=== PATIENT | female | born 1960 | race Two or more races ===

== ENCOUNTER 2020-06-17 08:05 | Outpatient (REF) | payer OTHER, SELFPAY ==
[2020-06-17 09:14] LABS: MANUAL DIFF FLAG NO
[2020-06-17 09:35] LABS: Basophils Percent Auto 0.6 % (0-2); Eosinophils Absolute Auto 0.1 X10*3/uL (0.0-0.4); Eosinophils Percent Auto 1.3 % (0-4); Hematocrit 44.7 % (37-47); Hemoglobin 13.9 g/dl (12.0-16.0); Imm Gran Abs Auto 0.02 X10*3/uL (0.00-0.03); Imm Gran Pct Auto 0.3 % (0.0-0.4); Lymphocytes Absolute Auto 2.3 X10*3/uL (1.2-4.9); Lymphocytes Percent Auto 36.4 % (20-40); Mean Corpuscular HGB Conc 31.1 g/dl (31.0-35.0); Mean Corpuscular Volume 90.1 fL (80-98); Mean Platelet Volume 11.3 fL (9.4-12.3); Monocytes Absolute Auto 0.5 X10*3/uL (0.1-1.2); Monocytes Percent Auto 7.3 % (2-11); Neutrophils Absolute Auto 3.4 X10*3/uL (2.0-8.3); Neutrophils Percent Auto 54.1 % (45-73); Platelet Count 204 X10*3/uL (160-400); Red Blood Count 4.96 X10*6/uL (4.20-5.50); White Blood Count 6.3 X10*3/uL (4.8-10.8)
[2020-06-17 10:05] LABS: Glucose Urine UA NEG (NEG); Leukocyte Esterase Urine 1+ (NEG); Nitrite Urine NEG (NEG); PH 5.5 (5.0-8.0); Specific Gravity - Urine >= 1.030 (1.005-1.025); Urine Blood NEG (NEG); Urine Ketones NEG (NEG); Urine Protein NEG (NEG-TRACE)
[2020-06-17 10:09] LABS: Appearance Urine CLEAR; Color Urine YELLOW
[2020-06-17 10:18] LABS: Creatinine Urine 184.61 mg/dL
[2020-06-17 10:29] LABS: Alanine Aminotransferase 46 U/L (0-31); Albumin Level 4.3 g/dL (3.5-5.0); Alkaline Phosphatase 134 U/L (39-117); Anion Gap 11 (12-20); Aspartate Amino Transferase 27 U/L (5-31); Bilirubin Total 0.4 mg/dL (0.0-1.0); Blood Urea Nitrogen 11 mg/dL (9-16); Carbon Dioxide 31 mmol/L (22-29); Chloride 104 mmol/L (96-108); Cholesterol 154 mg/dL; Estimated Glomerular Filt Rate > 60; Glucose Fasting 171 mg/dL (60-99); HDL Cholesterol 30 mg/dL; LDL Cholesterol Calculated 93 mg/dl; Potassium 4.4 mmol/l (3.3-5.1); Sodium 142 mmol/L (135-145); Total Protein 7.3 g/dL (6.5-8.0); Triglycerides 155 mg/dL
[2020-06-17 10:53] LABS: TSH reflex Free T4 4.28 mIU/mL (0.32-4.0); Vitamin D 25-OH Total 18.7 ng/mL (>30)
[2020-06-17 10:56] LABS: Folate 11.3 ng/mL (> or = 4.0); Vitamin B12 521 pg/mL (200-900)
[2020-06-17 10:58] LABS: Bacteria Urine 1+ /LPF; RBC Urine 0-2 /HPF (0); Squamous Epithelial Cell Urine 2+ /LPF
[2020-06-17 11:26] LABS: Free T4 (Free Thyroxine) 0.75 ng/dL (0.71-1.85)
== END 2020-06-17 08:06 | disposition home or self-care (01) ==
LOC: HO.LAB 08:05
PROVIDERS: PCP Internal Medicine; Visit Provider Internal Medicine Nephrology
DX: E11.3413 Type 2 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, bilateral (principal); E11.22 Type 2 diabetes mellitus with diabetic chronic kidney disease; E11.40 Type 2 diabetes mellitus with diabetic neuropathy, unspecified; E11.21 Type 2 diabetes mellitus with diabetic nephropathy; I12.9 Hypertensive chronic kidney disease with stage 1 through stage 4 chronic kidney disease, or unspecified chronic kidney disease; N18.1 Chronic kidney disease, stage 1; E78.00 Pure hypercholesterolemia, unspecified; I10 Essential (primary) hypertension; E55.9 Vitamin D deficiency, unspecified; E66.9 Obesity, unspecified; R80.9 Proteinuria, unspecified
CPT/HCPCS: 36415; 80053; 80061; 81001; 81003; 81015; 82043; 82306; 82607; 82746; 84439; 84443; 85025; 87086

== ENCOUNTER → 2020-07-15 10:16 | Outpatient (BNVA) | payer OTHER, SELFPAY | PROVIDERS: PCP Internal Medicine; Referring Provider Internal Medicine; Visit Provider Internal Medicine Endocrinology, Diabetes & Metabolism | DX: Z76.89 Persons encountering health services in other specified circumstances (principal) ==

== ENCOUNTER → 2020-07-16 10:11 | Outpatient (BNVA) | payer OTHER, SELFPAY | PROVIDERS: PCP Internal Medicine; Visit Provider Nurse Practitioner Gerontology | DX: E11.65 Type 2 diabetes mellitus with hyperglycemia (principal); E11.42 Type 2 diabetes mellitus with diabetic polyneuropathy; E11.3413 Type 2 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, bilateral; E11.21 Type 2 diabetes mellitus with diabetic nephropathy; Z79.4 Long term (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 of insulin; E78.5 Hyperlipidemia, unspecified; I10 Essential (primary) hypertension | CPT/HCPCS: 82947; 99212 ==

== ENCOUNTER → 2020-07-19 09:32 | Outpatient (BNVA) | payer OTHER, SELFPAY | PROVIDERS: PCP Internal Medicine; Referring Provider Internal Medicine; Visit Provider Nurse Practitioner | DX: Z76.89 Persons encountering health services in other specified circumstances (principal) ==

== ENCOUNTER → 2020-10-11 09:54 | Outpatient (BNVA) | payer OTHER, SELFPAY | PROVIDERS: PCP Internal Medicine; Visit Provider Internal Medicine Endocrinology, Diabetes & Metabolism | DX: E11.3413 Type 2 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, bilateral (principal); E11.40 Type 2 diabetes mellitus with diabetic neuropathy, unspecified; E11.43 Type 2 diabetes mellitus with diabetic autonomic (poly)neuropathy; Z79.4 Long term (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 of insulin; E78.00 Pure hypercholesterolemia, unspecified; I10 Essential (primary) hypertension; E55.9 Vitamin D deficiency, unspecified; E66.9 Obesity, unspecified; K31.84 Gastroparesis | CPT/HCPCS: 82947; 99212 ==

== ENCOUNTER 2020-10-11 11:26 | Outpatient (REF) | payer OTHER, SELFPAY ==
[2020-10-11 13:36] LABS: MANUAL DIFF FLAG NO
[2020-10-11 13:52] LABS: Basophils Percent Auto 0.6 % (0-2); Eosinophils Absolute Auto 0.1 X10*3/uL (0.0-0.4); Hemoglobin 13.7 g/dl (12.0-16.0); Imm Gran Abs Auto 0.03 X10*3/uL (0.00-0.03); Imm Gran Pct Auto 0.4 % (0.0-0.4); Lymphocytes Absolute Auto 2.1 X10*3/uL (1.2-4.9); Lymphocytes Percent Auto 29.7 % (20-40); Mean Corpuscular HGB Conc 31.1 g/dl (31.0-35.0); Mean Corpuscular Hemoglobin 27.9 pg (27.0-33.0); Mean Corpuscular Volume 89.6 fL (80-98); Monocytes Absolute Auto 0.4 X10*3/uL (0.1-1.2); Monocytes Percent Auto 6.1 % (2-11); Neutrophils Absolute Auto 4.4 X10*3/uL (2.0-8.3); Neutrophils Percent Auto 62.2 % (45-73); Platelet Count 214 X10*3/uL (160-400); Red Blood Count 4.91 X10*6/uL (4.20-5.50); Red Cell Distribution Width 12.7 % (11.0-16.0)
[2020-10-11 14:05] LABS: Glucose Urine UA NEG (NEG); Leukocyte Esterase Urine NEG (NEG); Nitrite Urine NEG (NEG); Specific Gravity - Urine 1.025 (1.005-1.025); Urine Blood NEG (NEG); Urine Ketones NEG (NEG); Urine Protein NEG (NEG-TRACE)
[2020-10-11 14:24] LABS: Appearance Urine CLEAR; Color Urine YELLOW
[2020-10-11 14:31] LABS: Alanine Aminotransferase 51 U/L (0-31); Albumin Level 4.6 g/dL (3.5-5.0); Alkaline Phosphatase 126 U/L (39-117); Anion Gap 16 (12-20); Aspartate Amino Transferase 30 U/L (5-31); Bilirubin Total 0.7 mg/dL (0.0-1.0); Blood Urea Nitrogen 15 mg/dL (9-16); Calcium 9.7 mg/dL (8.4-10.2); Carbon Dioxide 28 mmol/L (22-29); Chloride 104 mmol/L (96-108); Cholesterol 188 mg/dL; Estimated Glomerular Filt Rate > 60; Glucose Fasting 146 mg/dL (60-99); HDL Cholesterol 37 mg/dL; LDL Cholesterol Calculated 113 mg/dl; Potassium 4.2 mmol/L (3.3-5.1); Sodium 144 mmol/L (135-145); Total Protein 7.9 g/dL (6.5-8.0); Triglycerides 190 mg/dL
[2020-10-11 14:35] LABS: TSH reflex Free T4 2.79 uIU/mL (0.32-4.0); Vitamin D 25-OH Total 32.2 ng/mL (>30)
[2020-10-11 14:36] LABS: Free T4 (Free Thyroxine) 0.79 ng/dL (0.71-1.85); Thyroid Stimulating Hormone 2.72 uIU/mL (0.32-4.0)
[2020-10-11 14:39] LABS: Creatinine Urine 56.35 mg/dL; Microalbum/Creatinine Ratio Ur 70.9 ug/mg cr
[2020-10-11 15:22] LABS: Folate 10.6 ng/mL (> or = 4.0); Vitamin B12 477 pg/mL (200-900)
[2020-10-12 02:28] LABS: LDL Cholesterol Direct 131 mg/dL (<100)
[2020-10-14 12:26] LABS: Alpha Fetoprotein 2.5 ng/mL
== END 2020-10-11 11:27 | disposition home or self-care (01) ==
LOC: HO.10HDL 11:26
PROVIDERS: Absent Provider Internal Medicine; Referring Provider Nurse Practitioner; Visit Provider Internal Medicine Endocrinology, Diabetes & Metabolism
DX: K75.81 Nonalcoholic steatohepatitis (NASH) (principal); I10 Essential (primary) hypertension; E11.40 Type 2 diabetes mellitus with diabetic neuropathy, unspecified; E78.00 Pure hypercholesterolemia, unspecified; E11.3413 Type 2 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, bilateral; Z79.4 Long term (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 of insulin; E66.9 Obesity, unspecified; E55.9 Vitamin D deficiency, unspecified
CPT/HCPCS: 36415; 80053; 80061; 81003; 82043; 82105; 82306; 82607; 82746; 83721; 84439; 84443; 85025

== ENCOUNTER → 2020-12-05 10:35 | Outpatient (BNVA) | payer OTHER, SELFPAY | PROVIDERS: PCP Internal Medicine; Visit Provider Dietitian, Registered | DX: E11.21 Type 2 diabetes mellitus with diabetic nephropathy (principal) | CPT/HCPCS: 97802 ==

== ENCOUNTER → 2021-01-06 13:02 | Outpatient (BNVA) | payer OTHER, SELFPAY | PROVIDERS: PCP Internal Medicine; Visit Provider Dietitian, Registered | DX: E11.21 Type 2 diabetes mellitus with diabetic nephropathy (principal) | CPT/HCPCS: 97803 ==

== ENCOUNTER → 2021-01-16 09:04 | Outpatient (BNVA) | payer OTHER, SELFPAY | PROVIDERS: PCP Internal Medicine; Visit Provider Nurse Practitioner ==

== ENCOUNTER 2021-01-20 08:16 | Outpatient (REF) | payer OTHER, SELFPAY ==
[2021-01-20 09:19] LABS: Anion Gap 13 (12-20); Blood Urea Nitrogen 18 mg/dL (9-16); Calcium 9.7 mg/dL (8.4-10.2); Carbon Dioxide 29 mmol/L (22-29); Chloride 105 mmol/L (96-108); Estimated Glomerular Filt Rate > 60; Phosphorus 3.7 mg/dL (2.7-4.5); Potassium 4.7 mmol/L (3.3-5.1); Sodium 142 mmol/L (135-145)
[2021-01-20 09:30] LABS: Creatinine Urine 128.67 mg/dL; Microalbum/Creatinine Ratio Ur 27.2 ug/mg cr
[2021-01-20 11:22] LABS: Renal w Reflex Lab Use Only Order verified
== END 2021-01-20 08:17 | disposition home or self-care (01) ==
LOC: HO.LAB 08:16
PROVIDERS: PCP Internal Medicine; Visit Provider Internal Medicine Nephrology
DX: I12.9 Hypertensive chronic kidney disease with stage 1 through stage 4 chronic kidney disease, or unspecified chronic kidney disease (principal); R80.9 Proteinuria, unspecified; N18.1 Chronic kidney disease, stage 1; E11.21 Type 2 diabetes mellitus with diabetic nephropathy
CPT/HCPCS: 36415; 80051; 82043; 82310; 82565; 84100; 84520

== ENCOUNTER 2021-01-30 | Outpatient (REF) | payer OTHER, SELFPAY | END 2021-01-30 00:01 | LOC: CF | PROVIDERS: PCP Internal Medicine; Visit Provider Dietitian, Registered | DX: K75.81 Nonalcoholic steatohepatitis (NASH) (principal); E11.43 Type 2 diabetes mellitus with diabetic autonomic (poly)neuropathy; K31.84 Gastroparesis; E11.21 Type 2 diabetes mellitus with diabetic nephropathy; E11.3413 Type 2 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, bilateral; E66.9 Obesity, unspecified; E78.5 Hyperlipidemia, unspecified; E55.9 Vitamin D deficiency, unspecified; K21.9 Gastro-esophageal reflux disease without esophagitis; Z79.4 Long term (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 of insulin | CPT/HCPCS: 97803 ==

== ENCOUNTER → 2021-02-12 09:12 | Outpatient (BNVA) | payer OTHER, SELFPAY | PROVIDERS: PCP Internal Medicine; Visit Provider Internal Medicine Endocrinology, Diabetes & Metabolism | DX: E11.3413 Type 2 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, bilateral (principal); E11.42 Type 2 diabetes mellitus with diabetic polyneuropathy; E11.43 Type 2 diabetes mellitus with diabetic autonomic (poly)neuropathy; E78.00 Pure hypercholesterolemia, unspecified; E55.9 Vitamin D deficiency, unspecified; E66.9 Obesity, unspecified; I10 Essential (primary) hypertension; K31.84 Gastroparesis; Z79.4 Long term (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 of insulin | CPT/HCPCS: 82947; 99212 ==

== ENCOUNTER 2021-04-11 07:17 | Outpatient (REF) | payer OTHER, SELFPAY ==
[2021-04-11 08:35] LABS: MANUAL DIFF FLAG NO
[2021-04-11 08:42] LABS: Basophils Percent Auto 0.3 % (0-2); Eosinophils Absolute Auto 0.1 X10*3/uL (0.0-0.4); Eosinophils Percent Auto 1.1 % (0-4); Hematocrit 38.6 % (37-47); Hemoglobin 12.4 g/dl (12.0-16.0); Imm Gran Abs Auto 0.01 X10*3/uL (0.00-0.03); Imm Gran Pct Auto 0.2 % (0.0-0.4); Lymphocytes Absolute Auto 2.6 X10*3/uL (1.2-4.9); Lymphocytes Percent Auto 38.9 % (20-40); Mean Corpuscular HGB Conc 32.1 g/dl (31.0-35.0); Mean Corpuscular Hemoglobin 28.7 pg (27.0-33.0); Mean Corpuscular Volume 89.4 fL (80-98); Mean Platelet Volume 11.8 fL (9.4-12.3); Monocytes Absolute Auto 0.5 X10*3/uL (0.1-1.2); Monocytes Percent Auto 7.9 % (2-11); Neutrophils Absolute Auto 3.4 X10*3/uL (2.0-8.3); Neutrophils Percent Auto 51.6 % (45-73); Platelet Count 207 X10*3/uL (160-400); Red Blood Count 4.32 X10*6/uL (4.20-5.50); Red Cell Distribution Width 12.8 % (11.0-16.0); White Blood Count 6.6 X10*3/uL (4.8-10.8)
[2021-04-11 08:49] LABS: Estimated Average Glucose 186 mg/dL; Hemoglobin A1c % 8.1 %
[2021-04-11 09:19] LABS: Alanine Aminotransferase 28 U/L (0-31); Albumin Level 4.2 g/dL (3.5-5.0); Alkaline Phosphatase 123 U/L (39-117); Anion Gap 13 (12-20); Aspartate Amino Transferase 15 U/L (5-31); Bilirubin Total 0.6 mg/dL (0.0-1.0); Blood Urea Nitrogen 13 mg/dL (9-16); Calcium 9.1 mg/dL (8.4-10.2); Carbon Dioxide 26 mmol/L (22-29); Chloride 109 mmol/L (96-108); Cholesterol 136 mg/dL; Estimated Glomerular Filt Rate > 60; Glucose Fasting 214 mg/dL (60-99); HDL Cholesterol 28 mg/dL; LDL Cholesterol Calculated 75 mg/dl; Potassium 4.1 mmol/L (3.3-5.1); Sodium 144 mmol/L (135-145); Triglycerides 167 mg/dL
[2021-04-11 09:22] LABS: Vitamin D 25-OH Total 28.2 ng/mL (>30)
[2021-04-11 09:37] LABS: Creatinine Urine 203.12 mg/dL; Microalbum/Creatinine Ratio Ur 27.5 ug/mg cr
== END 2021-04-11 07:18 | disposition home or self-care (01) ==
LOC: HO.LAB 07:17
PROVIDERS: PCP Internal Medicine; Visit Provider Internal Medicine
DX: I10 Essential (primary) hypertension (principal); E78.00 Pure hypercholesterolemia, unspecified; E11.3413 Type 2 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, bilateral; E55.9 Vitamin D deficiency, unspecified; Z79.4 Long term (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 of insulin
CPT/HCPCS: 36415; 80053; 80061; 82043; 82306; 83036; 85025

== ENCOUNTER → 2021-05-06 11:44 | Outpatient (BNVA) | payer OTHER, SELFPAY | PROVIDERS: PCP Internal Medicine; Visit Provider Dietitian, Registered | DX: E11.21 Type 2 diabetes mellitus with diabetic nephropathy (principal) | CPT/HCPCS: 97803 ==

== ENCOUNTER → 2021-06-18 09:47 | Outpatient (BNVA) | payer OTHER, SELFPAY | PROVIDERS: PCP Internal Medicine; Visit Provider Nurse Practitioner Gerontology | DX: E11.3413 Type 2 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, bilateral (principal); E11.42 Type 2 diabetes mellitus with diabetic polyneuropathy; E11.43 Type 2 diabetes mellitus with diabetic autonomic (poly)neuropathy; E11.65 Type 2 diabetes mellitus with hyperglycemia; E78.00 Pure hypercholesterolemia, unspecified; E55.9 Vitamin D deficiency, unspecified; E66.9 Obesity, unspecified; K31.84 Gastroparesis; Z79.4 Long term (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 of insulin; I10 Essential (primary) hypertension | CPT/HCPCS: 82947; 99212 ==

== ENCOUNTER 2021-07-07 07:53 | Outpatient (REF) | payer OTHER, SELFPAY ==
[2021-07-07 08:20] LABS: MANUAL DIFF FLAG NO
[2021-07-07 08:34] LABS: Basophils Percent Auto 0.2 % (0-2); Eosinophils Percent Auto 0.5 % (0-4); Hematocrit 40.4 % (37.0-47.0); Imm Gran Abs Auto 0.01 X10*3/uL (0.00-0.03); Imm Gran Pct Auto 0.2 % (0.0-0.4); Lymphocytes Percent Auto 35.2 % (20-40); Mean Corpuscular HGB Conc 32.2 g/dl (31.0-35.0); Mean Corpuscular Hemoglobin 28.5 pg (27.0-33.0); Mean Corpuscular Volume 88.6 fL (80.0-98.0); Mean Platelet Volume 11.2 fL (9.4-12.3); Monocytes Absolute Auto 0.4 X10*3/uL (0.1-1.2); Monocytes Percent Auto 6.4 % (2-11); Neutrophils Absolute Auto 3.3 x10*3/uL (2.0-8.3); Neutrophils Percent Auto 57.5 % (45-73); Platelet Count 174 X10*3/uL (160-400); Red Blood Count 4.56 X10*6/uL (4.20-5.50); Red Cell Distribution Width 12.5 % (11.0-16.0); White Blood Count 5.8 X10*3/uL (4.8-10.8)
[2021-07-07 08:52] LABS: Estimated Average Glucose 197 mg/dL; Hemoglobin A1c % 8.5 %
[2021-07-07 09:04] LABS: Alanine Aminotransferase 36 U/L (0-31); Albumin Level 4.2 g/dL (3.5-5.0); Alkaline Phosphatase 131 U/L (39-117); Anion Gap 12 (12-20); Aspartate Amino Transferase 19 U/L (5-31); Bilirubin Total 0.6 mg/dL (0.0-1.0); Blood Urea Nitrogen 12 mg/dL (9-16); Calcium 9.3 mg/dL (8.4-10.2); Carbon Dioxide 28 mmol/L (22-29); Chloride 105 mmol/L (96-108); Cholesterol 121 mg/dL; Estimated Glomerular Filt Rate > 60; Glucose Fasting 267 mg/dL (60-99); HDL Cholesterol 28 mg/dL; LDL Cholesterol Calculated 66 mg/dl; Potassium 4.3 mmol/L (3.3-5.1); Sodium 141 mmol/L (135-145); Triglycerides 136 mg/dL
[2021-07-07 09:25] LABS: TSH reflex Free T4 3.39 uIU/mL (0.32-4.0); Vitamin D 25-OH Total 32.3 ng/mL (>30)
[2021-07-07 10:25] LABS: Vitamin B12 470 pg/mL (200-900)
[2021-07-07 10:42] LABS: Appearance Urine CLEAR; Color Urine YELLOW; Glucose Urine UA 500 MG/DL (NEG); Leukocyte Esterase Urine NEG (NEG); Nitrite Urine NEG (NEG); PH 5.5 (5.0-8.0); Specific Gravity - Urine >= 1.030 (1.005-1.025); UACC Culture Trigger NO; Urine Blood TRACE (NEG); Urine Ketones NEG (NEG); Urine Protein NEG (NEG-TRACE)
[2021-07-07 11:23] LABS: RBC Urine 0 /HPF (0); Squamous Epithelial Cell Urine 1+ /LPF
[2021-07-07 11:24] LABS: Bacteria Urine TRACE /LPF
[2021-07-07 14:32] LABS: Creatinine Urine 135.49 mg/dL
== END 2021-07-07 07:54 | disposition home or self-care (01) ==
LOC: HO.LAB 07:53
PROVIDERS: PCP Internal Medicine; Visit Provider Internal Medicine
DX: I10 Essential (primary) hypertension (principal); E78.00 Pure hypercholesterolemia, unspecified; E53.8 Deficiency of other specified B group vitamins; E11.42 Type 2 diabetes mellitus with diabetic polyneuropathy; E55.9 Vitamin D deficiency, unspecified
CPT/HCPCS: 36415; 80053; 80061; 81001; 82043; 82306; 82607; 82746; 83036; 84443; 85025

== ENCOUNTER → 2021-08-05 13:34 | Outpatient (BNVA) | payer OTHER, SELFPAY | PROVIDERS: PCP Internal Medicine; Visit Provider Dietitian, Registered | DX: E11.21 Type 2 diabetes mellitus with diabetic nephropathy (principal) | CPT/HCPCS: 97803 ==

== ENCOUNTER 2021-08-21 10:10 | Outpatient (REF) | payer OTHER, SELFPAY ==
--- NOTE | ~2021-08-21 | US_ITS ---
EXAMINATION: US ABDOMEN LIMITED CLINICAL INFORMATION: Nonalcoholic steatohepatitis. COMPARISON: Ultrasound abdomen 01/25/2020 and 07/03/2019. CT abdomen and pelvis 11/07/2016. TECHNIQUE: Real-time imaging of the right upper quadrant abdominal viscera. FINDINGS: PANCREAS: Normal head. The body and tail are obscured by bowel gas. LIVER: The liver is normal in size. The liver contour is normal. There is diffuse increased liver parenchymal echogenicity, consistent with hepatic steatosis. No focal hepatic lesion. There is no intrahepatic biliary duct dilatation seen. GALLBLADDER: Surgically absent. COMMON BILE DUCT: Normal in caliber measuring 0.6 cm in diameter. RIGHT KIDNEY: Normal. No hydronephrosis. No renal calculi or focal parenchymal lesions. The kidney measures 12.7 cm in maximum dimension. FREE FLUID: None. US/US abdomen limited IMPRESSION: Redemonstration of hepatic steatosis. No focal lesion. Otherwise normal right upper quadrant abdominal ultrasound.
== END 2021-08-21 10:11 | disposition home or self-care (01) ==
LOC: HO.US 10:10
PROVIDERS: PCP Internal Medicine; Visit Provider Nurse Practitioner
DX: K75.81 Nonalcoholic steatohepatitis (NASH) (principal)
CPT/HCPCS: 76705

== ENCOUNTER → 2021-09-02 09:10 | Outpatient (BNVA) | payer OTHER, SELFPAY | PROVIDERS: PCP Internal Medicine; Referring Provider Internal Medicine; Visit Provider Nurse Practitioner | DX: K75.81 Nonalcoholic steatohepatitis (NASH) (principal); K31.84 Gastroparesis; K21.9 Gastro-esophageal reflux disease without esophagitis; K59.00 Constipation, unspecified; E11.43 Type 2 diabetes mellitus with diabetic autonomic (poly)neuropathy | CPT/HCPCS: 99212 ==

== ENCOUNTER 2021-09-26 11:31 | Emergency (ER) | payer OTHER, SELFPAY ==
--- NOTE | ~2021-09-26 | CT_ITS ---
EXAMINATION: CT HEAD WITHOUT CONTRAST CLINICAL INFORMATION: Vertigo. COMPARISON: None TECHNIQUE: Contiguous axial imaging was performed from the skull base to vertex without intravenous administration of contrast. This CT examination was performed using dose optimization techniques as appropriate, variously including the following: *Automated exposure control *Adjustment of mA and/or kV according to patient size (this includes techniques or standardized protocols for targeted exams where dose is matched to indication/reason for exam; i.e. extremities or head) *Use of iterative reconstruction technique DLP: 690 mGy-cm FINDINGS: There is no evidence of acute intracranial hemorrhage or territorial infarction. No abnormal mass effect or midline shift is seen. Bourne to white matter differentiation is well preserved. No extra-axial fluid collections are identified. The ventricles are normal in size. There is no abnormal attenuation within the brain parenchyma. The osseous structures and soft tissues are normal. The mastoid air cells and visualized portions of the paranasal sinuses are well aerated. CT/CT head/brain wo con IMPRESSION: No acute intracranial process seen
[2021-09-26 11:42] VITALS: BP 132/80; PULSE 73; RESP 18; TEMP 36.8; O2SAT 97; BMI 37.9
--- NOTE | 2021-09-26 11:56 | ECG_ITS ---
Test Reason : DIZZINESS Blood Pressure : / mmHG Vent. Rate : 078 BPM Atrial Rate : 078 BPM P-R Int : 164 ms QRS Dur : 150 ms QT Int : 424 ms P-R-T Axes : 055 -08 015 degrees QTc Int : 483 ms Normal sinus rhythm Right bundle branch block Abnormal ECG When compared to the previous EKG of Right bundle branch block is now Present Referred By: Generic ED Physician Electronically Signed By:CARL NELSON MD
--- NOTE | 2021-09-26 11:58 | ED_ITS ---
HPI - Dizziness General Chief Complaint: Dizziness Stated Complaint: Dizzy/nausea Time Seen by Provider: 09/26/21 11:58 Source: patient Mode of arrival: ambulatory Limitations: no limitations History of Present Illness HPI Narrative: dizziness and nausea, and off balance, patient denies movement to the room. Patient has a history of vertigo, today she feels wobbly and dizzy MD elicited complaint: dizziness Onset (ago): hour(s) Timing: gradual onset Severity: moderate Exacerbating factors: change in body position Related Data Home Medications Medication Instructions Recorded Confirmed losartan 100 mg tablet 100 mg PO DAILY 06/18/21 07/08/21 Previous Rx's Medication Instructions Recorded FreeStyle Lite Strips (blood sugar 1 strip MISCELLANEOUS .5-6 TIMES 10/11/20 diagnostic) DAILY 30 Days #150 ea NS bisacodyl 5 mg tablet,delayed 5 - 10 mg PO DAILY PRN 30 Days 01/16/21 #60 release tab metoclopramide HCl 10 mg tablet 10 mg PO .tid ac 30 Days #90 tab 01/16/21 (Reglan) BD Ultra-Fine Micro Pen Needle 32 #100 ea NS 02/12/21 gauge x 1/4 (pen needle, diabetic) Humulin R U-500 (Conc) Kwikpen 500 See Rx Instructions SUBCUT .3 02/12/21 unit/mL (3 mL) subcutaneous times a day 30 Days #12 ml NS (insulin regular hum U-500 conc) cholecalciferol (vitamin D3) 50 50 mcg PO DAILY #30 cap 04/01/21 mcg (2,000 unit) capsule atorvastatin 80 mg tablet 80 mg PO BEDTIME #90 tab 05/02/21 gabapentin 300 mg capsule 300 mg PO TID #90 cap 05/02/21 lorazepam 1 mg tablet 1 mg PO BID PRN 30 Days #60 tab 08/19/21 omeprazole 40 mg capsule,delayed 40 mg PO DAILY #30 cap 09/04/21 release meclizine 25 mg tablet 25 mg PO TID PRN #20 tab 09/26/21 ondansetron 4 mg disintegrating 4 mg PO Q8H 4 Days #12 tab 09/26/21 tablet Allergies Allergy/AdvReac Type Severity Reaction Status Date / Time No Known Allergies Allergy Verified 09/26/21 11:41 Review of Systems Verdana 4l Constitutional: Verdana 4d Constitutional: Verdana 4d Verdana 4d Reports no additional constitutional complaints Verdana 4l Eyes: Verdana 4d Verdana 4d Eyes: Verdana 4d Reports no additional eye complaints Verdana 4l ENT: Verdana 4d Denies dizziness Verdana 4l Cardiovascular: Verdana 4d Cardiovascular: Verdana 4d Verdana 4d Reports no additional cardiovascular complaints Verdana 4l Respiratory: Verdana 4d Verdana 4d Respiratory: Verdana 4d Reports as per HPI Verdana 4l Gastrointestinal: Verdana 4d Gastrointestinal: Verdana 4d Verdana 4d Reports no additional gastrointestinal complaints Verdana 4l Genitourinary: Verdana 4d Verdana 4d Genitourinary: Verdana 4d Reports no additional female genitourinary complaints Verdana 4l Musculoskeletal: Verdana 4d Musculoskeletal: Verdana 4d Verdana 4d Reports no additional musculoskeletal complaints Verdana 4l Integumentary/Breasts: Verdana 4d Skin/Breast: Verdana 4d Verdana 4d Denies rash Verdana 4l Neurologic: Verdana 4d Reports system reviewed and no additional complaints, except as documented, Denies dizziness and Denies Sensory deficit (Neuro) Verdana 4l Psychiatric: Verdana 4d Verdana 4d Psychiatric: Verdana 4d Denies anxiety PMFSH Past Medical History Medical History Anxiety Benign essential hypertension Depression Diabetic nephropathy associated with type 2 diabetes mellitus Diabetic neuropathy Dyslipidemia Gastroparesis due to DM GERD (gastroesophageal reflux disease) 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 Lumbar degenerative disc disease Obesity (BMI 30-39.9) Pure hypercholesterolemia Rheumatic fever Type 2 diabetes mellitus with diabetic polyneuropathy 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, bilateral Vitamin D deficiency Surgical History History of carpal tunnel release History of cholecystectomy History of esophagogastroduodenoscopy (EGD) History of partial hysterectomy History of repair of rotator cuff History of surgery Hx of colonoscopy Family History Family History Father Diabetes Mother Diabetes CVD (cardiovascular disease) Social History Social History Housing: Apartment Alcohol intake: never Patient Tobacco Use Status: Former Tobacco user Second Hand Smoke Exposure: Yes Use of substances other than those prescribed or required for medical reasons: No Substance Use Type: Crack/Cocaine, Former Substance User and Marijuana Advance Directives: Yes Advance Directives Information Provided: Yes Advance Directives on File: No service: No Current occupational status: disabled Physical Exam Verdana 4l Vital Signs: Verdana 4d Verdana 4d Vital Signs: Verdana 4d Verdana 4Bd Last Vital Signs Verdana 4d Solid Propellant Processor New 4d Solid Propellant Processor New 4d Temp 98.6 F 09/26/21 14:19 Solid Propellant Processor New 4d Pulse 82 09/26/21 14:19 Solid Propellant Processor New 4d Resp 17 09/26/21 14:19 BP 135/62 09/26/21 14:19 Pulse Ox 98 09/26/21 14:19 BMI result Body Mass Index 37.9 Const: Other: Anxious obese female Nutritional Appearance: average body habitus Orien tation/consciousness: oriented to person and patient oriented x3 Limitations: no limitations HENMT: Head: Yes normal to inspection Ears: external ears normal General nose exam: Normal external nose present Mouth: Normal oral and palatal mucosa present and oropharynx normal Throat: Yes posterior oropharynx normal Eyes: Other: on left gaze rotatory nystagmus with symptoms General: appearance normal, both eyes and all related structures Neck: Other: supple Neck: Yes normal visual inspection Chest: Chest palpation & inspection: normal inspection of the chest Resp: Auscultation: clear to auscultation bilaterally Cardio: Jugular venous distension: no JVD Rate: regular rate Rhythm: regular rhythm Heart sounds: S1 normal heart sound present and S2 normal heart sound present GI: Inspection: Yes normal to inspection Palpation (GI): Soft to palpation, nontender and No hepatosplenomegaly present Auscultation: normal bowel sounds : General: Yes no CVA tenderness Back/Spine/Pelvis: Back: no CVA tenderness Skin: General skin exam: no rashes or lesions noted Neuro: Other: no past pointing, symmetric General: oriented to person and patient oriented x3 Cranial nerves: Yes CN's II-XII intact bilaterally Motor exam (neuro): 5/5 motor strength present throughout Sensory Exam: No Sensory deficit (Neuro) Extrem: General: Yes normal to inspection Psych: Appearance: grossly normal Course Reevaluation(s) Reevaluation #1: Patient feeling better, not nauseated. will dc home on meclizine and zofran for vertigo Time: 15:12 [facility] - Dizziness Lab Data Result diagrams: 09/26/21 12:20 09/26/21 12:20 Labs: Lab Results 09/26/21 09/26/21 09/26/21 Range/Units 11:57 12:20 12:20 WBC 6.5 (4.8-10.8) X10*3/uL RBC 4.55 (4.20-5.50) X10*6/uL Hgb 12.9 (12.0-16.0) g/dl Hct 41.0 (37.0-47.0) % MCV 90.1 (80.0-98.0) fL MCH 28.4 (27.0-33.0) pg MCHC 31.5 (31.0-35.0) g/dl RDW 12.5 (11.0-16.0) % Plt Count 197 (160-400) X10*3/uL MPV 10.8 (9.4-12.3) fL Immature Gran % (Auto) 0.3 (0.0-0.4) % Neut % (Auto) 63.6 (45-73) % Lymph % (Auto) 26.7 (20-40) % [place] % (Auto) 8.5 (2-11) % Eos % (Auto) 0.6 (0-4) % Baso % (Auto) 0.3 (0-2) % Lymph # (Auto) 1.7 (1.2-4.9) X10*3/uL [place] # (Auto) 0.6 (0.1-1.2) X10*3/uL Eos # (Auto) 0.0 (0.0-0.4) X10*3/uL Baso # (Auto) 0.0 (0.0-0.2) X10*3/uL Abs Immat Gran (auto) 0.02 (0.00-0.03) X10*3/uL Absolute Neuts (auto) 4.1 (2.0-8.3) x10*3/uL Absolute Nucleated RBC 0.000 (0.0-0.012) X10*3/uL Nucleated RBC % (auto) 0.0 (0.0-0.2) /100WBC Sodium 143 (135-145) mmol/L Potassium 5.0 (3.3-5.1) mmol/L Chloride 105 (96-108) mmol/L Carbon Dioxide 31 H (22-29) mmol/L Anion Gap 12 (12-20) BUN 11 (9-16) mg/dL Creatinine 0.78 (0.5-1.4) mg/dL Estim Creat Clear Calc 91.1 Estimated GFR > 60 POC Glucose 173 H (60-115) mg/dL Random Glucose 164 H (60-115) mg/dL Calcium 9.5 (8.4-10.2) mg/dL Urine Color Urine Appearance Urine pH (5.0-8.0) Ur Specific [place] (1.005-1.025) Urine Protein (NEG-TRACE) MG/DL Urine Glucose (UA) (NEG) MG/DL Urine Ketones (NEG) MG/DL Urine Blood (NEG) Urine Nitrite (NEG) Ur Leukocyte Esterase (NEG) Urine RBC (0) /HPF Urine WBC (0-4) /HPF Ur Squamous Epith Cells /LPF Urine Bacteria /LPF 09/26/21 Range/Units 14:25 WBC (4.8-10.8) X10*3/uL RBC (4.20-5.50) X10*6/uL Hgb (12.0-16.0) g/dl Hct (37.0-47.0) % MCV (80.0-98.0) fL MCH (27.0-33.0) pg MCHC (31.0-35.0) g/dl RDW (11.0-16.0) % Plt Count (160-400) X10*3/uL MPV (9.4-12.3) fL Immature Gran % (Auto) (0.0-0.4) % Neut % (Auto) (45-73) % Lymph % (Auto) (20-40) % [place] % (Auto) (2-11) % Eos % (Auto) (0-4) % Baso % (Auto) (0-2) % Lymph # (Auto) (1.2-4.9) X10*3/uL [place] # (Auto) (0.1-1.2) X10*3/uL Eos # (Auto) (0.0-0.4) X10*3/uL Baso # (Auto) (0.0-0.2) X10*3/uL Abs Immat Gran (auto) (0.00-0.03) X10*3/uL Absolute Neuts (auto) (2.0-8.3) x10*3/uL Absolute Nucleated RBC (0.0-0.012) X10*3/uL Nucleated RBC % (auto) (0.0-0.2) /100WBC Sodium (135-145) mmol/L Potassium (3.3-5.1) mmol/L Chloride (96-108) mmol/L Carbon Dioxide (22-29) mmol/L Anion Gap (12-20) BUN (9-16) mg/dL Creatinine (0.5-1.4) mg/dL Estim Creat Clear Calc Estimated GFR POC Glucose (60-115) mg/dL Random Glucose (60-115) mg/dL Calcium (8.4-10.2) mg/dL Urine Color YELLOW Urine Appearance HAZY Urine pH 6.0 (5.0-8.0) Ur Specific [place] 1.025 (1.005-1.025) Urine Protein 1+ H (NEG-TRACE) MG/DL Urine Glucose (UA) 100 H (NEG) MG/DL Urine Ketones NEG (NEG) MG/DL Urine Blood NEG (NEG) Urine Nitrite NEG (NEG) Ur Leukocyte Esterase 1+ H (NEG) Urine RBC 1-4 (0) /HPF Urine WBC 5-9 H (0-4) /HPF Ur Squamous Epith Cells 2+ /LPF Urine Bacteria 1+ /LPF Imaging Data CT scan - head: Radiologist's impression: FINDINGS: There is no evidence of acute intracranial hemorrhage or territorial infarction. No abnormal mass effect or midline shift is seen. [place]ne to white matter differentiation is well preserved. No extra-axial fluid collections are identified. The ventricles are normal in size. There is no abnormal attenuation within the brain parenchyma. The osseous structures and soft tissues are normal. The mastoid air cells and visualized portions of the paranasal sinuses are well aerated. ? CT/CT head/brain wo con IMPRESSION: No acute intracranial process seen Discharge Plan Discharge Clinical Impression: Acute vestibular neuronitis, Vertigo Patient Disposition: Home, Self-Care Instructions: Vertigo (ED) Prescriptions: New meclizine 25 mg tablet 25 mg PO TID PRN (Reason: dizziness) Qty: 20 0RF ondansetron 4 mg tablet,disintegrating 4 mg PO Q8H 4 Days Qty: 12 0RF No Action cholecalciferol (vitamin D3) 50 mcg (2,000 unit) capsule 50 mcg PO DAILY Qty: 30 6RF gabapentin 300 mg capsule 300 mg PO TID Qty: 90 5RF atorvastatin 80 mg tablet 80 mg PO BEDTIME Qty: 90 1RF lorazepam 1 mg tablet 1 mg PO BID PRN (Reason: anxiety) 30 Days Qty: 60 0RF omeprazole 40 mg capsule,delayed release(DR/EC) 40 mg PO DAILY Qty: 30 0RF FreeStyle Lite Strips Strip 1 strip miscellaneous .5-6 TIMES DAILY 30 Days Qty: 150 6RF Humulin R U-500 (Conc) Kwikpen 500 unit/mL (3 mL) insulin pen See Rx Instructions subcut .3 times a day 30 Days Qty: 12 6RF Rx Instructions: 50 units in the morning, 70 units before lunch and 60 units before dinner subcut .3 times a day; (DME) pen needle, diabetic [BD Ultra-Fine Micro Pen Needle] 32 gauge x 1/4 needle See Rx Instructions .ROUTE .MEDSUPPLY Qty: 100 6RF Rx Instructions: As directed 3 times a day losartan 100 mg tablet 100 mg PO DAILY 0RF metoclopramide HCl [Reglan] 10 mg tablet 10 mg PO .tid ac 30 Days Qty: 90 6RF bisacodyl 5 mg tablet,delayed release (DR/EC) 5 - 10 mg PO DAILY PRN (Reason: constipation) 30 Days Qty: 60 6RF Rx Instructions: Take 1-2 tablets by mouth once a day as needed for constipation Referrals: Fish Lomeli MD [Primary Care Provider] - 1 week
[2021-09-26 12:07] LABS: Glucose, Whole Blood 173 mg/dL (60-115)
[2021-09-26 12:23] VITALS: BP 139/59; PULSE 79; RESP 17; TEMP 37; O2SAT 97
[2021-09-26 12:25] LABS: MANUAL DIFF FLAG NO
[2021-09-26 12:28] LABS: Basophils Percent Auto 0.3 % (0-2); Eosinophils Percent Auto 0.6 % (0-4); Hemoglobin 12.9 g/dl (12.0-16.0); Imm Gran Abs Auto 0.02 X10*3/uL (0.00-0.03); Imm Gran Pct Auto 0.3 % (0.0-0.4); Lymphocytes Absolute Auto 1.7 X10*3/uL (1.2-4.9); Lymphocytes Percent Auto 26.7 % (20-40); Mean Corpuscular HGB Conc 31.5 g/dl (31.0-35.0); Mean Corpuscular Hemoglobin 28.4 pg (27.0-33.0); Mean Corpuscular Volume 90.1 fL (80.0-98.0); Mean Platelet Volume 10.8 fL (9.4-12.3); Monocytes Absolute Auto 0.6 X10*3/uL (0.1-1.2); Monocytes Percent Auto 8.5 % (2-11); Neutrophils Absolute Auto 4.1 x10*3/uL (2.0-8.3); Neutrophils Percent Auto 63.6 % (45-73); Platelet Count 197 X10*3/uL (160-400); Red Blood Count 4.55 X10*6/uL (4.20-5.50); Red Cell Distribution Width 12.5 % (11.0-16.0); White Blood Count 6.5 X10*3/uL (4.8-10.8)
[2021-09-26] MEDS: Meclizine HCl 25 MG TABLET 50 MG PO (12:38)
[2021-09-26 12:42] LABS: Anion Gap 12 (12-20); Blood Urea Nitrogen 11 mg/dL (9-16); Calcium 9.5 mg/dL (8.4-10.2); Carbon Dioxide 31 mmol/L (22-29); Chloride 105 mmol/L (96-108); Creatinine Clr Calc Pharmacy 91.1; Estimated Glomerular Filt Rate > 60; Glucose Random 164 mg/dL (60-115); Sodium 143 mmol/L (135-145)
[2021-09-26] MEDS: ondansetron HCL 4 MG/2 ML VIAL IVPUSH (13:29)
[2021-09-26 14:19] VITALS: BP 135/62; PULSE 82; RESP 17; TEMP 37; O2SAT 98
[2021-09-26 14:38] LABS: Appearance Urine HAZY; Color Urine YELLOW; Glucose Urine UA 100 MG/DL (NEG); Leukocyte Esterase Urine 1+ (NEG); Nitrite Urine NEG (NEG); Specific Gravity - Urine 1.025 (1.005-1.025); UACC Culture Trigger YES; Urine Blood NEG (NEG); Urine Ketones NEG (NEG); Urine Protein 1+ MG/DL (NEG-TRACE)
[2021-09-26 14:49] LABS: Squamous Epithelial Cell Urine 2+ /LPF
[2021-09-26 14:50] LABS: Bacteria Urine 1+ /LPF
== END 2021-09-26 15:34 | disposition home or self-care (01) ==
PROVIDERS: Emergency Provider Emergency Medicine; PCP Internal Medicine
DX: R42 Dizziness and giddiness (principal); F14.10 Cocaine abuse, uncomplicated; Z79.899 Other long term (current) drug therapy; Z87.891 Personal history of nicotine dependence
CPT/HCPCS: 36415; 70450; 80048; 81001; 82947; 85025; 87086; 93005; 96374; 99284; 99285; J2405

== ENCOUNTER 2021-10-13 07:36 | Outpatient (REF) | payer OTHER, SELFPAY ==
[2021-10-13 07:59] LABS: MANUAL DIFF FLAG NO
[2021-10-13 08:35] LABS: Basophils Percent Auto 0.3 % (0-2); Eosinophils Absolute Auto 0.1 X10*3/uL (0.0-0.4); Hematocrit 39.9 % (37.0-47.0); Hemoglobin 12.8 g/dl (12.0-16.0); Imm Gran Abs Auto 0.02 X10*3/uL (0.00-0.03); Imm Gran Pct Auto 0.3 % (0.0-0.4); Lymphocytes Absolute Auto 2.2 X10*3/uL (1.2-4.9); Lymphocytes Percent Auto 36.5 % (20-40); Mean Corpuscular HGB Conc 32.1 g/dl (31.0-35.0); Mean Corpuscular Hemoglobin 28.9 pg (27.0-33.0); Mean Corpuscular Volume 90.1 fL (80.0-98.0); Mean Platelet Volume 11.5 fL (9.4-12.3); Monocytes Absolute Auto 0.4 X10*3/uL (0.1-1.2); Neutrophils Absolute Auto 3.3 x10*3/uL (2.0-8.3); Neutrophils Percent Auto 54.9 % (45-73); Platelet Count 213 X10*3/uL (160-400); Red Blood Count 4.43 X10*6/uL (4.20-5.50); Red Cell Distribution Width 12.3 % (11.0-16.0)
[2021-10-13 08:44] LABS: Estimated Average Glucose 223 mg/dL; Hemoglobin A1c % 9.4 %
[2021-10-13 08:56] LABS: Alanine Aminotransferase 33 U/L (0-31); Albumin Level 4.4 g/dL (3.5-5.0); Alkaline Phosphatase 137 U/L (39-117); Anion Gap 13 (12-20); Aspartate Amino Transferase 17 U/L (5-31); Bilirubin Total 0.6 mg/dL (0.0-1.0); Blood Urea Nitrogen 11 mg/dL (9-16); Calcium 9.8 mg/dL (8.4-10.2); Carbon Dioxide 29 mmol/L (22-29); Chloride 105 mmol/L (96-108); Cholesterol 142 mg/dL; Estimated Glomerular Filt Rate > 60; Glucose Fasting 319 mg/dL (60-99); HDL Cholesterol 31 mg/dL; LDL Cholesterol Calculated 74 mg/dl; Potassium 4.6 mmol/L (3.3-5.1); Sodium 142 mmol/L (135-145); Total Protein 7.4 g/dL (6.5-8.0); Triglycerides 186 mg/dL
[2021-10-13 09:23] LABS: TSH reflex Free T4 4.19 uIU/mL (0.32-4.0); Vitamin D 25-OH Total 30.6 ng/mL (>30)
[2021-10-13 09:36] LABS: Folate 9.2 ng/mL (> or = 4.0); Vitamin B12 530 pg/mL (200-900)
[2021-10-13 10:21] LABS: Free T4 (Free Thyroxine) 0.71 ng/dL (0.71-1.85)
[2021-10-13 10:35] LABS: Creatinine Urine 97.86 mg/dL; Microalbum/Creatinine Ratio Ur 27.5 ug/mg cr
[2021-10-13 10:58] LABS: Appearance Urine CLEAR; Color Urine YELLOW; Glucose Urine UA >=1000 MG/DL (NEG); Leukocyte Esterase Urine NEG (NEG); Nitrite Urine NEG (NEG); Specific Gravity - Urine 1.025 (1.005-1.025); Urine Blood NEG (NEG); Urine Ketones NEG (NEG); Urine Protein NEG (NEG-TRACE)
[2021-10-13 11:12] LABS: Squamous Epithelial Cell Urine 1+ /LPF
== END 2021-10-13 07:37 | disposition home or self-care (01) ==
LOC: HO.LAB 07:36
PROVIDERS: PCP Internal Medicine; Visit Provider Internal Medicine
DX: E78.00 Pure hypercholesterolemia, unspecified (principal); E53.8 Deficiency of other specified B group vitamins; E55.9 Vitamin D deficiency, unspecified; I10 Essential (primary) hypertension; E11.9 Type 2 diabetes mellitus without complications
CPT/HCPCS: 36415; 80053; 80061; 81001; 81003; 82043; 82306; 82607; 82746; 83036; 84439; 84443; 85025

== ENCOUNTER → 2021-10-15 09:30 | Outpatient (BNVA) | payer OTHER, SELFPAY | PROVIDERS: PCP Internal Medicine; Visit Provider Nurse Practitioner Gerontology ==

== ENCOUNTER → 2021-11-04 10:52 | Outpatient (BNVA) | payer OTHER, SELFPAY | PROVIDERS: PCP Internal Medicine; Visit Provider Dietitian, Registered | DX: E11.21 Type 2 diabetes mellitus with diabetic nephropathy (principal); Z79.4 Long term (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 of insulin; Z71.3 Dietary counseling and surveillance | CPT/HCPCS: 97803 ==

== ENCOUNTER 2022-01-09 07:51 | Outpatient (REF) | payer OTHER, SELFPAY ==
[2022-01-09 08:14] LABS: MANUAL DIFF FLAG NO
[2022-01-09 08:39] LABS: Basophils Percent Auto 0.5 % (0-2); Eosinophils Absolute Auto 0.1 X10*3/uL (0.0-0.4); Eosinophils Percent Auto 0.8 % (0-4); Hematocrit 39.7 % (37.0-47.0); Hemoglobin 12.6 g/dl (12.0-16.0); Imm Gran Abs Auto 0.02 X10*3/uL (0.00-0.03); Imm Gran Pct Auto 0.3 % (0.0-0.4); Lymphocytes Absolute Auto 2.3 X10*3/uL (1.2-4.9); Lymphocytes Percent Auto 36.5 % (20-40); Mean Corpuscular HGB Conc 31.7 g/dl (31.0-35.0); Mean Corpuscular Hemoglobin 28.6 pg (27.0-33.0); Mean Platelet Volume 11.3 fL (9.4-12.3); Monocytes Absolute Auto 0.5 X10*3/uL (0.1-1.2); Monocytes Percent Auto 7.4 % (2-11); Neutrophils Absolute Auto 3.5 x10*3/uL (2.0-8.3); Neutrophils Percent Auto 54.5 % (45-73); Platelet Count 203 X10*3/uL (160-400); Red Blood Count 4.41 X10*6/uL (4.20-5.50); Red Cell Distribution Width 12.6 % (11.0-16.0); White Blood Count 6.4 X10*3/uL (4.8-10.8)
[2022-01-09 08:40] LABS: Appearance Urine CLEAR; Color Urine YELLOW; Glucose Urine UA 500 MG/DL (NEG); Leukocyte Esterase Urine NEG (NEG); Nitrite Urine NEG (NEG); PH 5.5 (5.0-8.0); Specific Gravity - Urine >= 1.030 (1.005-1.025); UACC Culture Trigger NO; Urine Blood TRACE (NEG); Urine Ketones NEG (NEG); Urine Protein TRACE MG/DL (NEG-TRACE)
[2022-01-09 08:47] LABS: Renal Epithelial Cells Urine TRACE /LPF; Squamous Epithelial Cell Urine 2+ /LPF
[2022-01-09 08:48] LABS: Bacteria Urine TRACE /LPF
[2022-01-09 08:49] LABS: Estimated Average Glucose 200 mg/dL; Hemoglobin A1c % 8.6 %
[2022-01-09 08:49] LABS: UACC CULT YES
[2022-01-09 08:50] LABS: RBC Urine 0-2 /HPF (0)
[2022-01-09 09:01] LABS: Creatinine Urine 193.24 mg/dL; Protein/Creatinine Ratio, Ur 0.12 (<0.2); Total Protein Urine Random 24 mg/dL (<12)
[2022-01-09 09:02] LABS: Creatinine Urine 194.26 mg/dL; Microalbum/Creatinine Ratio Ur 35.5 ug/mg cr
[2022-01-09 09:04] LABS: Alanine Aminotransferase 34 U/L (0-31); Albumin Level 4.2 g/dL (3.5-5.0); Alkaline Phosphatase 133 U/L (39-117); Anion Gap 12 (12-20); Aspartate Amino Transferase 17 U/L (5-31); Bilirubin Total 0.4 mg/dL (0.0-1.0); Blood Urea Nitrogen 13 mg/dL (9-16); Calcium 9.5 mg/dL (8.4-10.2); Carbon Dioxide 28 mmol/L (22-29); Chloride 105 mmol/L (96-108); Cholesterol 136 mg/dL; Estimated Glomerular Filt Rate > 60; Glucose Fasting 261 mg/dL (60-99); HDL Cholesterol 30 mg/dL; LDL Cholesterol Calculated 84 mg/dl; Potassium 4.4 mmol/L (3.3-5.1); Sodium 141 mmol/L (135-145); Triglycerides 113 mg/dL
[2022-01-09 09:26] LABS: Free T4 (Free Thyroxine) 0.69 ng/dL (0.71-1.85); Thyroid Stimulating Hormone 4.17 uIU/mL (0.32-4.0); Vitamin D 25-OH Total 29.1 ng/mL (>30)
== END 2022-01-09 07:52 | disposition home or self-care (01) ==
LOC: HO.LAB 07:51
PROVIDERS: Absent Provider Internal Medicine; PCP Internal Medicine; Visit Provider Internal Medicine Nephrology
DX: E11.21 Type 2 diabetes mellitus with diabetic nephropathy (principal); I10 Essential (primary) hypertension; E55.9 Vitamin D deficiency, unspecified; E78.00 Pure hypercholesterolemia, unspecified; E03.9 Hypothyroidism, unspecified
CPT/HCPCS: 36415; 80053; 80061; 81001; 82043; 82306; 83036; 84156; 84439; 84443; 85025; 87086

== ENCOUNTER → 2022-01-13 10:19 | Outpatient (BNVA) | payer OTHER, SELFPAY | PROVIDERS: PCP Internal Medicine; Visit Provider Nurse Practitioner Gerontology | DX: E11.65 Type 2 diabetes mellitus with hyperglycemia (principal); E11.3413 Type 2 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, bilateral; E11.42 Type 2 diabetes mellitus with diabetic polyneuropathy; E11.43 Type 2 diabetes mellitus with diabetic autonomic (poly)neuropathy; E78.00 Pure hypercholesterolemia, unspecified; E55.9 Vitamin D deficiency, unspecified; E66.9 Obesity, unspecified; E03.8 Other specified hypothyroidism; I10 Essential (primary) hypertension; K31.84 Gastroparesis; Z79.4 Long term (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 of insulin; Z68.35 Body mass index [BMI] 35.0-35.9, adult | CPT/HCPCS: 82947; 99212 ==

== ENCOUNTER → 2022-01-28 11:07 | Outpatient (BNVA) | payer OTHER, SELFPAY | PROVIDERS: PCP Internal Medicine; Visit Provider Dietitian, Registered | DX: E11.21 Type 2 diabetes mellitus with diabetic nephropathy (principal) | CPT/HCPCS: 97803 ==

== ENCOUNTER → 2022-02-03 09:01 | Outpatient (BNVA) | payer OTHER, SELFPAY | PROVIDERS: PCP Internal Medicine; Referring Provider Internal Medicine; Visit Provider Nurse Practitioner | DX: K75.81 Nonalcoholic steatohepatitis (NASH) (principal); K59.00 Constipation, unspecified; E11.43 Type 2 diabetes mellitus with diabetic autonomic (poly)neuropathy; K31.84 Gastroparesis; K21.9 Gastro-esophageal reflux disease without esophagitis | CPT/HCPCS: 99212 ==

== ENCOUNTER 2022-04-01 09:18 | Outpatient (REF) | payer OTHER, SELFPAY ==
--- NOTE | ~2022-04-01 | US_ITS ---
EXAMINATION: US ABDOMEN LIMITED CLINICAL INFORMATION: Nonalcoholic steatohepatitis. COMPARISON: Limited abdominal ultrasound 08/21/2021. TECHNIQUE: Real-time imaging of the right upper quadrant abdominal viscera. Technically difficult study secondary to body habitus. FINDINGS: PANCREAS: Visualized portions of the pancreas are unremarkable. The pancreatic tail is obscured by bowel gas. LIVER: The liver is normal in size. The liver contour is normal. There is diffuse increased liver parenchymal echogenicity, consistent with infiltrative hepatocellular disease similar to prior. No definite focal lesion is seen, but evaluation is limited due to poor sound beam penetration through the coarse echogenic liver parenchyma. There is no intrahepatic biliary duct dilatation seen. GALLBLADDER: Surgically absent. COMMON BILE DUCT: Normal in caliber measuring 0.5 cm in diameter. RIGHT KIDNEY: Normal. No hydronephrosis. No renal calculi or focal parenchymal lesions. The kidney measures 11.5 cm in maximum dimension. FREE FLUID: None. US/US abdomen limited IMPRESSION: Increased hepatic echogenicity which can be seen in the setting of hepatic steatosis or underlying liver disease similar to prior.
== END 2022-04-01 09:19 | disposition home or self-care (01) ==
LOC: HO.US 09:18
PROVIDERS: Visit Provider Nurse Practitioner
DX: K75.81 Nonalcoholic steatohepatitis (NASH) (principal)
CPT/HCPCS: 76705

== ENCOUNTER 2022-06-12 07:55 | Outpatient (REF) | payer OTHER, SELFPAY ==
[2022-06-12 08:16] LABS: MANUAL DIFF FLAG NO
[2022-06-12 08:52] LABS: Basophils Percent Auto 0.4 % (0-2); Eosinophils Absolute Auto 0.1 X10*3/uL (0.0-0.4); Hematocrit 39.1 % (37.0-47.0); Hemoglobin 12.6 g/dl (12.0-16.0); Imm Gran Abs Auto 0.03 X10*3/uL (0.00-0.03); Imm Gran Pct Auto 0.4 % (0.0-0.4); Lymphocytes Absolute Auto 2.5 X10*3/uL (1.2-4.9); Lymphocytes Percent Auto 34.9 % (20-40); Mean Corpuscular HGB Conc 32.2 g/dl (31.0-35.0); Mean Corpuscular Hemoglobin 28.4 pg (27.0-33.0); Mean Corpuscular Volume 88.1 fL (80.0-98.0); Mean Platelet Volume 11.1 fL (9.4-12.3); Monocytes Absolute Auto 0.5 X10*3/uL (0.1-1.2); Monocytes Percent Auto 7.4 % (2-11); Neutrophils Absolute Auto 3.9 x10*3/uL (2.0-8.3); Neutrophils Percent Auto 55.9 % (45-73); Platelet Count 204 X10*3/uL (160-400); Red Blood Count 4.44 X10*6/uL (4.20-5.50); Red Cell Distribution Width 12.9 % (11.0-16.0); White Blood Count 7.1 X10*3/uL (4.8-10.8)
[2022-06-12 09:22] LABS: Alanine Aminotransferase 38 U/L (0-31); Albumin Level 4.2 g/dL (3.5-5.0); Alkaline Phosphatase 123 U/L (39-117); Anion Gap 16 (12-20); Aspartate Amino Transferase 25 U/L (5-31); Bilirubin Total 0.6 mg/dL (0.0-1.0); Blood Urea Nitrogen 15 mg/dL (9-16); Carbon Dioxide 24 mmol/L (22-29); Chloride 106 mmol/L (96-108); Cholesterol 150 mg/dL; Estimated Glomerular Filt Rate > 60; Glucose Fasting 110 mg/dL (60-99); HDL Cholesterol 29 mg/dL; LDL Cholesterol Calculated 84 mg/dl; Potassium 4.2 mmol/L (3.3-5.1); Sodium 142 mmol/L (135-145); Triglycerides 187 mg/dL
[2022-06-12 09:26] LABS: Estimated Average Glucose 169 mg/dL; Hemoglobin A1c % 7.5 %
[2022-06-12 09:44] LABS: Free T4 (Free Thyroxine) 0.69 ng/dL (0.71-1.85); Thyroid Stimulating Hormone 4.02 uIU/mL (0.32-4.0); Vitamin D 25-OH Total 29.9 ng/mL (>30)
[2022-06-12 09:52] LABS: Appearance Urine Clear; Color Urine Yellow; Glucose Urine UA Negative (Negative); Leukocyte Esterase Urine Moderate (2+) (Negative); Nitrite Urine Negative (Negative); PH 5.5 (5.0-9.0); Specific Gravity - Urine 1.015 (1.005-1.025); UMIC TRIGGER UACC YES; Urine Blood Negative (Negative); Urine Ketones Negative (Negative); Urine Protein Negative (Neg-Trace)
[2022-06-12 09:59] LABS: Bacteria Urine None Seen (None Seen); Hyaline Casts Urine 0-2 /LPF (0-2); RBC Urine 0-2 /HPF (0-2); UACC Culture Trigger YES
[2022-06-12 10:15] LABS: Creatinine Urine 103.23 mg/dL; Microalbum/Creatinine Ratio Ur 17.4 ug/mg cr
== END 2022-06-12 07:56 | disposition home or self-care (01) ==
LOC: HO.LAB 07:55
PROVIDERS: PCP Internal Medicine; Visit Provider Internal Medicine
DX: E78.00 Pure hypercholesterolemia, unspecified (principal); E11.9 Type 2 diabetes mellitus without complications; E03.9 Hypothyroidism, unspecified; E55.9 Vitamin D deficiency, unspecified; I10 Essential (primary) hypertension
CPT/HCPCS: 36415; 80053; 80061; 81001; 82043; 82306; 83036; 84439; 84443; 85025; 87086

== ENCOUNTER → 2022-06-30 09:43 | Outpatient (BNVA) | payer OTHER, SELFPAY | PROVIDERS: PCP Internal Medicine; Visit Provider Internal Medicine Endocrinology, Diabetes & Metabolism | DX: E11.3413 Type 2 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, bilateral (principal); E03.8 Other specified hypothyroidism; Z79.4 Long term (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 of insulin | CPT/HCPCS: 82947; 99212 ==

== ENCOUNTER 2022-07-02 08:51 | Outpatient (REF) | payer OTHER, SELFPAY ==
--- NOTE | ~2022-07-02 | MM_ITS ---
EXAMINATION: MM SCREENING DIGITAL BREAST TOMOSYNTHESIS, BILATERAL CLINICAL INFORMATION: Screening. Asymptomatic. COMPARISON: Mammography: 06/23/2018, 05/26/2017, 04/26/2015 TECHNIQUE: Digital breast tomosynthesis is performed in both the craniocaudal and mediolateral oblique views along with computer-aided detection (CAD). Synthesized 2D images are generated from the tomosynthesis. FINDINGS: There are scattered areas of fibroglandular density (ACR BI-RADS breast composition Category b). There are no significant masses, abnormal calcifications, or other abnormalities. Parenchymal pattern is similar to prior studies. The axilla and skin contours are unremarkable. MM/MM tomosynthesis screening BI IMPRESSION: No mammographic evidence of malignancy. ASSESSMENT: BI-RADS 1: Negative RECOMMENDATION: Routine annual mammography screening. This patient's information was entered into a reminder system with a target due date for their next mammogram.
== END 2022-07-02 08:52 | disposition home or self-care (01) ==
LOC: HO.MAMMO 08:51
PROVIDERS: PCP Internal Medicine; Visit Provider Internal Medicine
DX: Z12.31 Encounter for screening mammogram for malignant neoplasm of breast (principal)
CPT/HCPCS: 77063; 77067

== ENCOUNTER 2022-07-09 07:15 | Outpatient (REF) | payer OTHER, SELFPAY ==
[2022-07-09 08:39] LABS: Anion Gap 14 (12-20); Blood Urea Nitrogen 14 mg/dL (9-16); Calcium 9.6 mg/dL (8.4-10.2); Carbon Dioxide 29 mmol/L (22-29); Chloride 105 mmol/L (96-108); Estimated Glomerular Filt Rate > 60; Potassium 4.3 mmol/L (3.3-5.1); Sodium 144 mmol/L (135-145)
[2022-07-09 08:47] LABS: Creatinine Urine 167.03 mg/dL; Microalbum/Creatinine Ratio Ur 15.5 ug/mg cr
== END 2022-07-09 07:16 | disposition home or self-care (01) ==
LOC: HO.LAB 07:15
PROVIDERS: PCP Internal Medicine; Visit Provider Internal Medicine Nephrology
DX: I10 Essential (primary) hypertension (principal); E11.21 Type 2 diabetes mellitus with diabetic nephropathy
CPT/HCPCS: 36415; 80051; 82043; 82310; 82565; 84520

== ENCOUNTER → 2022-08-04 09:17 | Outpatient (BNVA) | payer OTHER, SELFPAY | PROVIDERS: PCP Internal Medicine; Referring Provider Internal Medicine; Visit Provider Nurse Practitioner | DX: K21.9 Gastro-esophageal reflux disease without esophagitis (principal); K31.84 Gastroparesis; K75.81 Nonalcoholic steatohepatitis (NASH); E11.43 Type 2 diabetes mellitus with diabetic autonomic (poly)neuropathy | CPT/HCPCS: 99212 ==

== ENCOUNTER → 2022-08-25 08:48 | Outpatient (BNVA) | payer OTHER, SELFPAY | PROVIDERS: PCP Internal Medicine; Visit Provider Internal Medicine | DX: R07.9 Chest pain, unspecified (principal); R06.02 Shortness of breath; I45.10 Unspecified right bundle-branch block; E11.65 Type 2 diabetes mellitus with hyperglycemia; I10 Essential (primary) hypertension; E78.5 Hyperlipidemia, unspecified; Z79.4 Long term (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 of insulin | CPT/HCPCS: 93005; 99202 ==

== ENCOUNTER 2022-08-27 21:42 | Emergency (ER) | payer OTHER, SELFPAY ==
[2022-08-27 21:46] VITALS: BP 186/58; PULSE 90; RESP 20; TEMP 36.8; O2SAT 97; BMI 38.7
--- NOTE | 2022-08-27 21:48 | PC.NURSE ---
Addendum entered by Zoë Ocampo RN 08/28/22 00:50: pt called to triage, LWBS, no answer at 1250am Original Note: poc done at triage, BS 66, orange juice given
[2022-08-27 21:50] LABS: Glucose, Whole Blood 66 mg/dL (60-115)
[2022-08-27 22:00] LABS: MANUAL DIFF FLAG NO
[2022-08-27 22:01] LABS: Basophils Percent Auto 0.4 % (0-2); Eosinophils Absolute Auto 0.1 X10*3/uL (0.0-0.4); Eosinophils Percent Auto 0.8 % (0-4); Imm Gran Abs Auto 0.02 X10*3/uL (0.00-0.03); Imm Gran Pct Auto 0.3 % (0.0-0.4); Lymphocytes Absolute Auto 2.7 X10*3/uL (1.2-4.9); Lymphocytes Percent Auto 34.5 % (20-40); Mean Corpuscular HGB Conc 31.7 g/dl (31.0-35.0); Mean Corpuscular Hemoglobin 28.3 pg (27.0-33.0); Mean Corpuscular Volume 89.1 fL (80.0-98.0); Mean Platelet Volume 10.6 fL (9.4-12.3); Monocytes Absolute Auto 0.7 X10*3/uL (0.1-1.2); Monocytes Percent Auto 8.4 % (2-11); Neutrophils Absolute Auto 4.4 x10*3/uL (2.0-8.3); Neutrophils Percent Auto 55.6 % (45-73); Platelet Count 204 X10*3/uL (160-400); Red Cell Distribution Width 12.9 % (11.0-16.0)
[2022-08-27 22:36] LABS: Anion Gap 13 (12-20); Blood Urea Nitrogen 11 mg/dL (9-16); Calcium 10.1 mg/dL (8.4-10.2); Carbon Dioxide 28 mmol/L (22-29); Chloride 106 mmol/L (96-108); Creatinine Clr Calc Pharmacy 94.6; Estimated Glomerular Filt Rate > 60; Glucose Random 67 mg/dL (60-115); Potassium 4.6 mmol/L (3.3-5.1); Sodium 142 mmol/L (135-145)
== END 2022-08-28 00:51 | disposition left against medical advice (07) ==
PROVIDERS: Emergency Provider Emergency Medicine; PCP Internal Medicine
DX: E11.649 Type 2 diabetes mellitus with hypoglycemia without coma (principal); I10 Essential (primary) hypertension; E78.5 Hyperlipidemia, unspecified; Z79.4 Long term (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 of insulin
CPT/HCPCS: 36415; 80048; 82947; 85025; 99281; 99283

== ENCOUNTER → 2022-08-28 13:53 | Outpatient (REF) | payer OTHER, SELFPAY ==
--- NOTE | 2022-08-28 13:56 | CA_ITS ---
Transthoracic Echocardiogram Patient (Last, First, Middle): Patricia Camara Oca, Gender: Female Date of : 1960 Age: 62 Procedure Date: 08/28/2022 Procedure Type: Transthoracic Echocardiogram Location: OP Height: 167.64 cm Weight: 108.86 kg BSA: 2.16 m2 Heart Rate: bpm BP: 118 / 50 mmHg Tabulating Supervisor: TO Referring MD: Cachorro Ramon MD Rotary Drier Operator: Lester Cordero MD Symptoms: R07.9 - Chest pain, unspecified Study Quality: Technically Difficult apical views ECG Rhythm: Sinus Conclusions: - 1. Normal LV systolic function with impaired relaxation filling pattern 2. Limited visualization of cardiac valve with normal cardiac valvular Dopplers 3. Normal calculated RV systolic pressure Findings Procedure Information The quality of the study was technically difficult. Left Ventricle Normal left ventricular size, thickness, and systolic function. The visually estimated ejection fraction is between 65-70%. Regional wall motion abnormalities can not be excluded due to suboptimal endocardial definition. Spectral Doppler is indicative of an impaired relaxation filling pattern. E/E prime ratio is between 8 and 15 consistent with indeterminate filling pressures. Right Ventricle The right ventricle was not well visualized. Atria The left atrium is normal in size. Interatrial shunt cannot be excluded. The right atrium was not well visualized. Aortic Valve There is mild calcification of the aortic valve. There is mild thickening of the aortic valve. There is no aortic valve stenosis. There is no aortic valve regurgitation. Mitral Valve Likely normal mitral valve structure and function. There is trace mitral valve regurgitation. There is no mitral valve stenosis. Pulmonic Valve The pulmonic valve was not well visualized. Tricuspid Valve The tricuspid valve was not well visualized. There is trace tricuspid valve regurgitation. The right ventricular systolic pressure is normal. Great Vessels All visible segments of the aorta are normal in size. The pulmonary artery was not well visualized. Venous The inferior vena cava is normal in size. Pericardium/Pleural The pericardium was not well visualized. Prior Study Comparison No prior study available for comparison. Measurements 2D Linear Measurements IVSd: 1.21 0.6-0.9/0.6-1.0 cm LVIDd: 3.79 3.9-5.3/4.2-5.9 cm LVIDd Index: 1.75 2.4-3.2/2.2-3.1 cm/m2 LVIDs: 2.17 2.0-3.6 cm LVPWd: 1.12 0.7-1.1 cm LA Diam: 3.50 2.7-3.8/3.0-4.0 cm LAIDs Index: 1.62 1.5-2.3 cm/m2 LV Mass: 181.77 67-162/88-224 g LV Mass Index: 84.15 43-95/49-115 g/m2 LVOT Diam: 2.00 3.0+(-)1.3 cm Mitral Valve MV VTI: 0.27 MV Pk Markus: 0.99 MV Mn Markus: 0.66 MV Pk Grad: 4.00 MV Mn Grad: 2.00 MV Pk E: 0.75 MV PK A: 0.85 MV Decel Time: 247.00 E/A: 0.90 E'Lateral: 6.09 E'Medial: 5.22 E/E' Med: 14.30 E/E' Lat: 12.20 PHT: 72.00 MVA PHT: 3.06 MVA Continuity: 2.34 Decel [place]: 3.02 Aortic Valve AoV Pk Markus: 1.42 AoV Mn Markus: 1.09 AoV VTI: 0.28 AoV Pk Grad: 8.00 Aov Mn Grad: 5.00 FREDO Cont.VTI: 2.23 LVOT LVOT Pk Markus: 1.01 LVOT Mn Markus: 0.71 LVOT VTI: 0.20 LVOT Pk Grad: 4.00 LVOT Mn Grad: 2.00 LVOT Diam: 2.00 LVOT Area: 3.14 Diastolic Function MV Pk E: 0.75 MV Pk A: 0.85 E/A: 0.90 E'Medial: 5.22 E/E' Med: 14.30 E' Laterial: 6.09 E/E' Lat: 12.20 Right Ventricle TVS' Markus: 10.30 Tricuspid Valve TR Pk Markus: 1.59 TR Pk Grad: 10.00 RA Press: 3.00 RVSP: 13.00 Great Vessels Aorta Sinus of Valsalva: 3.33 2.0-3.[address] [place]: 2.99 1.7-3.4 cm Ao Asc: 3.50 2.1-3.4 cm Ao Arch: 3.10 Updated in Other Vendor System with Status of Final Lester Cordero MD electronically signed on 08/29/2022 1:16:25 PM with status of Final
== END ==
LOC: HO.CARD 13:53
PROVIDERS: Visit Provider Internal Medicine
DX: R07.9 Chest pain, unspecified (principal)
CPT/HCPCS: 93306

== ENCOUNTER → 2022-09-02 10:54 | Outpatient (BNVA) | payer OTHER, SELFPAY | PROVIDERS: PCP Internal Medicine; Visit Provider Registered Nurse Diabetes Educator | DX: E11.65 Type 2 diabetes mellitus with hyperglycemia (principal) | CPT/HCPCS: 99211 ==

== ENCOUNTER 2022-09-07 07:36 | Outpatient (REF) | payer OTHER, SELFPAY ==
[2022-09-07 07:59] LABS: MANUAL DIFF FLAG NO
[2022-09-07 08:19] LABS: Basophils Percent Auto 0.5 % (0-2); Eosinophils Absolute Auto 0.1 X10*3/uL (0.0-0.4); Eosinophils Percent Auto 0.7 % (0-4); Hematocrit 41.8 % (37.0-47.0); Hemoglobin 13.2 g/dl (12.0-16.0); Imm Gran Abs Auto 0.02 X10*3/uL (0.00-0.03); Imm Gran Pct Auto 0.3 % (0.0-0.4); Lymphocytes Absolute Auto 2.6 X10*3/uL (1.2-4.9); Lymphocytes Percent Auto 34.7 % (20-40); Mean Corpuscular HGB Conc 31.6 g/dl (31.0-35.0); Mean Corpuscular Hemoglobin 28.7 pg (27.0-33.0); Mean Corpuscular Volume 90.9 fL (80.0-98.0); Mean Platelet Volume 11.3 fL (9.4-12.3); Monocytes Absolute Auto 0.7 X10*3/uL (0.1-1.2); Neutrophils Percent Auto 53.8 % (45-73); Platelet Count 203 X10*3/uL (160-400); Red Cell Distribution Width 12.9 % (11.0-16.0); White Blood Count 7.4 X10*3/uL (4.8-10.8)
[2022-09-07 08:30] LABS: Estimated Average Glucose 183 mg/dL
[2022-09-07 08:33] LABS: Creatinine Urine 168.75 mg/dL; Microalbum/Creatinine Ratio Ur 22.5 ug/mg cr
[2022-09-07 08:41] LABS: Appearance Urine Hazy; Color Urine Yellow; Glucose Urine UA Negative (Negative); Leukocyte Esterase Urine Negative (Negative); Nitrite Urine Negative (Negative); Specific Gravity - Urine >= 1.030 (1.005-1.025); UMIC TRIGGER UACC YES; Urine Blood Trace (Negative); Urine Ketones Negative (Negative); Urine Protein Negative (Neg-Trace)
[2022-09-07 08:43] LABS: Alanine Aminotransferase 48 U/L (0-31); Albumin Level 4.3 g/dL (3.5-5.0); Alkaline Phosphatase 133 U/L (39-117); Anion Gap 12 (12-20); Aspartate Amino Transferase 30 U/L (5-31); Bilirubin Total 0.5 mg/dL (0.0-1.0); Blood Urea Nitrogen 17 mg/dL (9-16); Calcium 9.8 mg/dL (8.4-10.2); Carbon Dioxide 27 mmol/L (22-29); Chloride 109 mmol/L (96-108); Cholesterol 126 mg/dL; Estimated Glomerular Filt Rate > 60; Glucose Fasting 90 mg/dL (60-99); HDL Cholesterol 28 mg/dL; LDL Cholesterol Calculated 54 mg/dl; Potassium 4.4 mmol/L (3.3-5.1); Sodium 144 mmol/L (135-145); Total Protein 7.2 g/dL (6.5-8.0); Triglycerides 224 mg/dL
[2022-09-07 08:53] LABS: Bacteria Urine None Seen (None Seen); Hyaline Casts Urine 0-2 /LPF (0-2); WBC Urine 0-5 /HPF (0-5)
[2022-09-07 09:02] LABS: Free T4 (Free Thyroxine) 0.82 ng/dL (0.71-1.85); Thyroid Stimulating Hormone 3.16 uIU/mL (0.32-4.0); Vitamin D 25-OH Total 30.1 ng/mL (>30)
[2022-09-07 09:10] LABS: Folate 6.2 ng/mL (> or = 4.0); Vitamin B12 323 pg/mL (200-900)
== END 2022-09-07 07:37 | disposition home or self-care (01) ==
LOC: HO.LAB 07:36
PROVIDERS: PCP Internal Medicine; Visit Provider Internal Medicine
DX: E11.9 Type 2 diabetes mellitus without complications (principal); E55.9 Vitamin D deficiency, unspecified; E53.8 Deficiency of other specified B group vitamins; E78.00 Pure hypercholesterolemia, unspecified; E03.9 Hypothyroidism, unspecified; I10 Essential (primary) hypertension
CPT/HCPCS: 36415; 80053; 80061; 81001; 82043; 82306; 82607; 82746; 83036; 84439; 84443; 85025

== ENCOUNTER 2023-01-01 07:12 | Outpatient (REF) | payer OTHER, SELFPAY ==
[2023-01-01 07:27] LABS: MANUAL DIFF FLAG NO
[2023-01-01 07:56] LABS: Basophils Percent Auto 0.4 % (0-2); Eosinophils Absolute Auto 0.1 X10*3/uL (0.0-0.4); Eosinophils Percent Auto 0.8 % (0-4); Hematocrit 40.7 % (37.0-47.0); Hemoglobin 12.9 g/dl (12.0-16.0); Imm Gran Abs Auto 0.03 X10*3/uL (0.00-0.03); Imm Gran Pct Auto 0.4 % (0.0-0.4); Lymphocytes Absolute Auto 2.8 X10*3/uL (1.2-4.9); Lymphocytes Percent Auto 37.7 % (20-40); Mean Corpuscular HGB Conc 31.7 g/dl (31.0-35.0); Mean Corpuscular Hemoglobin 29.1 pg (27.0-33.0); Mean Corpuscular Volume 91.7 fL (80.0-98.0); Monocytes Absolute Auto 0.6 X10*3/uL (0.1-1.2); Monocytes Percent Auto 8.6 % (2-11); Neutrophils Absolute Auto 3.8 x10*3/uL (2.0-8.3); Neutrophils Percent Auto 52.1 % (45-73); Platelet Count 206 X10*3/uL (160-400); Red Blood Count 4.44 X10*6/uL (4.20-5.50); Red Cell Distribution Width 12.8 % (11.0-16.0); White Blood Count 7.4 X10*3/uL (4.8-10.8)
[2023-01-01 08:02] LABS: Estimated Average Glucose 163 mg/dL; Hemoglobin A1c % 7.3 %
[2023-01-01 08:48] LABS: Free T4 (Free Thyroxine) 0.79 ng/dL (0.71-1.85); Thyroid Stimulating Hormone 3.33 uIU/mL (0.32-4.0); Vitamin D 25-OH Total 36.8 ng/mL (>30)
[2023-01-01 09:04] LABS: Alanine Aminotransferase 70 U/L (0-31); Albumin Level 4.1 g/dL (3.5-5.0); Alkaline Phosphatase 138 U/L (39-117); Anion Gap 14 (12-20); Aspartate Amino Transferase 34 U/L (5-31); Bilirubin Total 0.4 mg/dL (0.0-1.0); Blood Urea Nitrogen 13 mg/dL (9-16); Calcium 9.4 mg/dL (8.4-10.2); Carbon Dioxide 26 mmol/L (22-29); Chloride 110 mmol/L (96-108); Cholesterol 120 mg/dL; Estimated Glomerular Filt Rate > 60; Glucose Fasting 59 mg/dL (60-99); HDL Cholesterol 27 mg/dL; LDL Cholesterol Calculated 52 mg/dl; Potassium 4.1 mmol/L (3.3-5.1); Sodium 146 mmol/L (135-145); Total Protein 6.8 g/dL (6.5-8.0); Triglycerides 207 mg/dL
[2023-01-01 09:25] LABS: Appearance Urine Clear; Color Urine Yellow; Glucose Urine UA Negative (Negative); Leukocyte Esterase Urine Small (1+) (Negative); Nitrite Urine Negative (Negative); PH 5.5 (5.0-9.0); Specific Gravity - Urine >= 1.030 (1.005-1.025); UMIC TRIGGER UACC YES; Urine Blood Trace (Negative); Urine Ketones Trace mg/dL (Negative); Urine Protein Trace mg/dL (Neg-Trace)
[2023-01-01 09:28] LABS: Bacteria Urine None Seen (None Seen); Hyaline Casts Urine 0-2 /LPF (0-2); RBC Urine 0-2 /HPF (0-2); UACC Culture Trigger YES
[2023-01-01 09:47] LABS: Creatinine Urine 229.48 mg/dL; Microalbum/Creatinine Ratio Ur 15.6 ug/mg cr
== END 2023-01-01 07:13 | disposition home or self-care (01) ==
LOC: HO.LAB 07:12
PROVIDERS: PCP Internal Medicine; Visit Provider Internal Medicine
DX: E78.00 Pure hypercholesterolemia, unspecified (principal); R30.0 Dysuria; E55.9 Vitamin D deficiency, unspecified; E03.9 Hypothyroidism, unspecified; E11.9 Type 2 diabetes mellitus without complications; I10 Essential (primary) hypertension
CPT/HCPCS: 36415; 80053; 80061; 81001; 82043; 82306; 83036; 84439; 84443; 85025; 87086

== ENCOUNTER → 2023-01-05 09:13 | Outpatient (REF) | payer OTHER, SELFPAY ==
--- NOTE | ~2023-01-05 | NM_ITS ---
Exercise Myocardial perfusion study Indication: Chest pain to evaluate for myocardial ischemia Technique: The patient was brought in for an exercise perfusion study on 01/05/2023. Patient performed exercise as per Isidro protocol and was injected 40 mCi of sestamibi was given intravenously one target HR was achieved. Images were obtained using the SPECT gamma camera interlaced with the gating device. Images were obtained in supine position. Resting perfusion study was performed on 01/06/2023. Patient was administered 40 mCi of sestamibi intravenously at rest. Images were then obtained in supine position. Images obtained with and without CT attenuation. Total DLP 119 mGy-cm. Images were processed with the software and compared side to side in short axis, horizontal long axis and vertical long axis views. Findings: The stress perfusion study showed non attenuated images show mildly reduced uptake in the basal septum of the LV myocardium. Remainder of the LV myocardium is normally perfused. Attenuation corrected images show normal uptake of radiotracer in all segments of LV myocardium. The gated study shows normal LV systolic function with calculated LVEF of 73%. LV cavity is normal in size. The gated study shows normal systolic wall thickening and contraction of all segments. There is no transient ischemic dilation. Resting study shows no change in perfusion pattern compared to stress perfusion study. Gating at rest reveals normal systolic wall motion with ejection fraction at 71%. The findings are consistent with normal myocardial perfusion. NM/NM cardiolite stress test Impression: 1. Normal myocardial perfusion 2. Gated LVEF is 73% 3. Transient ischemic dilatation not present Stress EKG is suggestive of ischemia
--- NOTE | 2023-01-05 09:15 | CA_ITS ---
Acquisition Time: 2023-01-05 09:37:18 Total Exercise Time: 00:03:41 Test Indications: CP, SOB, RBBB Medications: SEE H Protocol: VIVIEN Max HR: 144 BPM 92% of Pred: 156 BPM Max BP: 138/070 mmHG Max Work Load: 4.6 METS Exercise stress test exercise 3 min 41 sec of Vivien procotol stage 1 with request to stop due to SOB and marched in place for additional 1 min (total exercise time 4 min 41 sec), once in recovery reported 10/10 chest pressure and heaviness, with moderate to severe SOB, without arrhythmia, with normotensive response to exericse, without EKG changes during exercise, then borderline ST changes in recovery: ischemia not ruled out. In recovery she was monitored for 20 min. Chest pressure resolved and EKGs returned to baseline. Nuclear images pending. Test reviewed with Dr. Ramon. Referred By: Cachorro Ramon Overread By: PAUL BOYLE
== END ==
LOC: HO.CARD 09:13
PROVIDERS: Visit Provider Internal Medicine
DX: R07.9 Chest pain, unspecified (principal)
CPT/HCPCS: 78452; 93017; A9500; J0280; J2785

== ENCOUNTER → 2023-01-20 10:52 | Outpatient (BNVA) | payer OTHER, SELFPAY | PROVIDERS: PCP Internal Medicine; Visit Provider Internal Medicine Endocrinology, Diabetes & Metabolism | DX: E11.43 Type 2 diabetes mellitus with diabetic autonomic (poly)neuropathy (principal); E11.3413 Type 2 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, bilateral; E11.40 Type 2 diabetes mellitus with diabetic neuropathy, unspecified; E11.21 Type 2 diabetes mellitus with diabetic nephropathy; K31.84 Gastroparesis; Z79.4 Long term (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 of insulin | CPT/HCPCS: 82947; 99212 ==

== ENCOUNTER 2023-02-01 07:33 | Outpatient (REF) | payer OTHER, SELFPAY ==
[2023-02-01 09:09] LABS: Anion Gap 12 (12-20); Blood Urea Nitrogen 13 mg/dL (9-16); Calcium 9.4 mg/dL (8.4-10.2); Carbon Dioxide 27 mmol/L (22-29); Chloride 109 mmol/L (96-108); Estimated Glomerular Filt Rate > 60; Glucose Random 75 mg/dL (60-115); Potassium 4.3 mmol/L (3.3-5.1); Sodium 144 mmol/L (135-145)
== END 2023-02-01 07:34 | disposition home or self-care (01) ==
LOC: HO.LAB 07:33
PROVIDERS: PCP Internal Medicine; Visit Provider Internal Medicine
DX: Z01.812 Encounter for preprocedural laboratory examination (principal)
CPT/HCPCS: 36415; 80048

== ENCOUNTER → 2023-02-09 09:49 | Outpatient (BNVA) | payer OTHER, SELFPAY | PROVIDERS: PCP Internal Medicine; Visit Provider Nurse Practitioner | DX: K59.00 Constipation, unspecified (principal); K21.9 Gastro-esophageal reflux disease without esophagitis; K75.81 Nonalcoholic steatohepatitis (NASH) | CPT/HCPCS: 99212 ==

== ENCOUNTER 2023-03-08 10:29 | Outpatient (AMB) | payer OTHER, SELFPAY ==
--- NOTE | 2023-03-08 10:53 | MHC.OFFVIS ---
Intake Vital Signs 03/08/23 10:54 Height 5 ft 6 in Weight 237 lb 10.533 oz BMI 38.4 BP 102/56 L Blood Pressure Location Lt brachial Position Sitting Pulse 86 Intake Visit Reasons: Follow up after coronary CTA Intake Note: follow up Circular Distributor Required: No Accompanied by: Self / Same As Patient Allergies No Known Allergies Allergy (Verified 03/08/23 10:57) Medication List - Last Reconciled 03/08/23 by Cachorro Ramon MD atorvastatin 80 mg PO BEDTIME BD Ultra-Fine Micro Pen Needle (pen needle, diabetic) USE DIRECTED 3 TIMES A DAY NS bisacodyl 5 - 10 mg (1 - 2 x 5 mg) PO DAILY PRN 30 days cholecalciferol (vitamin D3) 50 mcg PO DAILY dulaglutide (Trulicity) 3 mg (0.5 mL) subcut QWEEK FreeStyle Lite Strips (blood sugar diagnostic) 1 strip miscellaneous .5-6 TIMES DAILY 30 days NS gabapentin 300 mg PO TID Humulin R U-500 (Conc) Kwikpen (insulin regular hum U-500 conc) 95 units in the morning, 90 units before lunch and 70 units before dinner subcut .3 times a day; 30 days NS levothyroxine 50 mcg PO DAILY loperamide (Imodium A-D) 2 mg PO Q6H PRN lorazepam 1 mg PO BID PRN 30 days losartan 100 mg PO DAILY metoclopramide HCl 10 mg PO TID omeprazole 40 mg PO DAILY HPI HPI Comments History of Present Illness Details Patricia returns for follow-up. Recently seen in consultation regarding chest pain and shortness of breath. Multiple cardiovascular risk factors including type 2 diabetes, hypertension, dyslipidemia. She states that for the last few months, she has been having episodes of chest pain. Feels like a sharp pain in substernal area. Can happen even at rest. Last for few seconds to few minutes. Somewhat atypical for angina. Nothing clearly exertional. However, with activity, she can feel short of breath. She states she does not do too much because of diabetic neuropathy. No known coronary artery disease or myocardial infarction or cardiomyopathy She has completed noninvasive workup and returns for follow-up. 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, bilateral Vitamin D deficiency Surgical History History of carpal tunnel release History of cholecystectomy History of esophagogastroduodenoscopy (EGD) History of partial hysterectomy History of repair of rotator cuff History of surgery Hx of colonoscopy Family History Father Diabetes Mother Diabetes CVD (cardiovascular disease) Social History Housing: Apartment Alcohol intake: never Patient Tobacco Use Status: Former Tobacco user Quit Date: 1989 Second Hand Smoke Exposure: Yes service: No Current occupational status: disabled Cognitive needs: No Hearing needs: No Vision needs: Yes Review of Systems Const Denies weakness ENT Denies dizziness Card Denies chest pain, Denies chest pain with activity, Denies syncope, Denies rapid heart rate, Denies pedal edema, Denies edema, Denies leg edema, Denies lightheadedness, Denies palpitations, Denies dyspnea, Denies dyspnea on exertion and Denies orthopnea Resp Denies cough, Denies dyspnea and Denies dyspnea on exertion GI Denies hematochezia and Denies change in stool character Musc Denies abnormal gait, Denies muscle cramps, Denies muscle weakness, Denies numbness, Denies radiating pain into limb and Denies tingling Neuro Denies abnormal gait, Denies dizziness, Denies syncope, Denies numbness, Denies tingling and Denies weakness Endo Denies palpitations Physical Exam Vital Signs: Last Vital Signs Pulse 86 03/08/23 10:54 BP 102/56 L 03/08/23 10:54 BMI result Body Mass Index 38.4 Const General: comfortable and no acute distress Orientation/consciousness: patient oriented x3 HEENT Other: Unremarkable Head: Yes normal to inspection Neck Neck: Yes normal visual inspection Chest Chest palpation & inspection: normal inspection of the chest Resp Auscultation: clear to auscultation bilaterally Cardio Palpation: normal PMI Heart sounds: S1 normal heart sound present, S2 normal heart sound present, no gallops, no murmurs and no rubs GI Palpation (GI): Soft to palpation Back/Spine/Pelvis Other: unremarkable Skin General skin exam: no rashes or lesions noted Neuro General: patient oriented x3 Extrem General: Yes normal to inspection Psych Mental Status: mental status grossly normal Assessment & Plan Assessment & Plan (1) Atherosclerotic cardiovascular disease: Code(s): I25.10 - Atherosclerotic heart disease of [place] coronary artery without angina pectoris (2) RBBB: Code(s): I45.10 - Unspecified right bundle-branch block (3) DM2 (diabetes mellitus, type 2): Code(s): E11.9 - Type 2 diabetes mellitus without complications Qualifiers: Diabetes mellitus complication status: with hyperglycemia Diabetes mellitus exterminator termite insulin use: with intermediate use Qualified Code(s): E11.65 - Type 2 diabetes mellitus with hyperglycemia; Z79.4 - keno terminal operator (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 of insulin (4) Benign essential hypertension: Code(s): I10 - Essential (primary) hypertension (5) Dyslipidemia: Code(s): E78.5 - Hyperlipidemia, unspecified Plan Cardiac studies reviewed. Echocardiogram with LVEF of 65-70%. No significant valvular issues based on limited visualization. In the stress test, she was able to exercise for 3 minutes and 41 seconds and had chest pressure/heaviness as well as shortness of breath. But no overt EKG changes. Perfusion imaging was unremarkable. In the coronary CTA, no obstructive CAD. Overall, [id number] CAD but nothing obstructive. Discussed findings with patient. Recommend medical management only. Optimal management of risk factors including diabetes, hypertension dyslipidemia. Weight loss. Last hemoglobin A1c is 7.3%. LDL 52 mg/dL. Follow-up in 1 year. Total time spent including review of data, counseling, documentation, coordination of care-31 minutes. Coding Level of Care Code Est Pt Level 4 (66290) Diagnoses Atherosclerotic cardiovascular disease I25.10 RBBB I45.10 DM2 (diabetes mellitus, type 2) E11.65; Z79.4 Diabetes mellitus complication status: with hyperglycemia Diabetes mellitus exterminator termite insulin use: with intermediate use Benign essential hypertension I10 Dyslipidemia E78.5
[2023-03-08 10:54] VITALS: BP 102/56; PULSE 86; BMI 38.4
== END 2023-03-08 11:14 | disposition home or self-care (01) ==
PROVIDERS: Visit Provider Internal Medicine
DX: I25.10 Atherosclerotic heart disease of native coronary artery without angina pectoris (principal); I45.10 Unspecified right bundle-branch block; E11.65 Type 2 diabetes mellitus with hyperglycemia; Z79.4 Long term (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 of insulin; I10 Essential (primary) hypertension; E78.5 Hyperlipidemia, unspecified
CPT/HCPCS: 99214

== ENCOUNTER → 2023-03-08 10:29 | Outpatient (BNVA) | payer OTHER, SELFPAY | PROVIDERS: Visit Provider Internal Medicine | DX: I25.10 Atherosclerotic heart disease of native coronary artery without angina pectoris (principal); I10 Essential (primary) hypertension; I45.10 Unspecified right bundle-branch block; E11.65 Type 2 diabetes mellitus with hyperglycemia; E11.42 Type 2 diabetes mellitus with diabetic polyneuropathy; E11.21 Type 2 diabetes mellitus with diabetic nephropathy; E11.3413 Type 2 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, bilateral; Z79.4 Long term (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 of insulin; E78.5 Hyperlipidemia, unspecified | CPT/HCPCS: 99212 ==

== ENCOUNTER 2023-04-15 11:06 | Outpatient (AMB) | payer OTHER, SELFPAY ==
--- NOTE | 2023-04-15 11:08 | A.OFFVIS_ITS ---
Intake Vital Signs 04/15/23 11:09 Height 5 ft 6 in Weight 235 lb 0.204 oz BMI 37.9 BP 149/67 H Blood Pressure Location Rt brachial Position Sitting Intake Visit Reasons: 6 week follow up Intake Note: Patient presents to in office visit today in 6 weeks follow up of CIC, and GERD. PT: Patient reports having a cough for 20 days now and chest pain. Patient reports constipation constantly but takes medication and this helps. Denies other GI symptoms today. Quality Rep Required: No Accompanied by: Self / Same As Patient Allergies No Known Allergies Allergy (Verified 03/08/23 10:57) HPI 6 week follow up HPI Details Assessment & Plan (1) Constipation: ?Code(s): K59.00 - Constipation, unspecified ?Plan: She speaks [place] She is still struggling with CIC, if she takes 1 bisacodyl it only sometimes works, but if she takes 2 it is too much. She is NOT taking it every day. I suggest she take 1 every day and if this does not work we will further refine the regimen. She continues on the reglan and omeprazole with good results. ROV 6 weeks.? Patient overdue for ultrasound for MARTINEZ monitoring will order next visit. (2) GERD (gastroesophageal reflux disease): ?Code(s): K21.9 - Gastro-esophageal reflux disease without esophagitis ?Qualifiers: ?Esophagitis presence:?without esophagitis? Qualified Code(s):?K21.9 - Gastro-esophageal reflux disease without esophagitis (3) MARTINEZ (nonalcoholic steatohepatitis): ?Comment: 06/2019 autoimmune workup is negative, hepatitis a B and C are negative, ferritin is normal, initial AST/ALT 27/51 with alk-phos of 121 normal bilirubin 07/07/2111/03/2111 ?08:[id number]:[id number] Plt Count 174 Estimated GFR > 60 Hemoglobin A1c % 8.5 Total Bilirubin 0.6 AST 19 ALT 36 H Alkaline Phosphatase 131 H TSH 3.39 CURRENT LABS Laboratory Tests ?01/01/2305/12/2304 ?07:2607:[id number]:26 Plt Count 206 Estimated GFR Hemoglobin A1c % 7.3 Total Bilirubin 0.4 AST 34 H ALT 70 H Alkaline Phosphatase 138 H ?02/01/23 ?07:44 Plt Count Estimated GFR > 60 ULTRASOUND OF THE ABDOMEN? 04/02/22 IMPRESSION: ? Increased hepatic echogenicity which can be seen in the setting of hepatic steatosis or underlying liver disease similar to prior. ?Code(s): K75.81 - Nonalcoholic steatohepatitis (MARTINEZ) TODAY'S VISIT She speaks [place] She continues to do well on her GI regimen. She continues on her Reglan, omeprazole, and p.r.n. bisacodyl. She is struggling with a cough which has persisted for over 10 days. She had fevers/chills and cough that is non productive w/o any significant nasal congestion or sore throat. She has self treated with tussin cold medicine w/o any good effect. She has SOB and chest tightness with exertion. She does not have asthma. I will send her for a COVID test as EG-5 variant is on the rise and a CXR as a courtesy. ROV 6 mos for GI follo wup. 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, bilateral Vitamin D deficiency Surgical History History of carpal tunnel release History of cholecystectomy History of esophagogastroduodenoscopy (EGD) History of partial hysterectomy History of repair of rotator cuff History of surgery Hx of colonoscopy Family History Father Diabetes Mother Diabetes CVD (cardiovascular disease) Social History Housing: Apartment Alcohol intake: never Patient Tobacco Use Status: Former Tobacco user Quit Date: 1989 Second Hand Smoke Exposure: Yes service: No Current occupational status: disabled Cognitive needs: No Hearing needs: No Vision needs: Yes Review of Systems Const Reports chills, Denies fatigue, Reports fever(s), Reports malaise, Reports night sweats, Denies poor appetite and Denies weight loss Eyes Details: glasses Reports requires corrective lenses ENT Reports Normal hearing present, Denies dental pain, Denies dysphagia, Denies hearing loss, Denies mouth pain, Denies odynophagia, Denies throat swelling, Denies tongue swelling and Reports other (Dentition adequate) Card Reports no additional complaints and Reports dyspnea on exertion Resp Reports cough, Denies excessive phlegm production, Reports pain on inspiration, Reports dyspnea on exertion and Reports wheezing GI Denies abdominal pain, Denies melena, Denies bloating, Denies hematochezia, Reports constipation, Denies GI cramping, Denies dysphagia, Denies excessive flatus, Denies early satiety, Reports heartburn, Denies diarrhea, Denies nausea, Denies odynophagia, Denies vomiting and Denies hematemesis Skin/Breast Denies pruritus, Denies lesions, Denies rash and Denies jaundice Neuro Reports Normal hearing present and Denies Abnormal speech present Endo Denies fatigue Aller/Immun Denies throat swelling, Denies tongue swelling and Reports wheezing Physical Exam Vital Signs: Last Vital Signs BP 149/67 H 04/15/23 11:09 BMI result Body Mass Index 37.9 Const General: cooperative, no acute distress, well developed, in distress mild and well groomed Nutritional Appearance: well nourished and obese Orientation/consciousness: oriented to person, oriented to place and oriented to time Limitations: No language barrier HEENT Other: hooarse voice Head: Yes normocephalic and Yes atraumatic Eyes General: appearance normal, both eyes and all related structures Pupils: Equal, round and reactive pupils present Neck Neck: Yes normal visual inspection and Yes no lymphadenopathy Thyroid: Thyroid normal Resp Effort & Inspection: normal respiratory effort and Actively coughing Quality: actively coughing Auscultation: wheezes inspiratory wheezes and throughout Cardio Rate: regular rate Rhythm: regular rhythm Heart sounds: Normal, physiologic split S2 sound present Peripheral pulses: radial pulses present and posterior tibial pulses present GI Inspection: No distended and No Abdominal panniculus present Palpation (GI): Soft to palpation, nontender, no guarding, not rigid, No hepatosplenomegaly present and Hepatosplenomegaly present Percussion: Yes normal to percussion Auscultation: normal bowel sounds Rectal Exam - Female: deferred Skin General skin exam: no rashes or lesions noted, turgor normal, skin not dry, no jaundice, No spider nevi and no striae Rashes: no rashes Nails: normal Neuro General: oriented to person, oriented to place and oriented to time Cranial nerves: Yes Equal, round and reactive pupils present and Yes Normal hearing present Speech: No Abnormal speech present Extrem General: Yes normal to inspection, No clubbing, No cyanosis and No edema Psych Appearance: grossly normal and well kempt Mental Status: mental status grossly normal Speech and movement: Normal speech and movement present Affect: normal affect Attitude: cooperative Thought process: Normal thought process present and not confabulating Thought content: Normal thought content present Insight: Fair insight present (Psych) Judgement: Fair judgement present (Psych) Assessment & Plan Assessment & Plan (1) GERD (gastroesophageal reflux disease): Code(s): K21.9 - Gastro-esophageal reflux disease without esophagitis Qualifiers: Esophagitis presence: without esophagitis Qualified Code(s): K21.9 - Gastro-esophageal reflux disease without esophagitis Plan: he speaks [place] She continues to do well on her GI regimen. She continues on her Reglan, omeprazole, and p.r.n. bisacodyl. She is struggling with a cough which has persisted for over 10 days. She had fevers/chills and cough that is non productive w/o any significant nasal congestion or sore throat. She has self treated with tussin cold medicine w/o any good effect. She has SOB and chest tightness with exertion. She does not have asthma. I will send her for a COVID test as EG-5 variant is on the rise and a CXR as a courtesy. ROV 6 mos for GI follo wup. We will send her for additional MARTINEZ monitoring at her next visit. (2) Gastroparesis due to DM: Code(s): E11.43 - Type 2 diabetes mellitus with diabetic autonomic (poly)neuropathy; K31.84 - Gastroparesis (3) Constipation: Code(s): K59.00 - Constipation, unspecified (4) MARTINEZ (nonalcoholic steatohepatitis): Comment: 06/2019 autoimmune workup is negative, hepatitis a B and C are negative, ferritin is normal, initial AST/ALT 27/51 with alk-phos of 121 normal bilirubin 07/07/2111/03/2111 08:1608:[id number]:16 Plt Count 174 Estimated GFR > 60 Hemoglobin A1c % 8.5 Total Bilirubin 0.6 AST 19 ALT 36 H Alkaline Phosphatase 131 H TSH 3.39 CURRENT LABS Laboratory Tests 01/01/230512/2304 07:2607:2607:26 Plt Count 206 Estimated GFR Hemoglobin A1c % 7.3 Total Bilirubin 0.4 AST 34 H ALT 70 H Alkaline Phosphatase 138 H 02/01/23 07:44 Plt Count Estimated GFR > 60 ULTRASOUND OF THE ABDOMEN 04/02/22 IMPRESSION: ? Increased hepatic echogenicity which can be seen in the setting of hepatic steatosis or underlying liver disease similar to prior. Code(s): K75.81 - Nonalcoholic steatohepatitis (MARTINEZ) (5) Cough: Code(s): R05.9 - Cough, unspecified Orders: Orders COVID-19 ID NOW (Rodriguez) Today R05.9 - Cough, unspecified XR chest 2V Today R05.9 - Cough, unspecified Medications: Refilled omeprazole 40 mg PO DAILY 30 caps 6RF metoclopramide HCl 10 mg PO TID 90 tabs 6RF for nausea/vomiting E11.43 - Type 2 diabetes mellitus with diabetic autonomic (poly)neuropathy, K31.84 - Gastroparesis Coding Level of Care Code Est Pt Level 3 (96727) Diagnoses GERD (gastroesophageal reflux disease) K21.9 Esophagitis presence: without esophagitis Gastroparesis due to DM E11.43; K31.84 Constipation K59.00 MARTINEZ (nonalcoholic steatohepatitis) K75.81 Cough R05.9
[2023-04-15 11:09] VITALS: BP 149/67; BMI 37.9
== END 2023-04-15 11:33 | disposition home or self-care (01) ==
PROVIDERS: PCP Internal Medicine; Visit Provider Nurse Practitioner
DX: K21.9 Gastro-esophageal reflux disease without esophagitis (principal); E11.43 Type 2 diabetes mellitus with diabetic autonomic (poly)neuropathy; K31.84 Gastroparesis; K59.00 Constipation, unspecified; K75.81 Nonalcoholic steatohepatitis (NASH); R05.9 Cough, unspecified
CPT/HCPCS: 99213

== ENCOUNTER 2023-04-15 11:06 | Outpatient (REF) | payer OTHER, SELFPAY ==
--- NOTE | ~2023-04-15 | XR_ITS ---
EXAMINATION: XR CHEST 2 VIEWS CLINICAL INFORMATION: Cough of 3 weeks' duration. COMPARISON: Chest radiographs dated 10/24/2019. TECHNIQUE: Frontal and lateral views of the chest were obtained. FINDINGS: The heart, great vessels, pulmonary vasculature and mediastinum are normal. The lungs show no focal infiltrate, effusion or pneumothorax. There is no acute osseous abnormality. XR/XR chest 2V IMPRESSION: No active cardiopulmonary disease.
[2023-04-15 12:03] LABS: MANUAL DIFF FLAG NO
[2023-04-15 12:23] LABS: Basophils Percent Auto 0.3 % (0-2); Eosinophils Percent Auto 0.5 % (0-4); Hematocrit 41.3 % (37.0-47.0); Hemoglobin 12.9 g/dl (12.0-16.0); Imm Gran Abs Auto 0.02 X10*3/uL (0.00-0.03); Imm Gran Pct Auto 0.3 % (0.0-0.4); Lymphocytes Absolute Auto 1.7 X10*3/uL (1.2-4.9); Lymphocytes Percent Auto 28.1 % (20-40); Mean Corpuscular HGB Conc 31.2 g/dl (31.0-35.0); Mean Corpuscular Hemoglobin 28.1 pg (27.0-33.0); Mean Platelet Volume 11.3 fL (9.4-12.3); Monocytes Absolute Auto 0.4 X10*3/uL (0.1-1.2); Monocytes Percent Auto 7.4 % (2-11); Neutrophils Absolute Auto 3.8 x10*3/uL (2.0-8.3); Neutrophils Percent Auto 63.4 % (45-73); Platelet Count 208 X10*3/uL (160-400); Red Blood Count 4.59 X10*6/uL (4.20-5.50); Red Cell Distribution Width 12.6 % (11.0-16.0); White Blood Count 5.9 X10*3/uL (4.8-10.8)
[2023-04-15 12:26] LABS: COVID-19 Test Negative (Negative); IDNOW Serial# BCCEAD1C
[2023-04-15 12:31] LABS: Estimated Average Glucose 163 mg/dL; Hemoglobin A1c % 7.3 %
[2023-04-15 13:25] LABS: Alanine Aminotransferase 50 U/L (0-31); Albumin Level 4.2 g/dL (3.5-5.0); Alkaline Phosphatase 131 U/L (39-117); Anion Gap 10 (12-20); Aspartate Amino Transferase 25 U/L (5-31); Bilirubin Total 0.6 mg/dL (0.0-1.0); Blood Urea Nitrogen 14 mg/dL (9-16); Calcium 9.6 mg/dL (8.4-10.2); Carbon Dioxide 27 mmol/L (22-29); Chloride 109 mmol/L (96-108); Cholesterol 112 mg/dL; Estimated Glomerular Filt Rate > 60; Glucose Fasting 191 mg/dL (60-99); HDL Cholesterol 29 mg/dL; LDL Cholesterol Calculated 44 mg/dl; Sodium 142 mmol/L (135-145); Total Protein 7.4 g/dL (6.5-8.0); Triglycerides 197 mg/dL
[2023-04-15 13:39] LABS: Free T4 (Free Thyroxine) 0.73 ng/dL (0.71-1.85); Thyroid Stimulating Hormone 1.81 uIU/mL (0.32-4.0); Vitamin D 25-OH Total 44.2 ng/mL (>30)
[2023-04-15 14:16] LABS: Appearance Urine Clear; Color Urine Yellow; Glucose Urine UA Negative (Negative); Leukocyte Esterase Urine Moderate (2+) (Negative); Nitrite Urine Negative (Negative); PH 5.5 (5.0-9.0); Specific Gravity - Urine >= 1.030 (1.005-1.025); UMIC TRIGGER UACC YES; Urine Blood Negative (Negative); Urine Ketones Trace mg/dL (Negative); Urine Protein Trace mg/dL (Neg-Trace)
[2023-04-15 14:22] LABS: Bacteria Urine None Seen (None Seen); Hyaline Casts Urine 0-2 /LPF (0-2); RBC Urine 0-2 /HPF (0-2); UACC Culture Trigger YES; WBC Urine 21-50 /HPF (0-5)
[2023-04-15 14:58] LABS: Creatinine Urine 166.81 mg/dL; Microalbum/Creatinine Ratio Ur 11.9 ug/mg cr
== END 2023-04-15 11:07 | disposition home or self-care (01) ==
LOC: HO.LAB 11:06
PROVIDERS: PCP Internal Medicine; Visit Provider Nurse Practitioner
DX: R05.9 Cough, unspecified (principal); E11.9 Type 2 diabetes mellitus without complications; E55.9 Vitamin D deficiency, unspecified; I10 Essential (primary) hypertension; E03.9 Hypothyroidism, unspecified; E78.00 Pure hypercholesterolemia, unspecified; K21.9 Gastro-esophageal reflux disease without esophagitis; K31.84 Gastroparesis; K59.00 Constipation, unspecified; K75.81 Nonalcoholic steatohepatitis (NASH); Z20.822 Contact with and (suspected) exposure to COVID-19
CPT/HCPCS: 36415; 71046; 80053; 80061; 81001; 82043; 82306; 83036; 84439; 84443; 85025; 87086; 87635; 99212

== ENCOUNTER 2023-04-21 10:44 | Outpatient (AMB) | payer OTHER, SELFPAY ==
[2023-04-21 10:51] VITALS: BP 132/80; PULSE 91; O2SAT 97; BMI 37.8
--- NOTE | 2023-04-21 10:51 | A.OFFPC_ITS ---
Vital Signs 04/21/23 10:51 Height 5 ft 6 in Weight 234 lb 2 oz BMI 37.8 BP 132/80 Blood Pressure Location Lt brachial Position Sitting Pulse 91 Pulse Source Pulse Oximeter Pulse Oximetry (%) 97 Oxygen Delivery Method Room Air Intake Visit Reasons: DM, hyperlipidemia, HTN City Clerk Required: No Accompanied by: Self / Same As Patient Allergies No Known Allergies Allergy (Verified 04/21/23 11:10) Medication List - Last Reconciled 04/21/23 by Fish Lomeli MD albuterol sulfate 90 mcg/actuation 1 inh inhalation QID atorvastatin 80 mg PO BEDTIME BD Ultra-Fine Micro Pen Needle (pen needle, diabetic) USE DIRECTED 3 TIMES A DAY NS bisacodyl 5 - 10 mg (1 - 2 x 5 mg) PO DAILY PRN 30 days cholecalciferol (vitamin D3) 50 mcg PO DAILY doxycycline hyclate 100 mg PO BID 10 days dulaglutide (Trulicity) 3 mg (0.5 mL) subcut QWEEK FreeStyle Lite Strips (blood sugar diagnostic) 1 strip miscellaneous .5-6 TIMES DAILY 30 days NS gabapentin 300 mg PO TID Humulin R U-500 (Conc) Kwikpen (insulin regular hum U-500 conc) 95 units in the morning, 90 units before lunch and 70 units before dinner subcut .3 times a day; 30 days NS levothyroxine 50 mcg PO DAILY loperamide (Imodium A-D) 2 mg PO Q6H PRN lorazepam 1 mg PO BID PRN 30 days losartan 100 mg PO DAILY metoclopramide HCl 10 mg PO TID omeprazole 40 mg PO DAILY Tobacco use date assessed: 04/21/23 Fall risk assessment: No Falls in past year Last assessed Fall Risk: 04/21/23 Dental Screening Dental Screen Date: 04/21/23 Did you have a dental visit in the last 12 months?: No Did you have a dental problem in the last 6 months where you did not have access to dental care?: No Was dental information given to patient?: No HPI DM, hyperlipidemia, HTN HPI Details Patient comes in today for her follow up visit States that she has been experiencing increased cough/congestion, fever and on and off chills for the past 10 days Relates (+) recurrent non-productive cough and on and off mild SOB Was recently tested for COVID and also had chest x-rays done - both came out negative/normal Was started on oral Doxycycline 100 mg BID x 10 days and Albuterol inhaler PRN by GI - patient states that she just picked up and started on her Rx yesterday Still has on and off headaches and dizziness Denies any exertional chest pains (+) recurrent nausea that is most unchanged from before; denies any vomiting Still has on and off abdominal pain but no change in bowel habits noted recently Had her follow up labs done last week - to discuss her results [facility] Medical History (Updated 04/21/23 @ 11:57 by Fish Lomeli MD) Acquired hypothyroidism Anxiety Atherosclerotic cardiovascular disease Benign essential hypertension Depression Diabetic nephropathy associated with type 2 diabetes mellitus Diabetic neuropathy Dyslipidemia Gastroparesis due to DM GERD (gastroesophageal reflux disease) 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 Lumbar degenerative disc disease Obesity (BMI 30-39.9) Pure hypercholesterolemia Rheumatic fever Subclinical hypothyroidism Type 2 diabetes mellitus with diabetic polyneuropathy 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, bilateral Vitamin D deficiency Surgical History History of carpal tunnel release History of cholecystectomy History of esophagogastroduodenoscopy (EGD) History of partial hysterectomy History of repair of rotator cuff History of surgery Hx of colonoscopy Family History Father Diabetes Mother Diabetes CVD (cardiovascular disease) Social History Housing: Apartment Alcohol intake: never Patient Tobacco Use Status: Former Tobacco user Quit Date: 1989 e-Cigarette/Vaping Use: Never Used Second Hand Smoke Exposure: Yes service: No Current occupational status: disabled Cognitive needs: No Hearing needs: No Vision needs: Yes Questionnaire PHQ-9 Over the last 2 weeks, how often have you been bothered by any of the following problems? 1. Little interest or pleasure in doing things: not at all 2. Feeling down, depressed, or hopeless: nearly every day 3. Trouble falling or staying asleep, or sleeping too much: nearly every day 4. Feeling tired or having little energy: nearly every day 5. Poor appetite or overeating: not at all 6. Feeling bad about yourself - or that you are a failure or have let yourself or your family down: not at all 7. Trouble concentrating on things, such as reading the newspaper or watching television: not at all 8. Moving or speaking so slowly that other people could have noticed. Or the opposite - being so fidgety or restless that you have been moving around a lot more than usual: not at all 9. Thoughts that you would be better off or of hurting yourself in some way: not at all Total score: 9 Depression Screening Interpretation: Positive Depression Screening Follow-up: Existing condition and In treatment 06592 - PHQ-9 Billing: Yes Source: Developed by Drs. Chin Mccollum, Liberty Coleman, Alverto Monge and colleagues, with an educational judy from [employer]. Thrive Questionnaire Date Thrive assessed: 04/21/23 I am a: Patient What is your living situation today?: I have a steady place to live Within the past 12 months, did the food you bought not last and you didn't have the money to get more?: Never true Within the past 12 months, did you worry whether your food would run out before you got money to buy more?: Never true Do you have trouble paying for medicines?: No Do you have trouble getting transportation to medical appointments?: No Do you have trouble paying your heating and electricity bill?: No Do you have trouble taking care of your child, family member or friend?: No Do you have trouble with day-to-day activities such as bathing, preparing meals, shopping, managing finances, etc.?: No Are you currently unemployed and looking for a job?: No Are you interested in more education?: No Please select the resources that you would like help with: None Currently or been in a relationship where the following occur: no concerns reported AUDIT C Alcohol Use Questionnaire (AUDIT-C) 1. How often do you have a drink containing alcohol?: Never 3. How often do you have six or more drinks on one occasion?: Never Total Score: 0 Score Reviewed/Action Taken: Yes LAURENT-7 AMB Questionnaire LAURENT-7 Date LAURENT - 7 assessed: 04/21/23 Feeling nervous, anxious, or on edge: 3 = Nearly every day Not being able to stop or control worryin = Nearly every day Worrying too much about different things: 3 = Nearly every day Trouble relaxin = Nearly every day Being so restless that it is hard to sit still: 0 = Not at all Becoming easily annoyed or irritable: 0 = Not at all Feeling afraid as if something awful might happen: 0 = Not at all Total LAURENT-7 score (0-4 normal; 5-9 mild; 10-14 moderate; 15-21 severe): 12 Source: Developed by Drs. Chin Mccollum, Liberty Coleman, Alverto Monge and colleagues, with an educational judy from [employer]. Review of Systems Const Reports chills (on and off), Reports fatigue, Reports fever(s) (low-grade), Denies headache(s) and Reports malaise ENT Denies dysphagia, Reports vertigo (occasionally), Reports dizziness (on and off), Denies otalgia, Denies headache(s), Denies odynophagia, Reports sinus pressure and Reports sore throat Card Denies chest pain, Denies chest pain with activity, Denies palpitations and R eports dyspnea on exertion Resp Reports chest congestion, Reports cough (non-productive), Reports dyspnea on exertion and Denies wheezing GI Denies abdominal pain, Reports bloating (on and off), Reports constipation (occasional), Denies dysphagia, Reports heartburn (on and off but meds help), Denies diarrhea, Reports nausea (on and off), Denies odynophagia and Denies vomiting Denies difficulty voiding, Denies nocturia and Denies dysuria Neuro Reports vertigo (occasionally), Reports dizziness (on and off) and Denies headache(s) Psych Reports anxiety Endo Reports fatigue and Denies palpitations Davion/Lymph Denies easy bruising Aller/Immun Denies wheezing Physical exam (Primary Care) Vital Signs: Last Vital Signs Pulse 91 04/21/23 10:51 BP 132/80 04/21/23 10:51 Pulse Ox 97 04/21/23 10:51 Oxygen Delivery Method Room Air 04/21/23 10:51 BMI result Body Mass Index 37.8 Tobacco/Smoking Status: Tobacco use Status Tobacco use date assessed 04/21/23 04/21/23 10:58 Patient Tobacco Use Status Former Tobacco user 04/21/23 10:58 e-Cigarette/Vaping Use Never Used 04/21/23 10:58 PHQ-9: PHQ-9 Score PHQ-9: Total score 9 04/21/23 11:14 Depression Screening Interpretation: Positive Depression Screening Follow-up: Existing condition and In treatment Thrive Assessment: Date of Thrive Assessment Date Thrive assessed 04/21/23 04/21/23 10:58 Currently or been in a relationship where the following occur: no concerns reported Const General: no acute distress and alert HENMT Ears: TM's normal bilaterally and EAC's normal Throat: Yes tonsils normal (no TP congestion noted) and Yes posterior oropharynx abnormal ((+) erythema of the posterior pharynx) Neck Neck: Yes no lymphadenopathy, Yes supple and Yes tender (over the left paraspinal muscles) Resp Auscultation: no rales, rhonchi (scattered) throughout and no wheezes Cardio Rate: regular rate Rhythm: regular rhythm Heart sounds: no murmurs GI Palpation (GI): Soft to palpation, Tenderness to palpation present (GI) (mild) in the epigastrum, no guarding and No Rebound tenderness present Back/Spine/Pelvis Cervical Spine: cervical muscular tenderness (over the left side) Thoracic/Lumbar Spine: lumbar spinal tenderness Extrem General: Yes no clubbing, cyanosis or edema Results Reviewed Results Reviewed: Laboratory Tests 01/01/23 04/15/23 04/15/23 07:26 12:00 12:00 WBC Hgb Hct Plt Count Sodium Potassium Creatinine Estimated GFR Fasting Glucose Hemoglobin A1c % Calcium AST ALT Alkaline Phosphatase Triglycerides 207 Cholesterol 120 LDL Cholesterol, Calc 52 HDL Cholesterol 27 25-OH Vitamin D Total TSH Free T4 Ur Specific [place] >= 1.030 H Urine Protein Trace Urine Glucose (UA) Negative Urine Blood Negative Microalb/Creat Ratio 11.9 04/15/23 04/15/23 04/15/23 12:02 12:02 12:02 WBC 5.9 Hgb 12.9 Hct 41.3 Plt Count 208 Sodium 142 Potassium 4.0 Creatinine 0.77 Estimated GFR > 60 Fasting Glucose 191 H Hemoglobin A1c % 7.3 Calcium 9.6 AST 25 ALT 50 H Alkaline Phosphatase 131 H Triglycerides 197 Cholesterol 112 LDL Cholesterol, Calc 44 HDL Cholesterol 29 25-OH Vitamin D Total 44.2 TSH 1.81 Free T4 0.73 Ur Specific [place] Urine Protein Urine Glucose (UA) Urine Blood Microalb/Creat Ratio Assessment and Plan Assessment & Plan (1) Pure hypercholesterolemia: Code(s): E78.00 - Pure hypercholesterolemia, unspecified Plan: Results of her labs done last week reviewed and discussed with patient Reinforced low cholesterol diet Continue Atorvastatin 40 mg QD Will recheck her labs in 3 months for follow-up (2) Chest pain: Code(s): R07.9 - Chest pain, unspecified Qualifiers: Chest pain type: unspecified Qualified Code(s): R07.9 - Chest pain, unspecified Plan: Resolved Exercise stress testing in December 2022 was inconclusive but nuclear stress testing came out normal/negative (3) Acute bronchitis: Code(s): J20.9 - Acute bronchitis, unspecified Qualifiers: Bronchitis organism: unspecified organism Qualified Code(s): J20.9 - Acute bronchitis, unspecified Plan: Patient recently tested negative for COVID and had a normal chest x-ray done a few days ago Was started on empiric Abx Tx with Doxycycline 100 mg BID x 10 days by GI - patient just picked up and started on her Rx yesterday Continue Albuterol inhaler 4 to 6 times a day PRN as well (4) Type 2 diabetes mellitus with diabetic polyneuropathy: Code(s): E11.42 - Type 2 diabetes mellitus with diabetic polyneuropathy Qualifiers: Diabetes mellitus residential insulin use: with residential use Qualified Code(s): E11.42 - Type 2 diabetes mellitus with diabetic polyneuropathy; Z79.4 - nursing home (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 of insulin Plan: HgbA1c remains unchanged at 7.3% on her labs done last week - goal is <7.0% Reinforced diabetic diet Continue Humulin U-500 95 units when the patient wakes up in the morning (before breakfast), 90 units 30 minutes before lunch and 70 units 30 minutes before dinner and Trulicity 1.5 mg SQ once a week Follow up with endocrinology as scheduled - sees Dr. Vazquez Patient follows up with Dr. Cameron Perez for her retinopathy (has severe nonprol iferative diabetic retinopathy with macular edema) - reinforced again that she needs to get her diabetes under control to slow down the progression of her retinopathy - was last seen in March 2022 (5) Diabetic nephropathy associated with type 2 diabetes mellitus: Code(s): E11.21 - Type 2 diabetes mellitus with diabetic nephropathy Plan: Her renal function appears stable currently Follow up with nephrology as scheduled (6) Diabetic neuropathy: Code(s): E11.40 - Type 2 diabetes mellitus with diabetic neuropathy, unspecified Qualifiers: Diabetes mellitus complication detail: diabetic polyneuropathy Diabetes mellitus type: type 2 Qualified Code(s): E11.42 - Type 2 diabetes mellitus with diabetic polyneuropathy Plan: Reinforced importance of strict glycemic control to slow done progression of her neuropathy (7) Benign essential hypertension: Code(s): I10 - Essential (primary) hypertension Plan: Reinforced low sodium diet - goal is systolic BP of at least 130 mm or less Continue? Losartan 100 mg QD (8) Gastroparesis due to DM: Code(s): E11.43 - Type 2 diabetes mellitus with diabetic autonomic (poly)neuropathy; K31.84 - Gastroparesis Plan: Advised that her recurrent GI symptoms are mostly due to gastroparesis and unfortunately, there are no available medications that help effectively with this Continue Metoclopramide 10 mg TID before meals Follow up with GI as scheduled (9) GERD (gastroesophageal reflux disease): Code(s): K21.9 - Gastro-esophageal reflux disease without esophagitis Qualifiers: Esophagitis presence: without esophagitis Qualified Code(s): K21.9 - Gastro-esophageal reflux disease without esophagitis Plan: Dietary restrictions reinforced Continue Omeprazole 40 mg QD (10) Lumbar degenerative disc disease: Code(s): M51.36 - Other intervertebral disc degeneration, lumbar region Plan: Reinforced activity and weight lifting restrictions Continue Gabapentin 300 mg TID; patient used to also take Duloxetine 30 mg QD and Tizanidine 4 mg TID PRN in the past but she stopped taking these at some point as she felt that she did not need these at the time (11) Acquired hypothyroidism: Code(s): E03.9 - Hypothyroidism, unspecified Plan: Continue Levothyroxine 50 mcg QD Will check her TFTs in 3 months for follow up (12) Vitamin D deficiency: Code(s): E55.9 - Vitamin D deficiency, unspecified Plan: Continue Vitamin D3 2000 units QD (13) Anxiety: Code(s): F41.9 - Anxiety disorder, unspecified Plan: Continue Lorazepam 1 mg twice a day as needed (14) Depression: Code(s): F32.9 - Major depressive disorder, single episode, unspecified Qualifiers: Active/Remission status: currently active Depression Type: major depressive disorder Major depression episode severity: moderate Major depression recurrence: recurrent Qualified Code(s): F33.1 - Major depressive disorder, recurrent, moderate Plan: Follow up with Psychiatry as scheduled (15) Obesity (BMI 30-39.9): Code(s): E66.9 - Obesity, unspecified Plan: Reinforced diet/exercise as tolerated/lose weight Plan Follow up in 3 months Orders: Orders Comprehensive [place]. Panel Fast 3 Months E78.00 - Pure hypercholesterolemia, unspecified Lipid Panel 3 Months E78.00 - Pure hypercholesterolemia, unspecified Complete Blood Count Auto Diff 3 Months I10 - Essential (primary) hypertension Hemoglobin A1c 3 Months E11.9 - Type 2 diabetes mellitus without complications Free T4 (Free Thyroxine) 3 Months E03.9 - Hypothyroidism, unspecified Thyroid Stimulating Hormone 3 Months E03.9 - Hypothyroidism, unspecified Vitamin D 25-OH Total 3 Months E55.9 - Vitamin D deficiency, unspecified Microalbumin, Random (w Creat) 3 Months E11.9 - Type 2 diabetes mellitus without complications UA CC w/rflx Micro + Cult 3 Months R30.0 - Dysuria Coding Level of Care Code Est Pt Level 4 (82237) Diagnoses Pure hypercholesterolemia E78.00 Chest pain R07.9 Chest pain type: unspecified Acute bronchitis J20.9 Bronchitis organism: unspecified organism Type 2 diabetes mellitus with diabetic polyneuropathy E11.42; Z79.4 Diabetes mellitus residential insulin use: with residential use Diabetic nephropathy associated with type 2 diabetes mellitus E11.21 Diabetic neuropathy E11.42 Diabetes mellitus complication detail: diabetic polyneuropathy Diabetes mellitus type: type 2 Benign essential hypertension I10 Gastroparesis due to DM E11.43; K31.84 GERD (gastroesophageal reflux disease) K21.9 Esophagitis presence: without esophagitis Lumbar degenerative disc disease M51.36 Acquired hypothyroidism E03.9 Vitamin D deficiency E55.9 Anxiety F41.9 Depression F33.1 Active/Remission status: currently active Depression Type: major depressive disorder Major depression episode severity: moderate Major depression recurrence: recurrent Obesity (BMI 30-39.9) E66.9
== END 2023-04-21 11:20 | disposition home or self-care (01) ==
PROVIDERS: PCP Internal Medicine; Visit Provider Internal Medicine
DX: E11.42 Type 2 diabetes mellitus with diabetic polyneuropathy (principal); Z79.4 Long term (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 of insulin; I10 Essential (primary) hypertension; E03.9 Hypothyroidism, unspecified; E11.21 Type 2 diabetes mellitus with diabetic nephropathy; E78.00 Pure hypercholesterolemia, unspecified; R07.9 Chest pain, unspecified; J20.9 Acute bronchitis, unspecified; E11.43 Type 2 diabetes mellitus with diabetic autonomic (poly)neuropathy; K31.84 Gastroparesis; K21.9 Gastro-esophageal reflux disease without esophagitis; M51.36 Other intervertebral disc degeneration, lumbar region
CPT/HCPCS: 99214

== ENCOUNTER 2023-05-18 02:51 | Emergency (ER) | payer MEDICARE, MEDICAID, SELFPAY ==
--- NOTE | ~2023-05-18 | XR_ITS ---
EXAMINATION: XR CHEST CLINICAL INFORMATION: Shortness of breath, chest pain COMPARISON: 04/15/2023 TECHNIQUE: 2 views of the chest were obtained. FINDINGS: The lungs are clear with no focal consolidation. No evidence of pneumothorax, pulmonary edema, or pleural effusions. Cardiac size is within normal limits. Calcification is present at the aortic arch. No acute osseous findings are seen. XR/XR chest 2V IMPRESSION: No acute cardiopulmonary findings.
[2023-05-18 02:58] VITALS: BMI 37.8
--- NOTE | 2023-05-18 02:58 | ECG_ITS ---
Test Reason : CHEST PAIN Blood Pressure : / mmHG Vent. Rate : 110 BPM Atrial Rate : 110 BPM P-R Int : 146 ms QRS Dur : 128 ms QT Int : 374 ms P-R-T Axes : 048 -12 002 degrees QTc Int : 506 ms Sinus tachycardia Right bundle branch block Abnormal ECG When compared with ECG of 26-SEP-2021 11:59, T wave inversion now evident in Anterior leads Heart rate has increased Referred By: Generic ED Physician Electronically Signed By:JETHRO NAIDU
[2023-05-18 03:09] VITALS: BP 142/60; PULSE 111; RESP 25; TEMP 37.8; O2SAT 96
--- NOTE | 2023-05-18 03:36 | ED.CHESTPAIN ---
HPI - Chest Pain General Chief Complaint: Chest Pain Stated Complaint: Groin pain/Fever Time Seen by Provider: 05/18/23 03:27 Source: patient Mode of arrival: ambulatory History of Present Illness HPI narrative: 63-year-old female with history of diabetes presents with pain at her left axilla since Wednesday and denies any traumatic injury or change in exercise prior to this and then states that she has been having chest discomfort since 1930 with associated shortness of breath and although reports that the chest pain subsided approximately 2029 she still feels pressure. She denies any recent travel denies any recent illnesses and then states she has also started having right groin pain. She also reports chills. Related Data Home Medications Medication Instructions Recorded Confirmed losartan 100 mg tablet 100 mg PO DAILY 06/18/21 04/21/23 loperamide 2 mg capsule (Imodium 2 mg PO Q6H PRN 02/03/22 04/21/23 A-D) Previous Rx's Medication Instructions Recorded FreeStyle Lite Strips (blood sugar 1 strip miscellaneous .5-6 TIMES 05/14/22 diagnostic) DAILY for diabetes mellitus 30 days #100 ea gabapentin 300 mg capsule 300 mg PO TID #90 caps 07/08/22 bisacodyl 5 mg tablet,delayed 5 - 10 mg (1 - 2 x 5 mg) PO DAILY 08/04/22 release PRN constipation 30 days #60 tabs atorvastatin 80 mg tablet 80 mg PO BEDTIME #90 tabs 09/24/22 levothyroxine 50 mcg tablet 50 mcg PO DAILY #30 tabs 01/11/23 BD Ultra-Fine Micro Pen Needle 32 #100 ea 01/20/23 gauge x 1/4 (pen needle, diabetic) dulaglutide 3 mg/0.5 mL 3 mg (0.5 mL) subcut QWEEK #2 mL 01/20/23 subcutaneous pen injector (Trulicity) Humulin R U-500 (Conc) Kwikpen 500 See Rx Instructions subcut .3 03/08/23 unit/mL (3 mL) subcutaneous times a day 30 days #30 mL (insulin regular hum U-500 conc) metoclopramide HCl 10 mg tablet 10 mg PO TID for nausea/vomiting 04/15/23 #90 tabs omeprazole 40 mg capsule,delayed 40 mg PO DAILY #30 caps 08/17/23 release cholecalciferol (vitamin D3) 50 50 mcg PO DAILY #30 caps 04/16/23 mcg (2,000 unit) capsule lorazepam 1 mg tablet 1 mg PO BID PRN anxiety 30 days 04/19/23 #60 tabs albuterol sulfate 90 mcg/actuation 1 inh inhalation QID shortness of 04/20/23 aerosol inhaler breath or wheezing #8.5 grams doxycycline hyclate 100 mg capsule 100 mg PO BID 10 days #20 caps 04/20/23 Allergies Allergy/AdvReac Type Severity Reaction Status Date / Time No Known Allergies Allergy Verified 05/18/23 02:58 Review of Systems Review of Systems: Pertinent positives and negatives as stated in HPI [facility] Past Medical History Source: nursing notes reviewed Medical History Acquired hypothyroidism Atherosclerotic cardiovascular disease Subclinical hypothyroidism Rheumatic fever GERD (gastroesophageal reflux disease) Diabetic nephropathy associated with type 2 diabetes mellitus Hirsutism Dyslipidemia Type 2 diabetes mellitus with diabetic polyneuropathy Gastroparesis due to DM Obesity (BMI 30-39.9) Depression Anxiety Vitamin D deficiency Lumbar degenerative disc disease Benign essential hypertension Pure hypercholesterolemia Diabetic neuropathy 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, bilateral Surgical History Hx of colonoscopy History of esophagogastroduodenoscopy (EGD) History of carpal tunnel release History of surgery History of cholecystectomy History of partial hysterectomy History of repair of rotator cuff Family History Family History Father Diabetes Mother Diabetes CVD (cardiovascular disease) Social History Social History Housing: Apartment Alcohol intake: never Patient Tobacco Use Status: Former Tobacco user Quit Date: 1989 e-Cigarette/Vaping Use: Never Used Second Hand Smoke Exposure: Yes Advance Directives: No Advance Directives Information Provided: Yes service: No Current occupational status: disabled Cognitive needs: No Hearing needs: No Vision needs: Yes Physical Exam Vital Signs: Vital Signs: Last Vital Signs Temp 100.0 F 05/18/23 03:09 Pulse 105 H 05/18/23 04:57 Resp 23 H 05/18/23 04:57 BP 142/60 H 05/18/23 04:57 Pulse Ox 96 05/18/23 04:57 O2 Del Method Room Air 05/18/23 04:57 BMI result Body Mass Index 37.8 VITAL SIGNS: Reviewed. GENERAL: Well developed, well nourished, in no acute distress. HEAD: Normocephalic/atraumatic EYES: PERRLA, EOMI EARS: Ext canals without abnormality NOSE: Nares patent bilateral OROPHARYNX: no oral lesions noted, posterior pharynx clear NECK: Supple, no adenopathy LUNGS: Normal breath sounds. No adventitious sounds or accessory muscle use. SpO2<96> LEFT AXILLA: Attempts to palpate the area results and reproducible discomfort without erythema or induration noted even with palpation over the left pectoral CARDIOVASCULAR: Regular rate and rhythm without noted murmurs, no JVD or lower extremity edema. ABDOMEN: Soft, non-tender, non-distended with bowel sounds. MUSCULOSKELETAL: No tenderness, deformities, or effusions noted on gross inspection. EXTREMITIES: No cyanosis, clubbing or edema. SKIN: Inspection of the skin reveals no rashes NEUROLOGIC: Alert and oriented x 4. Strength and sensation to light touch were grossly intact x 4. Medical Decision Making Medical Decision Making [facility] Narrative: 63-year-old female with history and clinical presentation, DDX: Pneumonia, viral illness, musculoskeletal pain, lower clinical suspicion for primary ACS. I reviewed all investigations and hematologic indices are negative for acute findings, there is no leukocytosis, anemia, or thrombocytopenia. Chemistry indices are also grossly within normal limits, there is no SANGEETHA, potassium is within normal limits and serial troponins are undetectable and there are no acute changes noted on patient's EKG. Urinalysis negative for evidence to suggest UTI, appears to be contaminated. Viral testing negative for influenza or COVID-19. Chest x-ray does not demonstrate infiltrate and otherwise my interpretation is in agreement with radiology's impression. Patient's heart rate has progressively improved and my interpretation is that this may have been a component of anxiety and I still suspect that patient may have a viral infection. She has otherwise remained hemodynamically stable and is discharged. Differential Diagnosis Differential Diagnoses: The differential diagnosis associated with the presentation includes See the discussion above Admission/Observation Consideration of admission/observation: Escalation of care including admission/observation considered See the discussion above Lab Data [facility] Lab Attestation statement: I reviewed the patient's lab results. Please see the discussion above 05/18/23 03:32 05/18/23 03:32 Labs: Lab Results 05/18/23 05/18/23 05/18/23 Range/Units 03:32 04:46 06:13 WBC 8.6 (4.8-10.8) X10*3/uL RBC 4.31 (4.20-5.50) X10*6/uL Hgb 12.4 (12.0-16.0) g/dl Hct 38.2 (37.0-47.0) % MCV 88.6 (80.0-98.0) fL MCH 28.8 (27.0-33.0) pg MCHC 32.5 (31.0-35.0) g/dl RDW 13.1 (11.0-16.0) % Plt Count 185 (160-400) X10*3/uL MPV 10.7 (9.4-12.3) fL Immature Gran % (Auto) 0.2 (0.0-0.4) % Neut % (Auto) 84.0 H (45-73) % Lymph % (Auto) 10.6 L (20-40) % Bradley % (Auto) 4.4 (2-11) % Eos % (Auto) 0.7 (0-4) % Baso % (Auto) 0.1 (0-2) % Lymph # (Auto) 0.9 L (1.2-4.9) X10*3/uL Bradley # (Auto) 0.4 (0.1-1.2) X10*3/uL Eos # (Auto) 0.1 (0.0-0.4) X10*3/uL Baso # (Auto) 0.0 (0.0-0.2) X10*3/uL Abs Immat Gran (auto) 0.02 (0.00-0.03) X10*3/uL Absolute Neuts (auto) 7.2 (2.0-8.3) x10*3/uL Absolute Nucleated RBC 0.000 (0.0-0.012) X10*3/uL Nucleated RBC % (auto) 0.0 (0.0-0.2) /100WBC Sodium 140 (135-145) mmol/L Potassium 4.0 (3.3-5.1) mmol/L Chloride 108 (96-108) mmol/L Carbon Dioxide 23 (22-29) mmol/L Anion Gap 13 (12-20) BUN 12 (9-16) mg/dL Creatinine 0.74 (0.5-1.4) mg/dL Estim Creat Clear Calc 93.3 Estimated GFR > 60 Random Glucose 117 H (60-115) mg/dL Calcium 9.3 (8.4-10.2) mg/dL Troponin I High Sens < 2.7 < 2.7 (<3.5-17.0) ng/L Urine Color Yellow Urine Appearance Clear Urine pH 5.5 (5.0-9.0) Ur Specific [place] >= 1.030 H (1.005-1.025) Urine Protein Trace (Neg-Trace) mg/dL Urine Glucose (UA) Negative (Negative) mg/dL Urine Ketones Negative (Negative) mg/dL Urine Blood Negative (Negative) Urine Nitrite Negative (Negative) Ur Leukocyte Esterase Small (1+) H (Negative) Urine RBC 0-2 (0-2) /HPF Urine WBC 6-10 H (0-5) /HPF Ur Squamous Epith Cells 6-10 (0-2) /HPF Urine Bacteria Trace (None Seen) Hyaline Casts 0-2 (0-2) /LPF COVID-19 (MELODY) Negative (Negative) COVID-19 Clin Com See Note Influenza Type A (EVE) Negative (Negative) Influenza Type B (EVE) Negative (Negative) Influenza A & B Note See Note Independent Interpretation I performed an independent interpretation of an: EKG Interpretation: A sinus tachycardia, HR-110, RBBB at baseline, HI is within normal limits, QRS-128, QTC-506, QT within normal limits. Radiology Impression Discussion of test interpretation with radiology: I have reviewed the radiologist's reading. Radiologist Impression: Please see the discussion above External Record Review External record reviewed: Outpatient record, Prior outpatient labs and Prior outpatient radiology Chronic Conditions Patient?s care impacted by: Diabetes and Hypertension Discharge Plan Discharge Clinical Impression: Atypical chest pain, Anxiety Patient Disposition: Home, Self-Care Instructions: Chest Pain (ED) Additional Instructions: 1. Resume all home medications as prescribed. 2. Follow-up with your primary care doctor in the next 1-2 days. Return to the ER for any worsening symptoms. Prescriptions: No Action FreeStyle Lite Strips Strip 1 strip miscellaneous .5-6 TIMES DAILY 30 Days Qty: 100 6RF gabapentin 300 mg capsule 300 mg PO TID Qty: 90 5RF atorvastatin 80 mg tablet 80 mg PO BEDTIME Qty: 90 2RF levothyroxine 50 mcg tablet 50 mcg PO DAILY Qty: 30 5RF Humulin R U-500 (Conc) Kwikpen 500 unit/mL (3 mL) insulin pen See Rx Instructions subcut .3 times a day 30 Days Qty: 30 6RF Rx Instructions: 95 units in the morning, 90 units before lunch and 70 units before dinner subcut .3 times a day; cholecalciferol (vitamin D3) 50 mcg (2,000 unit) capsule 50 mcg PO DAILY Qty: 30 11RF lorazepam 1 mg tablet 1 mg PO BID PRN (Reason: anxiety) 30 Days Qty: 60 0RF doxycycline hyclate 100 mg capsule 100 mg PO BID 10 Days Qty: 20 0RF albuterol sulfate 90 mcg/actuation HFA aerosol inhaler 1 inh inhalation QID Qty: 8.5 3RF losartan 100 mg tablet 100 mg PO DAILY loperamide [Imodium A-D] 2 mg capsule 2 mg PO Q6H PRN Trulicity 3 mg/0.5 mL pen injector 3 mg subcut QWEEK Qty: 2 5RF (DME) pen needle, diabetic [BD Ultra-Fine Micro Pen Needle] 32 gauge x 1/4 needle See Rx Instructions .ROUTE .COMPLEX Qty: 100 11RF Dose Instruction: USE DIRECTED 3 TIMES A DAY Rx Instructions: USE DIRECTED 3 TIMES A DAY bisacodyl 5 mg tablet,delayed release (DR/EC) 5 - 10 mg PO DAILY PRN (Reason: constipation) 30 Days Qty: 60 6RF Rx Instructions: Take 1-2 tablets by mouth once a day as needed for constipation omeprazole 40 mg capsule,delayed release(DR/EC) 40 mg PO DAILY Qty: 30 6RF metoclopramide HCl 10 mg tablet 10 mg PO TID Qty: 90 6RF Referrals: Fish Lomeli MD [Primary Care Provider] -
[2023-05-18 03:43] LABS: MANUAL DIFF FLAG NO
[2023-05-18 03:44] LABS: Basophils Percent Auto 0.1 % (0-2); Eosinophils Absolute Auto 0.1 X10*3/uL (0.0-0.4); Eosinophils Percent Auto 0.7 % (0-4); Hematocrit 38.2 % (37.0-47.0); Hemoglobin 12.4 g/dl (12.0-16.0); Imm Gran Abs Auto 0.02 X10*3/uL (0.00-0.03); Imm Gran Pct Auto 0.2 % (0.0-0.4); Lymphocytes Absolute Auto 0.9 X10*3/uL (1.2-4.9); Lymphocytes Percent Auto 10.6 % (20-40); Mean Corpuscular HGB Conc 32.5 g/dl (31.0-35.0); Mean Corpuscular Hemoglobin 28.8 pg (27.0-33.0); Mean Corpuscular Volume 88.6 fL (80.0-98.0); Mean Platelet Volume 10.7 fL (9.4-12.3); Monocytes Absolute Auto 0.4 X10*3/uL (0.1-1.2); Monocytes Percent Auto 4.4 % (2-11); Neutrophils Absolute Auto 7.2 x10*3/uL (2.0-8.3); Platelet Count 185 X10*3/uL (160-400); Red Blood Count 4.31 X10*6/uL (4.20-5.50); Red Cell Distribution Width 13.1 % (11.0-16.0); White Blood Count 8.6 X10*3/uL (4.8-10.8)
[2023-05-18 03:57] LABS: Anion Gap 13 (12-20); Blood Urea Nitrogen 12 mg/dL (9-16); Calcium 9.3 mg/dL (8.4-10.2); Carbon Dioxide 23 mmol/L (22-29); Chloride 108 mmol/L (96-108); Creatinine Clr Calc Pharmacy 93.3; Estimated Glomerular Filt Rate > 60; Glucose Random 117 mg/dL (60-115); Sodium 140 mmol/L (135-145)
[2023-05-18 03:58] LABS: IDNOW Serial# BCCEAD1C
[2023-05-18 03:59] LABS: COVID-19 Test Negative (Negative); IDNOW Serial# 08D9AD1C; Influenza A Negative (Negative); Influenza B2 Negative (Negative)
[2023-05-18 04:06] LABS: Troponin-I High Sensitivity < 2.7 ng/L (<3.5-17.0)
[2023-05-18 04:54] LABS: Appearance Urine Clear; Color Urine Yellow; Glucose Urine UA Negative (Negative); Leukocyte Esterase Urine Small (1+) (Negative); Nitrite Urine Negative (Negative); PH 5.5 (5.0-9.0); Specific Gravity - Urine >= 1.030 (1.005-1.025); UMIC TRIGGER UACC YES; Urine Blood Negative (Negative); Urine Ketones Negative (Negative); Urine Protein Trace mg/dL (Neg-Trace)
[2023-05-18 04:56] LABS: Bacteria Urine Trace (None Seen); Hyaline Casts Urine 0-2 /LPF (0-2); RBC Urine 0-2 /HPF (0-2); UACC Culture Trigger YES
[2023-05-18 04:57] VITALS: BP 142/60; PULSE 105; RESP 23; O2SAT 96
[2023-05-18 06:40] LABS: Troponin-I High Sensitivity < 2.7 ng/L (<3.5-17.0)
[2023-05-18 06:47] VITALS: BP 115/51; PULSE 90; RESP 19; O2SAT 99
== END 2023-05-18 07:06 | disposition home or self-care (01) ==
PROVIDERS: Emergency Provider Student in an Organized Health Care Education/Training Program; PCP Internal Medicine
DX: R07.89 Other chest pain (principal); F41.9 Anxiety disorder, unspecified; R50.9 Fever, unspecified; Z20.822 Contact with and (suspected) exposure to COVID-19; E11.9 Type 2 diabetes mellitus without complications; I10 Essential (primary) hypertension; E78.5 Hyperlipidemia, unspecified; Z87.891 Personal history of nicotine dependence; Z79.4 Long term (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 of insulin; Z79.899 Other long term (current) drug therapy
CPT/HCPCS: 36415; 71046; 80048; 81001; 84484; 85025; 87086; 87147; 87502; 87635; 93005; 99283; 99284

== ENCOUNTER 2023-06-02 07:58 | Outpatient (REF) | payer MEDICARE, MEDICAID, SELFPAY ==
[2023-06-02 08:17] LABS: MANUAL DIFF FLAG NO
[2023-06-02 08:59] LABS: Basophils Percent Auto 0.6 % (0-2); Eosinophils Absolute Auto 0.1 X10*3/uL (0.0-0.4); Eosinophils Percent Auto 1.1 % (0-4); Hematocrit 39.7 % (37.0-47.0); Hemoglobin 12.7 g/dl (12.0-16.0); Imm Gran Abs Auto 0.02 X10*3/uL (0.00-0.03); Imm Gran Pct Auto 0.3 % (0.0-0.4); Lymphocytes Absolute Auto 2.5 X10*3/uL (1.2-4.9); Lymphocytes Percent Auto 35.8 % (20-40); Mean Corpuscular Hemoglobin 28.7 pg (27.0-33.0); Mean Corpuscular Volume 89.6 fL (80.0-98.0); Mean Platelet Volume 11.1 fL (9.4-12.3); Monocytes Absolute Auto 0.6 X10*3/uL (0.1-1.2); Neutrophils Absolute Auto 3.9 x10*3/uL (2.0-8.3); Neutrophils Percent Auto 54.2 % (45-73); Platelet Count 231 X10*3/uL (160-400); Red Blood Count 4.43 X10*6/uL (4.20-5.50); White Blood Count 7.1 X10*3/uL (4.8-10.8)
[2023-06-02 09:09] LABS: Estimated Average Glucose 160 mg/dL; Hemoglobin A1c % 7.2 % (<6.0)
[2023-06-02 09:32] LABS: Alanine Aminotransferase 49 U/L (0-31); Albumin Level 4.1 g/dL (3.5-5.0); Alkaline Phosphatase 121 U/L (39-117); Anion Gap 12 (12-20); Aspartate Amino Transferase 25 U/L (5-31); Bilirubin Total 0.7 mg/dL (0.0-1.0); Blood Urea Nitrogen 13 mg/dL (9-16); Calcium 9.9 mg/dL (8.4-10.2); Carbon Dioxide 28 mmol/L (22-29); Chloride 105 mmol/L (96-108); Cholesterol 127 mg/dL (<200); Estimated Glomerular Filt Rate > 60; Glucose Fasting 125 mg/dL (60-99); HDL Cholesterol 28 mg/dL (>40); LDL Cholesterol Calculated 53 mg/dL (<100); Potassium 4.1 mmol/L (3.3-5.1); Sodium 141 mmol/L (135-145); Total Protein 7.4 g/dL (6.5-8.0); Triglycerides 232 mg/dL (<150)
[2023-06-02 09:39] LABS: Appearance Urine Clear; Color Urine Yellow; Glucose Urine UA Negative (Negative); Leukocyte Esterase Urine Trace (Negative); Nitrite Urine Negative (Negative); Specific Gravity - Urine >= 1.030 (1.005-1.025); UMIC TRIGGER UACC YES; Urine Blood Negative (Negative); Urine Ketones Negative (Negative); Urine Protein Negative (Neg-Trace)
[2023-06-02 09:43] LABS: Bacteria Urine None Seen (None Seen); Hyaline Casts Urine 0-2 /LPF (0-2); WBC Urine 0-5 /HPF (0-5)
[2023-06-02 09:52] LABS: Creatinine Urine 259.09 mg/dL; Microalbum/Creatinine Ratio Ur 8.8 ug/mg cr (<30)
[2023-06-02 09:58] LABS: Free T4 (Free Thyroxine) 0.82 ng/dL (0.71-1.85); Thyroid Stimulating Hormone 3.02 uIU/mL (0.32-4.0); Vitamin D 25-OH Total 42.1 ng/mL (>30)
== END 2023-06-02 07:59 | disposition home or self-care (01) ==
LOC: HO.LAB 07:58
PROVIDERS: PCP Internal Medicine; Visit Provider Internal Medicine
DX: I10 Essential (primary) hypertension (principal); E78.00 Pure hypercholesterolemia, unspecified; E03.9 Hypothyroidism, unspecified; E11.9 Type 2 diabetes mellitus without complications; E55.9 Vitamin D deficiency, unspecified
CPT/HCPCS: 36415; 80053; 80061; 81001; 82043; 82306; 82570; 83036; 84439; 84443; 85025

== ENCOUNTER 2023-06-02 14:13 | Outpatient (AMB) | payer MEDICARE, MEDICAID, SELFPAY ==
[2023-06-02 14:16] VITALS: BP 110/60; PULSE 92; O2SAT 97; BMI 37.3
--- NOTE | 2023-06-02 14:16 | A.OFFPC_ITS ---
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 Accompanied by: Self / Same As Patient Allergies No Known Allergies Allergy (Verified 06/02/23 15:07) Medication List - Last Reconciled 06/02/23 by Fish Lomeli MD albuterol sulfate 90 mcg/actuation 1 inh inhalation QID atorvastatin 80 mg PO BEDTIME BD Ultra-Fine Micro Pen Needle (pen needle, diabetic) USE DIRECTED 3 TIMES A DAY NS bisacodyl 5 - 10 mg (1 - 2 x 5 mg) PO DAILY PRN 30 days cholecalciferol (vitamin D3) 50 mcg PO DAILY doxycycline hyclate 100 mg PO BID 10 days dulaglutide (Trulicity) 3 mg (0.5 mL) subcut QWEEK FreeStyle Lite Strips (blood sugar diagnostic) 1 strip miscellaneous .5-6 TIMES DAILY 30 days NS gabapentin 300 mg PO TID Humulin R U-500 (Conc) Kwikpen (insulin regular hum U-500 conc) 95 units in the morning, 90 units before lunch and 70 units before dinner subcut .3 times a day; 30 days NS levothyroxine 50 mcg PO DAILY loperamide (Imodium A-D) 2 mg PO Q6H PRN lorazepam 1 mg PO BID PRN 30 days losartan 100 mg PO DAILY metoclopramide HCl 10 mg PO TID omeprazole 40 mg PO DAILY Tobacco use date assessed: 06/02/23 Fall risk assessment: No Falls in past year Last assessed Fall Risk: 06/02/23 Dental Screening Dental Screen Date: 06/02/23 Did you have a dental visit in the last 12 months?: No Did you have a dental problem in the last 6 months where you did not have access to dental care?: No Was dental information given to patient?: No HPI ed follow up for groin pain HPI Details Patient comes in today for her HDF follow up visit States that she went to the ER a couple of weeks ago complaining of fever, chest pain, left axillary pain as well as right groin pain Work ups done in the ER, including labs, cardiac enzymes and EKG, were all normal Patient was also tested for COVID and flu - tests came back negative She was reassured of her normal findings and instructed to take some OTC meds PRN for symptomatic relief and to follow up with her PCP States that her previous symptoms have all gradually subsided since and she currently no longer has any of the above-mentioned symptoms but still feels fatigued somewhat She denies any fever or sore throat Denies any headaches or dizziness Denies any chest pains, no SOB No nausea/vomiting, no abdominal pain No change in bowel habits noted [facility] Medical History Acquired hypothyroidism Atherosclerotic cardiovascular disease Subclinical hypothyroidism Rheumatic fever GERD (gastroesophageal reflux disease) Diabetic nephropathy associated with type 2 diabetes mellitus Hirsutism Dyslipidemia Type 2 diabetes mellitus with diabetic polyneuropathy Gastroparesis due to DM Obesity (BMI 30-39.9) Depression Anxiety Vitamin D deficiency Lumbar degenerative disc disease Benign essential hypertension Pure hypercholesterolemia 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, bilateral Surgical History Hx of colonoscopy History of esophagogastroduodenoscopy (EGD) History of carpal tunnel release History of surgery History of cholecystectomy History of partial hysterectomy History of repair of rotator cuff Family History Father Diabetes Mother Diabetes CVD (cardiovascular disease) Social History Housing: Apartment Alcohol intake: never Patient Tobacco Use Status: Former Tobacco user Quit Date: 1989 e-Cigarette/Vaping Use: Never Used Second Hand Smoke Exposure: Yes service: No Current occupational status: disabled Cognitive needs: No Hearing needs: No Vision needs: Yes Questionnaire PHQ-9 Over the last 2 weeks, how often have you been bothered by any of the following problems? 1. Little interest or pleasure in doing things: not at all 2. Feeling down, depressed, or hopeless: nearly every day 3. Trouble falling or staying asleep, or sleeping too much: nearly every day 4. Feeling tired or having little energy: nearly every day 5. Poor appetite or overeating: not at all 6. Feeling bad about yourself - or that you are a failure or have let yourself or your family down: not at all 7. Trouble concentrating on things, such as reading the newspaper or watching television: not at all 8. Moving or speaking so slowly that other people could have noticed. Or the o pposite - being so fidgety or restless that you have been moving around a lot more than usual: not at all 9. Thoughts that you would be better off or of hurting yourself in some way: not at all Total score: 9 Depression Screening Interpretation: Positive Depression Screening Follow-up: Existing condition and In treatment Depression Screening Done: Yes 70152 - PHQ-9 Billing: Yes Source: Developed by Drs. Chin Mccollum, Liberty Coleman, Alverto Monge and colleagues, with an educational judy from [employer]. Thrive Questionnaire Date Thrive assessed: 06/02/23 I am a: Patient What is your living situation today?: I have a steady place to live Within the past 12 months, did the food you bought not last and you didn't have the money to get more?: Never true Within the past 12 months, did you worry whether your food would run out before you got money to buy more?: Never true Do you have trouble paying for medicines?: No Do you have trouble getting transportation to medical appointments?: No Do you have trouble paying your heating and electricity bill?: No Do you have trouble taking care of your child, family member or friend?: No Do you have trouble with day-to-day activities such as bathing, preparing meals, shopping, managing finances, etc.?: No Are you currently unemployed and looking for a job?: No Are you interested in more education?: No Please select the resources that you would like help with: None Currently or been in a relationship where the following occur: no concerns reported AUDIT C Alcohol Use Questionnaire (AUDIT-C) 1. How often do you have a drink containing alcohol?: Never 3. How often do you have six or more drinks on one occasion?: Never Total Score: 0 Score Reviewed/Action Taken: Yes LAURENT-7 AMB Questionnaire LAURENT-7 Date LAURENT - 7 assessed: 06/02/23 Feeling nervous, anxious, or on edge: 3 = Nearly every day Not being able to stop or control worryin = Nearly every day Worrying too much about different things: 3 = Nearly every day Trouble relaxin = Nearly every day Being so restless that it is hard to sit still: 0 = Not at all Becoming easily annoyed or irritable: 0 = Not at all Feeling afraid as if something awful might happen: 0 = Not at all Total LAURENT-7 score (0-4 normal; 5-9 mild; 10-14 moderate; 15-21 severe): 12 Source: Developed by Drs. Chin Mccollum, Liberty Coleman, Alverto Monge and colleagues, with an educational judy from [employer]. Review of Systems Const Denies chills, Reports fatigue, Denies fever(s) and Denies headache(s) ENT Denies dysphagia, Reports vertigo (occasionally), Denies dizziness, Denies otalgia, Denies headache(s), Denies odynophagia and Reports sore throat Card Denies chest pain, Denies palpitations and Reports dyspnea on exertion (mild) Resp Denies chest congestion, Denies cough, Reports dyspnea on exertion (mild) and Denies wheezing GI Denies abdominal pain, Reports bloating (on and off), Reports constipation (chronic), Denies dysphagia, Reports heartburn (on and off but meds help), Denies diarrhea, Denies odynophagia and Denies vomiting Denies difficulty voiding, Denies nocturia and Denies dysuria Musc Reports back pain (over the lower back - chronic) Neuro Reports vertigo (occasionally), Denies dizziness and Denies headache(s) Psych Reports anxiety Endo Reports fatigue and Denies palpitations Davion/Lymph Denies easy bruising Aller/Immun Denies wheezing Physical exam (Primary Care) Vital Signs: Last Vital Signs Pulse 92 06/02/23 14:16 BP 110/60 06/02/23 14:16 Pulse Ox 97 06/02/23 14:16 Oxygen Delivery Method Room Air 06/02/23 14:16 BMI result Body Mass Index 37.3 Tobacco/Smoking Status: Tobacco use Status Tobacco use date assessed 06/02/23 06/02/23 14:19 Patient Tobacco Use Status Former Tobacco user 06/02/23 14:19 e-Cigarette/Vaping Use Never Used 06/02/23 14:19 PHQ-9: PHQ-9 Score PHQ-9: Total score 9 06/02/23 15:12 Depression Screening Interpretation: Positive Depression Screening Follow-up: Existing condition and In treatment Thrive Assessment: Date of Thrive Assessment Date Thrive assessed 06/02/23 06/02/23 14:19 Currently or been in a relationship where the following occur: no concerns reported Const General: no acute distress and alert HENMT Ears: TM's normal bilaterally and EAC's normal Throat: Yes tonsils normal (no TP congestion noted) and Yes posterior oropharynx abnormal ((+) erythema of the posterior pharynx) Neck Neck: Yes no lymphadenopathy, Yes supple and Yes tender (over the left cervical paraspinal muscles) Resp Auscultation: clear to auscultation bilaterally, no rales and no wheezes Cardio Rate: regular rate Rhythm: regular rhythm Heart sounds: no murmurs GI Palpation (GI): Soft to palpation, Tenderness to palpation present (GI) (mild) in the epigastrum, no guarding and No Rebound tenderness present Auscultation: normal bowel sounds General: Yes no CVA tenderness Back/Spine/Pelvis Back: no CVA tenderness Cervical Spine: cervical muscular tenderness (over the left side) Thoracic/Lumbar Spine: lumbar spinal tenderness Skin Rashes: no rashes Extrem General: Yes no clubbing, cyanosis or edema Assessment and Plan Assessment & Plan (1) Viral illness: Code(s): B34.9 - Viral infection, unspecified (2) Chest pain: Comment: Exercise stress testing in December 2022 was inconclusive but nuclear stress testing came out normal/negative Code(s): R07.9 - Chest pain, unspecified Qualifiers: Chest pain type: unspecified Qualified Code(s): R07.9 - Chest pain, unspecified (3) Anxiety: Code(s): F41.9 - Anxiety disorder, unspecified Plan Patient is reassured that her recent symptoms from a couple of weeks ago appear to be mostly due to some non-specific viral infection She did test negative for COVID and flu; the rest of her labs were all unremarkable Advised that her chest pains were likely triggered by anxiety as her cardiac enzymes and EKG at the time were all normal She also had nuclear stress testing done a few months ago this year that came out normal Advised that her axillary and groin pain were also likely non-specific pain (possible lympathic pain) but as they have since resolved, should not be of concern at this time Continue Lorazepam 1 mg twice a day as needed To return as scheduled in 2 weeks for her annual physical examination Coding Level of Care Code Est Pt Level 3 (70248) Diagnoses Viral illness B34.9 Chest pain, unspecified type R07.9 Chest pain type: unspecified Anxiety F41.9
== END 2023-06-02 15:13 | disposition home or self-care (01) ==
PROVIDERS: PCP Internal Medicine; Visit Provider Internal Medicine
DX: B34.9 Viral infection, unspecified (principal); R07.9 Chest pain, unspecified; F41.9 Anxiety disorder, unspecified
CPT/HCPCS: 99213

== ENCOUNTER 2023-06-14 10:51 | Outpatient (AMB) | payer MEDICARE, MEDICAID, SELFPAY ==
[2023-06-14 10:58] VITALS: BP 122/68; PULSE 79; O2SAT 97; BMI 37.8
--- NOTE | 2023-06-14 10:58 | MHC.PC.OV ---
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 Operator Required: No Accompanied by: Self / Same As Patient Allergies No Known Allergies Allergy (Verified 06/14/23 11:37) Medication List - Last Reconciled 06/14/23 by Fish Lomeli MD albuterol sulfate 90 mcg/actuation 1 inh inhalation QID atorvastatin 80 mg PO BEDTIME BD Ultra-Fine Micro Pen Needle (pen needle, diabetic) USE DIRECTED 3 TIMES A DAY NS bisacodyl 5 - 10 mg (1 - 2 x 5 mg) PO DAILY PRN 30 days cholecalciferol (vitamin D3) 50 mcg PO DAILY doxycycline hyclate 100 mg PO BID 10 days dulaglutide (Trulicity) 3 mg (0.5 mL) subcut QWEEK FreeStyle Lite Strips (blood sugar diagnostic) 1 strip miscellaneous .5-6 TIMES DAILY 30 days NS gabapentin 300 mg PO TID Humulin R U-500 (Conc) Kwikpen (insulin regular hum U-500 conc) 95 units in the morning, 90 units before lunch and 70 units before dinner subcut .3 times a day; 30 days NS levothyroxine 50 mcg PO DAILY loperamide (Imodium A-D) 2 mg PO Q6H PRN lorazepam 1 mg PO BID PRN 30 days losartan 100 mg PO DAILY metoclopramide HCl 10 mg PO TID omeprazole 40 mg PO DAILY Tobacco use date assessed: 06/14/23 Fall risk assessment: No Falls in past year Last assessed Fall Risk: 06/14/23 Dental Screening Dental Screen Date: 06/14/23 Did you have a dental visit in the last 12 months?: No Did you have a dental problem in the last 6 months where you did not have access to dental care?: No Was dental information given to patient?: No HPI Annual Exam HPI Details Patient comes in today for her annual physical examination States that she feels okay She denies any headaches or dizziness Denies any chest pains lately; no increased SOB Still has on and off nausea (chronic) but no vomiting and no abdominal pain noted lately No change in bowel habits noted Denies any acute urinary symptoms Still has chronic low back pain and joint pains but states that these have been manageable lately Had her follow up labs done a couple of weeks ago - to discuss her results Patient seems to be under the impression that she had a colonoscopy done back in [address] Chapman did her EGD States that she was awake then so she knows that she had it done but Dr. Chapman' report only indicated an EGD being done at the time There was also a notation in her chart back in 2017 that she declined offer to refer her for a colonoscopy She had her mammogram last done in June 2022 so she will be due for repeat mammogram in less than a month She also states that she had a bone density done upstairs here at [facility] years ago but am unable to locate any past BMD report on her in her file Also needs her Trulicity Rx refilled today [facility] Medical History Acquired hypothyroidism Atherosclerotic cardiovascular disease Subclinical hypothyroidism Rheumatic fever GERD (gastroesophageal reflux disease) Diabetic nephropathy associated with type 2 diabetes mellitus Hirsutism Dyslipidemia Type 2 diabetes mellitus with diabetic polyneuropathy Gastroparesis due to DM Obesity (BMI 30-39.9) Depression Anxiety Vitamin D deficiency Lumbar degenerative disc disease Benign essential hypertension Pure hypercholesterolemia Diabetic neuropathy alf (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 of insulin 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, bilateral Surgical History Hx of colonoscopy History of esophagogastroduodenoscopy (EGD) History of carpal tunnel release History of surgery History of cholecystectomy History of partial hysterectomy History of repair of rotator cuff Family History Father Diabetes Mother Diabetes CVD (cardiovascular disease) Social History Housing: Apartment Alcohol intake: never Patient Tobacco Use Status: Former Tobacco user Quit Date: 1989 e-Cigarette/Vaping Use: Never Used Second Hand Smoke Exposure: Yes service: No Current occupational status: disabled Cognitive needs: No Hearing needs: No Vision needs: Yes Questionnaire PHQ-9 Over the last 2 weeks, how often have you been bothered by any of the following problems? 1. Little interest or pleasure in doing things: not at all 2. Feeling down, depressed, or hopeless: nearly every day 3. Trouble falling or staying asleep, or sleeping too much: nearly every day 4. Feeling tired or having little energy: nearly every day 5. Poor appetite or overeating: not at all 6. Feeling bad about yourself - or that you are a failure or have let yourself or your family down: not at all 7. Trouble concentrating on things, such as reading the newspaper or watching television: not at all 8. Moving or speaking so slowly that other people could have noticed. Or the opposite - being so fidgety or restless that you have been moving around a lot more than usual: not at all 9. Thoughts that you would be better off or of hurting yourself in some way: not at all Total score: 9 Depression Screening Interpretation: Positive Depression Screening Follow-up: Existing condition and In treatment Depression Screening Done: Yes 77504 - PHQ-9 Billing: Yes Source: Developed by Drs. Chin Mccollum, Liberty Coleman, Alverto Monge and colleagues, with an educational judy from [employer]. Thrive Questionnaire Date Thrive assessed: 06/14/23 I am a: Patient What is your living situation today?: I have a steady place to live Within the past 12 months, did the food you bought not last and you didn't have the money to get more?: Never true Within the past 12 months, did you worry whether your food would run out before you got money to buy more?: Never true Do you have trouble paying for medicines?: No Do you have trouble getting transportation to medical appointments?: No Do you have trouble paying your heating and electricity bill?: No Do you have trouble taking care of your child, family member or friend?: No Do you have trouble with day-to-day activities such as bathing, preparing meals, shopping, managing finances, etc.?: No Are you currently unemployed and looking for a job?: No Are you interested in more education?: No Please select the resources that you would like help with: None Currently or been in a relationship where the following occur: no concerns reported AUDIT C Alcohol Use Questionnaire (AUDIT-C) 1. How often do you have a drink containing alcohol?: Never 3. How often do you have six or more drinks on one occasion?: Never Total Score: 0 Score Reviewed/Action Taken: Yes LAURENT-7 AMB Questionnaire LAURENT-7 Date LAURENT - 7 assessed: 06/02/23 Feeling nervous, anxious, or on edge: 3 = Nearly every day Not being able to stop or control worryin = Nearly every day Worrying too much about different things: 3 = Nearly every day Trouble relaxin = Nearly every day Being so restless that it is hard to sit still: 0 = Not at all Becoming easily annoyed or irritable: 0 = Not at all Feeling afraid as if something awful might happen: 0 = Not at all Total LAURENT-7 score (0-4 normal; 5-9 mild; 10-14 moderate; 15-21 severe): 12 Source: Developed by Drs. Chin Mccollum, Liberty Coleman, Alverto Monge and colleagues, with an educational judy from [employer]. Review of Systems Const Denies chills, Reports fatigue, Denies fever(s) and Denies headache(s) Eyes Denies blurry vision, Denies change in vision, Denies irritation and Denies itchy eyes ENT Denies dysphagia, Reports vertigo (occasionally), Denies dizziness, Denies otalgia, Denies headache(s), Denies odynophagia and Denies sore throat Card Denies chest pain, Denies palpitations and Reports dyspnea on exertion (mild) Resp Denies chest congestion, Denies cough, Reports dyspnea on exertion (mild) and Denies wheezing GI Denies abdominal pain, Reports bloating (on and off), Reports constipation (chronic), Denies dysphagia, Reports heartburn (on and off but meds help), Denies diarrhea, Denies odynophagia and Denies vomiting Denies difficulty voiding, Denies nocturia, Denies dysuria and Denies urinary urgency Musc Reports back pain (over the lower back - chronic) Skin/Breast Denies breast pain, Denies breast mass, Denies change in pigmentation, Denies lesions, Denies rash and Denies unusual bruising Neuro Reports vertigo (occasionally), Denies dizziness and Denies headache(s) Psych Reports anxiety Endo Reports fatigue and Denies palpitations Davion/Lymph Denies easy bruising Aller/Immun Denies itchy eyes and Denies wheezing Physical exam (Primary Care) Vital Signs: Last Vital Signs Pulse 79 06/14/23 10:58 BP 122/68 06/14/23 10:58 Pulse Ox 97 06/14/23 10:58 Oxygen Delivery Method Room Air 06/14/23 10:58 BMI result Body Mass Index 37.8 Tobacco/Smoking Status: Tobacco use Status Tobacco use date assessed 06/14/23 06/14/23 11:05 Patient Tobacco Use Status Former Tobacco user 06/14/23 11:05 e-Cigarette/Vaping Use Never Used 06/14/23 11:05 PHQ-9: PHQ-9 Score PHQ-9: Total score 9 06/14/23 11:05 Depression Screening Interpretation: Positive Depression Screening Follow-up: Existing condition and In treatment Thrive Assessment: Date of Thrive Assessment Date Thrive assessed 06/14/23 06/14/23 11:05 Currently or been in a relationship where the following occur: no concerns reported Const General: no acute distress and alert Orientation/consciousness: patient oriented x3 HENMT Head: Yes normocephalic and Yes atraumatic Ears: TM's normal bilaterally and EAC's normal General nose exam: No nasal discharge present Face and sinus: Yes normal facial exam and Yes sinuses nontender Teeth and gingiva: dentition normal Throat: Yes posterior oropharynx normal and Yes tonsils normal (no TP congestion noted) Eyes Eyelids: Yes eyelids normal Conjunctivae: conjunctivae normal Pupils: Equal, round and reactive pupils present EOM: EOMs intact bilaterally Neck Neck: Yes no lymphadenopathy, Yes supple and Yes tender (over the left cervical paraspinal muscles) Thyroid: Thyroid normal Resp Auscultation: clear to auscultation bilaterally, no rales and no wheezes Cardio Rate: regular rate Rhythm: regular rhythm Heart sounds: no murmurs GI Palpation (GI): Soft to palpation, Tenderness to palpation present (GI) (mild) in the epigastrum, no guarding and No Rebound tenderness present Auscultation: normal bowel sounds General: Yes no CVA tenderness Back/Spine/Pelvis Back: no CVA tenderness Cervical Spine: cervical muscular tenderness (over the left side) Thoracic/Lumbar Spine: lumbar spinal tenderness Skin Lesions: no lesions Rashes: no rashes Neuro General: patient oriented x3, moves all extremities, no focal motor deficits and CN's II-XI intact bilaterally Cranial nerves: Yes Equal, round and reactive pupils present Cognition (Neuro): normal cognition Gait exam (Neuro): Normal gait present Extrem General: Yes no clubbing, cyanosis or edema Results Reviewed Results Reviewed: Laboratory Tests 06/02/23 06/02/23 06/02/23 08:16 08:16 08:16 WBC 7.1 Hgb 12.7 Hct 39.7 Plt Count 231 Sodium 141 Potassium 4.1 Creatinine 0.76 Estimated GFR > 60 Fasting Glucose 125 H Hemoglobin A1c % 7.2 H Calcium 9.9 D AST 25 ALT 49 H Triglycerides 232 H Cholesterol 127 LDL Cholesterol, Calc 53 HDL Cholesterol 28 L 25-OH Vitamin D Total 42.1 TSH 3.02 Free T4 0.82 Ur Specific [place] Urine Protein Urine Glucose (UA) Urine Blood Microalb/Creat Ratio 06/02/23 06/02/23 08:35 08:35 WBC Hgb Hct Plt Count Sodium Potassium Creatinine Estimated GFR Fasting Glucose Hemoglobin A1c % Calcium AST ALT Triglycerides Cholesterol LDL Cholesterol, Calc HDL Cholesterol 25-OH Vitamin D Total TSH Free T4 Ur Specific [place] >= 1.030 H Urine Protein Negative Urine Glucose (UA) Negative Urine Blood Negative Microalb/Creat Ratio 8.8 Assessment and Plan Assessment & Plan (1) Annual physical exam: Code(s): Z00.00 - Encounter for general adult medical examination without abnormal findings Plan: Results of her labs done a couple of weeks ago reviewed and discussed with patient Patient seems to be under the impression that she had a colonoscopy done back in [address] Chapman did her EGD States that she was awake then so she knows that she had it done but Dr. Chapman' report only indicated an EGD being done at the time There was also a notation in her chart back in 2017 that she declined offer to refer her for a colonoscopy She had her mammogram last done in June 2022 so she will be due for repeat mammogram in less than a month She also states that she had a bone density done upstairs here at [facility] years ago but am unable to locate any past BMD report on her in her file States that she had a partial hysterectomy a few years ago and she no longer keeps up with her annual pap smear and porter luggage exam (2) Pure hypercholesterolemia: Code(s): E78.00 - Pure hypercholesterolemia, unspecified Plan: Reinforced low cholesterol diet Continue Atorvastatin 40 mg QD Will recheck her labs and fasting lipids in 3 months for follow-up (3) Chest pain: Comment: Exercise stress testing in December 2022 was inconclusive but nuclear stress testing came out normal/negative Code(s): R07.9 - Chest pain, unspecified Qualifiers: Chest pain type: unspecified Qualified Code(s): R07.9 - Chest pain, unspecified Plan: Resolved Exercise stress testing in December 2022 was inconclusive but nuclear stress testing came out normal/negative (4) Type 2 diabetes mellitus with diabetic polyneuropathy: Code(s): E11.42 - Type 2 diabetes mellitus with diabetic polyneuropathy Qualifiers: Diabetes mellitus terminal operator insulin use: with terminal operator use Qualified Code(s): E11.42 - Type 2 diabetes mellitus with diabetic polyneuropathy; Z79.4 - alf (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 of insulin Plan: HgbA1c was at 7.2% on her labs done a couple of weeks ago (was previously at 7.3%) - goal is <7.0% Reinforced diabetic diet Continue Humulin U-500 95 units when the patient wakes up in the morning (before breakfast), 90 units 30 minutes before lunch and 70 units 30 minutes before dinner and Trulicity 1.5 mg SQ once a week Follow up with endocrinology as scheduled - sees Dr. Vazquez Patient follows up with Dr. Cameron Perez for her retinopathy (has severe nonproliferative diabetic retinopathy with macular edema) - reinforced again that she needs to get her diabetes under control to slow down the progression of her retinopathy (5) Diabetic nephropathy associated with type 2 diabetes mellitus: Code(s): E11.21 - Type 2 diabetes mellitus with diabetic nephropathy Plan: Her renal function appears stable currently Follow up with nephrology as scheduled - was seeing Dr. Sim but states that he left and she would have to see another doctor again Have advised patient that Dr. Sim joined [facility] recently and we can refer her to him so she can just continue to see him for follow up - patient would like to continue following up with Dr. Sim (referral done) (6) Diabetic neuropathy: Code(s): E11.40 - Type 2 diabetes mellitus with diabetic neuropathy, unspecified Qualifiers: Diabetes mellitus type: type 2 Diabetes mellitus complication detail: diabetic polyneuropathy Qualified Code(s): E11.42 - Type 2 diabetes mellitus with diabetic polyneuropathy Plan: Reinforced importance of strict glycemic control to slow done progression of her neuropathy (7) Benign essential hypertension: Code(s): I10 - Essential (primary) hypertension Plan: Reinforced low sodium diet - goal is systolic BP of at least 130 mm or less Continue? Losartan 100 mg QD (8) Gastroparesis due to DM: Code(s): E11.43 - Type 2 diabetes mellitus with diabetic autonomic (poly)neuropathy; K31.84 - Gastroparesis Plan: Advised again that her recurrent GI symptoms are mostly due to gastroparesis and unfortunately, there are no available medications that help effectively with this Continue Metoclopramide 10 mg TID before meals Follow up with GI as scheduled (9) GERD (gastroesophageal reflux disease): Code(s): K21.9 - Gastro-esophageal reflux disease without esophagitis Qualifiers: Esophagitis presence: without esophagitis Qualified Code(s): K21.9 - Gastro-esophageal reflux disease without esophagitis Plan: Dietary restrictions reinforced Continue Omeprazole 40 mg QD (10) Lumbar degenerative disc disease: Code(s): M51.36 - Other intervertebral disc degeneration, lumbar region Plan: Reinforced activity and weight lifting restrictions Continue Gabapentin 300 mg TID; patient used to also take Duloxetine 30 mg QD and Tizanidine 4 mg TID PRN in the past but she stopped taking these at some point as she felt that she did not need these at the time (11) Acquired hypothyroidism: Code(s): E03.9 - Hypothyroidism, unspecified Plan: Continue Levothyroxine 50 mcg QD Will check her TFTs in 3 months for follow up (12) Vitamin D deficiency: Code(s): E55.9 - Vitamin D deficiency, unspecified Plan: Continue Vitamin D3 2000 units QD (13) Anxiety: Code(s): F41.9 - Anxiety disorder, unspecified Plan: Continue Lorazepam 1 mg twice a day as needed (14) Depression: Code(s): F32.9 - Major depressive disorder, single episode, unspecified Qualifiers: Depression Type: major depressive disorder Major depression recurrence: recurrent Active/Remission status: currently active Major depression episode severity: moderate Qualified Code(s): F33.1 - Major depressive disorder, recurrent, moderate Plan: Follow up with Psychiatry as scheduled (15) Obesity (BMI 30-39.9): Code(s): E66.9 - Obesity, unspecified Plan: Reinforced diet/exercise as tolerated/lose weight (16) Colon cancer screening: Code(s): Z12.11 - Encounter for screening for malignant neoplasm of colon Plan: As it is currently unclear whether patient actually had a colonoscopy done at all in the past (although patient insists that she had), will refer her to GI for consideration for screening colonoscopy (17) Breast cancer screening by mammogram: Code(s): Z12.31 - Encounter for screening mammogram for malignant neoplasm of breast Plan: She will be due for repeat annual mammography next month - repeat mammogram ordered (18) Osteoporosis screening: Code(s): Z13.820 - Encounter for screening for osteoporosis Plan: Patient states that she had a BMD done a few years ago but there is no record of this in her file here at [facility] Will send her for BMD for osteoporosis screening Plan Follow up in 3 months Orders: Orders MM tomosynthesis screening BI Today Z12.31 - Encounter for screening mammogram for malignant neoplasm of breast Complete Blood Count Auto Diff 3 Months I10 - Essential (primary) hypertension Comprehensive [place]. Panel Fast 3 Months E78.00 - Pure hypercholesterolemia, unspecified Thyroid Stimulating Hormone 3 Months E03.9 - Hypothyroidism, unspecified Microalbumin, Random (w Creat) 3 Months E11.9 - Type 2 diabetes mellitus without complications Hemoglobin A1c 3 Months E11.9 - Type 2 diabetes mellitus without complications UA CC w/rflx Micro + Cult 3 Months R30.0 - Dysuria Vitamin D 25-OH Total 3 Months E55.9 - Vitamin D deficiency, unspecified XR DEXA axial skeleton Today Z78.0 - Asymptomatic menopausal state Lipid Panel 3 Months E78.00 - Pure hypercholesterolemia, unspecified Free T4 (Free Thyroxine) 3 Months E03.9 - Hypothyroidism, unspecified Referrals Gastroenterology Referral Z12.11 - Encounter for screening for malignant neoplasm of colon Nephrology Referral E11.21 - Type 2 diabetes mellitus with diabetic nephropathy Medications: Refilled dulaglutide (Trulicity) 3 mg (0.5 mL) subcut QWEEK 2 mL 5RF Coding Level of Care Code Est Pt Prev Care >65y(82159) Diagnoses Annual physical exam Z00.00 Pure hypercholesterolemia E78.00 Chest pain, unspecified type R07.9 Chest pain type: unspecified Type 2 diabetes mellitus with diabetic polyneuropathy, with long-term current use of insulin E11.42; Z79.4 Diabetes mellitus terminal operator insulin use: with terminal operator use Diabetic nephropathy associated with type 2 diabetes mellitus E11.21 Diabetic polyneuropathy associated with type 2 diabetes mellitus E11.42 Diabetes mellitus type: type 2 Diabetes mellitus complication detail: diabetic polyneuropathy Benign essential hypertension I10 Gastroparesis due to DM E11.43; K31.84 Gastroesophageal reflux disease without esophagitis K21.9 Esophagitis presence: without esophagitis Lumbar degenerative disc disease M51.36 Acquired hypothyroidism E03.9 Vitamin D deficiency E55.9 Anxiety F41.9 Moderate episode of recurrent major depressive disorder F33.1 Depression Type: major depressive disorder Major depression recurrence: recurrent Active/Remission status: currently active Major depression episode severity: moderate Obesity (BMI 30-39.9) E66.9 Colon cancer screening Z12.11 Breast cancer screening by mammogram Z12.31 Osteoporosis screening Z13.820
== END 2023-06-14 11:55 | disposition home or self-care (01) ==
PROVIDERS: PCP Internal Medicine; Visit Provider Internal Medicine
DX: Z00.00 Encounter for general adult medical examination without abnormal findings (principal); E11.42 Type 2 diabetes mellitus with diabetic polyneuropathy; Z79.4 Long term (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 of insulin; E11.21 Type 2 diabetes mellitus with diabetic nephropathy; E11.43 Type 2 diabetes mellitus with diabetic autonomic (poly)neuropathy; F33.1 Major depressive disorder, recurrent, moderate; E78.00 Pure hypercholesterolemia, unspecified; I10 Essential (primary) hypertension; K31.84 Gastroparesis; K21.9 Gastro-esophageal reflux disease without esophagitis; M51.36 Other intervertebral disc degeneration, lumbar region
CPT/HCPCS: 99397

== ENCOUNTER 2023-06-22 10:55 | Outpatient (AMB) | payer MEDICARE, MEDICAID, SELFPAY ==
--- NOTE | 2023-06-22 10:58 | A.OFFVIS_ITS ---
Intake Vital Signs 06/22/23 11:01 Height 5 ft 6 in Weight 236 lb 1.841 oz BMI 38.1 BP 132/72 Blood Pressure Location Lt brachial Position Sitting Pulse 90 Pulse Source Pulse Oximeter Intake Visit Reasons: f/u Type 2 DM Intake Note: Patient present today to follow up on Type 2 Diabetes Mellitus. Patient receives DME supplies through: [email or web address] Last Diabetic Eye exam: 2022 Last Podiatry Visit: None Random Glucose: 164 mg/dl HgA1C: 7.2% 06/02/23 Battery Checker Required: No Accompanied by: Self / Same As Patient Allergies No Known Allergies Allergy (Verified 06/22/23 11:12) Medication List - Last Reconciled 06/22/23 by Chin Vazquez MD albuterol sulfate 90 mcg/actuation 1 inh inhalation QID atorvastatin 80 mg PO BEDTIME BD Ultra-Fine Micro Pen Needle (pen needle, diabetic) USE DIRECTED 3 TIMES A DAY NS bisacodyl 5 - 10 mg (1 - 2 x 5 mg) PO DAILY PRN 30 days cholecalciferol (vitamin D3) 50 mcg PO DAILY doxycycline hyclate 100 mg PO BID 10 days dulaglutide (Trulicity) 3 mg (0.5 mL) subcut QWEEK FreeStyle Lite Strips (blood sugar diagnostic) 1 strip miscellaneous .5-6 TIMES DAILY 30 days NS gabapentin 300 mg PO TID Humulin R U-500 (Conc) Kwikpen (insulin regular hum U-500 conc) 95 units in the morning, 90 units before lunch and 70 units before dinner subcut .3 times a day; 30 days NS levothyroxine 50 mcg PO DAILY loperamide (Imodium A-D) 2 mg PO Q6H PRN lorazepam 1 mg PO BID PRN 30 days losartan 100 mg PO DAILY metoclopramide HCl 10 mg PO TID omeprazole 40 mg PO DAILY HPI HPI Comments History of Present Illness Details Patient is a 63-year-old female with DM type 2 diagnosed around 2004 who presents for management of diabetes. Past medical history: DM2, HTN, HLD, insomnia, depression, gastroparesis (dx 20 18) Micro and macrovascular complications: retinopathy, nephropathy, neuropathy, Diabetes medications: Humulin U 500 95 units prior to breakfast, 80 units prior to lunch and 70 units prior to dinner. (sometimes uses additional 50u at bedtime once or twice a week) Uses 30 minutes prior to meals. Trulicity 3 mg Qwkly Uses Reglan 5 mg TID for gastroparesis. She tells me when she took Trulicity in the past she did not have any gastrointestinal upset. The Trulicity was stop because of the gastroparesis Continuous glucose monitoring: UsingThe the sensor 64% of time . past 2 weeks average blood glucose 188. 0% less than 70. 42% within target range of 70- 180,42% over 180. 15% over 250. Coefficient variation 60. C GM is active 64 % of the time. Pattern shows increases after breakfast Symptoms reported: + numbness, tingling, cramping in lower extremities Hypoglycemia: infrequently overnight but not recently Hyperglycemia: +urinary frequency, +nocturia, denies polydypsia Exercise: Walks on Saturdays for 2 hours. 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: yes in past saw CDE, currently seeing structural engineer Controls Designer: denies Ophthalmology evaluation this yr stable ou - severe non-proliferative retinopathy, reports will start VEGF therapy shortly Other specialists: Laboratory Tests 10/01/21 10/13/21 10/13/21 14:36 07:40 07:40 Creatinine 0.85 Estimated GFR > 60 Hgb A1c (Clinic) 9.0 H Triglycerides 186 Cholesterol 142 LDL Cholesterol, C alc 74 HDL Cholesterol 31 Vitamin B12 530 25-OH Vitamin D To jesusita 30.6 TSH 4.19 H Free T4 0.71 Microalb/Creat Rat io 10/13/21 09:26 Creatinine Estimated GFR Hgb A1c (Clinic) Triglycerides Cholesterol LDL Cholesterol, C alc HDL Cholesterol Vitamin B12 25-OH Vitamin D To jesusita TSH Free T4 Microalb/Creat Rat io 27.5 PFSH Medical History Acquired hypothyroidism Atherosclerotic cardiovascular disease Subclinical hypothyroidism Rheumatic fever GERD (gastroesophageal reflux disease) Diabetic nephropathy associated with type 2 diabetes mellitus Hirsutism Dyslipidemia Type 2 diabetes mellitus with diabetic polyneuropathy Gastroparesis due to DM Obesity (BMI 30-39.9) Depression Anxiety Vitamin D deficiency Lumbar degenerative disc disease Benign essential hypertension Pure hypercholesterolemia Diabetic neuropathy halfway (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 of insulin 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, bilateral Surgical History Hx of colonoscopy History of esophagogastroduodenoscopy (EGD) History of carpal tunnel release History of surgery History of cholecystectomy History of partial hysterectomy History of repair of rotator cuff Family History Father Diabetes Mother Diabetes CVD (cardiovascular disease) Social History Housing: Apartment Alcohol intake: never Patient Tobacco Use Status: Former Tobacco user Quit Date: 1989 e-Cigarette/Vaping Use: Never Used Second Hand Smoke Exposure: Yes service: No Current occupational status: disabled Cognitive needs: No Hearing needs: No Vision needs: Yes Physical Exam Vital Signs: Last Vital Signs Pulse 90 06/22/23 11:01 BP 132/72 06/22/23 11:01 BMI result Body Mass Index 38.1 Absence of Cushingoid features. Absence of acromegalic features. Neck exam reveals nl size thyroid about 15 gms. No thyroid nodules palpable. No carotid bruits present. Lungs CTA. Heart S1 S2, Reg R/R. No M/R/ G. Skin exam reveals absence of vitiligo or acanthosis nigricans. Abdominal exam reveals Soft NT/ND with NA BS. No organomegaly present. Neck Other: . Extrem Other: Visual exam of foot performed. No ulcerations or open lesions. No onchomycosis, no callouses.Pulses 2 + distally Sensation decreased to monofilament exam. 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, bilateral: Code(s): E11.3413 - 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, bilateral Qualifiers: Diabetes mellitus technician terminal and repeater insulin use: with senior living use Qualified Code(s): E11.3413 - 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, bilateral; Z79.4 - halfway (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 of insulin Plan: This 62-year-old female with a history of type 2 diabetes being treated with U-500 insulin with good but not optimal glycemic control and known microvascular complications namely neuropathy and retinopathy. Plan is to switch the Trulicity to Ozempic and subsequently to Victoza and Mounjaro if others not tolerated. If patient ends up on Mounjaro would have her decrease U-500 insulin to 70 units in the morning, 60 units before lunch and 50 units before dinner. Went over side effects of G LP 1 including but not limited to nausea, vomiting rare risk of pancreatitis. Patient was told call us if she experiences hypoglycemia. Mounjaro 2.5 mg samples given to patient lot number [id number] C expiration 09/03/2024 Medications: New semaglutide (Ozempic) for 4 weeks 0.25 mg (0.368 mL) subcut QWEEK 3 mL 4RF Discontinued dulaglutide (Trulicity) Discontinued Reason: Doctor's Order 3 mg (0.5 mL) subcut QWEEK 2 mL 5RF Coding Level of Care Code Est Pt Level 4 (30810) Diagnoses Type 2 diabetes mellitus with both eyes affected by severe nonproliferative retinopathy and macular edema, with long-term current use of insulin E11.3413; Z79.4 Diabetes mellitus senior living insulin use: with technician terminal and repeater use
[2023-06-22 11:01] VITALS: BP 132/72; PULSE 90; BMI 38.1
[2023-06-22 11:12] LABS: Glucose, Whole Blood 164 mg/dL (60-115)
== END 2023-06-22 11:39 | disposition home or self-care (01) ==
PROVIDERS: PCP Internal Medicine; Visit Provider Internal Medicine Endocrinology, Diabetes & Metabolism
DX: E11.3413 Type 2 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, bilateral (principal); Z79.4 Long term (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 of insulin
CPT/HCPCS: 99214

== ENCOUNTER → 2023-06-22 10:55 | Outpatient (BNVA) | payer MEDICARE, MEDICAID, SELFPAY | PROVIDERS: Visit Provider Internal Medicine Endocrinology, Diabetes & Metabolism | DX: E11.3413 Type 2 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, bilateral (principal); Z79.4 Long term (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 of insulin | CPT/HCPCS: 82947; 99212 ==

== ENCOUNTER 2023-06-30 10:35 | Outpatient (AMB) | payer MEDICARE, MEDICAID, SELFPAY ==
--- NOTE | 2023-06-30 11:08 | HO.NEPHOV ---
Intake Vital Signs 06/30/23 11:09 Height 5 ft 6 in Weight 237 lb BMI 38.2 Blood Pressure Location Rt brachial Position Sitting Pulse 84 Pulse Source Pulse Oximeter Intake Visit Reasons: Diabetic nephropathy Doughnut Fryer Required: No Allergies No Known Allergies Allergy (Verified 06/30/23 11:11) HPI HPI Comments History of Present Illness Details Patricia was seen in follow up of her Diabetic Nephropathy. Her blood sugars are better but not ideal. Her A1c is better. She has neuropathy but no retinopathy. Her proteinuria is undetectable. She has no edema, PND, chest pain, orthopnea. She gets vertigo intermittently. She is on Ozempic now. She is struggling with weight loss. Her BP has been at goal. She does not take any NSAID's. Assessment & Plan Assessment & Plan (1) Diabetic nephropathy associated with type 2 diabetes mellitus: Code(s): E11.21 - Type 2 diabetes mellitus with diabetic nephropathy Plan: Proteinuria well controlled on current dose of ARB Blood pressure is at goal. BS better; Needs better A1c Needs to loose weight. On Ozempic now No NSAID's. Good hydration. No medication changes made today More than 50 % time spent discussing all these Answered all questions. F/U given 6 M Orders: Orders Calcium Today E11.21 - Type 2 diabetes mellitus with diabetic nephropathy Total Protein Urine Random Today E11.21 - Type 2 diabetes mellitus with diabetic nephropathy Electrolytes Today E11.21 - Type 2 diabetes mellitus with diabetic nephropathy Blood Urea Nitrogen Today E11.21 - Type 2 diabetes mellitus with diabetic nephropathy Creatinine Today E11.21 - Type 2 diabetes mellitus with diabetic nephropathy Coding Level of Care Code Est Pt Level 4 (16783) Diagnoses Diabetic nephropathy associated with type 2 diabetes mellitus E11.21 [facility] Medical History Acquired hypothyroidism Atherosclerotic cardiovascular disease Subclinical hypothyroidism Rheumatic fever GERD (gastroesophageal reflux disease) Diabetic nephropathy associated with type 2 diabetes mellitus Hirsutism Dyslipidemia Type 2 diabetes mellitus with diabetic polyneuropathy Gastroparesis due to DM Obesity (BMI 30-39.9) Depression Anxiety Vitamin D deficiency Lumbar degenerative disc disease Benign essential hypertension Pure hypercholesterolemia Diabetic neuropathy longterm (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 of insulin 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, bilateral Surgical History Hx of colonoscopy History of esophagogastroduodenoscopy (EGD) History of carpal tunnel release History of surgery History of cholecystectomy History of partial hysterectomy History of repair of rotator cuff Family History Father Diabetes Mother Diabetes CVD (cardiovascular disease) Social History Housing: Apartment Alcohol intake: never Patient Tobacco Use Status: Former Tobacco user Quit Date: 1989 e-Cigarette/Vaping Use: Never Used Second Hand Smoke Exposure: Yes service: No Current occupational status: disabled Cognitive needs: No Hearing needs: No Vision needs: Yes
[2023-06-30 11:09] VITALS: PULSE 84; BMI 38.2
== END 2023-06-30 11:51 | disposition home or self-care (01) ==
PROVIDERS: PCP Internal Medicine; Visit Provider Internal Medicine Nephrology
DX: E11.21 Type 2 diabetes mellitus with diabetic nephropathy (principal)
CPT/HCPCS: 99213

== ENCOUNTER → 2023-06-30 10:35 | Outpatient (BNVA) | payer MEDICARE, MEDICAID, SELFPAY | PROVIDERS: PCP Internal Medicine; Visit Provider Internal Medicine Nephrology | DX: E11.21 Type 2 diabetes mellitus with diabetic nephropathy (principal) | CPT/HCPCS: 99212 ==

== ENCOUNTER 2023-07-21 08:19 | Outpatient (REF) | payer MEDICARE, MEDICAID, SELFPAY ==
--- NOTE | ~2023-07-21 | MM_ITS ---
EXAMINATION: BONE DENSITOMETRY CLINICAL INDICATION: Asymptomatic menopausal state. COMPARISON: Baseline BD dated 11/22/2008. TECHNIQUE: Using a [employer] DXA System (software version: 13.1) manufactured by [employer], dual-energy x-ray absorptiometry was performed of the lumbar spine and left hip. The images are of good technical quality. Summary results are attached. FINDINGS: LEFT FEMUR, NECK: Current: BMD 0.782 g/cm2, Z-score -1.1, T-score -1.8, osteopenia. Baseline: BMD 0.950 g/cm2. LEFT FEMUR, TOTAL: Current: BMD 1.022 g/cm2, Z-score 0.5, T-score 0.1, normal, 0.5% increase from baseline (<5% change is not significant). Baseline: BMD 1.017 g/cm2. AP SPINE L1-L4: Current: BMD 1.382 g/cm2, Z-score 2.1, T-score 1.7, normal, 5.3% increase from baseline (<5% change is not significant). Baseline: BMD 1.312 g/cm2. IDENTIFIED RISK FACTORS: Early menopause, secondary osteoporosis, hysterectomy. HISTORY OF FRACTURE: None listed. MEDICATIONS: Calcium supplements or multivitamin, vitamin D. MM/XR DEXA axial skeleton IMPRESSION: 1. DIAGNOSIS: Osteopenia based on the lowest T-score value of -1.8 in the femoral neck applying World Health Organization criteria. 2. 10-YEAR FRACTURE RISK PREDICTION, FRAX: Major osteoporotic fracture (clinical spine, forearm, hip or shoulder) 5.1%. Hip fracture 0.7%. 3. Treatment Recommendations: NOF guidelines recommend consideration for treatment in postmenopausal women and men age 50 and older presenting with the following: -A hip or vertebral (clinical or morphometric) fracture. -T-score less than or equal to -2.5 at the femoral neck or spine after appropriate evaluation to exclude secondary causes. -Low bone mass at the hip or spine and a 10-year fracture probability by FRAX of greater than or equal to 3% for hip fracture or greater than or equal to 20% for major osteoporotic fracture based on the [place] adapted WHO algorithm. 4. Other Recommendations: All treatment decisions require clinical judgment and consideration of individual patient factors, including patient preferences, comorbidities, previous drug use, risk factors not captured in the FRAX model (e.g. frailty, falls, vitamin D deficiency, increased bone turnover, interval significant decline in bone density) and possible under or overestimation of fracture risk by FRAX. Additional medical evaluation for secondary cause of low bone mineral density may be appropriate. FUTURE SCAN RECOMMENDATION: People with diagnosed cases of osteoporosis or at high risk for fracture should have regular bone mineral density tests. For patients eligible for Medicare, routine testing is allowed once every 2 years. The testing frequency can be increased to one year for patients who have rapidly progressing disease, those who are receiving or discontinuing medical therapy to restore bone mass, or have additional risk factors.
--- NOTE | ~2023-07-21 | MM_ITS ---
EXAMINATION: MM DIAGNOSTIC DIGITAL BREAST TOMOSYNTHESIS, BILATERAL US BREAST LIMITED, LEFT MAMMOGRAPHY: CLINICAL INFORMATION: Patient complains of focal left breast pain in the 11-1 o'clock regions. COMPARISON: Mammography: This study is compared with prior imaging dating back to 2018. TECHNIQUE: Digital breast tomosynthesis is performed in both the craniocaudal and mediolateral oblique views along with computer-aided detection (CAD). Synthesized 2D images are generated from the tomosynthesis. FINDINGS: There are scattered areas of fibroglandular density (ACR BI-RADS breast composition Category b). There are no significant masses, abnormal calcifications, or other abnormalities. ULTRASOUND: CLINICAL INFORMATION: The left breast pain the 11-1 o'clock regions. COMPARISON: None TECHNIQUE: Targeted sonographic evaluation was performed using a high frequency linear transducer. FINDINGS: LEFT BREAST: Sonography of the area of patient's pain, 1120 1:00 regions of the left breast, reveals no discrete abnormalities. MM/MM tomosynthesis diagnostic BI IMPRESSION: No mammographic evidence of malignancy. No mammographic or sonographic abnormalities associated with the patient's focal left breast pain. Clinical follow-up for the patient's left breast pain is advised. OVERALL ASSESSMENT: Mammography: BI-RADS 1 - Negative Ultrasound: BI-RADS 1 - Negative RECOMMENDATION: 1 year F/U Clinical follow-up for the patient's breast pain is also advised. Results were provided to the patient at time of visit by the technologist. This patient's information was entered into a reminder system with a target due date for their next mammogram.
== END 2023-07-21 08:20 | disposition home or self-care (01) ==
LOC: HO.MAMMO 08:19
PROVIDERS: PCP Internal Medicine; Visit Provider Internal Medicine
DX: Z13.820 Encounter for screening for osteoporosis (principal); Z78.0 Asymptomatic menopausal state; N64.4 Mastodynia
CPT/HCPCS: 76642; 77062; 77063; 77066; 77067; 77080

== ENCOUNTER → 2023-07-21 09:15 | Outpatient (BNV) | payer MEDICARE, MEDICAID, SELFPAY | PROVIDERS: PCP Internal Medicine; Visit Provider Radiology Diagnostic Radiology | DX: N64.4 Mastodynia (principal) | CPT/HCPCS: 76642; 77062; 77066; G0279 ==

== ENCOUNTER 2023-10-13 09:17 | Outpatient (AMB) | payer MEDICARE, MEDICAID, SELFPAY ==
[2023-10-13 09:20] VITALS: BP 114/68; PULSE 81; BMI 39.5
--- NOTE | 2023-10-13 09:20 | A.OFFVIS_ITS ---
Intake Vital Signs 10/13/23 09:20 Height 5 ft 6 in Weight 244 lb 11.41 oz BMI 39.5 BP 114/68 Blood Pressure Location Lt brachial Position Sitting Pulse 81 Pulse Source Pulse Oximeter Intake Visit Reasons: [id number] Intake Note: Patient presents today to follow up on D2MT. Last Diabetic Eye exam:2022 Last Podiatry Visit:None Random Glucose: 158 mg/dl HgA1c: 7.2% Central Supply Manager Required: No Accompanied by: Self / Same As Patient Allergies No Known Allergies Allergy (Verified 10/13/23 09:25) Medication List - Last Reconciled 10/13/23 by Chin Vazquez MD albuterol sulfate 90 mcg/actuation 1 inh inhalation QID atorvastatin 80 mg PO BEDTIME BD Ultra-Fine Micro Pen Needle (pen needle, diabetic) USE DIRECTED 3 TIMES A DAY NS bisacodyl 5 - 10 mg (1 - 2 x 5 mg) PO DAILY PRN 30 days cholecalciferol (vitamin D3) 50 mcg PO DAILY FreeStyle Lite Strips (blood sugar diagnostic) USE 1 STRIP 5 TO 6 TIMES A DAY TO TEST BLOOD SUGAR NS gabapentin 300 mg PO TID Humulin R U-500 (Conc) Kwikpen (insulin regular hum U-500 conc) 95 units in the morning, 90 units before lunch and 60 units before dinner subcut .3 times a day; 30 days NS levothyroxine 50 mcg PO DAILY loperamide (Imodium A-D) 2 mg PO Q6H PRN lorazepam 1 mg PO BID PRN 30 days losartan 100 mg PO DAILY metoclopramide HCl 10 mg PO TID PRN omeprazole 40 mg PO DAILY semaglutide (Ozempic) 0.5 mg (0.736 mL) subcut QWEEK HPI HPI Comments History of Present Illness Details Patient is a 63-year-old female with DM type 2 diagnosed around 2004 who presents for management of diabetes. Past medical history: DM2, HTN, HLD, insomnia, depression, gastroparesis (dx 2018) Micro and macrovascular complications: retinopathy, nephropathy, neuropathy, Diabetes medications: Humulin U 500 95 units prior to breakfast, 90 units prior to lunch and 70 units prior to dinner. (sometimes uses additional 50u at bedtime once or twice a week) Uses 30 minutes prior to meals. Ozempic 0.25 mg Qwkly Uses Reglan 5 mg TID for gastroparesis. She tells me when she took Trulicity in the past she did not have any gastrointestinal upset. The Trulicity was stop because of the gastroparesis Continuous glucose monitoring: Using The the sensor 93% of time . past 2 weeks average blood glucose 183. 2% less than 70. 48% within target range of 70-180,30% over 180. 19% over 250. Coefficient variation 60. C . Pattern shows increases after breakfast Symptoms reported: + numbness, tingling, cramping in lower extremities Hypoglycemia: infrequently overnight but not recently Hyperglycemia: +urinary frequency, +nocturia, denies polydypsia Exercise: Walks on Saturdays for 2 hours. 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 Needs to make appt Other specialists: Laboratory Tests 10/01/21 10/13/21 10/13/21 14:36 07:40 07:40 Creatinine 0.85 Estimated GFR > 60 Hgb A1c (Clinic) 9.0 H Triglycerides 186 Cholesterol 142 LDL Cholesterol, C alc 74 HDL Cholesterol 31 Vitamin B12 530 25-OH Vitamin D To jesusita 30.6 TSH 4.19 H Free T4 0.71 Microalb/Creat Rat io 10/13/21 09:26 Creatinine Estimated GFR Hgb A1c (Clinic) Triglycerides Cholesterol LDL Cholesterol, C alc HDL Cholesterol Vitamin B12 25-OH Vitamin D To jesusita TSH Free T4 Microalb/Creat Rat io 27.5 PFSH Medical History Acquired hypothyroidism Atherosclerotic cardiovascular disease Subclinical hypothyroidism Rheumatic fever GERD (gastroesophageal reflux disease) Diabetic nephropathy associated with type 2 diabetes mellitus Hirsutism Dyslipidemia Type 2 diabetes mellitus with diabetic polyneuropathy Gastroparesis due to DM Obesity (BMI 30-39.9) Depression Anxiety Vitamin D deficiency Lumbar degenerative disc disease Benign essential hypertension Pure hypercholesterolemia Diabetic neuropathy 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, bilateral Surgical History Hx of colonoscopy History of esophagogastroduodenoscopy (EGD) History of carpal tunnel release History of surgery History of cholecystectomy History of partial hysterectomy History of repair of rotator cuff Family History Father Diabetes Mother Diabetes CVD (cardiovascular disease) Social History Housing: Apartment Alcohol intake: never Patient Tobacco Use Status: Former Tobacco user Quit Date: 1989 e-Cigarette/Vaping Use: Never Used Second Hand Smoke Exposure: Yes service: No Current occupational status: disabled Cognitive needs: No Hearing needs: No Vision needs: Yes Physical Exam Vital Signs: Last Vital Signs Pulse 81 10/13/23 09:20 BP 114/68 10/13/23 09:20 BMI result Body Mass Index 39.5 Absence of Cushingoid features. Absence of acromegalic features. Neck exam reveals nl size thyroid about 15 gms. No thyroid nodules palpable. No carotid bruits present. Lungs CTA. Heart S1 S2, Reg R/R. No M/R/ G. Skin exam reveals absence of vitiligo or acanthosis nigricans. Abdominal exam reveals Soft NT/ND with NA BS. No organomegaly present. Neck Other: . Extrem Other: Visual exam of foot performed. No ulcerations or open lesions. No onchomycosis, no callouses.Pulses 2 + distally Sensation decreased to monofilament exam. Vi bratory sensation sensed is decreased with 128 Hz tuning fork Results AMB Hemoglobin A1c AMB Hemoglobin A1c 7.2 % Last Edit by ALE Munguia on 10/13/23 09:53 Results Reviewed Results Reviewed: Laboratory Last Values Glucose (Clinic) 158 mg/dL (60-115) H 10/13/23 09:29 Hgb A1c (Clinic) 7.2 % (4.0-6.0) H 10/13/23 09:31 Assessment & Plan Assessment & Plan (1) 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, bilateral: Code(s): E11.3413 - 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, bilateral Qualifiers: Diabetes mellitus 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 Plan is to increase the Ozempic to 0.5 mg Q weekly and decrease the pre dinner U-500 to 60 units to avoid late evening and whittling room operator hypoglycemia. Patient was also referred to bariatric surgery. She will also follow up with diabetes education Orders: Orders AMB Hemoglobin A1c Today E11.9 - Type 2 diabetes mellitus without complications Referrals Bariatric Surgery Referral E11.3413 - 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, bilateral Medications: New semaglutide (Ozempic) 0.5 mg (0.736 mL) subcut QWEEK 3 mL 4RF Changed From Humulin R U-500 (Conc) Kwikpen (insulin regular hum U-500 conc) 95 units in the morning, 90 units before lunch and 70 units before dinner subcut .3 times a day; 30 days 30 mL 6RF NS E11.42 - Type 2 diabetes mellitus with diabetic polyneuropathy To Humulin R U-500 (Conc) Kwikpen (insulin regular hum U-500 conc) 95 units in the morning, 90 units before lunch and 60 units before dinner subcut .3 times a day; 30 mL 6RF 30 days NS E11.42 - Type 2 diabetes mellitus with diabetic polyneuropathy Discontinued semaglutide (Ozempic) for 4 weeks Discontinued Reason: Doctor's Order 0.25 mg (0.368 mL) subcut QWEEK 3 mL 4RF Coding Level of Care Code Est Pt Level 4 (77712) Diagnoses Type 2 diabetes mellitus with both eyes affected by severe nonproliferative retinopathy and macular edema, with long-term current use of insulin E11.3413; Z79.4 Diabetes mellitus long-term insulin use: with long-term use
[2023-10-13 09:33] LABS: Glucose, Whole Blood 158 mg/dL (60-115)
== END 2023-10-13 09:52 | disposition home or self-care (01) ==
PROVIDERS: PCP Internal Medicine; Visit Provider Internal Medicine Endocrinology, Diabetes & Metabolism
DX: E11.3413 Type 2 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, bilateral (principal); Z79.4 Long term (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 of insulin
CPT/HCPCS: 99214

== ENCOUNTER → 2023-10-13 09:17 | Outpatient (BNVA) | payer MEDICARE, MEDICAID, SELFPAY | PROVIDERS: PCP Internal Medicine; Visit Provider Internal Medicine Endocrinology, Diabetes & Metabolism | DX: E11.3413 Type 2 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, bilateral (principal); Z79.4 Long term (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 of insulin | CPT/HCPCS: 82947; 83036; 99212 ==

== ENCOUNTER → 2023-11-04 09:41 | Outpatient (BNVA) | payer MEDICARE, MEDICAID, SELFPAY | PROVIDERS: PCP Internal Medicine; Visit Provider Physician Assistant Surgical ==

== ENCOUNTER 2023-11-10 08:50 | Outpatient (AMB) | payer OTHER, MEDICAID, SELFPAY ==
[2023-11-10 08:55] VITALS: BP 138/63; PULSE 82; BMI 39.0
--- NOTE | 2023-11-10 08:55 | MHC.OFFVIS ---
Intake Vital Signs 11/10/23 08:55 Height 5 ft 6 in Weight 241 lb 10.026 oz BMI 39.0 BP 138/63 Blood Pressure Location Rt brachial Position Sitting Pulse 82 Pulse Source Pulse Oximeter Intake Visit Reasons: 6 month follow up Intake Note: Pt presents to the office today for a 6 month follow up. Pt states she is still having issues with constipation. Pt states when she takes the medication it does help with the constipation but she states it is still hard to move her bowels. She denies any N/V/D. Allergies No Known Allergies Allergy (Verified 11/10/23 08:57) HPI 6 month follow up HPI Details Assessment & Plan (1) GERD (gastroesophageal reflux disease): Code(s): K21.9 - Gastro-esophageal reflux disease without esophagitis Qualifiers: Esophagitis presence: without esophagitis Qualified Code(s): K21.9 - Gastro-esophageal reflux disease without esophagitis Plan: he speaks [place] She continues to do well on her GI regimen. She continues on her Reglan, omeprazole, and p.r.n. bisacodyl. She is struggling with a cough which has persisted for over 10 days. She had fevers/chills and cough that is non productive w/o any significant nasal congestion or sore throat. She has self treated with tussin cold medicine w/o any good effect. She has SOB and chest tightness with exertion. She does not have asthma. I will send her for a COVID test as EG-5 variant is on the rise and a CXR as a courtesy. ROV 6 mos for GI pamela last. We will send her for additional MARTINEZ monitoring at her next visit. (2) Gastroparesis due to DM: Code(s): E11.43 - Type 2 diabetes mellitus with diabetic autonomic (poly)neuropathy; K31.84 - Gastroparesis (3) Constipation: Code(s): K59.00 - Constipation, unspecified (4) MARTINEZ (nonalcoholic steatohepatitis): Comment: 06/2019 autoimmune workup is negative, hepatitis a B and C are negative, ferritin is normal, initial AST/ALT 27/51 with alk-phos of 121 normal bilirubin 07/07/2111 08:1608:[id number] Plt Count 174 Estimated GFR > 60 Hemoglobin A1c % 8.5 Total Bilirubin 0.6 AST 19 ALT 36 H Alkaline Phosphatase 131 H TSH 3.39 CURRENT LABS Laboratory Tests 01/01/2305/12/2304 07:2607:2607:26 Plt Count 206 Estimated GFR Hemoglobin A1c % 7.3 Total Bilirubin 0.4 AST 34 H ALT 70 H Alkaline Phosphatase 138 H 02/01/23 07:44 Plt Count Estimated GFR > 60 ULTRASOUND OF THE ABDOMEN 04/02/22 IMPRESSION: ? Increased hepatic echogenicity which can be seen in the setting of hepatic steatosis or underlying liver disease similar to prior. Code(s): K75.81 - Nonalcoholic steatohepatitis (MARTINEZ) (5) Cough: Code(s): R05.9 - Cough, unspecified Orders: Orders COVID-19 ID NOW ([facility]) Today R05.9 - Cough, uns pecified XR chest 2V Today R05.9 - Cough, uns pecified Medications: Refilled omeprazole 40 mg PO DAILY 30 caps 6RF metoclopramide HCl 10 mg PO TID 90 t abs 6RF for nausea /vomiting E11.43 - Type 2 di abetes mellitus wi th diabetic autono ani (poly)neuropat hy, K31.84 - Gastr oparesis LABS: Laboratory Tests 05/18/23 03:32 COVID-19 ([facility]ODY) Negative CHEST X-RAY 05/18/23 FINDINGS: The lungs are clear with no focal consolidation. No evidence of pneumothorax, pulmonary edema, or pleural effusions. Cardiac size is within normal limits. Calcification is present at the aortic arch. No acute osseous findings are seen. XR/XR chest 2V IMPRESSION: No acute cardiopulmonary findings. CORRESPONDENCE On 04/20/23 @ 09:34 [address]is Wrote To Court Mathis (2) Please call the patient and tell her I will treat her for acute bronchitis I am sending an antibiotic but also an albuterol inhaler. Medication Orders doxycycline hyclat e 100 mg PO BID 20 c aps 0RF 10 days New albuterol sulfateF 1 inh inhalation Q ID 8.5 grams 3RF New TODAY'S VISIT She speaks [place] She is due for MARTINEZ monitoring and is agreeable to going for lab work and having a repeat ultrasound. Her cough has resolved. She continues to be well controlled on her omeprazole and reglan and bisacodyl. She remains satisfied with her GI regimen. However, she was only taking the reglan prn, and especially with the Ozempic, she really needs to take it scheduled with meals as she is complaining of the food just sitting there. She will be seeing wt mgmt soon as she was told by her lab courier that just a 10% wt loss would greatly benefit all her of her health problems. She has not yet had her first appt. ROV 6 mos. [facility] Medical History (Updated 11/10/23 @ 09:04 by RAJINDER Martel) Osteoporosis screening Breast cancer screening by mammogram Viral illness Acute bronchitis Acute bacterial bronchitis Cough Colon cancer screening Annual physical exam Subclinical hypothyroidism Acute cervical myofascial strain DM2 (diabetes mellitus, type 2) Dyslipidemia Acquired hypothyroidism Atherosclerotic cardiovascular disease Rheumatic fever GERD (gastroesophageal reflux disease) Diabetic nephropathy associated with type 2 diabetes mellitus Hirsutism Type 2 diabetes mellitus with diabetic polyneuropathy Gastroparesis due to DM Obesity (BMI 30-39.9) Depression Anxiety Vitamin D deficiency Lumbar degenerative disc disease Benign essential hypertension Pure hypercholesterolemia 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, bilateral Surgical History Hx of colonoscopy History of esophagogastroduodenoscopy (EGD) History of carpal tunnel release History of surgery History of cholecystectomy History of partial hysterectomy History of repair of rotator cuff Family History Father Diabetes Mother Diabetes CVD (cardiovascular disease) Social History Housing: Apartment Alcohol intake: never Patient Tobacco Use Status: Former Tobacco user Quit Date: 1989 e-Cigarette/Vaping Use: Never Used Second Hand Smoke Exposure: Yes service: No Current occupational status: disabled Cognitive needs: No Hearing needs: No Vision needs: Yes Review of Systems Const Denies fatigue, Denies fever(s), Denies night sweats, Denies poor appetite and Denies weight loss Eyes Details: glasses Reports requires corrective lenses ENT Reports Normal hearing present, Denies dental pain, Denies dysphagia, Denies hearing loss, Denies mouth pain, Denies odynophagia, Denies throat swelling, Denies tongue swelling and Reports other (Dentition adequate) Card Reports no additional complaints Resp Reports no additional complaints GI Details: Denies abdominal pain, Denies melena, Denies bloating, Denies hematochezia, Reports constipation, Denies GI cramping, Denies dysphagia, Denies excessive flatus, Reports early satiety, Reports heartburn, Denies diarrhea, Denies nausea, Denies odynophagia, Denies vomiting and Denies hematemesis Skin/Breast Denies pruritus, Denies lesions, Denies rash and Denies jaundice Neuro Reports Normal hearing present and Denies Abnormal speech present Endo Denies fatigue Aller/Immun Denies throat swelling and Denies tongue swelling Physical Exam Vital Signs: Last Vital Signs Pulse 82 11/10/23 08:55 BP 138/63 11/10/23 08:55 BMI result Body Mass Index 39.0 Const General: cooperative, no acute distress, well developed and well groomed Nutritional Appearance: well nourished and obese Orientation/consciousness: oriented to person, oriented to place and oriented to time Limitations: No language barrier HEENT Head: Yes normocephalic and Yes atraumatic Eyes General: appearance normal, both eyes and all related structures Pupils: Equal, round and reactive pupils present Neck Neck: Yes normal visual inspection and Yes no lymphadenopathy Thyroid: Thyroid normal Resp Effort & Inspection: normal respiratory effort and able to speak in complete sentences Auscultation: clear to auscultation bilaterally Cardio Rate: regular rate Rhythm: regular rhythm Heart sounds: Normal, physiologic split S2 sound present Peripheral pulses: radial pulses present and posterior tibial pulses present GI Inspection: No distended, Yes Abdominal panniculus present and Yes obesity Palpation (GI): Soft to palpation, nontender, no guarding, not rigid and No hepatosplenomegaly present Percussion: Yes normal to percussion Auscultation: normal bowel sounds Rectal Exam - Female: deferred Skin General skin exam: no rashes or lesions noted, turgor normal, skin not dry, no jaundice, No spider nevi and no striae Rashes: no rashes Nails: normal Neuro General: oriented to person, oriented to place and oriented to time Cranial nerves: Yes Equal, round and reactive pupils present and Yes Normal hearing present Speech: No Abnormal speech present Extrem General: Yes normal to inspection, No clubbing, No cyanosis and No edema Psych Appearance: grossly normal and well kempt Mental Status: mental status grossly normal Speech and movement: Normal speech and movement present Affect: normal affect Attitude: cooperative Thought process: Normal thought process present and not confabulating Thought content: Normal thought content present Insight: Fair insight present (Psych) Results Reviewed Results Reviewed: Laboratory Tests 05/18/23 03:32 COVID-19 ([facility]) Negative CHEST X-RAY 05/18/23 FINDINGS: The lungs are clear with no focal consolidation. No evidence of pneumothorax, pulmonary edema, or pleural effusions. Cardiac size is within normal limits. Calcification is present at the aortic arch. No acute osseous findings are seen. XR/XR chest 2V IMPRESSION: No acute cardiopulmonary findings. Assessment & Plan Assessment & Plan (1) GERD (gastroesophageal reflux disease): Code(s): K21.9 - Gastro-esophageal reflux disease without esophagitis Qualifiers: Esophagitis presence: without esophagitis Qualified Code(s): K21.9 - Gastro-esophageal reflux disease without esophagitis (2) Constipation: Code(s): K59.00 - Constipation, unspecified (3) Gastroparesis due to DM: Code(s): E11.43 - Type 2 diabetes mellitus with diabetic autonomic (poly)neuropathy; K31.84 - Gastroparesis (4) MARTINEZ (nonalcoholic steatohepatitis): Comment: 06/2019 autoimmune workup is negative, hepatitis a B and C are negative, ferritin is normal, initial AST/ALT 27/51 with alk-phos of 121 normal bilirubin 07/07/2111/03/2111 08:1608:1608:16 Plt Count 174 Estimated GFR > 60 Hemoglobin A1c % 8.5 Total Bilirubin 0.6 AST 19 ALT 36 H Alkaline Phosphatase 131 H TSH 3.39 CURRENT LABS Laboratory Tests 01/01/2305/12/2304 07:2607:2607:26 Plt Count 206 Estimated GFR Hemoglobin A1c % 7.3 Total Bilirubin 0.4 AST 34 H ALT 70 H Alkaline Phosphatase 138 H 02/01/23 07:44 Plt Count Estimated GFR > 60 ULTRASOUND OF THE ABDOMEN 04/02/22 IMPRESSION: ? Increased hepatic echogenicity which can be seen in the setting of hepatic steatosis or underlying liver disease similar to prior. Code(s): K75.81 - Nonalcoholic steatohepatitis (MARTINEZ) Plan She speaks [place] She is due for MARTINEZ monitoring and is agreeable to going for lab work and having a repeat ultrasound. Her cough has resolved. She continues to be well controlled on her omeprazole and reglan and bisacodyl. She remains satisfied with her GI regimen. However, she was only taking the reglan prn, and especially with the Ozempic, she really needs to take it scheduled with meals as she is complaining of the food just sitting there. She will be seeing wt mgmt soon as she was told by her lab courier that just a 10% wt loss would greatly benefit all her of her health problems. She has not yet had her first appt. ROV 6 mos. Orders: Orders Liver Panel Today K75.81 - Nonalcoholic steatohepatitis (AMRTINEZ) Complete Blood Count Auto Diff Today K75.81 - Nonalcoholic steatohepatitis (MARTINEZ) US abdomen complete Today K75.81 - Nonalcoholic steatohepatitis (MARTINEZ) Alpha Fetoprotein Today K75.81 - Nonalcoholic steatohepatitis (MARTINEZ) Medications: Changed From metoclopramide HCl 10 mg PO TID PRN 90 tabs 6RF for nausea/vomiting E11.43 - Type 2 diabetes mellitus with diabetic autonomic (poly)neuropathy, K31.84 - Gastroparesis To metoclopramide HCl 10 mg PO TID 90 tabs 6RF E11.43 - Type 2 diabetes mellitus with diabetic autonomic (poly)neuropathy, K31.84 - Gastroparesis Refilled bisacodyl Take 1-2 tablets by mouth once a day as needed for constipation 5 - 10 mg (1 - 2 x 5 mg) PO DAILY 30 days PRN 60 tabs 6RF constipation K59.00 - Constipation, unspecified metoclopramide HCl 10 mg PO TID PRN 90 tabs 6RF for nausea/vomiting E11.43 - Type 2 diabetes mellitus with diabetic autonomic (poly)neuropathy, K31.84 - Gastroparesis omeprazole 40 mg PO DAILY 30 caps 6RF Coding Level of Care Code Est Pt Level 3 (94175) Diagnoses Gastroesophageal reflux disease without esophagitis K21.9 Esophagitis presence: without esophagitis Constipation K59.00 Gastroparesis due to DM E11.43; K31.84 MARTINEZ (nonalcoholic steatohepatitis) K75.81
== END 2023-11-10 09:22 | disposition home or self-care (01) ==
PROVIDERS: PCP Internal Medicine; Visit Provider Nurse Practitioner
DX: K21.9 Gastro-esophageal reflux disease without esophagitis (principal); K59.00 Constipation, unspecified; E11.43 Type 2 diabetes mellitus with diabetic autonomic (poly)neuropathy; K31.84 Gastroparesis; K75.81 Nonalcoholic steatohepatitis (NASH)
CPT/HCPCS: 99213

== ENCOUNTER → 2023-11-10 08:50 | Outpatient (BNVA) | payer OTHER, MEDICAID, SELFPAY | PROVIDERS: PCP Internal Medicine; Visit Provider Nurse Practitioner | DX: K21.9 Gastro-esophageal reflux disease without esophagitis (principal); K59.00 Constipation, unspecified; E11.43 Type 2 diabetes mellitus with diabetic autonomic (poly)neuropathy; K31.84 Gastroparesis; K75.81 Nonalcoholic steatohepatitis (NASH) | CPT/HCPCS: 99212 ==

== ENCOUNTER 2023-11-16 09:45 | Outpatient (AMB) | payer MEDICARE, MEDICAID, SELFPAY ==
--- NOTE | 2023-11-16 10:20 | A.OFFVIS_ITS ---
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 Accompanied by: Self / Same As Patient Allergies No Known Allergies Allergy (Verified 11/10/23 08:57) HPI Comprehensive Diabetes Asmnt Most Recent Diabetes Results: No Data to Display [facility] Medical History (Updated 11/10/23 @ 09:04 by RAJINDER Martel) Osteoporosis screening Breast cancer screening by mammogram Viral illness Acute bronchitis Acute bacterial bronchitis Cough Colon cancer screening Annual physical exam Subclinical hypothyroidism Acute cervical myofascial strain DM2 (diabetes mellitus, type 2) Dyslipidemia Acquired hypothyroidism Atherosclerotic cardiovascular disease Rheumatic fever GERD (gastroesophageal reflux disease) Diabetic nephropathy associated with type 2 diabetes mellitus Hirsutism Type 2 diabetes mellitus with diabetic polyneuropathy Gastroparesis due to DM Obesity (BMI 30-39.9) Depression Anxiety Vitamin D deficiency Lumbar degenerative disc disease Benign essential hypertension Pure hypercholesterolemia Diabetic neuropathy 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, bilateral Surgical History Hx of colonoscopy History of esophagogastroduodenoscopy (EGD) History of carpal tunnel release History of surgery History of cholecystectomy History of partial hysterectomy History of repair of rotator cuff Family History Father Diabetes Mother Diabetes CVD (cardiovascular disease) Social History Housing: Apartment Alcohol intake: never Patient Tobacco Use Status: Former Tobacco user Quit Date: 1989 e-Cigarette/Vaping Use: Never Used Second Hand Smoke Exposure: Yes service: No Current occupational status: disabled Cognitive needs: No Hearing needs: No Vision needs: Yes Assessment & Plan Assessment & Plan (1) Diabetic nephropathy associated with type 2 diabetes mellitus: Code(s): E11.21 - Type 2 diabetes mellitus with diabetic nephropathy Plan: Personal Continuous Glucose Monitor: Patients CGM information reviewed Reviewed patient's sensor data: Hypoglycemia: ? 1% Hyperglycemia:? 37% Time in Range:? 62% Average glucose for the last 2 weeks? 159 mg/dL Since increasing dose of Ozempic from 0.25 mg to 0.5 mg weekly patient is having hypoglycemic events in the evening and overnight. Patient reports she is taking U 500 95 units before breakfast, 90 units before lunch, has been omitting dose of 60 units before supper due to hypoglycemia. Patient does have consistent rise overnight which may be related to omission of suppertime dose of insulin Recommended to patient to reduce lunchtime dose from 90 units to 75 units, at suppertime take 50 units. Also sent message to Dr. Vazquez to increase Ozempic from 0.5 mg to 1 mg weekly Instructed patient when she increase his Ozempic dose if hypoglycemic events continue or increase to contact personal development educator Patient has appointment with bariatric program in 1 month, she has reduce the amount of carbohydrate intake in an effort to reduce weight Reviewed how to interpret trend arrows Reminded patient that to check finger sticks if symptoms do not match sensor reading. Discussed lag time between finger stick and sensor data.? Patient able to insert sensor independently at home without issue.? Patient Instructions: Keep breakfast dose the same Reduce lunchtime dose of U500 to 75 units, and supper dose to 50 units Follow-up with personal development educator in 6 weeks Coding Level of Care Code Est Pt Level 1 (49091) Diagnoses Diabetic nephropathy associated with type 2 diabetes mellitus E11.21
== END 2023-11-16 10:27 | disposition home or self-care (01) ==
PROVIDERS: PCP Internal Medicine; Visit Provider Registered Nurse Diabetes Educator
DX: E11.21 Type 2 diabetes mellitus with diabetic nephropathy (principal)

== ENCOUNTER → 2023-11-16 09:45 | Outpatient (BNVA) | payer OTHER, MEDICAID, SELFPAY | PROVIDERS: PCP Internal Medicine; Visit Provider Registered Nurse Diabetes Educator | DX: E11.21 Type 2 diabetes mellitus with diabetic nephropathy (principal) | CPT/HCPCS: 99211 ==

== ENCOUNTER 2023-11-29 08:30 | Outpatient (REF) | payer OTHER, MEDICAID, SELFPAY ==
--- NOTE | ~2023-11-29 | US_ITS ---
EXAMINATION: US ABDOMEN COMPLETE CLINICAL INFORMATION: Nonalcoholic steatohepatitis (MARTINEZ). COMPARISON: Ultrasound abdomen limited 04/01/2022 and 08/21/2021. CT abdomen and pelvis 11/07/2016. TECHNIQUE: Real-time imaging of the abdominal viscera. Severely limited visualization due to bowel gas and body habitus. FINDINGS: PANCREAS: Limited visualization of pancreatic tail and head. Imaged portion of pancreatic body is unremarkable. ABDOMINAL AORTA: Limited visualization. INFERIOR VENA CAVA: Visualized portions are normal. LIVER: Increased hepatic parenchymal heterogeneity and echogenicity could be associated with hepatocellular disease/hepatic steatosis and severely limits visualization. Correlation with liver function tests and clinical exam recommended to determine further management. GALLBLADDER: Surgically absent. COMMON BILE DUCT: Normal in caliber measuring 0.5 cm in diameter. RIGHT KIDNEY: No hydronephrosis. No renal calculi. Limited visualization. The kidney measures 13.5 cm in maximum dimension. LEFT KIDNEY: No hydronephrosis. No renal calculi. Limited visualization. The kidney measures 12.5 cm in maximum dimension. SPLEEN: Normal. The spleen measures 9.2 cm in maximum dimension. FREE FLUID: None. US/US abdomen complete IMPRESSION: Increased hepatic parenchymal heterogeneity and echogenicity could be associated with hepatocellular disease/hepatic steatosis and severely limits visualization. Correlation with liver function tests and clinical exam recommended to determine further management. Gallbladder is surgically absent. Severely limited visualization due to bowel gas and body habitus.
== END 2023-11-29 08:31 | disposition home or self-care (01) ==
LOC: HO.US 08:30
PROVIDERS: PCP Internal Medicine; Visit Provider Nurse Practitioner
DX: K75.81 Nonalcoholic steatohepatitis (NASH) (principal)
CPT/HCPCS: 76700

== ENCOUNTER 2023-12-01 07:46 | Outpatient (REF) | payer OTHER, SELFPAY ==
[2023-12-01 08:13] LABS: MANUAL DIFF FLAG NO
[2023-12-01 08:23] LABS: Basophils Percent Auto 0.4 % (0-2); Eosinophils Absolute Auto 0.1 X10*3/uL (0.0-0.4); Hematocrit 41.3 % (37.0-47.0); Hemoglobin 13.3 g/dl (12.0-16.0); Imm Gran Abs Auto 0.03 X10*3/uL (0.00-0.03); Imm Gran Pct Auto 0.4 % (0.0-0.4); Lymphocytes Absolute Auto 2.4 X10*3/uL (1.2-4.9); Lymphocytes Percent Auto 33.9 % (20-40); Mean Corpuscular HGB Conc 32.2 g/dl (31.0-35.0); Mean Corpuscular Hemoglobin 28.8 pg (27.0-33.0); Mean Corpuscular Volume 89.4 fL (80.0-98.0); Mean Platelet Volume 11.4 fL (9.4-12.3); Monocytes Absolute Auto 0.6 X10*3/uL (0.1-1.2); Monocytes Percent Auto 8.7 % (2-11); Neutrophils Absolute Auto 3.9 x10*3/uL (2.0-8.3); Neutrophils Percent Auto 55.6 % (45-73); Platelet Count 193 X10*3/uL (160-400); Red Blood Count 4.62 X10*6/uL (4.20-5.50); Red Cell Distribution Width 12.6 % (11.0-16.0); White Blood Count 7.1 X10*3/uL (4.8-10.8)
[2023-12-01 09:19] LABS: Alanine Aminotransferase 37 U/L (0-31); Albumin Level 4.4 g/dL (3.5-5.0); Alkaline Phosphatase 131 U/L (39-117); Aspartate Amino Transferase 22 U/L (5-31); Bilirubin Direct 0.1 mg/dL (0.0-0.5); Bilirubin Total 0.4 mg/dL (0.0-1.0); Total Protein 7.5 g/dL (6.5-8.0)
[2023-12-01 09:32] LABS: Estimated Average Glucose 154 mg/dL
[2023-12-01 09:42] LABS: Alanine Aminotransferase 40 U/L (0-31); Albumin Level 4.4 g/dL (3.5-5.0); Alkaline Phosphatase 131 U/L (39-117); Anion Gap 13 (12-20); Aspartate Amino Transferase 23 U/L (5-31); Bilirubin Total 0.4 mg/dL (0.0-1.0); Blood Urea Nitrogen 16 mg/dL (9-16); Calcium 9.7 mg/dL (8.4-10.2); Carbon Dioxide 27 mmol/L (22-29); Chloride 107 mmol/L (96-108); Cholesterol 116 mg/dL (<200); Estimated Glomerular Filt Rate > 60; Glucose Fasting 79 mg/dL (60-99); HDL Cholesterol 31 mg/dL (>40); LDL Cholesterol Calculated 45 mg/dL (<100); Potassium 3.9 mmol/L (3.3-5.1); Sodium 143 mmol/L (135-145); Total Protein 7.7 g/dL (6.5-8.0); Triglycerides 200 mg/dL (<150)
[2023-12-01 10:00] LABS: Thyroid Stimulating Hormone 3.95 uIU/mL (0.32-4.0)
[2023-12-01 10:01] LABS: Free T4 (Free Thyroxine) 0.75 ng/dL (0.71-1.85); Vitamin D 25-OH Total 39.6 ng/mL (>30)
[2023-12-01 11:18] LABS: Appearance Urine Clear; Color Urine Yellow; Glucose Urine UA Negative (Negative); Leukocyte Esterase Urine Moderate (2+) (Negative); Nitrite Urine Negative (Negative); PH 5.5 (5.0-9.0); Specific Gravity - Urine >= 1.030 (1.005-1.025); UMIC TRIGGER UACC YES; Urine Blood Negative (Negative); Urine Ketones Trace mg/dL (Negative); Urine Protein Negative (Neg-Trace)
[2023-12-01 11:28] LABS: Total Protein Urine Random 13 mg/dL (<12)
[2023-12-01 11:31] LABS: Creatinine Urine 189.78 mg/dL; Microalbum/Creatinine Ratio Ur 12.1 ug/mg cr (<30)
[2023-12-01 11:41] LABS: Bacteria Urine 4+ (None Seen); Hyaline Casts Urine 0-2 /LPF (0-2); RBC Urine 0-2 /HPF (0-2); UACC Culture Trigger YES; WBC Urine 21-50 /HPF (0-5)
[2023-12-03 13:03] LABS: Alpha Fetoprotein 2.2 ng/mL
== END 2023-12-01 07:47 | disposition home or self-care (01) ==
LOC: HO.LAB 07:46
PROVIDERS: Absent Provider Internal Medicine Nephrology; PCP Internal Medicine; Referring Provider Internal Medicine; Visit Provider Nurse Practitioner
DX: K75.81 Nonalcoholic steatohepatitis (NASH) (principal); E11.21 Type 2 diabetes mellitus with diabetic nephropathy; E78.00 Pure hypercholesterolemia, unspecified; E55.9 Vitamin D deficiency, unspecified; E11.9 Type 2 diabetes mellitus without complications; E03.9 Hypothyroidism, unspecified; R82.90 Unspecified abnormal findings in urine
CPT/HCPCS: 36415; 80053; 80061; 80076; 81001; 81003; 82043; 82105; 82248; 82306; 82570; 83036; 84156; 84439; 84443; 85025; 87086

== ENCOUNTER 2023-12-10 08:27 | Outpatient (AMB) | payer OTHER, SELFPAY ==
--- NOTE | 2023-12-10 12:25 | A.OFFVIS_ITS ---
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 BMI 39.3 Allergies No Known Allergies Allergy (Verified 12/10/23 12:25) Medication List - Last Reconciled 12/10/23 by Karl Coello MD atorvastatin 80 mg PO BEDTIME BD Ultra-Fine Micro Pen Needle (pen needle, diabetic) USE DIRECTED 3 TIMES A DAY NS bisacodyl 5 - 10 mg (1 - 2 x 5 mg) PO DAILY PRN 30 days cholecalciferol (vitamin D3) 50 mcg PO DAILY FreeStyle Lite Strips (blood sugar diagnostic) USE 1 STRIP 5 TO 6 TIMES A DAY TO TEST BLOOD SUGAR NS gabapentin 300 mg PO TID Humulin R U-500 (Conc) Kwikpen (insulin regular hum U-500 conc) 95 units in the morning, 90 units before lunch and 60 units before dinner subcut .3 times a day; 30 days NS levothyroxine 50 mcg PO DAILY loperamide (Imodium A-D) 2 mg PO Q6H PRN lorazepam 1 mg PO BID PRN 30 days losartan 100 mg PO DAILY metoclopramide HCl 10 mg PO TID omeprazole 40 mg PO DAILY semaglutide (Ozempic) 1 mg (0.75 mL) subcut QWEEK 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 39.3 HPI Details Start time: 12.15pm, End time: 1.10pm ?I spent 50 minutes speaking with the patient on the phone plus an additional 5 minutes reviewing and updating records for a total of 55 minutes HPI Comments History of Present Illness Details Previous weight loss diets: Keto diet, [place] Wakes up: 8am, Sleeps: 11.30pm Breakfast: 8.30am (eggs with toast) Lunch: 1pm (cottage cheese with grapes, or Premier premade protein shake) Dinner: 4pm (rice, beans, steak) Snacks: 3pm (crackers), 8pm (yogurt) Exercise: none Fluids: Coffee (2 cups per day with milk and sugar), tea: hot (1/day with sugar), soda: none, juice: as needed for low sugar, ETOH: none PFSH Medical History (Updated 12/10/23 @ 12:51 by Karl Coello MD) Obesity Gastroparesis Hypertension Osteoporosis screening Breast cancer screening by mammogram Viral illness Acute bronchitis Acute bacterial bronchitis Cough Colon cancer screening Annual physical exam Subclinical hypothyroidism Acute cervical myofascial strain DM2 (diabetes mellitus, type 2) Dyslipidemia Acquired hypothyroidism Atherosclerotic cardiovascular disease Rheumatic fever GERD (gastroesophageal reflux disease) Diabetic nephropathy associated with type 2 diabetes mellitus Hirsutism Type 2 diabetes mellitus with diabetic polyneuropathy Gastroparesis due to DM Obesity (BMI 30-39.9) Depression Anxiety Vitamin D deficiency Lumbar degenerative disc disease Benign essential hypertension Pure hypercholesterolemia Diabetic neuropathy 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, bilateral Surgical History Hx of colonoscopy History of esophagogastroduodenoscopy (EGD) History of carpal tunnel release History of surgery History of cholecystectomy History of partial hysterectomy History of repair of rotator cuff Family History Father Diabetes Mother Diabetes CVD (cardiovascular disease) Social History Housing: Apartment Alcohol intake: never Patient Tobacco Use Status: Former Tobacco user Quit Date: 1989 e-Cigarette/Vaping Use: Never Used Second Hand Smoke Exposure: Yes service: No Current occupational status: disabled Cognitive needs: No Hearing needs: No Vision needs: Yes Physical Exam Vital Signs: BMI result Body Mass Index 38.7 Assessment & Plan Assessment & Plan (1) Obesity: Code(s): E66.9 - Obesity, unspecified Qualifiers: Body mass index: BMI 39.0-39.9 Obesity classification: adult class 2 (BMI 35 - 39.9) Obesity type: due to excess calories Serious obesity comorbidity presence: with serious comorbidity Qualified Code(s): E66.01 - Morbid (severe) obesity due to excess calories; Z68.39 - Body mass index [BMI] 39.0-39.9, adult Plan: 1.? Plan for lap sleeve gastrectomy. If diaphragmatic or ventral hernias are present at time of surgery, these will be repaired laparoscopically as well. 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 I emphasized the importance of close follow-up, adherence to instructions and good communication. 2. Nutritional counseling. Start with 2 CELEBRATE REBUILD protein (buy at [facility] [employer]) shakes (ONE scoop EACH in 8oz low fat unsweetened almond milk each) at 9am-11am and 12pm-2pm, 1 protein bar (CELEBRATE protein bars, buy at [facility] [employer]) at 3pm-5pm, dinner at 6pm (8 forks of protein and 8 forks of salad/vegetables) AND one more protein bar after dinner at 8pm-10pm. So you do 2 protein shakes, 2 protein bars and one meal per day. Meal to include lean meat (beef, fish, pork, turkey, chicken), or french yogurt, or egg whites, or beans with a salad with olive oil and fruits (berries, pears, apples, kiwi). Avoid salt, breads, potatoes, rice, pasta, desserts. 3. Each shake would be drunk slowly, like coffee in a period of 2 hours. 4. Cut each bar in 4 pieces and eat each piece in 30min ?to make each bar last 2 hours. 5. I emphasized the importance of measuring accurately the food portion and measure it when serving the food in plate 6. The meal portions include 8 full-size forks of meat and 8 full-size forks of salad. You always eat the meat portion but you can replace up to 4 forks for salad/vegetables with rice, potatoes or pasta, or a fruit ?if you like. The less you do it the better weight loss will be. 7. One full-size fork is what it can be scooped on the fork without falling aside and not what can be bit with the fork. Use regular forks like those you find in a typical restaurant. 8.? Please send me weight measurements as soon as possible and then once a week. Always include your diet and exercise plan. 9. Start walking outside daily. 10. The best choice would be to purchase a stationary bike at home that can track calories. Let me know if you do so I can give you an exercise plan. 11.?Goal is to lose at least 1.5-2lbs per week 12. Goal to lose 10% of your weight before surgery, which is about 24lbs. Ultimate weight goal: 216lbs before surgery 13. Please follow the diet plan exactly without any change. If you don't like something about the plan or you feel hungry you need to communicate with me so I can help you revise the plan. You should not change the plan yourself. 14. Check your blood sugar daily and let me know immediately if your blood sugar is below 100 or above 150. When you begin the diet plan please stop the morning and lunch Humulin and do only 70U in the evening before your dinner. 15. Check your blood pressure daily in the morning. Please let me know if your blood pressure is below 110/70 Orders: Orders Hemoglobin A1c Today E03.9 - Hypothyroidism, unspecified, E11.21 - Type 2 diabetes mellitus with diabetic nephropathy, E11.42 - Type 2 diabetes mellitus with diabetic polyneuropathy, E11.43 - Type 2 diabetes mellitus with diabetic autonomic (poly)neuropathy, E11.65 - Type 2 diabetes mellitus with hyperglycemia, E66.9 - Obesity, unspecified, I10 - Essential (primary) hypertension, K21.9 - Gastro-esophageal reflux disease without esophagitis, K31.84 - Gastroparesis, K75.81 - Nonalcoholic steatohepatitis (MARTINEZ), Z68.39 - Body mass index [BMI] 39.0-39.9, adult, Z79.4 - 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 Complete Blood Count Auto Diff Today E03.9 - Hypothyroidism, unspecified, E11.21 - Type 2 diabetes mellitus with diabetic nephropathy, E11.42 - Type 2 diabetes mellitus with diabetic polyneuropathy, E11.43 - Type 2 diabetes mellitus with diabetic autonomic (poly)neuropathy, E11.65 - Type 2 diabetes mellitus with hyperglycemia, E66.9 - Obesity, unspecified, I10 - Essential (primary) hypertension, K21.9 - Gastro-esophageal reflux disease without esophagitis, K31.84 - Gastroparesis, K75.81 - Nonalcoholic steatohepatitis (MARTINEZ), Z68.39 - Body mass index [BMI] 39.0-39.9, adult, Z79.4 - half-way (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 of insulin Lipid Panel Today E03.9 - Hypothyroidism, unspecified, E11.21 - Type 2 diabetes mellitus with diabetic nephropathy, E11.42 - Type 2 diabetes mellitus with diabetic polyneuropathy, E11.43 - Type 2 diabetes mellitus with diabetic autonomic (poly)neuropathy, E11.65 - Type 2 diabetes mellitus with hyperglycemia, E66.9 - Obesity, unspecified, I10 - Essential (primary) hypertension, K21.9 - Gastro-esophageal reflux disease without esophagitis, K31.84 - Gastroparesis, K75.81 - Nonalcoholic steatohepatitis (MARTINEZ), Z68.39 - Body mass index [BMI] 39.0-39.9, adult, Z79.4 - half-way (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 of insulin Vitamin B12 and Folate Today E03.9 - Hypothyroidism, unspecified, E11.21 - Type 2 diabetes mellitus with diabetic nephropathy, E11.42 - Type 2 diabetes mellitus with diabetic polyneuropathy, E11.43 - Type 2 diabetes mellitus with diabetic autonomic (poly)neuropathy, E11.65 - Type 2 diabetes mellitus with hyperglycemia, E66.9 - Obesity, unspecified, I10 - Essential (primary) hypertension, K21.9 - Gastro-esophageal reflux disease without esophagitis, K31.84 - Gastroparesis, K75.81 - Nonalcoholic steatohepatitis (MARTINEZ), Z68.39 - Body mass index [BMI] 39.0-39.9, adult, Z79.4 - 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 Zinc Today E03.9 - Hypothyroidism, unspecified, E11.21 - Type 2 diabetes mellitus with diabetic nephropathy, E11.42 - Type 2 diabetes mellitus with diabetic polyneuropathy, E11.43 - Type 2 diabetes mellitus with diabetic autonomic (poly)neuropathy, E11.65 - Type 2 diabetes mellitus with hyperglycemia, E66.9 - Obesity, unspecified, I10 - Essential (primary) hypertension, K21.9 - Gastro-esophageal reflux disease without esophagitis, K31.84 - Gastroparesis, K75.81 - Nonalcoholic steatohepatitis (MARTINEZ), Z68.39 - Body mass index [BMI] 39.0-39.9, adult, Z79.4 - 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 C Reactive Protein Today E03.9 - Hypothyroidism, unspecified, E11.21 - Type 2 diabetes mellitus with diabetic nephropathy, E11.42 - Type 2 diabetes mellitus with diabetic polyneuropathy, E11.43 - Type 2 diabetes mellitus with diabetic autonomic (poly)neuropathy, E11.65 - Type 2 diabetes mellitus with hyperglycemia, E66.9 - Obesity, unspecified, I10 - Essential (primary) hypertension, K21.9 - Gastro-esophageal reflux disease without esophagitis, K31.84 - Gastroparesis, K75.81 - Nonalcoholic steatohepatitis (MARTINEZ), Z68.39 - Body mass index [BMI] 39.0-39.9, adult, Z79.4 - 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 Vitamin A Today E03.9 - Hypothyroidism, unspecified, E11.21 - Type 2 diabetes mellitus with diabetic nephropathy, E11.42 - Type 2 diabetes mellitus with diabetic polyneuropathy, E11.43 - Type 2 diabetes mellitus with diabetic autonomic (poly)neuropathy, E11.65 - Type 2 diabetes mellitus with hyperglycemia, E66.9 - Obesity, unspecified, I10 - Essential (primary) hypertension, K21.9 - Gastro-esophageal reflux disease without esophagitis, K31.84 - Gastroparesis, K75.81 - Nonalcoholic steatohepatitis (MARTINEZ), Z68.39 - Body mass index [BMI] 39.0-39.9, adult, Z79.4 - half-way (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 of insulin Vitamin D 25-OH Total Today E03.9 - Hypothyroidism, unspecified, E11.21 - Type 2 diabetes mellitus with diabetic nephropathy, E11.42 - Type 2 diabetes mellitus with diabetic polyneuropathy, E11.43 - Type 2 diabetes mellitus with diabetic autonomic (poly)neuropathy, E11.65 - Type 2 diabetes mellitus with hyperglycemia, E66.9 - Obesity, unspecified, I10 - Essential (primary) hypertension, K21.9 - Gastro-esophageal reflux disease without esophagitis, K31.84 - Gastroparesis, K75.81 - Nonalcoholic steatohepatitis (MARTINEZ), Z68.39 - Body mass index [BMI] 39.0-39.9, adult, Z79.4 - half-way (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 of insulin XR chest 2V Today E03.9 - Hypothyroidism, unspecified, E11.21 - Type 2 diabetes mellitus with diabetic nephropathy, E11.42 - Type 2 diabetes mellitus with diabetic polyneuropathy, E11.43 - Type 2 diabetes mellitus with diabetic autonomic (poly)neuropathy, E11.65 - Type 2 diabetes mellitus with hyperglycemia, E66.9 - Obesity, unspecified, I10 - Essential (primary) hypertension, K21.9 - Gastro-esophageal reflux disease without esophagitis, K31.84 - Gastroparesis, K75.81 - Nonalcoholic steatohepatitis (MARTINEZ), Z68.39 - Body mass index [BMI] 39.0-39.9, adult, Z79.4 - half-way (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 of insulin FL upper GI w air Today E03.9 - Hypothyroidism, unspecified, E11.21 - Type 2 diabetes mellitus with diabetic nephropathy, E11.42 - Type 2 diabetes mellitus with diabetic polyneuropathy, E11.43 - Type 2 diabetes mellitus with diabetic autonomic (poly)neuropathy, E11.65 - Type 2 diabetes mellitus with hyperglycemia, E66.9 - Obesity, unspecified, I10 - Essential (primary) hypertension, K21.9 - Gastro-esophageal reflux disease without esophagitis, K31.84 - Gastroparesis, K75.81 - Nonalcoholic steatohepatitis (MARTINEZ), Z68.39 - Body mass index [BMI] 39.0-39.9, adult, Z79.4 - half-way (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 of insulin Insulin Today E03.9 - Hypothyroidism, unspecified, E11.21 - Type 2 diabetes mellitus with diabetic nephropathy, E11.42 - Type 2 diabetes mellitus with diabetic polyneuropathy, E11.43 - Type 2 diabetes mellitus with diabetic autonomic (poly)neuropathy, E11.65 - Type 2 diabetes mellitus with hyperglycemia, E66.9 - Obesity, unspecified, I10 - Essential (primary) hypertension, K21.9 - Gastro-esophageal reflux disease without esophagitis, K31.84 - Gastroparesis, K75.81 - Nonalcoholic steatohepatitis (MARTINEZ), Z68.39 - Body mass index [BMI] 39.0-39.9, adult, Z79.4 - 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 H Pylori Breath Test Today E03.9 - Hypothyroidism, unspecified, E11.21 - Type 2 diabetes mellitus with diabetic nephropathy, E11.42 - Type 2 diabetes mellitus with diabetic polyneuropathy, E11.43 - Type 2 diabetes mellitus with diabetic autonomic (poly)neuropathy, E11.65 - Type 2 diabetes mellitus with hyperglycemia, E66.9 - Obesity, unspecified, I10 - Essential (primary) hypertension, K21.9 - Gastro-esophageal reflux disease without esophagitis, K31 .84 - Gastroparesis, K75.81 - Nonalcoholic steatohepatitis (MARTINEZ), Z68.39 - Body mass index [BMI] 39.0-39.9, adult, Z79.4 - 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 IRON PROFILE Today E03.9 - Hypothyroidism, unspecified, E11.21 - Type 2 diabetes mellitus with diabetic nephropathy, E11.42 - Type 2 diabetes mellitus with diabetic polyneuropathy, E11.43 - Type 2 diabetes mellitus with diabetic autonomic (poly)neuropathy, E11.65 - Type 2 diabetes mellitus with hyperglycemia, E66.9 - Obesity, unspecified, I10 - Essential (primary) hypertension, K21.9 - Gastro-esophageal reflux disease without esophagitis, K31.84 - Gastroparesis, K75.81 - Nonalcoholic steatohepatitis (MARTINEZ), Z68.39 - Body mass index [BMI] 39.0-39.9, adult, Z79.4 - 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 Comprehensive Met. Panel Today E03.9 - Hypothyroidism, unspecified, E11.21 - Type 2 diabetes mellitus with diabetic nephropathy, E11.42 - Type 2 diabetes mellitus with diabetic polyneuropathy, E11.43 - Type 2 diabetes mellitus with diabetic autonomic (poly)neuropathy, E11.65 - Type 2 diabetes mellitus with hyperglycemia, E66.9 - Obesity, unspecified, I10 - Essential (primary) hyp ertension, K21.9 - Gastro-esophageal reflux disease without esophagitis, K31.84 - Gastroparesis, K75.81 - Nonalcoholic steatohepatitis (MARTINEZ), Z68.39 - Body mass index [BMI] 39.0-39.9, adult, Z79.4 - half-way (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 of insulin Vitamin B1 Today E03.9 - Hypothyroidism, unspecified, E11.21 - Type 2 diabetes mellitus with diabetic nephropathy, E11.42 - Type 2 diabetes mellitus with diabetic polyneuropathy, E11.43 - Type 2 diabetes mellitus with diabetic autonomic (poly)neuropathy, E11.65 - Type 2 diabetes mellitus with hyperglycemia, E66.9 - Obesity, unspecified, I10 - Essential (primary) hypertension, K21.9 - Gastro-esophageal reflux disease without esophagitis, K31.84 - Gastroparesis, K75.81 - Nonalcoholic steatohepatitis (MARTINEZ), Z68.39 - Body mass index [BMI] 39.0-39.9, adult, Z79.4 - 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 TSH reflex Free T4 Today E03.9 - Hypothyroidism, unspecified, E11.21 - Type 2 diabetes mellitus with diabetic nephropathy, E11.42 - Type 2 diabetes mellitus with diabetic polyneuropathy, E11.43 - Type 2 diabetes mellitus with diabetic autonomic (poly)neuropathy, E11.65 - Type 2 diabetes mellitus with hyperg lycemia, E66.9 - Obesity, unspecified, I10 - Essential (primary) hypertension, K21.9 - Gastro-esophageal reflux disease without esophagitis, K31.84 - Gastroparesis, K75.81 - Nonalcoholic steatohepatitis (MARTINEZ), Z68.39 - Body mass index [BMI] 39.0-39.9, adult, Z79.4 - 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 Ferritin Today E03.9 - Hypothyroidism, unspecified, E11.21 - Type 2 diabetes mellitus with diabetic nephropathy, E11.42 - Type 2 diabetes mellitus with diabetic polyneuropathy, E11.43 - Type 2 diabetes mellitus with diabetic autonomic (poly)neuropathy, E11.65 - Type 2 diabetes mellitus with hyperglycemia, E66.9 - Obesity, unspecified, I10 - Essential (primary) hypertension, K21.9 - Gastro-esophageal reflux disease without esophagitis, K31.84 - Gastroparesis, K75.81 - Nonalcoholic steatohepatitis (MARTINEZ), Z68.39 - Body mass index [BMI] 39.0-39.9, adult, Z79.4 - 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 US abdomen comp w elastography Today E03.9 - Hypothyroidism, unspecified, E11.21 - Type 2 diabetes mellitus with diabetic nephropathy, E11.42 - Type 2 diabetes mellitus with diabetic polyneuropathy, E11.43 - Type 2 diabetes mellitus with diabetic autonomic (poly)neuropathy, E11.65 - Type 2 diabetes mellitus with hyperglycemia, E66.9 - Obesity, unspecified, I10 - Essential (primary) hypertension, K21.9 - Gastro-esophageal reflux disease without esophagitis, K31.84 - Gastroparesis, K75.81 - Nonalcoholic steatohepatitis (MARTINEZ), Z68.39 - Body mass index [BMI] 39.0-39.9, adult, Z79.4 - 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 ECG 12 lead EKG Today E03.9 - Hypothyroidism, unspecified, E11.21 - Type 2 diabetes mellitus with diabetic nephropathy, E11.42 - Type 2 diabetes mellitus with diabetic polyneuropathy, E11.43 - Type 2 diabetes mellitus with diabetic autonomic (poly)neuropathy, E11.65 - Type 2 diabetes mellitus with hyperglycemia, E66.9 - Obesity, unspecified, I10 - Essential (primary) hypertension, K21.9 - Gastro-esophageal reflux disease without esophagitis, K31.84 - Gastroparesis, K75.81 - Nonalcoholic steatohepatitis (MARTINEZ), Z68.39 - Body mass index [BMI] 39.0-39.9, adult, Z79.4 - half-way (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 of insulin RT home sleep study Today E03.9 - Hypothyroidism, unspecified, E11.21 - Type 2 diabetes mellitus with diabetic nephropathy, E11.42 - Type 2 diabetes mellitus with diabetic polyneuropathy, E11.43 - Type 2 diabetes mellitus with diabetic autonomic (poly)neuropathy, E11.65 - Type 2 diabetes mellitus with hyperglycemia, E66.9 - Obesity, unspecified, I10 - Essential (primary) hypertension, K21.9 - Gastro-esophageal reflux disease without esophagitis, K31.84 - Gastroparesis, K75.81 - Nonalcoholic steatohepatitis (MARTINEZ), Z68.39 - Body mass index [BMI] 39.0-39.9, adult, Z79.4 - 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 Referrals Behavioral Health Referral E03.9 - Hypothyroidism, unspecified, E11.21 - Type 2 diabetes mellitus with diabetic nephropathy, E11.42 - Type 2 diabetes mellitus with diabetic polyneuropathy, E11.43 - Type 2 diabetes mellitus with diabetic autonomic (poly)neuropathy, E11.65 - Type 2 diabetes mellitus with hyperglycemia, E66.9 - Obesity, unspecified, I10 - Essential (primary) hypertension, K21.9 - Gastro-esophageal reflux disease without esophagitis, K31.84 - Gastroparesis, K75.81 - Nonalcoholic steatohepatitis (MARTINEZ), Z68.39 - Body mass index [BMI] 39.0-39.9, adult, Z79.4 - 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 Nutrition/Dietitian Referral E03.9 - Hypothyroidism, unspecified, E11.21 - Type 2 diabetes mellitus with diabetic nephropathy, E11.42 - Type 2 diabetes mellitus with diabetic polyneuropathy, E11.43 - Type 2 diabetes mellitus with diabetic autonomic (poly)neuropathy, E11.65 - Type 2 diabetes mellitus with hyperglycemia, E66.9 - Obesity, unspecified, I10 - Essential (primary) hypertension, K21.9 - Gastro-esophageal reflux disease without esophagitis, K31.84 - Gastroparesis, K75.81 - Nonalcoholic steatohepatitis (MARTINEZ), Z68.39 - Body mass index [BMI] 39.0-39.9, adult, Z79.4 - 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 Telehealth Telehealth Location of provider rendering services: practice address Location of patient: address on file Patient Identification confirmed using: Name, : Yes Telehealth method: voice only Patient verbally consented to treatment: Yes Patient verbally consented to billing insurance company: Yes Patient informed of any privacy concerns related to visit: Yes Minutes spent on Phone/Video with Pt.: 55 Coding Level of Care Code Tele New Pt Level 4 (50022) Diagnoses Class 2 severe obesity due to excess calories with serious comorbidity and body mass index (BMI) of 39.0 to 39.9 in adult E66.01; Z68.39 Body mass index: BMI 39.0-39.9 Obesity classification: adult class 2 (BMI 35 - 39.9) Obesity type: due to excess calories Serious obesity comorbidity presence: with serious comorbidity Time Spent (min) 55
[2023-12-10 12:43] VITALS: BMI 38.7
== END 2023-12-10 13:11 | disposition home or self-care (01) ==
LOC: HO.HBS 08:28
PROVIDERS: PCP Internal Medicine; Visit Provider Surgery
DX: E66.01 Morbid (severe) obesity due to excess calories (principal); Z68.39 Body mass index [BMI] 39.0-39.9, adult
CPT/HCPCS: 99204; 99443

== ENCOUNTER → 2023-12-10 08:27 | Outpatient (BNVA) | payer OTHER, SELFPAY | PROVIDERS: PCP Internal Medicine; Visit Provider Surgery ==

== ENCOUNTER 2023-12-16 07:24 | Outpatient (REF) | payer OTHER, SELFPAY ==
--- NOTE | ~2023-12-16 | XR_ITS ---
EXAMINATION: XR CHEST 2 VIEWS CLINICAL INFORMATION: Obesity. COMPARISON: Radiographs dated 05/18/2023. TECHNIQUE: Frontal and lateral views of the chest were obtained. FINDINGS: The heart, great vessels, pulmonary vasculature and mediastinum are normal. The lungs show no focal infiltrate, effusion or pneumothorax. There is no acute osseous abnormality. XR/XR chest 2V IMPRESSION: No active cardiopulmonary disease.
--- NOTE | 2023-12-16 07:41 | ECG_ITS ---
Test Reason : e66.9 Blood Pressure : / mmHG Vent. Rate : 084 BPM Atrial Rate : 084 BPM P-R Int : 170 ms QRS Dur : 136 ms QT Int : 414 ms P-R-T Axes : 067 -04 016 degrees QTc Int : 489 ms Normal sinus rhythm Right bundle branch block Abnormal ECG When compared with ECG of 18-MAY-2023 03:00, T wave inversion improved in anterior leads Referred By: Karl Coello Electronically Signed By:SHARON JONES
[2023-12-16 07:59] LABS: MANUAL DIFF FLAG NO
[2023-12-16 08:29] LABS: Basophils Percent Auto 0.4 % (0-2); Eosinophils Absolute Auto 0.1 X10*3/uL (0.0-0.4); Eosinophils Percent Auto 0.7 % (0-4); Hematocrit 43.5 % (37.0-47.0); Hemoglobin 13.7 g/dl (12.0-16.0); Imm Gran Abs Auto 0.01 X10*3/uL (0.00-0.03); Imm Gran Pct Auto 0.1 % (0.0-0.4); Lymphocytes Absolute Auto 2.3 X10*3/uL (1.2-4.9); Lymphocytes Percent Auto 31.9 % (20-40); Mean Corpuscular HGB Conc 31.5 g/dl (31.0-35.0); Mean Corpuscular Hemoglobin 28.4 pg (27.0-33.0); Mean Corpuscular Volume 90.2 fL (80.0-98.0); Mean Platelet Volume 11.8 fL (9.4-12.3); Monocytes Absolute Auto 0.6 X10*3/uL (0.1-1.2); Monocytes Percent Auto 8.1 % (2-11); Neutrophils Absolute Auto 4.2 x10*3/uL (2.0-8.3); Neutrophils Percent Auto 58.8 % (45-73); Platelet Count 177 X10*3/uL (160-400); Red Blood Count 4.82 X10*6/uL (4.20-5.50); Red Cell Distribution Width 12.7 % (11.0-16.0); White Blood Count 7.1 X10*3/uL (4.8-10.8)
[2023-12-16 08:49] LABS: Estimated Average Glucose 157 mg/dL; Hemoglobin A1c % 7.1 % (<6.0)
[2023-12-16 08:59] LABS: Alanine Aminotransferase 41 U/L (0-31); Albumin Level 4.4 g/dL (3.5-5.0); Anion Gap 12 (12-20); Aspartate Amino Transferase 22 U/L (5-31); Bilirubin Total 0.8 mg/dL (0.0-1.0); Blood Urea Nitrogen 19 mg/dL (9-16); C Reactive Protein 0.17 mg/dL (< or = 0.50); Carbon Dioxide 28 mmol/L (22-29); Chloride 105 mmol/L (96-108); Cholesterol 117 mg/dL (<200); Estimated Glomerular Filt Rate > 60; Glucose Random 221 mg/dL (60-115); HDL Cholesterol 30 mg/dL (>40); LDL Cholesterol Calculated 42 mg/dL (<100); Potassium 4.3 mmol/L (3.3-5.1); Sodium 141 mmol/L (135-145); Total Protein 7.8 g/dL (6.5-8.0); Triglycerides 227 mg/dL (<150); Unsaturated Iron Binding 184 ug/dL
[2023-12-16 09:04] LABS: Iron 103 mcg/dL (30-160); Percent Iron Saturation 36 % (15-50); Total Iron Binding Capacity 287 mcg/dL (228-428)
[2023-12-16 09:22] LABS: Alkaline Phosphatase 132 U/L (39-117)
[2023-12-16 09:30] LABS: Ferritin 169 ng/mL (10-250); Insulin 19 uU/mL (2-29); Vitamin D 25-OH Total 39.5 ng/mL (>30)
[2023-12-16 09:31] LABS: Folate 7.7 ng/mL (> or = 4.0); Vitamin B12 467 pg/mL (200-900)
[2023-12-19 13:23] LABS: Zinc 71 mcg/dL (60-130)
[2023-12-20 12:03] LABS: Vitamin A 44 mcg/dL (38-98)
[2023-12-21 13:57] LABS: Vitamin B1 8 nmol/L (8-30)
== END 2023-12-16 07:25 | disposition home or self-care (01) ==
LOC: HO.LAB 07:24
PROVIDERS: Absent Provider Internal Medicine Nephrology; PCP Internal Medicine; Visit Provider Surgery
DX: E66.9 Obesity, unspecified (principal); I10 Essential (primary) hypertension; E03.9 Hypothyroidism, unspecified; K75.81 Nonalcoholic steatohepatitis (NASH); E11.43 Type 2 diabetes mellitus with diabetic autonomic (poly)neuropathy; E11.21 Type 2 diabetes mellitus with diabetic nephropathy; E11.65 Type 2 diabetes mellitus with hyperglycemia; E11.42 Type 2 diabetes mellitus with diabetic polyneuropathy; K21.9 Gastro-esophageal reflux disease without esophagitis; K31.84 Gastroparesis; Z79.4 Long term (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 of insulin; Z68.39 Body mass index [BMI] 39.0-39.9, adult
CPT/HCPCS: 36415; 71046; 80053; 80061; 82306; 82607; 82728; 82746; 83036; 83525; 83540; 84425; 84443; 84590; 84630; 85025; 86140; 93005

== ENCOUNTER → 2023-12-16 07:41 | Outpatient (BNV) | payer OTHER, SELFPAY | PROVIDERS: Absent Provider Internal Medicine Nephrology; PCP Internal Medicine; Visit Provider Internal Medicine | DX: I45.10 Unspecified right bundle-branch block (principal) | CPT/HCPCS: 93010 ==

== ENCOUNTER 2023-12-20 08:46 | Outpatient (AMB) | payer OTHER, MEDICAID, SELFPAY ==
--- NOTE | 2023-12-20 08:50 | A.OFFPC_ITS ---
Vital Signs 12/20/23 08:53 Height 5 ft 6 in Weight 235 lb BMI 37.9 BP 100/58 L Blood Pressure Location Lt brachial Position Sitting Pulse 78 Pulse Source Pulse Oximeter Pulse Oximetry (%) 97 Oxygen Delivery Method Room Air Intake Visit Reasons: DM, hyperlipidemia Intake Note: Patient is here to follow up on DM, Hyperlipidemia. 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 Credentialing Coordinator: Not Required per policy Accompanied by: Self / Same As Patient Allergies No Known Allergies Allergy (Verified 12/20/23 09:16) Medication List - Last Reconciled 12/20/23 by Fish Lomeli MD atorvastatin 80 mg PO BEDTIME BD Ultra-Fine Micro Pen Needle (pen needle, diabetic) USE DIRECTED 3 TIMES A DAY NS bisacodyl 5 - 10 mg (1 - 2 x 5 mg) PO DAILY PRN 30 days cholecalciferol (vitamin D3) 50 mcg PO DAILY FreeStyle Lite Strips (blood sugar diagnostic) USE 1 STRIP 5 TO 6 TIMES A DAY TO TEST BLOOD SUGAR NS gabapentin 300 mg PO TID Humulin R U-500 (Conc) Kwikpen (insulin regular hum U-500 conc) 95 units in the morning, 90 units before lunch and 60 units before dinner subcut .3 times a day; 30 days NS levothyroxine 50 mcg PO DAILY lorazepam 1 mg PO BID PRN 30 days losartan 100 mg PO DAILY metoclopramide HCl 10 mg PO TID omeprazole 40 mg PO DAILY semaglutide (Ozempic) 1 mg (0.75 mL) subcut QWEEK Tobacco use date assessed: 12/20/23 Fall risk assessment: No Falls in past year Last assessed Fall Risk: 12/20/23 Dental Screening Dental Screen Date: 12/20/23 Did you have a dental visit in the last 12 months?: No Did you have a dental problem in the last 6 months where you did not have access to dental care?: No Was dental information given to patient?: No HPI DM, hyperlipidemia HPI Details Patient comes in today for her follow up visit States that she feels okay She denies any headaches or dizziness Denies any chest pains, no increased SOB No nausea/vomiting, no abdominal pain No change in bowel habits noted Needs her glucometer test strips Rx refilled Had her follow up labs done a few days ago - to discuss her results [facility] Medical History (Updated 12/20/23 @ 09:18 by Fish Lomeli MD) Obesity Gastroparesis Hypertension Acute bacterial bronchitis Subclinical hypothyroidism Acute cervical myofascial strain DM2 (diabetes mellitus, type 2) Dyslipidemia Acquired hypothyroidism Atherosclerotic cardiovascular disease Rheumatic fever GERD (gastroesophageal reflux disease) Diabetic nephropathy associated with type 2 diabetes mellitus Hirsutism Type 2 diabetes mellitus with diabetic polyneuropathy Gastroparesis due to DM Obesity (BMI 30-39.9) Depression Anxiety Vitamin D deficiency Lumbar degenerative disc disease Benign essential hypertension Pure hypercholesterolemia Diabetic neuropathy snf (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 of insulin 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, bilateral Surgical History Hx of colonoscopy History of esophagogastroduodenoscopy (EGD) History of carpal tunnel release History of surgery History of cholecystectomy History of partial hysterectomy History of repair of rotator cuff Family History Father Diabetes Mother Diabetes CVD (cardiovascular disease) Social History Housing: Apartment Alcohol intake: never Patient Tobacco Use Status: Former Tobacco user Quit Date: 1989 e-Cigarette/Vaping Use: Never Used Second Hand Smoke Exposure: Yes service: No Current occupational status: disabled Cognitive needs: No Hearing needs: No Vision needs: Yes Questionnaire PHQ-9 Over the last 2 weeks, how often have you been bothered by any of the following problems? 1. Little interest or pleasure in doing things: not at all 2. Feeling down, depressed, or hopeless: not at all 3. Trouble falling or staying asleep, or sleeping too much: not at all 4. Feeling tired or having little energy: not at all 5. Poor appetite or overeating: not at all 6. Feeling bad about yourself - or that you are a failure or have let yourself or your family down: not at all 7. Trouble concentrating on things, such as reading the newspaper or watching television: not at all 8. Moving or speaking so slowly that other people could have noticed. Or the opposite - being so fidgety or restless that you have been moving around a lot more than usual: not at all 9. Thoughts that you would be better off or of hurting yourself in some way: not at all Total score: 0 Depression Screening Interpretation: Negative Depression Screening Done: Yes 57870 - PHQ-9 Billing: Yes Source: Developed by Drs. Chin Mccollum, Liberty Coleman, Alverto Monge and colleagues, with an educational judy from [employer]. Thrive Questionnaire Date Thrive assessed: 12/20/23 I am a: Patient What is your living situation today?: I have a steady place to live Within the past 12 months, did the food you bought not last and you didn't have the money to get more?: Never true Within the past 12 months, did you worry whether your food would run out before you got money to buy more?: Never true Do you have trouble paying for medicines?: No Do you have trouble getting transportation to medical appointments?: No Do you have trouble paying your heating and electricity bill?: No Do you have trouble taking care of your child, family member or friend?: No Do you have trouble with day-to-day activities such as bathing, preparing meals, shopping, managing finances, etc.?: No Are you currently unemployed and looking for a job?: No Are you interested in more education?: No Currently or been in a relationship where the following occur: no concerns reported THRIVE Score: 0 AUDIT C Alcohol Use Questionnaire (AUDIT-C) 1. How often do you have a drink containing alcohol?: Never 3. How often do you have six or more drinks on one occasion?: Never Total Score: 0 Score Reviewed/Action Taken: Yes LAURENT-7 AMB Questionnaire LAURENT-7 Date LAURENT - 7 assessed: 12/20/23 Feeling nervous, anxious, or on edge: 1 = Several days Not being able to stop or control worryin = Not at all Worrying too much about different things: 0 = Not at all Trouble relaxin = Not at all Being so restless that it is hard to sit still: 0 = Not at all Becoming easily annoyed or irritable: 0 = Not at all Feeling afraid as if something awful might happen: 0 = Not at all Total LAURENT-7 score (0-4 normal; 5-9 mild; 10-14 moderate; 15-21 severe): 1 Source: Developed by Drs. Chin Mccollum, Liberty Coleman, Alverto Monge and colleagues, with an educational judy from [employer]. Review of Systems Const Denies chills, Reports fatigue, Denies fever(s) and Denies headache(s) ENT Denies dysphagia, Denies dizziness, Denies otalgia, Denies headache(s), Denies odynophagia and Denies sore throat Card Denies chest pain, Denies palpitations and Reports dyspnea on exertion (mild) Resp Denies chest congestion, Denies cough, Reports dyspnea on exertion (mild) and Denies wheezing GI Denies abdominal pain, Reports constipation (chronic), Denies dysphagia, Reports heartburn (on and off but meds help), Denies diarrhea, Denies odynophagia and Denies vomiting Denies difficulty voiding, Denies nocturia, Denies dysuria and Denies urinary urgency Musc Reports back pain (over the lower back - chronic) Skin/Breast Denies rash Neuro Denies dizziness and Denies headache(s) Psych Reports anxiety Endo Reports fatigue and Denies palpitations Davion/Lymph Denies easy bruising Aller/Immun Denies wheezing Physical exam (Primary Care) Vital Signs: Last Vital Signs Pulse 78 12/20/23 08:53 BP 100/58 L 12/20/23 08:53 Pulse Ox 97 12/20/23 08:53 Oxygen Delivery Method Room Air 12/20/23 08:53 BMI result Body Mass Index 37.9 Tobacco/Smoking Status: Tobacco use Status Tobacco use date assessed 12/20/23 12/20/23 09:00 Patient Tobacco Use Status Former Tobacco user 12/20/23 09:00 e-Cigarette/Vaping Use Never Used 12/20/23 09:00 PHQ-9: PHQ-9 Score PHQ-9: Total score 0 12/20/23 09:00 Depression Screening Interpretation: Negative Thrive Assessment: Date of Thrive Assessment Date Thrive assessed 12/20/23 12/20/23 09:00 Currently or been in a relationship where the following occur: no concerns reported Const General: no acute distress and alert HENMT Ears: TM's normal bilaterally and EAC's normal Throat: Yes posterior oropharynx normal and Yes tonsils normal (no TP congestion noted) Neck Neck: Yes no lymphadenopathy, Yes supple and Yes tender (over the left cervical paraspinal muscles) Thyroid: Thyroid normal Resp Auscultation: clear to auscultation bilaterally, no rales and no wheezes Cardio Rate: regular rate Rhythm: regular rhythm Heart sounds: no murmurs GI Palpation (GI): Soft to palpation and nontender Auscultation: normal bowel sounds General: Yes no CVA tenderness Back/Spine/Pelvis Back: no CVA tenderness Cervical Spine: cervical muscular tenderness (over the left side) Thoracic/Lumbar Spine: lumbar spinal tenderness Skin Rashes: no rashes Extrem General: Yes no clubbing, cyanosis or edema Results Reviewed Results Reviewed: Laboratory Tests 10/13/23 12/01/23 12/01/23 09:31 08:12 08:25 WBC Hgb Hct Plt Count Sodium Potassium Creatinine Estimated GFR Random Glucose Fasting Glucose Hgb A1c (Clinic) 7.2 H Hemoglobin A1c % Insulin Level Calcium Iron TIBC % Saturation AST ALT Alkaline Phosphatase C-Reactive Protein Triglycerides Cholesterol LDL Cholesterol, Calc HDL Cholesterol Alpha Fetoprotein 2.2 Vitamin B12 25-OH Vitamin D Total TSH Free T4 Ur Specific [place] >= 1.030 H Urine Protein Negative Urine Glucose (UA) Negative Urine Blood Negative Ur Leukocyte Esterase Moderate (2+) H Microalb/Creat Ratio 12.1 Zinc 12/01/23 12/16/23 08:26 07:57 WBC 7.1 Hgb 13.7 Hct 43.5 Plt Count 177 Sodium 141 Potassium 4.3 Creatinine 0.86 Estimated GFR > 60 Random Glucose 221 H Fasting Glucose 79 Hgb A1c (Clinic) Hemoglobin A1c % 7.1 H Insulin Level 19 Calcium 10.0 Iron 103 TIBC 287 % Saturation 36 AST 22 ALT 41 H Alkaline Phosphatase 132 H C-Reactive Protein 0.17 Triglycerides 227 H Cholesterol 117 LDL Cholesterol, Calc 42 HDL Cholesterol 30 L Alpha Fetoprotein Vitamin B12 467 25-OH Vitamin D Total 39.5 TSH 3.30 Free T4 0.75 Ur Specific [place] Urine Protein Urine Glucose (UA) Urine Blood Ur Leukocyte Esterase Microalb/Creat Ratio Zinc 71 Assessment and Plan Assessment & Plan (1) Type 2 diabetes mellitus with diabetic polyneuropathy: Code(s): E11.42 - Type 2 diabetes mellitus with diabetic polyneuropathy Qualifiers: Diabetes mellitus intermediate insulin use: with intermediate use Qualified Code(s): E11.42 - Type 2 diabetes mellitus with diabetic polyneuropathy; Z79.4 - snf (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 of insulin Plan: HgbA1c was at 7.1% on her labs done a few days ago (in-office HgbA1c was previously at 7.2% a couple of months ago) - goal is <7.0% but if she starts experiencing hypoglycemic symptoms, may allow her HgbA1c to go up to 7.5% Reinforced diabetic diet She was on Humulin U-500 95 units when the patient wakes up in the morning (before breakfast), 90 units 30 minutes before lunch and 70 units 30 minutes before dinner and Ozempic 1 mg SQ once a week but was recently advised by Dr. Coello to hold her insulin injections except for her dinner time dose as he is currently trying to help patient adjust her diet and eating habits in an attempt to lose weight Follow up with endocrinology as scheduled - sees Dr. Vazquez Patient follows up with Dr. Cameron Perez for her retinopathy (has severe nonproliferative diabetic retinopathy with macular edema) - reinforced again that she needs to get her diabetes under control to slow down the progression of her retinopathy (2) Pure hypercholesterolemia: Code(s): E78.00 - Pure hypercholesterolemia, unspecified Plan: Results of her labs done a few days ago reviewed and discussed with patient Reinforced low cholesterol diet Continue Atorvastatin 40 mg QD Will recheck her labs and fasting lipids in 3 months for follow-up (3) Diabetic nephropathy associated with type 2 diabetes mellitus: Code(s): E11.21 - Type 2 diabetes mellitus with diabetic nephropathy Plan: Her renal function still appears stable currently Follow up with nephrology as scheduled - sees Dr. Sim (4) Diabetic neuropathy: Code(s): E11.40 - Type 2 diabetes mellitus with diabetic neuropathy, unspecified Qualifiers: Diabetes mellitus type: type 2 Diabetes mellitus complication detail: diabetic polyneuropathy Qualified Code(s): E11.42 - Type 2 diabetes mellitus with diabetic polyneuropathy Plan: Reinforced importance of strict glycemic control to slow done progression of her neuropathy (5) Benign essential hypertension: Code(s): I10 - Essential (primary) hypertension Plan: Reinforced low sodium diet - goal is systolic BP of at least 130 mm or less Have discussed with patient that her BP, especially her systolic BP, appears lower than usual today and advised that if her number stays low or goes lower and she starts to experience recurrent dizziness or increasing weakness, she is to call GEORGETTE for further instructions Continue?Losartan 100 mg QD for now Have advised her to monitor her blood pressure regularly (6) Gastroparesis due to DM: Code(s): E11.43 - Type 2 diabetes mellitus with diabetic autonomic (poly)neuropathy; K31.84 - Gastroparesis Plan: Advised again that her recurrent GI symptoms are mostly due to gastroparesis and unfortunately, there are no available medications that help effectively with this Continue Metoclopramide 10 mg TID before meals Follow up with GI as scheduled (7) GERD (gastroesophageal reflux disease): Code(s): K21.9 - Gastro-esophageal reflux disease without esophagitis Qualifiers: Esophagitis presence: without esophagitis Qualified Code(s): K21.9 - Gastro-esophageal reflux disease without esophagitis Plan: Dietary restrictions reinforced Continue Omeprazole 40 mg QD (8) Lumbar degenerative disc disease: Code(s): M51.36 - Other intervertebral disc degeneration, lumbar region Plan: Reinforced activity and weight lifting restrictions Continue Gabapentin 300 mg TID; patient used to also take Duloxetine 30 mg QD and Tizanidine 4 mg TID PRN in the past but she stopped taking these at some point as she felt that she did not need these at the time (9) Acquired hypothyroidism: Code(s): E03.9 - Hypothyroidism, unspecified Plan: Continue Levothyroxine 50 mcg QD Will recheck her TFTs in 3 months for follow up (10) Vitamin D deficiency: Code(s): E55.9 - Vitamin D deficiency, unspecified Plan: Continue Vitamin D3 2000 units QD (11) Anxiety: Code(s): F41.9 - Anxiety disorder, unspecified Plan: Continue Lorazepam 1 mg twice a day as needed (12) Depression: Code(s): F32.9 - Major depressive disorder, single episode, unspecified Qualifiers: Depression Type: major depressive disorder Major depression recurrence: recurrent Active/Remission status: currently active Major depression episode severity: moderate Qualified Code(s): F33.1 - Major depressive disorder, recurrent, moderate Plan: Follow up with Psychiatry as scheduled (13) Obesity (BMI 30-39.9): Code(s): E66.9 - Obesity, unspecified Plan: Reinforced diet/exercise as tolerated/lose weight Follow up with Dr. Coello as scheduled for weight management Plan Follow up in 3 months Orders: Orders Lipid Panel 3 Months E78.00 - Pure hypercholesterolemia, unspecified Thyroid Stimulating Hormone 3 Months E03.9 - Hypothyroidism, unspecified Complete Blood Count Auto Diff 3 Months D64.9 - Anemia, unspecified Comprehensive [place]. Panel Fast 3 Months E78.00 - Pure hypercholesterolemia, unspecified Hemoglobin A1c 3 Months E11.9 - Type 2 diabetes mellitus without complications Microalbumin, Random (w Creat) 3 Months E11.9 - Type 2 diabetes mellitus without complications Free T4 (Free Thyroxine) 3 Months E03.9 - Hypothyroidism, unspecified UA CC w/rflx Micro + Cult 3 Months R30.0 - Dysuria Vitamin B12 and Folate 3 Months E53.8 - Deficiency of other specified B group vitamins Vitamin D 25-OH Total 3 Months E55.9 - Vitamin D deficiency, unspecified Medications: Refilled FreeStyle Lite Strips (blood sugar diagnostic) USE 1 STRIP 5 TO 6 TIMES A DAY TO TEST BLOOD SUGAR 150 ea 6RF NS E11.42 - Type 2 diabetes mellitus with diabetic polyneuropathy Coding Level of Care Code Est Pt Level 4 (62131) Diagnoses Type 2 diabetes mellitus with diabetic polyneuropathy, with long-term current use of insulin E11.42; Z79.4 Diabetes mellitus intermediate insulin use: with terminal operations manager use Pure hypercholesterolemia E78.00 Diabetic nephropathy associated with type 2 diabetes mellitus E11.21 Diabetic polyneuropathy associated with type 2 diabetes mellitus E11.42 Diabetes mellitus type: type 2 Diabetes mellitus complication detail: diabetic polyneuropathy Benign essential hypertension I10 Gastroparesis due to DM E11.43; K31.84 Gastroesophageal reflux disease without esophagitis K21.9 Esophagitis presence: without esophagitis Lumbar degenerative disc disease M51.36 Acquired hypothyroidism E03.9 Vitamin D deficiency E55.9 Anxiety F41.9 Moderate episode of recurrent major depressive disorder F33.1 Depression Type: major depressive disorder Major depression recurrence: recurrent Active/Remission status: currently active Major depression episode severity: moderate Obesity (BMI 30-39.9) E66.9
[2023-12-20 08:53] VITALS: BP 100/58; PULSE 78; O2SAT 97; BMI 37.9
== END 2023-12-20 09:34 | disposition home or self-care (01) ==
PROVIDERS: PCP Internal Medicine; Visit Provider Internal Medicine
DX: E11.42 Type 2 diabetes mellitus with diabetic polyneuropathy (principal); Z79.4 Long term (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 of insulin; E11.21 Type 2 diabetes mellitus with diabetic nephropathy; E11.43 Type 2 diabetes mellitus with diabetic autonomic (poly)neuropathy; E78.00 Pure hypercholesterolemia, unspecified; I10 Essential (primary) hypertension; K31.84 Gastroparesis; K21.9 Gastro-esophageal reflux disease without esophagitis; M51.36 Other intervertebral disc degeneration, lumbar region; E03.9 Hypothyroidism, unspecified; E55.9 Vitamin D deficiency, unspecified; F41.9 Anxiety disorder, unspecified
CPT/HCPCS: 99214

== ENCOUNTER 2023-12-28 09:04 | Outpatient (REF) | payer OTHER, MEDICAID, SELFPAY ==
--- NOTE | ~2023-12-28 | US_ITS ---
EXAMINATION: US LIVER ELASTOGRAPHY CLINICAL INFORMATION: Obesity. COMPARISON: Abdominal ultrasound dated 11/29/2023. TECHNIQUE: Noninvasive ultrasound liver fibrosis assessment is performed using Jalen ElastQ shear wave elastography (2D-SWE) with a 5 MHz transducer following the SRU guidelines. FINDINGS: LIVER: The liver demonstrates contour and increased echogenicity. No focal lesion or intrahepatic biliary duct dilatation. The right lobe measures 19.0 cm in length. The left lobe measures 11.0 cm in length. Portal flow is towards the liver (hepatopetal). Shear wave liver elastography median stiffness is 1.88 kPa (reference: normal median stiffness is 5 kPa or less). IQR/median stiffness to assess sampling precision is 0.05 (reference: good quality data set is IQR/median stiffness of 0.30 or less). US/US abdomen dominguez w elastography IMPRESSION: 1. There is evidence of malignancy. 2. There is generalized increase in hepatic echotexture, consistent with fatty infiltration or hepatocellular disease. Please correlate clinically. No focal hepatic mass or intrahepatic biliary dilatation is seen. 3. Liver elastography: Measurements are suggestive of compensated advanced chronic liver disease but need further test for confirmation. REFERENCE: Society of Radiologists in Ultrasound Liver Stiffness Thresholds (2020): LIVER STIFFNESS THRESHOLDS: *Liver Stiffness equal or less than 5 kPa: High probability of being normal. *Liver Stiffness less than 9 kPa: In the absence of other known clinical signs, rules out compensated advanced chronic liver disease. *Liver Stiffness 9-13 kPa: Suggestive of compensated advanced chronic liver disease but need further test for confirmation. *Liver Stiffness over 13 kPa: Rules in compensated advanced chronic liver disease. *Liver Stiffness over 17 kPa: Suggestive of clinically significant portal hypertension. QUALITY OF DATA SET: *IQR/Median value equal or less than 0.30 implies a quality data set. *IQR/Median value over 0.30 implies a poor quality data set. SIGNIFICANT CHANGE FROM PRIOR EXAM: Significant change if liver stiffness measurement is 10% or greater from prior exam. OTHER CONSIDERATIONS: The stage of liver fibrosis may be overestimated in the setting of acute hepatitis, liver inflammation, elevated liver function tests, hepatic vascular congestion, obstructive cholestasis, non-fasting state, and infiltrative diseases such as amyloidosis and lymphoma. In some patients with NAFLD, the liver stiffness thresholds for compensated advanced chronic liver disease may be lower. In causes other than viral hepatitis and NAFLD, liver stiffness thresholds are not well established.
== END 2023-12-28 09:05 | disposition home or self-care (01) ==
LOC: HO.US 09:04
PROVIDERS: PCP Internal Medicine; Visit Provider Surgery
DX: E66.9 Obesity, unspecified (principal); Z68.39 Body mass index [BMI] 39.0-39.9, adult; I10 Essential (primary) hypertension
CPT/HCPCS: 76705; 76981

== ENCOUNTER 2023-12-29 09:43 | Outpatient (AMB) | payer MEDICARE, MEDICAID, SELFPAY ==
--- NOTE | 2023-12-29 10:13 | MHC.AMDMED ---
Intake Intake Visit Reasons: DM 60 min Activities Coordinator Required: No Accompanied by: Self / Same As Patient Allergies No Known Allergies Allergy (Verified 12/20/23 09:16) HPI Comprehensive Diabetes Asmnt Most Recent Diabetes Results: Hemoglobin A1c 8.7 % 07/20/18 Microalb/Creat Ratio 12.1 ug/mg cr (<30) 12/01/23 Cholesterol 117 mg/dL (<200) 12/16/23 HDL Cholesterol 30 mg/dL (>40) L 12/16/23 Triglycerides 227 mg/dL (<150) H 12/16/23 Creatinine 0.86 mg/dL (0.5-1.4) 12/16/23 Blood Urea Nitrogen 19 mg/dL (9-16) H 12/16/23 Sodium 141 mmol/L (135-145) 12/16/23 Potassium 4.3 mmol/L (3.3-5.1) 12/16/23 Chloride 105 mmol/L (96-108) 12/16/23 Carbon Dioxide 28 mmol/L (22-29) 12/16/23 Calcium 10.0 mg/dL (8.4-10.2) 12/16/23 AST 22 U/L (5-31) 12/16/23 ALT 41 U/L (0-31) H 12/16/23 Total Protein 7.8 g/dL (6.5-8.0) 12/16/23 Albumin 4.4 g/dL (3.5-5.0) 12/16/23 PFSH Medical History (Updated 12/25/23 @ 17:51 by Karl Coello MD) Obesity Gastroparesis Hypertension Acute bacterial bronchitis Subclinical hypothyroidism Acute cervical myofascial strain DM2 (diabetes mellitus, type 2) Dyslipidemia Acquired hypothyroidism Atherosclerotic cardiovascular disease Rheumatic fever GERD (gastroesophageal reflux disease) Diabetic nephropathy associated with type 2 diabetes mellitus Hirsutism Type 2 diabetes mellitus with diabetic polyneuropathy Gastroparesis due to DM Obesity (BMI 30-39.9) Depression Anxiety Vitamin D deficiency Lumbar degenerative disc disease Benign essential hypertension Pure hypercholesterolemia Diabetic neuropathy 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, bilateral Surgical History Hx of colonoscopy History of esophagogastroduodenoscopy (EGD) History of carpal tunnel release History of surgery History of cholecystectomy History of partial hysterectomy History of repair of rotator cuff Family History Father Diabetes Mother Diabetes CVD (cardiovascular disease) Social History Housing: Apartment Alcohol intake: never Patient Tobacco Use Status: Former Tobacco user Quit Date: 1989 e-Cigarette/Vaping Use: Never Used Second Hand Smoke Exposure: Yes service: No Current occupational status: disabled Cognitive needs: No Hearing needs: No Vision needs: Yes Assessment & Plan Assessment & Plan (1) Diabetic nephropathy associated with type 2 diabetes mellitus: Code(s): E11.21 - Type 2 diabetes mellitus with diabetic nephropathy Plan: Personal Continuous Glucose Monitor: Patients CGM information reviewed Reviewed patient's sensor data: Hypoglycemia: ? 1% Hyperglycemia:?24% Time in Range:? 75% Average glucose for the last 2 weeks?151 mg/dL Patient's last A1c 7.1% on 12/16/2023 Currently patient is participating in weight management program at [facility], she is prescribed U500 95 units before breakfast, 60 units before lunch, 90 units before supper. She has stopped all but suppertime dose, and has been taking 70 units before supper, if her glucose is over 200 mg/dL she reports she will take 60 units She is struggling to maintain recommended diet, because she sometimes has to treat low blood sugars with fruit juice, and eat She is on Ozempic 1 mg, suggestion to increase Ozempic to [address] Vazquez Adjustments made to insulin plan below Reviewed how to interpret trend arrows Reminded patient that to check finger sticks if symptoms do not match sensor reading. Discussed lag time between finger stick and sensor data.? Patient able to insert sensor independently at home without issue.? Patient will follow-up with staking technician in 1 month Patient Instructions: Reduce evening dose U500 60 units 30 minutes before meals, if low blood glucose continues reduce U500 50 units before supper If taking morning dose reduce to U500 to 30 units follow up with diabetes education nurse in 1 month Coding Level of Care Code Est Pt Level 1 (95724) Diagnoses Diabetic nephropathy associated with type 2 diabetes mellitus E11.21
== END 2023-12-29 10:36 | disposition home or self-care (01) ==
PROVIDERS: PCP Internal Medicine; Visit Provider Registered Nurse Diabetes Educator
DX: E11.21 Type 2 diabetes mellitus with diabetic nephropathy (principal)

== ENCOUNTER → 2023-12-29 09:43 | Outpatient (BNVA) | payer OTHER, SELFPAY | PROVIDERS: PCP Internal Medicine; Visit Provider Registered Nurse Diabetes Educator | DX: E11.21 Type 2 diabetes mellitus with diabetic nephropathy (principal) | CPT/HCPCS: 99211 ==

== ENCOUNTER 2024-01-03 10:47 | Outpatient (AMB) | payer OTHER, SELFPAY ==
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
== END 2024-01-03 12:08 | disposition home or self-care (01) ==
PROVIDERS: PCP Internal Medicine; Visit Provider Counselor Mental Health
DX: F41.9 Anxiety disorder, unspecified (principal); E66.9 Obesity, unspecified
CPT/HCPCS: 90791

== ENCOUNTER → 2024-01-03 10:47 | Outpatient (BNVA) | payer OTHER, SELFPAY | PROVIDERS: PCP Internal Medicine; Visit Provider Counselor Mental Health ==

== ENCOUNTER 2024-01-05 09:47 | Outpatient (AMB) | payer OTHER, SELFPAY ==
--- NOTE | 2024-01-05 09:56 | HO.NEPHOV_ITS ---
Vital Signs 01/05/24 09:57 Height 5 ft 6 in Weight 233 lb BMI 37.6 BP 100/58 L Blood Pressure Location Lt brachial Position Sitting Pulse 90 Pulse Source Pulse Oximeter Pulse Oximetry (%) 95 Oxygen Delivery Method Room Air Intake Visit Reasons: f/u for Diabetic nephropathy/ Confirmed Special Education Administrator Required: No Accompanied by: Self / Same As Patient Allergies No Known Allergies Allergy (Verified 01/05/24 09:59) HPI Comments Details: Patricia was seen in follow up of her Diabetic Nephropathy. Her blood sugars are better but not ideal. Her A1c is better. She has neuropathy but no retinopathy. Her proteinuria is undetectable. She has no edema, PND, chest pain, orthopnea. She gets vertigo intermittently. She is on Ozempic now. She is struggling with weight loss but has seen weight management. Her BP has been at goal. She does not take any NSAID's [facility] Medical History (Updated 01/05/24 @ 10:11 by Kumar Sim MD) Obesity Gastroparesis Hypertension Acute bacterial bronchitis Subclinical hypothyroidism Acute cervical myofascial strain DM2 (diabetes mellitus, type 2) Dyslipidemia Acquired hypothyroidism Atherosclerotic cardiovascular disease Rheumatic fever GERD (gastroesophageal reflux disease) Diabetic nephropathy associated with type 2 diabetes mellitus Hirsutism Type 2 diabetes mellitus with diabetic polyneuropathy Gastroparesis due to DM Obesity (BMI 30-39.9) Depression Anxiety Vitamin D deficiency Lumbar degenerative disc disease Benign essential hypertension Pure hypercholesterolemia Diabetic neuropathy halfway (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 of insulin 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, bilateral Surgical History Hx of colonoscopy History of esophagogastroduodenoscopy (EGD) History of carpal tunnel release History of surgery History of cholecystectomy History of partial hysterectomy History of repair of rotator cuff Family History Father Diabetes Mother Diabetes CVD (cardiovascular disease) Social History Housing: Apartment Alcohol intake: never Patient Tobacco Use Status: Former Tobacco user Quit Date: 1989 e-Cigarette/Vaping Use: Never Used Second Hand Smoke Exposure: Yes service: No Current occupational status: disabled Cognitive needs: No Hearing needs: No Vision needs: Yes Physical Exam Vital Signs: Last Vital Signs Pulse 90 01/05/24 09:57 BP 100/58 L 01/05/24 09:57 Pulse Ox 95 01/05/24 09:57 Oxygen Delivery Method Room Air 01/05/24 09:57 BMI result Body Mass Index 37.6 Const General: comfortable and no acute distress Orientation/consciousness: patient oriented x3 HEENT Head: Yes normocephalic Mouth: Normal oral and palatal mucosa present Eyes EOM: EOMs intact bilaterally Neck Neck: Yes supple Resp Auscultation: clear to auscultation bilaterally Cardio Jugular venous distension: no JVD Rate: regular rate GI Palpation (GI): Soft to palpation Auscultation: normal bowel sounds General: Yes no CVA tenderness Back/Spine/Pelvis Back: no CVA tenderness Skin General skin exam: no rashes or lesions noted Neuro General: patient oriented x3 and moves all extremities Extrem General: Yes no pedal edema Results Reviewed Nephrology Results: Hgb 13.7 g/dl (12.0-16.0) 12/16/23 WBC 7.1 X10*3/uL (4.8-10.8) 12/16/23 Plt Count 177 X10*3/uL (160-400) 12/16/23 Sodium 141 mmol/L (135-145) 12/16/23 Potassium 4.3 mmol/L (3.3-5.1) 12/16/23 Chloride 105 mmol/L (96-108) 12/16/23 Carbon Dioxide 28 mmol/L (22-29) 12/16/23 BUN 19 mg/dL (9-16) H 12/16/23 Creatinine 0.86 mg/dL (0.5-1.4) 12/16/23 Calcium 10.0 mg/dL (8.4-10.2) 12/16/23 Urine Protein Negative mg/dL (Neg-Trace) 12/01/23 Urine Creatinine 189.78 mg/dL 12/01/23 Assessment & Plan Assessment & Plan (1) Diabetic nephropathy associated with type 2 diabetes mellitus: Code(s): E11.21 - Type 2 diabetes mellitus with diabetic nephropathy Category: Medical (2) Hypertension: Code(s): I10 - Essential (primary) hypertension Category: Medical Qualifiers: Hypertension type: primary hypertension Qualified Code(s): I10 - Essential (primary) hypertension Plan Patricia was seen in follow up of her Diabetic Nephropathy. Her blood sugars are better but not ideal. Her A1c is stable. She has neuropathy but no retinopathy. Her proteinuria is undetectable. She has no edema, PND, chest pain, orthopnea.She is on Ozempic now. She is struggling with weight loss but has seen weight management. Her BP has been at goal. She does not take any NSAID's Orders: Orders Creatinine Today E11.21 - Type 2 diabetes mellitus with diabetic nephropathy, I10 - Essential (primary) hypertension Blood Urea Nitrogen Today E11.21 - Type 2 diabetes mellitus with diabetic nephropathy, I10 - Essential (primary) hypertension Electrolytes Today E11.21 - Type 2 diabetes mellitus with diabetic nephropathy, I10 - Essential (primary) hypertension Protein Creatinine Ratio, Ur Today E11.21 - Type 2 diabetes mellitus with diabetic nephropathy, I10 - Essential (primary) hypertension Coding Level of Care Code Est Pt Level 4 (40858) Diagnoses Diabetic nephropathy associated with type 2 diabetes mellitus E11.21 Primary hypertension I10 Hypertension type: primary hypertension
[2024-01-05 09:57] VITALS: BP 100/58; PULSE 90; O2SAT 95; BMI 37.6
== END 2024-01-05 10:20 | disposition home or self-care (01) ==
PROVIDERS: PCP Internal Medicine; Visit Provider Internal Medicine Nephrology
DX: E11.21 Type 2 diabetes mellitus with diabetic nephropathy (principal); I10 Essential (primary) hypertension
CPT/HCPCS: 99214

== ENCOUNTER → 2024-01-05 09:47 | Outpatient (BNVA) | payer OTHER, SELFPAY | PROVIDERS: PCP Internal Medicine; Visit Provider Internal Medicine Nephrology | DX: E11.21 Type 2 diabetes mellitus with diabetic nephropathy (principal); I10 Essential (primary) hypertension | CPT/HCPCS: 99212 ==

== ENCOUNTER → 2024-01-18 08:42 | Outpatient (REF) | payer OTHER, SELFPAY | LOC: HO.SL 08:42 | PROVIDERS: PCP Internal Medicine; Visit Provider Surgery | DX: Z13.89 Encounter for screening for other disorder (principal) ==

== ENCOUNTER 2024-01-21 07:42 | Outpatient (AMB) | payer OTHER, SELFPAY ==
--- NOTE | 2024-01-21 10:41 | MHC.OFFVISWM ---
VS Expanded 01/21/24 10:48 Height 5 ft 6 in Weight 227 lb 8 oz BMI 36.7 Body Fat % 49.8 Body Fat Mass 113.4 Fat Free Mass 114.4 Visceral Fat Rating 19 Body Water % 34.4 Body Water Mass 78.3 Basal Metabolic Rate/Score 1,485 Intake Visit Reasons: TV Follow Up SWL - 1ST Allergies No Known Allergies Allergy (Verified 01/05/24 09:59) HPI HPI TV Follow Up SWL - 1ST: Details: Start time: 10.34am, End time: 10.54am ?I spent 15 minutes speaking with the patient on the phone plus an additional 5 minutes reviewing and updating records for a total of 20 minutes HPI Comments Details: Overall weight loss: 12lbs, or 5% TBWL Is doing 2 CELEBRATE REBUILD protein shakes (ONE scoop EACH in 8oz low fat unsweetened almond milk each) at 9am-11am and 12pm-2pm, 1 Celebrate protein bar at 3pm-5pm, dinner at 6pm (8 forks of protein and 8 forks of salad/vegetables) and one more protein bar after dinner at 8pm-10pm. Exercise: Gymx2/wk doing treadmill and bike for 15min each [facility] Medical History (Updated 01/05/24 @ 10:11 by Kumar Sim MD) Obesity Gastroparesis Hypertension Acute bacterial bronchitis Subclinical hypothyroidism Acute cervical myofascial strain DM2 (diabetes mellitus, type 2) Dyslipidemia Acquired hypothyroidism Atherosclerotic cardiovascular disease Rheumatic fever GERD (gastroesophageal reflux disease) Diabetic nephropathy associated with type 2 diabetes mellitus Hirsutism Type 2 diabetes mellitus with diabetic polyneuropathy Gastroparesis due to DM Obesity (BMI 30-39.9) Depression Anxiety Vitamin D deficiency Lumbar degenerative disc disease Benign essential hypertension Pure hypercholesterolemia Diabetic neuropathy residential (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 of insulin 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, bilateral Surgical History Hx of colonoscopy History of esophagogastroduodenoscopy (EGD) History of carpal tunnel release History of surgery History of cholecystectomy History of partial hysterectomy History of repair of rotator cuff Family History Father Diabetes Mother Diabetes CVD (cardiovascular disease) Social History Housing: Apartment Alcohol intake: never Patient Tobacco Use Status: Former Tobacco user Quit Date: 1989 e-Cigarette/Vaping Use: Never Used Second Hand Smoke Exposure: Yes service: No Current occupational status: disabled Cognitive needs: No Hearing needs: No Vision needs: Yes Telehealth Telehealth Telehealth Platform: Telephone Location of provider rendering services: practice address Location of patient: address on file Patient Identification confirmed using: Name, : Yes Telehealth method: voice only Patient verbally consented to treatment: Yes Patient verbally consented to billing insurance company: Yes Patient informed of any privacy concerns related to visit: Yes Minutes spent on Phone/Video with Pt.: 20 Assessment & Plan Assessment & Plan (1) Obesity: Code(s): E66.9 - Obesity, unspecified Category: Medical Qualifiers: Obesity type: due to excess calories Obesity classification: adult class 2 (BMI 35 - 39.9) Serious obesity comorbidity presence: with serious comorbidity Body mass index: BMI 39.0-39.9 Qualified Code(s): E66.01 - Morbid (severe) obesity due to excess calories; Z68.39 - Body mass index [BMI] 39.0-39.9, adult Plan: 1. Continue same nutritional plan of 2 CELEBRATE REBUILD protein shakes (ONE scoop EACH in 8oz low fat unsweetened almond milk each) at 9am-11am and 12pm-2pm, 1 Celebrate protein bar at 3pm-5pm, dinner at 6pm (8 forks of protein and 8 forks of salad/vegetables) and one more protein bar after dinner at 8pm-10pm. 2. Start treadmill with an incline of 0.0 and speed of 2.5. Increase incline by 1 every 3 min to a max incline of 6.0, stay 3min at 6.0 and then return to 0.0 and repeat same steps until calorie goal is met. Goal is to burn 2000 calories per week on exercise, which means either 300 calories daily, or 400 calories 5 days per week, or 500 calories 4 days per week, or 650 calories 3 days per week. 3. Continue to send me weight measurements weekly on Saturdays
[2024-01-21 10:48] VITALS: BMI 36.7
== END 2024-01-21 10:54 | disposition home or self-care (01) ==
PROVIDERS: PCP Internal Medicine; Visit Provider Surgery
DX: E66.01 Morbid (severe) obesity due to excess calories (principal); Z68.39 Body mass index [BMI] 39.0-39.9, adult
CPT/HCPCS: 99213

== ENCOUNTER → 2024-01-21 07:42 | Outpatient (BNVA) | payer OTHER, SELFPAY | PROVIDERS: PCP Internal Medicine; Visit Provider Surgery ==

== ENCOUNTER 2024-01-31 10:43 | Outpatient (AMB) | payer OTHER, SELFPAY ==
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
== END 2024-01-31 12:17 | disposition home or self-care (01) ==
PROVIDERS: PCP Internal Medicine; Visit Provider Counselor Mental Health
DX: F41.9 Anxiety disorder, unspecified (principal); E66.9 Obesity, unspecified
CPT/HCPCS: 90834

== ENCOUNTER → 2024-01-31 10:43 | Outpatient (BNVA) | payer OTHER, SELFPAY | PROVIDERS: PCP Internal Medicine; Visit Provider Counselor Mental Health ==

== ENCOUNTER 2024-02-01 07:38 | Outpatient (REF) | payer OTHER, MEDICAID, SELFPAY ==
--- NOTE | ~2024-02-01 | US_ITS ---
EXAMINATION: US COMPLETE ABDOMEN WITH LIVER ELASTOGRAPHY CLINICAL INFORMATION: Obesity. COMPARISON: Abdominal ultrasound dated 12/28/2023. TECHNIQUE: Real-time imaging of the abdominal viscera. Noninvasive ultrasound liver fibrosis assessment is performed using Jalen ElastPQ point quantification shear wave elastography (2D-SWE) with a C5-2 MHz transducer. Multiple elastography samples are obtained. FINDINGS: PANCREAS: Normal. The visualized pancreatic head and body are normal in appearance. The remainder of the pancreas is obscured from visualization by the overlying bowel gas. ABDOMINAL AORTA: The proximal, middle, and distal aortic segments are normal in caliber. INFERIOR VENA CAVA: Visualized portions are normal. LIVER: The liver demonstrates normal contour and increased echogenicity. No focal lesion or intrahepatic biliary duct dilatation. The right lobe measures 20.3 cm in length. The left lobe measures 12.0 cm in length. Portal flow is towards the liver (hepatopetal). Shear wave liver elastography median stiffness is 1.08 m/s (reference: normal median stiffness is 1.3 m/s or less). IQR/median stiffness to assess sampling precision is 0.29 (reference: good quality data set is IQR/median stiffness of 0.15 or less). GALLBLADDER: Surgically absent. COMMON BILE DUCT: Normal in caliber measuring 0.5 cm in diameter. RIGHT KIDNEY: Normal. No hydronephrosis. No renal calculi or focal parenchymal lesions. The kidney measures 10.7 cm in maximum dimension. LEFT KIDNEY: Normal. No hydronephrosis. No renal calculi or focal parenchymal lesions. The kidney measures 11.0 cm in maximum dimension. SPLEEN: Normal. The spleen measures 9.6 cm in maximum dimension. FREE FLUID: None. US/US abdomen comp w elastography IMPRESSION: 1. There is generalized increase in hepatic echotexture, consistent with fatty infiltration or hepatocellular disease. Please correlate clinically. No focal hepatic mass or intrahepatic biliary dilatation is seen. 2. There is hepatomegaly. 3. Liver elastography: Although measurements suggest a high probability of normal liver stiffness, there is statistical variability of the sampling which decreases accuracy. 4. The gallbladder is surgically absent. REFERENCE: Society of Radiologists in Ultrasound Liver Stiffness Thresholds (2020): LIVER STIFFNESS THRESHOLDS: *Liver Stiffness equal or less than 1.3 m/s: High probability of being normal. *Liver Stiffness less than 1.7 m/s: In the absence of other known clinical signs, rules out compensated advanced chronic liver disease. *Liver Stiffness 1.7-2.1 m/s: Suggestive of compensated advanced chronic liver disease but need further test for confirmation. *Liver Stiffness over 2.1 m/s: Rules in compensated advanced chronic liver disease. *Liver Stiffness over 2.4 m/s: Suggestive of clinically significant portal hypertension. QUALITY OF DATA SET: *IQR/Median value equal or less than 0.15 implies a quality data set. *IQR/Median value over 0.15 implies a poor quality data set. SIGNIFICANT CHANGE FROM PRIOR EXAM: Significant change if liver stiffness measurement is 10% or greater from prior exam. OTHER CONSIDERATIONS: The stage of liver fibrosis may be overestimated in the setting of acute hepatitis, liver inflammation, elevated liver function tests, hepatic vascular congestion, obstructive cholestasis, non-fasting state, and infiltrative diseases such as amyloidosis and lymphoma. In some patients with NAFLD, the liver stiffness thresholds for compensated advanced chronic liver disease may be lower. In causes other than viral hepatitis and NAFLD, liver stiffness thresholds are not well established.
--- NOTE | 2024-02-01 08:22 | CA_ITS ---
Acquisition Time: 2024-02-01 09:49:37 Total Exercise Time: 00:03:39 Test Indications: BNORMAL EKG Medications: INSULIN Protocol: ISIDRO Max HR: 130 BPM 83% of Pred: 155 BPM Max BP: 192/038 mmHG Max Work Load: 4.8 METS Exercise stress test exercise 3 min 39 sec of Isidro protocol achieving 83% MPHR and 4.8 METS, with 8/10 chest pressure, with mild to moderate SOB, with htn response to exercise, without EKG changes. Chest pain and shortness of breath resolved with rest / recovery time of 6 min [address] Cordero Recomnicho for further testing to order Lexiscan with nuclear images Referred By: Karl Coello Overread By: Yasmine Pablo
--- NOTE | 2024-02-01 08:22 | CA_ITS ---
Transthoracic Echocardiogram Patient (Last, First, Middle): Patricia Camara Oca, Gender: Female Date of : 1960 Age: 63 Procedure Date: 02/01/2024 Procedure Type: Transthoracic Echocardiogram Location: OP Height: 167.64 cm Weight: 102.97 kg BSA: 2.11 m2 Heart Rate: 76 bpm BP: 108 / 62 mmHg Overhead Irrigator: ERIC Referring MD: Karl Coello MD Beer Runner: Lester Cordero MD Symptoms: R94.31 - Abnormal electrocardiogram [ECG] [EKG] Study Quality: Adequate w contrast ECG Rhythm: Sinus Conclusions: - 1. Technically limited study 2. Hyperdynamic LV EF greater than 70% with impaired relaxation filling pattern 3. Limited visualization of cardiac valves with normal cardiac valvular Dopplers 4. Normal RV systolic pressure Findings Procedure Information Contrast agent, definity, is being given per protocol without apparent complications. Left Ventricle Normal left ventricular cavity size. There is normal left ventricular wall thickness. The left ventricular systolic function is hyperdynamic. The visually estimated ejection fraction is >70%. Spectral Doppler is indicative of an impaired relaxation filling pattern. E/E prime ratio is between 8 and 15 consistent with indeterminate filling pressures. There is mild septal asymmetric hypertrophy. Right Ventricle The right ventricle was not well visualized. Atria The left atrium is likely dilated. The right atrium was not well visualized. Aortic Valve The aortic valve was not well visualized. There is no aortic valve stenosis. There is no aortic valve regurgitation. Mitral Valve The mitral valve was not well visualized. There is trace mitral valve regurgitation. There is no mitral valve stenosis. Pulmonic Valve The pulmonic valve was not well visualized. Tricuspid Valve The tricuspid valve was not well visualized. There is trace tricuspid valve regurgitation. The right ventricular systolic pressure is normal. The right ventricular systolic pressure is 17 mmHg. Normal right atrial pressure. There is no evidence of pulmonary hypertension. Great Vessels The aorta was not well visualized. The pulmonary artery was not well visualized. Venous The inferior vena cava is normal in size and collapses greater than 50% with inspiration. Pericardium/Pleural There is no evidence of pericardial effusion. Prior Study Comparison No significant change compared to prior study dated: 08/28/2022. Measurements 2D Linear Measurements RVIDd: 3.26 IVSd: 1.21 0.6-0.9/0.6-1.0 cm LVIDd: 4.04 3.9-5.3/4.2-5.9 cm LVIDs: 2.44 2.0-3.6 cm LVPWd: 0.80 0.7-1.1 cm LA Diam: 3.80 2.7-3.8/3.0-4.0 cm LVOT Diam: 2.00 3.0+(-)1.3 cm 2D Volumes LV EDV: 61.40 56-104/67-155 ml LV ESV: 14.50 19-49/22-58 ml LA ESV A/L: 29.60 22-52/18-58 ML/M2 2D Systolic Function EF Teich: 70.00 >55% EF 4C: 74.00 >55% EF 2C: 77.00 >55% EF BiP: 76.00 >55% Mitral Valve MV Pk E: 0.79 MV PK A: 0.92 MV Decel Time: 220.00 E/A: 0.90 E'Lateral: 6.74 E'Medial: 5.11 E/E' Med: 15.50 E/E' Lat: 11.80 PHT: 64.00 MVA PHT: 3.44 Aortic Valve AoV Pk Markus: 1.53 AoV Pk Grad: 9.00 FREDO: 2.40 LVOT LVOT Pk Markus: 1.17 LVOT Mn Markus: 0.85 LVOT VTI: 24.00 LVOT Pk Grad: 6.00 LVOT Mn Grad: 3.00 LVOT Diam: 2.00 Diastolic Function MV Pk E: 0.79 MV Pk A: 0.92 E/A: 0.90 E'Medial: 5.11 E/E' Med: 15.50 E' Laterial: 6.74 E/E' Lat: 11.80 Right Ventricle TVS' Markus: 10.30 Tricuspid Valve TR Pk Markus: 1.85 TR Pk Grad: 14.00 RA Press: 3.00 RVSP: 17.00 Great Vessels Aorta Sinus of Valsalva: 3.10 2.0-3.5 cm Ao Asc: 3.60 2.1-3.4 cm Pulmonary Veins Pulm Vein A Dur: 0.50 Pulm Vein A Rev: 0.36 Pulm Vein S/D 1.40 Pulmonary Valve PV Pk Markus: 0.89 Peak PV Grad: 3.00 Updated in Other Vendor System with Status of Final Lester Cordero MD electronically signed on 02/01/2024 5:36:25 PM with status of Final
== END 2024-02-01 07:39 | disposition home or self-care (01) ==
LOC: HO.US 07:38
PROVIDERS: PCP Internal Medicine; Visit Provider Surgery
DX: R94.31 Abnormal electrocardiogram [ECG] [EKG] (principal); E66.9 Obesity, unspecified; Z68.39 Body mass index [BMI] 39.0-39.9, adult; I10 Essential (primary) hypertension
CPT/HCPCS: 76700; 76981; 93017; 93306; Q9957

== ENCOUNTER → 2024-02-01 08:22 | Outpatient (BNV) | payer OTHER, SELFPAY | PROVIDERS: PCP Internal Medicine; Visit Provider Nurse Practitioner | DX: R07.9 Chest pain, unspecified (principal); R06.02 Shortness of breath; R94.31 Abnormal electrocardiogram [ECG] [EKG]; I42.2 Other hypertrophic cardiomyopathy | CPT/HCPCS: 93016; 93018; 93320; 93325; 93350; 93352 ==

== ENCOUNTER 2024-02-07 11:10 | Outpatient (AMB) | payer OTHER, SELFPAY ==
--- NOTE | 2024-02-07 11:30 | MHC.AMDMED ---
Intake Intake Visit Reasons: DM/CONFIRMED Instructional Support Assistant Required: No Accompanied by: Self / Same As Patient Allergies No Known Allergies Allergy (Verified 01/05/24 09:59) HPI Comprehensive Diabetes Asmnt Most Recent Diabetes Results: No Data to Display [facility] Medical History (Updated 01/05/24 @ 10:11 by Kumar Sim MD) Obesity Gastroparesis Hypertension Acute bacterial bronchitis Subclinical hypothyroidism Acute cervical myofascial strain DM2 (diabetes mellitus, type 2) Dyslipidemia Acquired hypothyroidism Atherosclerotic cardiovascular disease Rheumatic fever GERD (gastroesophageal reflux disease) Diabetic nephropathy associated with type 2 diabetes mellitus Hirsutism Type 2 diabetes mellitus with diabetic polyneuropathy Gastroparesis due to DM Obesity (BMI 30-39.9) Depression Anxiety Vitamin D deficiency Lumbar degenerative disc disease Benign essential hypertension Pure hypercholesterolemia Diabetic neuropathy 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, bilateral Surgical History Hx of colonoscopy History of esophagogastroduodenoscopy (EGD) History of carpal tunnel release History of surgery History of cholecystectomy History of partial hysterectomy History of repair of rotator cuff Family History Father Diabetes Mother Diabetes CVD (cardiovascular disease) Social History Housing: Apartment Alcohol intake: never Patient Tobacco Use Status: Former Tobacco user e-Cigarette/Vaping Use: Never Used Second Hand Smoke Exposure: Yes service: No Current occupational status: disabled Cognitive needs: No Hearing needs: No Vision needs: Yes Assessment & Plan Assessment & Plan (1) Type 2 diabetes mellitus with hyperglycemia, without long-term current use of insulin: Code(s): E11.65 - Type 2 diabetes mellitus with hyperglycemia Plan: Personal Continuous Glucose Monitor: Patients CGM information reviewed Reviewed patient's sensor data: Hypoglycemia: ? 1% Hyperglycemia:? 24% Time in Range:? 75% Average glucose for the last 2 weeks? 147 mg/dL Confirmed with patient she has switched from Humulin U 500 b.i.d., to Toujeo 50 units daily, and Humalog prior to meals. Patient reported that she has occasionally used Humulin U 500 glucose has been elevated postprandially. Reviewed with patient action of Humulin U 500, and action of Humalog. Patient is having some overnight hypoglycemic events, recommended to patient to reduce Toujeo Patient also reported she has been taking Humalog after drinking protein shake in the a.m., in appears to be having postprandial hyperglycemia. Patient insulin instructions below: Stop Humulin U 500 Take Humalog 15 min before protein shake Reduced Toujeo from 50 units to 45 units Patient has 2 different prandial insulins on med list recommended to patient she clarify with Dr. Vazquez which prandial insulin she should be using prior to meals. Patient is preparing for bariatric surgery at the end of 02/17/2024 Reviewed with patient how to treat hypoglycemia with rule of 15s, handout given. Instructed patient if hypoglycemia continues to contact peer educator or Dr. Vazquez Also discussed increased risk of hypoglycemia post surgery, and recommended patient send portal message or contact providers if she is having hypoglycemia after surgery Reviewed how to interpret trend arrows Reminded patient that to check finger sticks if symptoms do not match sensor reading. Discussed lag time between finger stick and sensor data.? Patient able to insert sensor independently at home without issue.? Portions of this note were created using voice recognition software, please excuse any words or phrases that may have been misinterpreted. Patient Instructions: Take Humalog 15 min before protein shake Reduced Toujeo from 50 units to 45 units Follow-up with peer educator in 1 month Coding Level of Care Code Est Pt Level 1 (25040) Diagnoses Type 2 diabetes mellitus with hyperglycemia, without long-term current use of insulin E11.65
== END 2024-02-07 11:42 | disposition home or self-care (01) ==
PROVIDERS: PCP Internal Medicine; Visit Provider Registered Nurse Diabetes Educator
DX: E11.65 Type 2 diabetes mellitus with hyperglycemia (principal)

== ENCOUNTER → 2024-02-07 11:10 | Outpatient (BNVA) | payer OTHER, SELFPAY | PROVIDERS: PCP Internal Medicine; Visit Provider Registered Nurse Diabetes Educator | DX: E11.65 Type 2 diabetes mellitus with hyperglycemia (principal); Z79.4 Long term (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 of insulin | CPT/HCPCS: 99211 ==

== ENCOUNTER 2024-02-10 07:48 | Outpatient (REF) | payer OTHER, MEDICAID, SELFPAY ==
--- NOTE | ~2024-02-10 | FL_ITS ---
EXAMINATION: XR FLUOROSCOPY UPPER GI WITH AIR CLINICAL INFORMATION: Preop evaluation prior to bariatric surgery COMPARISON: No prior. Correlation made with nuclear gastric study 02/04/2018. TECHNIQUE: Fluoroscopic air contrast upper GI examination was performed utilizing standard techniques with thin and thick barium and effervescent granules. Numerous spot images were obtained. FINDINGS: Dual and single contrast images of the esophagus demonstrate a corkscrew appearance with normal caliber and mucosal pattern. Mild cricopharyngeal achalasia is present. No evidence of stricture, mass, or ulcerations identified. Esophageal peristalsis is moderately disorganized. A small type I hiatal hernia is present. No significant gastroesophageal reflux was seen during the course of the examination and on reflux views. Dual contrast and single contrast images of the stomach demonstrated a normal contour. There is a dense material present in the stomach that is mixing with the thick barium, preventing true evaluation of the gastric mucosa. Given the patient's prior abnormal gastric emptying study, this likely represents retained food. Contrast freely passed into the gastric antrum and duodenal bulb without delay. Single and air-contrast images of the duodenal bulb demonstrate no abnormality. The duodenal sweep has a normal appearance, course, and mucosal fold appearance. The imaged proximal jejunum has a normal fold pattern and caliber. FLUOROSCOPY TIME: 4 minutes 8 seconds Number of Spot Images: 12 Number of Cine: 11 DOSE AREA PRODUCT: 3705 uGy-m2 (microgray-meter squared) FL/FL upper GI w air IMPRESSION: 1. Esophageal dysmotility. 2. Mild cricopharyngeal achalasia. 3. There are mobile filling defects in the stomach that mixes with the barium, resulting in a limited evaluation of the gastric mucosa. Given the patient's prior abnormal gastric emptying study, this may represent retained food, versus patient not remaining NPO. This procedure was performed by Roney Jones PA-C, and supervised by Dr. Pablo
== END 2024-02-10 07:49 | disposition home or self-care (01) ==
LOC: HO.XRAY 07:48
PROVIDERS: PCP Internal Medicine; Visit Provider Surgery
DX: E66.9 Obesity, unspecified (principal); Z68.39 Body mass index [BMI] 39.0-39.9, adult; K75.81 Nonalcoholic steatohepatitis (NASH); K21.9 Gastro-esophageal reflux disease without esophagitis; K31.84 Gastroparesis
CPT/HCPCS: 74246

== ENCOUNTER → 2024-02-10 07:49 | Outpatient (BNV) | payer OTHER, SELFPAY | PROVIDERS: PCP Internal Medicine; Visit Provider Physician Assistant Surgical | DX: E66.9 Obesity, unspecified (principal); Z68.39 Body mass index [BMI] 39.0-39.9, adult; Z01.818 Encounter for other preprocedural examination | CPT/HCPCS: 74246 ==

== ENCOUNTER 2024-02-16 09:07 | Outpatient (AMB) | payer OTHER, SELFPAY ==
--- NOTE | 2024-02-16 09:09 | MHC.OFFVIS ---
Vital Signs 02/16/24 09:14 Height 5 ft 6 in Weight 224 lb 10.417 oz BMI 36.3 BP 108/54 L Blood Pressure Location Rt brachial Position Sitting Pulse 82 Pulse Source Pulse Oximeter Intake Visit Reasons: T2DM Intake Note: Patient present today to follow up on Type 2 Diabetes Mellitus. Last seen by Dr. Vazquez on 10/13/2023. Patient receives DME supplies through: [facility] Last Diabetic Eye exam: Last year Last Podiatry Visit: Does not see a Head Of Measurement & Insights Random Glucose: 136 mg/dl HgA1C: 6.9% Manager Traffic Required: No Accompanied by: Self / Same As Patient Allergies No Known Allergies Allergy (Verified 02/16/24 09:14) HPI Comments Details: Patient is a 63-year-old female with DM type 2 diagnosed around 2004 who presents for management of diabetes. Of note she is currently on a very strict diet program in advance of plan for gastric sleeve Is doing CELEBRATE REBUILD protein shakes (ONE scoop EACH in 8oz low fat unsweetened almond milk each) at 9am-11am and 12pm-2pm, 1 Celebrate protein bar at 3pm-5pm, dinner at 6pm (8 forks of protein and 8 forks of salad/vegetables) and one more protein bar after dinner at 8pm-10pm. Exercise: Gymx2/wk doing treadmill and bike for 15min each Past medical history: DM2, HTN, HLD, insomnia, depression, gastroparesis Micro and macrovascular complications: retinopathy, nephropathy, neuropathy, Diabetes medications: In early December was told to stop humulin and transition to long acting (toujeo) and short acting insulin-she was taking 45 units of toujeo and for glucose >250 she was using 8 units of humalog. She did this for 1-2 weeks and then ended up going back to her humulin because she was noting to many post prandial elevated readings. Humulin U 500 95 units prior to breakfast, 90 units prior to lunch and 60 units prior to dinner. Uses at meal time instead of instruction to use prior Ozempic 2mg Qwkly (increased last month) Uses Reglan 5 mg TID for gastroparesis. She tells me when she took Trulicity in the past she did not have any gastrointestinal upset. The Trulicity was stop because of the gastroparesis Continuous glucose monitoring: Using dexcom GMI 7.1%. POC A1C today 6.9%. 3% less than 70. 59% within target range of 70-180, 35% over 180. 3% over 250. Coefficient variation 60. 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 Follows with teaching diabetic RN Head Of Measurement & Insights: denies Ophthalmology evaluation-says last visit last year. She says stable. Will be seeing ophtho at [facility]. History of severe non-proliferative retinopathy, Had VEGF therapy with Dr Perez . Other specialists:nephrology, cardiology ROS see HPI. PHYSICAL EXAM: GENERAL: Alert and oriented x 3. NAD EYES: EOMI. Anicteric. HENT: Moist mucous membranes. No scleral icterus. No cervical lymphadenopathy. LUNGS: Clear to auscultation bilaterally. CARDIOVASCULAR: Regular rate and rhythm. ABDOMEN: Soft, non-tender +bs EXTREMITIES: No edema. Non-tender. SKIN: No rashes or lesions. Warm. NEUROLOGIC: No focal neurological deficits. FOOT No ulcerations or open lesions. 2+ DP. Sensation decreased on monofilament exam. Vibratory decreased PSYCHIATRIC: Cooperative. Appropriate mood and affect [facility] Medical History (Updated 02/16/24 @ 10:25 by Verenice Jaime MD) Type 2 diabetes mellitus with hyperglycemia, without long-term current use of insulin Obesity Gastroparesis Hypertension Acute bacterial bronchitis Subclinical hypothyroidism Acute cervical myofascial strain DM2 (diabetes mellitus, type 2) Dyslipidemia Acquired hypothyroidism Atherosclerotic cardiovascular disease Rheumatic fever GERD (gastroesophageal reflux disease) Diabetic nephropathy associated with type 2 diabetes mellitus Hirsutism Type 2 diabetes mellitus with diabetic polyneuropathy Gastroparesis due to DM Obesity (BMI 30-39.9) Depression Anxiety Vitamin D deficiency Lumbar degenerative disc disease Benign essential hypertension Pure hypercholesterolemia Diabetic 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, bilateral Surgical History Hx of colonoscopy History of esophagogastroduodenoscopy (EGD) History of carpal tunnel release History of surgery History of cholecystectomy History of partial hysterectomy History of repair of rotator cuff Family History Father Diabetes Mother Diabetes CVD (cardiovascular disease) Social History Housing: Apartment Alcohol intake: never Patient Tobacco Use Status: Former Tobacco user e-Cigarette/Vaping Use: Never Used Second Hand Smoke Exposure: Yes service: No Current occupational status: disabled Cognitive needs: No Hearing needs: No Vision needs: Yes Physical Exam Vital Signs: Last Vital Signs Pulse 82 02/16/24 09:14 BP 108/54 L 02/16/24 09:14 BMI result Body Mass Index 36.3 Results AMB Hemoglobin A1c AMB Hemoglobin A1c 6.9 % Last Edit by ALE Strong on 02/16/24 09:33 Results Reviewed Results Reviewed: Laboratory Last Values Glucose (Clinic) 136 mg/dL (60-115) H 02/16/24 09:23 Assessment & Plan Assessment & Plan (1) Type 2 diabetes mellitus with diabetic polyneuropathy: Code(s): E11.42 - Type 2 diabetes mellitus with diabetic polyneuropathy Category: Medical Qualifiers: Diabetes mellitus 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, bilateral: Code(s): E11.3413 - 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, bilateral Category: Medical Qualifiers: Diabetes mellitus buttermilk drier operator insulin use: with long-term use Qualified Code(s): E11.3413 - 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, bilateral; Z79.4 - correction (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 of insulin Plan: Reports an upcoming visit (3) Coronary artery disease due to type 2 diabetes mellitus: Code(s): E11.59 - Type 2 diabetes mellitus with other circulatory complications; I25.10 - Atherosclerotic heart disease of [place] coronary artery without angina pectoris Category: Medical Plan: Continue follow up with cardiology (4) 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 Restart humalog 200-249 8 units, >/= 250 12 units Continue ozempic 2mg Download dexcom 2 weeks Return in 3 months (5) Gastroparesis due to DM: Code(s): E11.43 - Type 2 diabetes mellitus with diabetic autonomic (poly)neuropathy; K31.84 - Gastroparesis Category: Medical Plan: continue reglan (6) Diabetic nephropathy associated with type 2 diabetes mellitus: Code(s): E11.21 - Type 2 diabetes mellitus with diabetic nephropathy Category: Medical Plan: stable. continue f/up nephrology Orders: Orders AMB Hemoglobin A1c Today E11.21 - Type 2 diabetes mellitus with diabetic nephropathy Medications: Refilled Toujeo Max U-300 SoloStar (insulin glargine U-300 conc) 50 units (0.1667 mL) subcut DAILY 6 mL 4RF NS Discontinued insulin aspart (niacinamide) 100 unit/mL (3 mL) (Fiasp FlexTouch U-100 Insulin) Discontinued Reason: Doctor's Order use 4 units for POC 201-250 and 6 units for POC >250 subcutaneously 3 times a day; subcutaneously every evening; 15 mL 5RF Coding Level of Care Code Consult Moderate 67572 Diagnoses Type 2 diabetes mellitus with diabetic polyneuropathy, with long-term current use of insulin E11.42; Z79.4 Diabetes mellitus long-term insulin use: with buttermilk drier operator use Type 2 diabetes mellitus with both eyes affected by severe nonproliferative retinopathy and macular edema, with long-term current use of insulin E11.3413; Z79.4 Diabetes mellitus long-term insulin use: with long-term use Coronary artery disease due to type 2 diabetes mellitus E11.59; I25.10 correction (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 of insulin Z79.4 Gastroparesis due to DM E11.43; K31.84 Diabetic nephropathy associated with type 2 diabetes mellitus E11.21 Time Spent (min) 62
[2024-02-16 09:14] VITALS: BP 108/54; PULSE 82; BMI 36.3
[2024-02-16 09:27] LABS: Glucose, Whole Blood 136 mg/dL (60-115)
== END 2024-02-16 10:03 | disposition home or self-care (01) ==
PROVIDERS: PCP Internal Medicine; Visit Provider Internal Medicine
DX: E11.42 Type 2 diabetes mellitus with diabetic polyneuropathy (principal); Z79.4 Long term (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 of insulin; E11.3413 Type 2 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, bilateral; E11.59 Type 2 diabetes mellitus with other circulatory complications; I25.10 Atherosclerotic heart disease of native coronary artery without angina pectoris; E11.43 Type 2 diabetes mellitus with diabetic autonomic (poly)neuropathy; K31.84 Gastroparesis; E11.21 Type 2 diabetes mellitus with diabetic nephropathy
CPT/HCPCS: 99204; 99214

== ENCOUNTER → 2024-02-16 09:07 | Outpatient (BNVA) | payer OTHER, SELFPAY | PROVIDERS: PCP Internal Medicine; Visit Provider Internal Medicine | DX: E11.43 Type 2 diabetes mellitus with diabetic autonomic (poly)neuropathy (principal); E11.3413 Type 2 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, bilateral; E11.59 Type 2 diabetes mellitus with other circulatory complications; K31.84 Gastroparesis; E11.21 Type 2 diabetes mellitus with diabetic nephropathy; I25.10 Atherosclerotic heart disease of native coronary artery without angina pectoris; Z79.4 Long term (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 of insulin | CPT/HCPCS: 82947; 83036; 99202 ==

== ENCOUNTER 2024-03-06 | Outpatient (REF) | payer OTHER, SELFPAY | END 2024-03-06 00:01 | disposition home or self-care (01) | LOC: HO.PAT | PROVIDERS: PCP Internal Medicine; Visit Provider Surgery | DX: Z01.812 Encounter for preprocedural laboratory examination (principal); E66.01 Morbid (severe) obesity due to excess calories; E11.59 Type 2 diabetes mellitus with other circulatory complications; I10 Essential (primary) hypertension; Z79.4 Long term (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 of insulin; E03.9 Hypothyroidism, unspecified; E11.21 Type 2 diabetes mellitus with diabetic nephropathy | CPT/HCPCS: 86850; 86900; 86901 ==

== ENCOUNTER 2024-03-06 07:33 | Outpatient (REF) | payer OTHER, SELFPAY ==
[2024-03-06 07:53] LABS: MANUAL DIFF FLAG NO
[2024-03-06 08:30] LABS: Basophils Percent Auto 0.3 % (0-2); Eosinophils Absolute Auto 0.1 X10*3/uL (0.0-0.4); Eosinophils Percent Auto 0.8 % (0-4); Hematocrit 41.1 % (37.0-47.0); Hemoglobin 13.2 g/dl (12.0-16.0); Imm Gran Abs Auto 0.01 X10*3/uL (0.00-0.03); Imm Gran Pct Auto 0.2 % (0.0-0.4); Lymphocytes Absolute Auto 1.9 X10*3/uL (1.2-4.9); Lymphocytes Percent Auto 30.5 % (20-40); Mean Corpuscular HGB Conc 32.1 g/dl (31.0-35.0); Mean Corpuscular Hemoglobin 29.3 pg (27.0-33.0); Mean Corpuscular Volume 91.1 fL (80.0-98.0); Mean Platelet Volume 11.9 fL (9.4-12.3); Monocytes Absolute Auto 0.6 X10*3/uL (0.1-1.2); Monocytes Percent Auto 8.8 % (2-11); Neutrophils Absolute Auto 3.8 x10*3/uL (2.0-8.3); Neutrophils Percent Auto 59.4 % (45-73); Platelet Count 194 X10*3/uL (160-400); Red Blood Count 4.51 X10*6/uL (4.20-5.50); Red Cell Distribution Width 12.7 % (11.0-16.0); White Blood Count 6.4 X10*3/uL (4.8-10.8)
[2024-03-06 08:41] LABS: Estimated Average Glucose 157 mg/dL; Hemoglobin A1c % 7.1 % (<6.0)
[2024-03-06 08:46] LABS: INTERNATIONAL NORM RATIO 0.9 (0.9-1.1); Prothrombin Time 11.4 SEC (11.1-13.3)
[2024-03-06 08:49] LABS: Partial Thromboplastin Time 28.8 SEC (26.0-36.8)
[2024-03-06 09:13] LABS: Alanine Aminotransferase 47 U/L (0-31); Albumin Level 4.3 g/dL (3.5-5.0); Alkaline Phosphatase 143 U/L (39-117); Anion Gap 15 (12-20); Aspartate Amino Transferase 24 U/L (5-31); Bilirubin Total 0.9 mg/dL (0.0-1.0); Blood Urea Nitrogen 13 mg/dL (9-16); C Reactive Protein 0.12 mg/dL (< or = 0.50); Calcium 10.3 mg/dL (8.4-10.2); Carbon Dioxide 28 mmol/L (22-29); Chloride 105 mmol/L (96-108); Cholesterol 99 mg/dL (<200); Estimated Glomerular Filt Rate > 60; Glucose Random 173 mg/dL (60-115); HDL Cholesterol 24 mg/dL (>40); LDL Cholesterol Calculated 41 mg/dL (<100); Potassium 4.7 mmol/L (3.3-5.1); Sodium 143 mmol/L (135-145); Total Protein 7.5 g/dL (6.5-8.0); Triglycerides 171 mg/dL (<150)
[2024-03-06 09:54] LABS: TSH reflex Free T4 3.23 uIU/mL (0.32-4.0)
== END 2024-03-06 07:34 | disposition home or self-care (01) ==
LOC: HO.LAB 07:33
PROVIDERS: PCP Internal Medicine; Visit Provider Surgery
DX: E66.01 Morbid (severe) obesity due to excess calories (principal); E11.59 Type 2 diabetes mellitus with other circulatory complications; E11.21 Type 2 diabetes mellitus with diabetic nephropathy; I25.10 Atherosclerotic heart disease of native coronary artery without angina pectoris; I10 Essential (primary) hypertension; E03.9 Hypothyroidism, unspecified; Z79.4 Long term (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 of insulin; Z71.3 Dietary counseling and surveillance; Z98.84 Bariatric surgery status; Z68.39 Body mass index [BMI] 39.0-39.9, adult
CPT/HCPCS: 36415; 80053; 80061; 83036; 84443; 85025; 85610; 85730; 86140

== ENCOUNTER 2024-03-06 08:37 | Outpatient (AMB) | payer OTHER, SELFPAY ==
--- NOTE | 2024-03-06 12:17 | A.OFFVIS_ITS ---
VS Expanded 03/06/24 12:18 Height 5 ft 6 in Weight 218 lb BMI 35.2 Body Fat % 47.4 Body Fat Mass 103.3 Fat Free Mass 114.6 Visceral Fat Rating 17 Body Water % 36.1 Body Water Mass 78.6 Basal Metabolic Rate/Score 1,471 Intake Visit Reasons: TV Pre Op LSG 03/09/24 Allergies No Known Allergies Allergy (Verified 03/06/24 12:21) Medication List - Last Reconciled 03/06/24 by Karl Coello MD atorvastatin 80 mg PO BEDTIME bisacodyl 5 - 10 mg (1 - 2 x 5 mg) PO DAILY PRN 30 days blood sugar diagnostic ([employer] Ultra Test strips) As directed checks 4 X/day blood-glucose meter (GoCardless Ultra2 Meter) As directed cholecalciferol (vitamin D3) 50 mcg PO DAILY gabapentin 300 mg PO TID insulin lispro (Humalog KwikPen (U-100) Insulin) subcut lancets (GoCardless UltraSoft 2 Lancet) As directed tests 4 X/day levothyroxine 50 mcg PO DAILY lorazepam 1 mg PO BID PRN 30 days losartan 100 mg PO DAILY metoclopramide HCl 10 mg PO TID omeprazole 40 mg PO DAILY ondansetron 4 mg PO Q12H pantoprazole 40 mg PO DAILY pen needle, diabetic (BD Ultra-Fine Micro Pen Needle) USE DIRECTED THREE TIMES A DAY polyethylene glycol 3350 17 grams PO DAILY semaglutide (Ozempic) 2 mg (0.75 mL) subcut QWEEK sucralfate 10 mL PO BID Toujeo Max U-300 SoloStar (insulin glargine U-300 conc) 50 units (0.1667 mL) subcut DAILY NS HPI HPI TV Pre Op LSG 03/09/24: Details: Start time: 12.02pm, End time: 12.22pm ?I spent 15 minutes speaking with the patient on the phone plus an additional 5 minutes reviewing and updating records for a total of 20 minutes HPI Comments Details: Overall weight loss: 21.8lbs, or 9.09% TBWL Is doing 2 CELEBRATE REBUILD protein shakes (ONE scoop EACH in 8oz low fat unsweetened almond milk each) at 9am-11am and 12pm-2pm, 1 Celebrate protein bar at 3pm-5pm, dinner at 6pm (8 forks of protein and 8 forks of salad/vegetables) and one more protein bar after dinner at 8pm-10pm. Exercise: Gymx2/wk doing treadmill and bike for 15min each PFSH Medical History (Updated 03/05/24 @ 16:18 by Karl Coello MD) Type 2 diabetes mellitus with hyperglycemia, without long-term current use of insulin Obesity Gastroparesis Hypertension Acute bacterial bronchitis Subclinical hypothyroidism Acute cervical myofascial strain DM2 (diabetes mellitus, type 2) Dyslipidemia Acquired hypothyroidism Atherosclerotic cardiovascular disease Rheumatic fever GERD (gastroesophageal reflux disease) Diabetic nephropathy associated with type 2 diabetes mellitus Hirsutism Type 2 diabetes mellitus with diabetic polyneuropathy Gastroparesis due to DM Obesity (BMI 30-39.9) Depression Anxiety Vitamin D deficiency Lumbar degenerative disc disease Benign essential hypertension Pure hypercholesterolemia Diabetic neuropathy 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, bilateral Surgical History Hx of colonoscopy History of esophagogastroduodenoscopy (EGD) History of carpal tunnel release History of surgery History of cholecystectomy History of partial hysterectomy History of repair of rotator cuff Family History Father Diabetes Mother Diabetes CVD (cardiovascular disease) Social History Housing: Apartment Alcohol intake: never Patient Tobacco Use Status: Former Tobacco user e-Cigarette/Vaping Use: Never Used Second Hand Smoke Exposure: Yes service: No Current occupational status: disabled Cognitive needs: No Hearing needs: No Vision needs: Yes Telehealth Telehealth Telehealth Platform: Telephone Location of provider rendering services: practice address Location of patient: address on file Patient Identification confirmed using: Name, : Yes Telehealth method: voice only Patient verbally consented to treatment: Yes Patient verbally consented to billing insurance company: Yes Patient informed of any privacy concerns related to visit: Yes Minutes spent on Phone/Video with Pt.: 20 Assessment & Plan Assessment & Plan (1) Obesity: Code(s): E66.9 - Obesity, unspecified Category: Medical Qualifiers: Obesity type: due to excess calories Obesity classification: adult class 2 (BMI 35 - 39.9) Serious obesity comorbidity presence: with serious comorbidity Body mass index: BMI 39.0-39.9 Qualified Code(s): E66.01 - Morbid (severe) obesity due to excess calories; Z68.39 - Body mass index [BMI] 39.0- 39.9, adult Plan: 1. Plan for lap sleeve gastrectomy including upper GI endoscopy. All tests has been completed and reviewed and the patient is cleared for the surgery.? If diaphragmatic or ventral hernias are present at time of surgery, these will be repaired laparoscopically as well. Risks and complications were discussed in detail including possible conversion to an open procedure, anastomotic leak, bleeding requiring transfusion, small bowel obstruction, , DVT and pulmonary embolism, cardiac, or pulmonary complications, as termite inspector complications such as anastomotic ulcer, insufficient weight loss and vitamin deficiencies. I emphasized the importance of close follow-up, adherence to i nstructions and good communication. So far she has proven to be an excellent communicator and very compliant with all our directions accomplishing a great weight loss. I believe that she is an excellent candidate and she is ready. 2. Preop prescriptions were provided and explained the purpose of each one. Need to be purchased preop. Start Pantoprazole now as you get it from the pharmacy, 1 pill per day. Sucralfate and Zofran are for after surgery as needed. 3. Bowel prep: please do 7 packets ?of Miralax mixing each one with a an 8oz glass of water, crystal light, gatorade zero, or propel ?on 03/07/24 and the same amount on 03/08/24. The Miralax you begin with one packet at a time in 8oz water or crystal light, gatorade zero, or propel ?as early in the day as you can and you do them back to back until you finish them. Continue the protein shakes during ?the bowel prep. 4. Needs to purchase 1oz medicine cups . 5. Needs to purchase Children's liquid Tylenol for postop pain control. 6. She needs to stop Gabapentin and Ozempic. Avoid aspirin, motrin, Advil, Aleve, Ibuprofen, Naproxyn. Tylenol is OK. 7. She needs to purchase the Celebrate 4:1 protein shakes from the hospital's gift shop. 8. Will do basic preop blood work-up tomorrow Wednesday03/06/24 fasting for 12 hours and is scheduled to see the Anesthesiologist prior to the day of surgery. 9.??Importance of adherence to?postop?folllow-up and recommendations was underscored and she understands that. 10. Continue to avoid food and bars and continue with 4? Celebrate Rebuild protein shakes (ONE scoop each in 8oz almond milk) at 9am-11am, 12pm-2pm, 3pm- 5pm, 6pm-8pm and one more Celebrate Rebuild protein shake with TWO scoops in 12oz of almond milk at 9pm-11pm 11. No soups, broths or V8 12. The patient's?medical?history has been reviewed and they are considered low risk for post op DVT and therefore DVT prophylaxis is not considered necessary. Travel after surgery was reviewed. The patient has not disclosed any travel p lans during the first 30 days after surgery and they have been advised that within the first 30 days after surgery any bus, plane, train or car travel over 2 hours in duration is contraindicated due to the possibility of developing blood clots from immobility. Any travel, needs to include periods of ambulation of 10 minutes in duration every 2 hours.? Patient was instructed to discuss any plans for travel during this period with their bariatric surgeon.? 13.?Please take at the day of surgery the following medications: 14. Stop any control pills and don't use them for one month after surgery 15. Absolutely no smoking or vaping, or marijuana until the surgery and for at least the first 4 weeks. Only nicotine patches are allowed. 16. Send me weight measurements on 03/09/24, the day of surgery before you go to the hospital. 17. Avoid any steroids by mouth for any reason. Let me know if someone prescribes them to you 18. These instructions supersede anything else you read in the handbook, anything you watched in videos or classes or you were told by any other provider. If there is any conflict, you follow the above instructions and nothing else.
[2024-03-06 12:18] VITALS: BMI 35.2
== END 2024-03-06 12:23 | disposition home or self-care (01) ==
LOC: HO.HBS 08:37
PROVIDERS: PCP Internal Medicine; Visit Provider Surgery
DX: E66.01 Morbid (severe) obesity due to excess calories (principal); Z68.39 Body mass index [BMI] 39.0-39.9, adult
CPT/HCPCS: 99499

== ENCOUNTER 2024-03-07 09:15 | Outpatient (AMB) | payer OTHER, SELFPAY ==
--- NOTE | 2024-03-07 09:25 | MHC.OFFVIS ---
Vital Signs 03/07/24 09:26 Height 5 ft 6 in Weight 215 lb 9.793 oz BMI 34.8 BP 112/60 Blood Pressure Location Lt brachial Position Sitting Pulse 85 Pulse Source Pulse Oximeter Intake Visit Reasons: 1 year follow up Document Manager Required: No Accompanied by: Self / Same As Patient Allergies No Known Allergies Allergy (Verified 03/06/24 12:21) Medication List - Last Reconciled 03/07/24 by Cachorro Ramon MD atorvastatin 80 mg PO BEDTIME bisacodyl 5 - 10 mg (1 - 2 x 5 mg) PO DAILY PRN 30 days blood sugar diagnostic ([employer] Ultra Test strips) As directed checks 4 X/day blood-glucose meter ([employer] Ultra2 Meter) As directed cholecalciferol (vitamin D3) 50 mcg PO DAILY gabapentin 300 mg PO TID insulin lispro (Humalog KwikPen (U-100) Insulin) subcut lancets (Easy VinoTouch UltraSoft 2 Lancet) As directed tests 4 X/day levothyroxine 50 mcg PO DAILY lorazepam 1 mg PO BID PRN 30 days losartan 100 mg PO DAILY metoclopramide HCl 10 mg PO TID omeprazole 40 mg PO DAILY ondansetron 4 mg PO Q12H pantoprazole 40 mg PO DAILY pen needle, diabetic (BD Ultra-Fine Micro Pen Needle) USE DIRECTED THREE TIMES A DAY polyethylene glycol 3350 17 grams PO DAILY semaglutide (Ozempic) 2 mg (0.75 mL) subcut QWEEK sucralfate 10 mL PO BID Toujeo Max U-300 SoloStar (insulin glargine U-300 conc) 50 units (0.1667 mL) subcut DAILY NS HPI Comments Details: Patricia returns for follow-up regarding coronary artery disease. In the past, she was seen regarding chest pain and shortness of breath. Multiple cardiovascular risk factors including obesity, diabetes, hypertension, dyslipidemia. She underwent workup with echocardiogram, stress test and coronary CTA. Has nonobstructive CAD. Overall, she states she is feeling good. No clear-cut cardiac complaints. ON LICENSE OF [facility] Medical History (Updated 03/05/24 @ 16:18 by Karl Coello MD) Type 2 diabetes mellitus with hyperglycemia, without long-term current use of insulin Obesity Gastroparesis Hypertension Acute bacterial bronchitis Subclinical hypothyroidism Acute cervical myofascial strain DM2 (diabetes mellitus, type 2) Dyslipidemia Acquired hypothyroidism Atherosclerotic cardiovascular disease Rheumatic fever GERD (gastroesophageal reflux disease) Diabetic nephropathy associated with type 2 diabetes mellitus Hirsutism Type 2 diabetes mellitus with diabetic polyneuropathy Gastroparesis due to DM Obesity (BMI 30-39.9) Depression Anxiety Vitamin D deficiency Lumbar degenerative disc disease Benign essential hypertension Pure hypercholesterolemia Diabetic neuropathy 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, bilateral Surgical History Hx of colonoscopy History of esophagogastroduodenoscopy (EGD) History of carpal tunnel release History of surgery History of cholecystectomy History of partial hysterectomy History of repair of rotator cuff Family History Father Diabetes Mother Diabetes CVD (cardiovascular disease) Social History Housing: Apartment Alcohol intake: never Patient Tobacco Use Status: Former Tobacco user e-Cigarette/Vaping Use: Never Used Second Hand Smoke Exposure: Yes service: No Current occupational status: disabled Cognitive needs: No Hearing needs: No Vision needs: Yes Review of Systems Const All systems reviewed & are unremarkable except as noted in HPI and below Denies chills, Denies fatigue, Denies fever(s), Denies weight gain and Denies weight loss Eyes Reports as per HPI and Denies no additional complaints ENT Denies no additional complaints and Reports as per HPI Card Denies chest pain, Denies leg edema, Denies lightheadedness, Denies palpitations, Denies dyspnea on exertion and Denies orthopnea Resp Denies cough and Denies dyspnea on exertion GI Reports melena, Denies hematochezia and Denies change in stool character Reports as per HPI Musc Denies muscle weakness and Denies radiating pain into limb Skin/Breast Reports system reviewed and no additional complaints, except as documented Neuro Reports no additional complaints and Reports as per HPI Psych Reports no additional complaints and Reports as per HPI Endo Denies fatigue and Denies palpitations Davion/Lymph Reports no additional complaints and Reports as per HPI Aller/Immun Reports no additional complaints and Reports as per HPI Physical Exam Vital Signs: Last Vital Signs Pulse 85 03/07/24 09:26 BP 112/60 03/07/24 09:26 BMI result Body Mass Index 34.8 Const General: comfortable and no acute distress Orientation/consciousness: patient oriented x3 HEENT Other: Unremarkable Head: Yes normal to inspection Neck Neck: Yes normal visual inspection Chest Chest palpation & inspection: normal inspection of the chest Resp Auscultation: clear to auscultation bilaterally Cardio Palpation: normal PMI Heart sounds: S1 normal heart sound present, S2 normal heart sound present, no gallops, no murmurs and no rubs GI Palpation (GI): Soft to palpation Back/Spine/Pelvis Other: unremarkable Skin General skin exam: no rashes or lesions noted Neuro General: patient oriented x3 Extrem General: Yes normal to inspection Psych Mental Status: mental status grossly normal Assessment & Plan Assessment & Plan (1) Atherosclerotic cardiovascular disease: Code(s): I25.10 - Atherosclerotic heart disease of [place] coronary artery without angina pectoris Category: Medical (2) RBBB: Code(s): I45.10 - Unspecified right bundle-branch block Category: Medical (3) DM2 (diabetes mellitus, type 2): Code(s): E11.9 - Type 2 diabetes mellitus without complications Category: Medical Qualifiers: Diabetes mellitus complication status: with hyperglycemia Diabetes mellitus supervising deputy insulin use: with residential use Qualified Code(s): E11.65 - Type 2 diabetes mellitus with hyperglycemia; Z79.4 - 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 (4) Benign essential hypertension: Code(s): I10 - Essential (primary) hypertension Category: Medical (5) Dyslipidemia: Code(s): E78.5 - Hyperlipidemia, unspecified Category: Medical Plan Cardiac studies reviewed. Baseline EKG shows sinus rhythm with right bundle-branch block. Echocardiogram with LVEF of 65-70%. No significant valvular issues based on limited visualization. In the stress test, she was able to exercise for 3 minutes and 41 seconds and had chest pressure/heaviness as well as shortness of breath. But no overt EKG changes. Perfusion imaging was unremarkable. In the coronary CTA, no obstructive CAD. Overall, [id number] CAD but nothing obstructive. Overall, aggressive risk factor modification. She is thinking of weight loss surgery which will certainly help. That will help her diabetes, hypertension and dyslipidemia and overall improve her cardiovascular risk profile. With regard to diabetes, hemoglobin A1c is 7.1%. Reasonable. Blood pressure seems stable. Last LDL 41 mg/dL. Coding Level of Care Code Est Pt Level 4 (48653) Diagnoses Atherosclerotic cardiovascular disease I25.10 RBBB I45.10 Type 2 diabetes mellitus with hyperglycemia, with long-term current use of insulin E11.65; Z79.4 Diabetes mellitus complication status: with hyperglycemia Diabetes mellitus residential insulin use: with supervising deputy use Benign essential hypertension I10 Dyslipidemia E78.5
[2024-03-07 09:26] VITALS: BP 112/60; PULSE 85; BMI 34.8
== END 2024-03-07 09:47 | disposition home or self-care (01) ==
PROVIDERS: PCP Internal Medicine; Visit Provider Internal Medicine
DX: I25.10 Atherosclerotic heart disease of native coronary artery without angina pectoris (principal); I45.10 Unspecified right bundle-branch block; E11.65 Type 2 diabetes mellitus with hyperglycemia; Z79.4 Long term (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 of insulin; I10 Essential (primary) hypertension; E78.5 Hyperlipidemia, unspecified
CPT/HCPCS: 99214

== ENCOUNTER → 2024-03-07 09:15 | Outpatient (BNVA) | payer OTHER, SELFPAY | PROVIDERS: PCP Internal Medicine; Visit Provider Internal Medicine | DX: I25.10 Atherosclerotic heart disease of native coronary artery without angina pectoris (principal); I45.10 Unspecified right bundle-branch block; E11.65 Type 2 diabetes mellitus with hyperglycemia; I10 Essential (primary) hypertension; E78.5 Hyperlipidemia, unspecified; Z79.4 Long term (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 of insulin | CPT/HCPCS: 99212 ==

== ENCOUNTER 2024-03-08 10:20 | Outpatient (AMB) | payer OTHER, SELFPAY ==
--- NOTE | 2024-03-08 10:31 | A.OFFVIS_ITS ---
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 Grading Required: No Accompanied by: Self / Same As Patient Allergies No Known Allergies Allergy (Verified 03/06/24 12:21) HPI Comprehensive Diabetes Asmnt Most Recent Diabetes Results: Hemoglobin A1c 8.7 % 07/20/18 Microalb/Creat Ratio 12.1 ug/mg cr (<30) 12/01/23 Cholesterol 99 mg/dL (<200) 03/06/24 HDL Cholesterol 24 mg/dL (>40) L 03/06/24 Triglycerides 171 mg/dL (<150) H 03/06/24 Creatinine 0.79 mg/dL (0.5-1.4) 03/06/24 Blood Urea Nitrogen 13 mg/dL (9-16) 03/06/24 Sodium 143 mmol/L (135-145) 03/06/24 Potassium 4.7 mmol/L (3.3-5.1) 03/06/24 Chloride 105 mmol/L (96-108) 03/06/24 Carbon Dioxide 28 mmol/L (22-29) 03/06/24 Calcium 10.3 mg/dL (8.4-10.2) H 03/06/24 AST 24 U/L (5-31) 03/06/24 ALT 47 U/L (0-31) H 03/06/24 Total Protein 7.5 g/dL (6.5-8.0) 03/06/24 Albumin 4.3 g/dL (3.5-5.0) 03/06/24 [facility] Medical History (Updated 03/05/24 @ 16:18 by Karl Coello MD) Type 2 diabetes mellitus with hyperglycemia, without long-term current use of insulin Obesity Gastroparesis Hypertension Acute bacterial bronchitis Subclinical hypothyroidism Acute cervical myofascial strain DM2 (diabetes mellitus, type 2) Dyslipidemia Acquired hypothyroidism Atherosclerotic cardiovascular disease Rheumatic fever GERD (gastroesophageal reflux disease) Diabetic nephropathy associated with type 2 diabetes mellitus Hirsutism Type 2 diabetes mellitus with diabetic polyneuropathy Gastroparesis due to DM Obesity (BMI 30-39.9) Depression Anxiety Vitamin D deficiency Lumbar degenerative disc disease Benign essential hypertension Pure hypercholesterolemia Diabetic neuropathy retirement (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 of insulin 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, bilateral Surgical History Hx of colonoscopy History of esophagogastroduodenoscopy (EGD) History of carpal tunnel release History of surgery History of cholecystectomy History of partial hysterectomy History of repair of rotator cuff Family History Father Diabetes Mother Diabetes CVD (cardiovascular disease) Social History Housing: Apartment Alcohol intake: never Patient Tobacco Use Status: Former Tobacco user e-Cigarette/Vaping Use: Never Used Second Hand Smoke Exposure: Yes service: No Current occupational status: disabled Cognitive needs: No Hearing needs: No Vision needs: Yes Assessment & Plan Assessment & Plan (1) Coronary artery disease due to type 2 diabetes mellitus: Code(s): E11.59 - Type 2 diabetes mellitus with other circulatory complications; I25.10 - Atherosclerotic heart disease of [place] coronary artery without angina pectoris Plan: Personal Continuous Glucose Monitor: Patients CGM information reviewed Reviewed patient's sensor data: Hypoglycemia: ? 0% Hyperglycemia:48%? Time in Range:?52% Average glucose for the last 2 weeks? 183 mg/dL Pt baratric surgery postponed until March 2024 She transitioned to Toujeo 45 units, and Humalog 20 units before meals Reviewed how to interpret trend arrows Reminded patient that to check finger sticks if symptoms do not match sensor reading. Discussed lag time between finger stick and sensor data.? Patient able to insert sensor independently at home without issue.? Portions of this note were created using voice recognition software, please excuse any words or phrases that may have been misinterpreted. Patient Instructions: Increase Humalog from 20 units before supper to 25 units after 3-4 day if post supper glucose is still going above 250 mg/dL increase Humalog to 30 units. Follow up with Diabetes Education nurse in 1 month Coding Level of Care Code Est Pt Level 1 (16483) Diagnoses Coronary artery disease due to type 2 diabetes mellitus E11.59; I25.10
== END 2024-03-08 10:53 | disposition home or self-care (01) ==
PROVIDERS: PCP Internal Medicine; Visit Provider Registered Nurse Diabetes Educator
DX: E11.59 Type 2 diabetes mellitus with other circulatory complications (principal); I25.10 Atherosclerotic heart disease of native coronary artery without angina pectoris

== ENCOUNTER → 2024-03-08 10:20 | Outpatient (BNVA) | payer OTHER, SELFPAY | PROVIDERS: PCP Internal Medicine; Visit Provider Registered Nurse Diabetes Educator | DX: E11.59 Type 2 diabetes mellitus with other circulatory complications (principal); I25.10 Atherosclerotic heart disease of native coronary artery without angina pectoris | CPT/HCPCS: 99211 ==

== ENCOUNTER 2024-03-21 09:47 | Outpatient (AMB) | payer OTHER, SELFPAY ==
[2024-03-21 09:49] VITALS: BP 116/58; PULSE 86; O2SAT 98; BMI 34.7
--- NOTE | 2024-03-21 09:49 | MHC.PC.OV ---
Vital Signs 03/21/24 09:49 Height 5 ft 6 in Weight 215 lb 0.2 oz BMI 34.7 BP 116/58 L Blood Pressure Location Lt brachial Position Sitting Pulse 86 Pulse Source Pulse Oximeter Pulse Oximetry (%) 98 Oxygen Delivery Method Room Air Intake Visit Reasons: 3mth f/u Players Assistant Required: No Allergies No Known Allergies Allergy (Verified 03/21/24 10:37) Medication List - Last Reconciled 03/21/24 by Fish Lomeli MD atorvastatin 80 mg PO BEDTIME bisacodyl 5 - 10 mg (1 - 2 x 5 mg) PO DAILY PRN 30 days blood sugar diagnostic (Pharmaxisuch Ultra Test strips) As directed checks 4 X/day blood-glucose meter (Pharmaxisuch Ultra2 Meter) As directed cholecalciferol (vitamin D3) 50 mcg PO DAILY gabapentin 300 mg PO TID insulin lispro (Humalog KwikPen (U-100) Insulin) 20 units SQ before breakfast, 20 units SQ before lunch and 25 to 30 units SQ as inctructed before dinner/supper lancets (Per Vices UltraSoft 2 Lancet) As directed tests 4 X/day levothyroxine 50 mcg PO DAILY linaclotide (Linzess) 145 mcg PO QAM 30 days lorazepam 1 mg PO BID PRN 30 days losartan 100 mg PO DAILY metoclopramide HCl 10 mg PO TID omeprazole 40 mg PO DAILY ondansetron 4 mg PO Q12H pantoprazole 40 mg PO DAILY pen needle, diabetic (BD Ultra-Fine Micro Pen Needle) USE DIRECTED THREE TIMES A DAY polyethylene glycol 3350 17 grams PO DAILY semaglutide (Ozempic) 2 mg (0.75 mL) subcut QWEEK sucralfate 10 mL PO BID Toujeo Max U-300 SoloStar (insulin glargine U-300 conc) 50 units (0.1667 mL) subcut DAILY NS Tobacco use date assessed: 12/20/23 Fall risk assessment: No Falls in past year Last assessed Fall Risk: 03/21/24 Dental Screening Dental Screen Date: 12/20/23 HPI 3mth f/u HPI Details Patient comes in today for her follow up visit States that she feels okay She denies any headaches or dizziness Denies any chest pains, no increased SOB No nausea/vomiting, no abdominal pain Still has increased constipation despite taking her Dulcolax daily as prescribed - states that she had to do a manual disimpaction on herself the other day due to severe constipation and she was also experiencing increased pain/pressure in her rectal area at the time due to the stool impaction States that her blood sugar has been better controlled on her current regimen - was instructed by the ems educator she saw a couple of weeks ago to increase her dinnertime dose of Humalog further to 25 to 30 units Her bariatric surgery that was initially scheduled for earlier this month was postponed until next month (March 2024) She had her follow up labs done a couple of weeks ago - to discuss her results [facility] Medical History (Updated 03/21/24 @ 12:04 by Fish Lomeli MD) Chronic constipation Type 2 diabetes mellitus with hyperglycemia, without long-term current use of insulin Obesity Gastroparesis Hypertension Acute bacterial bronchitis Subclinical hypothyroidism Acute cervical myofascial strain DM2 (diabetes mellitus, type 2) Dyslipidemia Acquired hypothyroidism Atherosclerotic cardiovascular disease Rheumatic fever GERD (gastroesophageal reflux disease) Diabetic nephropathy associated with type 2 diabetes mellitus Hirsutism Type 2 diabetes mellitus with diabetic polyneuropathy Gastroparesis due to DM Obesity (BMI 30-39.9) Depression Anxiety Vitamin D deficiency Lumbar degenerative disc disease Benign essential hypertension Pure hypercholesterolemia 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, bilateral Surgical History Hx of colonoscopy History of esophagogastroduodenoscopy (EGD) History of carpal tunnel release History of surgery History of cholecystectomy History of partial hysterectomy History of repair of rotator cuff Family History Father Diabetes Mother Diabetes CVD (cardiovascular disease) Social History Housing: Apartment Alcohol intake: never Patient Tobacco Use Status: Former Tobacco user e-Cigarette/Vaping Use: Never Used Second Hand Smoke Exposure: Yes service: No Current occupational status: disabled Cognitive needs: No Hearing needs: No Vision needs: Yes Questionnaire Thrive Questionnaire Date Thrive assessed: 12/20/23 AUDIT C Alcohol Use Questionnaire (AUDIT-C) 1. How often do you have a drink containing alcohol?: Never 3. How often do you have six or more drinks on one occasion?: Never Total Score: 0 Score Reviewed/Action Taken: Yes LAURENT-7 AMB Questionnaire LAURENT-7 Date LAURENT - 7 assessed: 12/20/23 Source: Developed by Drs. Chin Mccollum, Liberty Coleman, Alverto Monge and colleagues, with an educational judy from [employer]. Review of Systems Const Denies chills, Reports fatigue, Denies fever(s) and Denies headache(s) ENT Denies dysphagia, Denies dizziness, Denies otalgia, Denies headache(s), Denies neck pain, Denies odynophagia and Denies sore throat Card Denies chest pain, Denies palpitations and Reports dyspnea on exertion (mild) Resp Denies chest congestion, Denies cough, Reports dyspnea on exertion (mild) and Denies wheezing GI Denies abdominal pain, Reports constipation (chronic - increased lately (See HPI)), Denies dysphagia, Reports heartburn (on and off but meds help), Denies diarrhea, Reports nausea (occasional), Denies odynophagia and Denies vomiting Denies difficulty voiding, Denies nocturia, Denies dysuria and Denies urinary urgency Musc Reports back pain (over the lower back - chronic) and Denies neck pain Skin/Breast Denies rash Neuro Denies dizziness and Denies headache(s) Psych Reports anxiety Endo Reports fatigue and Denies palpitations Davion/Lymph Denies easy bruising Aller/Immun Denies wheezing Physical exam (Primary Care) Vital Signs: Last Vital Signs Pulse 86 03/21/24 09:49 BP 116/58 L 03/21/24 09:49 Pulse Ox 98 03/21/24 09:49 Oxygen Delivery Method Room Air 03/21/24 09:49 BMI result Body Mass Index 34.7 Tobacco/Smoking Status: Tobacco use Status Tobacco use date assessed 12/20/23 03/21/24 09:49 Patient Tobacco Use Status Former Tobacco user 03/21/24 09:49 e-Cigarette/Vaping Use Never Used 03/21/24 09:49 Thrive Assessment: Date of Thrive Assessment Date Thrive assessed 12/20/23 03/21/24 09:49 Const General: no acute distress and alert HENMT Ears: TM's normal bilaterally and EAC's normal Throat: Yes posterior oropharynx normal and Yes tonsils normal (no TP congestion noted) Neck Neck: Yes no lymphadenopathy, Yes supple and Yes tender (over the left cervical paraspinal muscles) Thyroid: Thyroid normal Resp Auscultation: clear to auscultation bilaterally, no rales and no wheezes Cardio Rate: regular rate Rhythm: regular rhythm Heart sounds: no murmurs GI Palpation (GI): Soft to palpation and nontender Auscultation: normal bowel sounds General: Yes no CVA tenderness Back/Spine/Pelvis Back: no CVA tenderness Cervical Spine: No Cervical spine tenderness Thoracic/Lumbar Spine: lumbar spinal tenderness Skin Rashes: no rashes Extrem General: Yes no clubbing, cyanosis or edema Results Reviewed Results Reviewed: Laboratory Tests 03/06/24 07:51 WBC 6.4 Hgb 13.2 Hct 41.1 Plt Count 194 Sodium 143 Potassium 4.7 Creatinine 0.79 Estimated GFR > 60 Random Glucose 173 H Hemoglobin A1c % 7.1 H Calcium 10.3 H AST 24 ALT 47 H C-Reactive Protein 0.12 Triglycerides 171 H Cholesterol 99 LDL Cholesterol, Calc 41 HDL Cholesterol 24 L TSH 3.23 Assessment and Plan Assessment & Plan (1) Type 2 diabetes mellitus with diabetic polyneuropathy: Code(s): E11.42 - Type 2 diabetes mellitus with diabetic polyneuropathy Qualifiers: Diabetes mellitus ocean transportation intermediary insulin use: with ocean transportation intermediary use Qualified Code(s): E11.42 - Type 2 diabetes mellitus with diabetic polyneuropathy; Z79.4 - longterm (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 of insulin Plan: Her HgbA1c was at 7.1% on her labs done a couple of weeks ago on 03/06/2024 (in-office HgbA1c was previously at 6.9% just a couple of weeks ago on 02/16/2024) - goal is <7.0% but if she starts experiencing hypoglycemic symptoms, may allow her HgbA1c to go up to 7.5% Reinforced diabetic diet She was previously on Humulin U-500 95 units when the patient wakes up in the morning (before breakfast), 90 units 30 minutes before lunch and 70 units 30 minutes before dinner and Ozempic 1 mg SQ once a week and was advised by Dr. Coello to hold her insulin injections except for her dinner time dose as he is currently trying to help patient adjust her diet and eating habits in an attempt to lose weight BUT her meds were completely changed over by endocrinology last month and she is now on Toujeo 50 units QD, Humalog 20 units with breakfast, 20 units with lunch and 25 to 30 units with dinner and Ozempic 2 mg once a week Follow up with endocrinology as scheduled Patient also follows up with Dr. Cameron Perez for her retinopathy - she has severe nonproliferative diabetic retinopathy with macular edema Have again reinforced to her that she needs to get her diabetes under control to slow down the progression of her retinopathy (2) Pure hypercholesterolemia: Code(s): E78.00 - Pure hypercholesterolemia, unspecified Plan: Results of her labs done a couple of weeks ago reviewed and discussed with patient Reinforced low cholesterol diet Continue Atorvastatin 40 mg QD Will recheck her labs and fasting lipids in 3 months for follow-up (3) Diabetic nephropathy associated with type 2 diabetes mellitus: Code(s): E11.21 - Type 2 diabetes mellitus with diabetic nephropathy Plan: Her renal function appears stable on her recent labs Follow up with nephrology as scheduled - sees Dr. Sim (4) Diabetic neuropathy: Code(s): E11.40 - Type 2 diabetes mellitus with diabetic neuropathy, unspecified Qualifiers: Diabetes mellitus type: type 2 Diabetes mellitus complication detail: diabetic polyneuropathy Qualified Code(s): E11.42 - Type 2 diabetes mellitus with diabetic polyneuropathy Plan: Reinforced importance of strict glycemic control to slow down the progression of her neuropathy (5) Benign essential hypertension: Code(s): I10 - Essential (primary) hypertension Plan: Reinforced low sodium diet - goal is systolic BP of at least 130 mm or less Continue?Losartan 100 mg QD Have advised patient to continue monitoring her blood pressure regularly (6) Gastroparesis due to DM: Code(s): E11.43 - Type 2 diabetes mellitus with diabetic autonomic (poly)neuropathy; K31.84 - Gastroparesis Plan: Advised patient again that her recurrent GI symptoms are mostly due to gastroparesis and unfortunately, there are no available medications that help effectively with this Continue Metoclopramide 10 mg TID before meals Follow up with GI as scheduled (7) GERD (gastroesophageal reflux disease): Code(s): K21.9 - Gastro-esophageal reflux disease without esophagitis Qualifiers: Esophagitis presence: without esophagitis Qualified Code(s): K21.9 - Gastro-esophageal reflux disease without esophagitis Plan: Dietary restrictions reinforced Continue Omeprazole 40 mg QD (8) Chronic constipation: Code(s): K59.09 - Other constipation Plan: Reinforced increased oral fluids and dietary fiber Patient has been taking Dulcolax 5 to 10 mg QD lately with little relief and states that she recently had to perform a manual disimpaction on herself to help relieve her constipation and increasing rectal pressure/pain She has a follow up appt with GI coming up next month and I have advised her to make sure she keeps that appt. Will go ahead and start her for now on Linzess 145 mcg QD (9) Lumbar degenerative disc disease: Code(s): M51.36 - Other intervertebral disc degeneration, lumbar region Plan: Reinforced activity and weight lifting restrictions Continue Gabapentin 300 mg TID; patient used to also take Duloxetine 30 mg QD and Tizanidine 4 mg TID PRN in the past but she stopped taking these at some point as she felt that she did not need these at the time (10) Acquired hypothyroidism: Code(s): E03.9 - Hypothyroidism, unspecified Plan: Continue Levothyroxine 50 mcg QD Will recheck her TFTs in 3 months for follow up (11) Vitamin D deficiency: Code(s): E55.9 - Vitamin D deficiency, unspecified Plan: Continue Vitamin D3 2000 units QD (12) Anxiety: Code(s): F41.9 - Anxiety disorder, unspecified Plan: Continue Lorazepam 1 mg twice a day as needed (13) Depression: Code(s): F32.9 - Major depressive disorder, single episode, unspecified Qualifiers: Depression Type: major depressive disorder Major depression recurrence: recurrent Active/Remission status: currently active Major depression episode severity: moderate Qualified Code(s): F33.1 - Major depressive disorder, recurrent, moderate Plan: Follow up with Psychiatry as scheduled (14) Obesity (BMI 30-39.9): Code(s): E66.9 - Obesity, unspecified Plan: Reinforced diet/exercise as tolerated/lose weight Follow up with Dr. Coello as scheduled for weight management Plan Follow up in 3 months Orders: Orders Thyroid Stimulating Hormone 3 Months E03.9 - Hypothyroidism, unspecified Complete Blood Count Auto Diff 3 Months D64.9 - Anemia, unspecified Comprehensive [place]. Panel Fast 3 Months E78.00 - Pure hypercholesterolemia, unspecified Vitamin D 25-OH Total 3 Months E55.9 - Vitamin D deficiency, unspecified Hemoglobin A1c 3 Months E11.9 - Type 2 diabetes mellitus without complications Lipid Panel 3 Months E78.00 - Pure hypercholesterolemia, unspecified Microalbumin, Random (w Creat) 3 Months E11.9 - Type 2 diabetes mellitus without complications UA CC w/rflx Micro + Cult 3 Months R30.0 - Dysuria Free T4 (Free Thyroxine) 3 Months E03.9 - Hypothyroidism, unspecified Vitamin B12 and Folate 3 Months E53.8 - Deficiency of other specified B group vitamins Medications: New linaclotide (Linzess) 145 mcg PO QAM 30 days 30 caps 1RF Coding Level of Care Code Est Pt Level 4 (28559) Complex EM visit Add On G2211 Diagnoses Type 2 diabetes mellitus with diabetic polyneuropathy, with long-term current use of insulin E11.42; Z79.4 Diabetes mellitus ocean transportation intermediary insulin use: with detention use Pure hypercholesterolemia E78.00 Diabetic nephropathy associated with type 2 diabetes mellitus E11.21 Diabetic polyneuropathy associated with type 2 diabetes mellitus E11.42 Diabetes mellitus type: type 2 Diabetes mellitus complication detail: diabetic polyneuropathy Benign essential hypertension I10 Gastroparesis due to DM E11.43; K31.84 Gastroesophageal reflux disease without esophagitis K21.9 Esophagitis presence: without esophagitis Chronic constipation K59.09 Lumbar degenerative disc disease M51.36 Acquired hypothyroidism E03.9 Vitamin D deficiency E55.9 Anxiety F41.9 Moderate episode of recurrent major depressive disorder F33.1 Depression Type: major depressive disorder Major depression recurrence: recurrent Active/Remission status: currently active Major depression episode severity: moderate Obesity (BMI 30-39.9) E66.9
== END 2024-03-21 10:43 | disposition home or self-care (01) ==
PROVIDERS: PCP Internal Medicine; Visit Provider Internal Medicine
DX: E11.42 Type 2 diabetes mellitus with diabetic polyneuropathy (principal); Z79.4 Long term (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 of insulin; E11.21 Type 2 diabetes mellitus with diabetic nephropathy; E11.43 Type 2 diabetes mellitus with diabetic autonomic (poly)neuropathy; F33.1 Major depressive disorder, recurrent, moderate; E78.00 Pure hypercholesterolemia, unspecified; I10 Essential (primary) hypertension; K31.84 Gastroparesis; K21.9 Gastro-esophageal reflux disease without esophagitis; K59.09 Other constipation; M51.36 Other intervertebral disc degeneration, lumbar region; E03.9 Hypothyroidism, unspecified
CPT/HCPCS: 99214; G2211

== ENCOUNTER 2024-04-06 09:50 | Outpatient (AMB) | payer OTHER, SELFPAY ==
--- NOTE | 2024-04-06 10:15 | MHC.AMDMED ---
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 Accompanied by: Self / Same As Patient Allergies No Known Allergies Allergy (Verified 03/21/24 10:37) HPI Comprehensive Diabetes Asmnt Most Recent Diabetes Results: Cholesterol 99 mg/dL (<200) 03/06/24 HDL Cholesterol 24 mg/dL (>40) L 03/06/24 Triglycerides 171 mg/dL (<150) H 03/06/24 Creatinine 0.79 mg/dL (0.5-1.4) 03/06/24 Blood Urea Nitrogen 13 mg/dL (9-16) 03/06/24 Sodium 143 mmol/L (135-145) 03/06/24 Potassium 4.7 mmol/L (3.3-5.1) 03/06/24 Chloride 105 mmol/L (96-108) 03/06/24 Carbon Dioxide 28 mmol/L (22-29) 03/06/24 Calcium 10.3 mg/dL (8.4-10.2) H 03/06/24 AST 24 U/L (5-31) 03/06/24 ALT 47 U/L (0-31) H 03/06/24 Total Protein 7.5 g/dL (6.5-8.0) 03/06/24 Albumin 4.3 g/dL (3.5-5.0) 03/06/24 [facility] [place] [place] Medical History (Updated 03/21/24 @ 12:04 by Fish Lomeli MD) Chronic constipation Type 2 diabetes mellitus with hyperglycemia, without long-term current use of insulin Obesity Gastroparesis Hypertension Acute bacterial bronchitis Subclinical hypothyroidism Acute cervical myofascial strain DM2 (diabetes mellitus, type 2) Dyslipidemia Acquired hypothyroidism Atherosclerotic cardiovascular disease Rheumatic fever GERD (gastroesophageal reflux disease) Diabetic nephropathy associated with type 2 diabetes mellitus Hirsutism Type 2 diabetes mellitus with diabetic polyneuropathy Gastroparesis due to DM Obesity (BMI 30-39.9) Depression Anxiety Vitamin D deficiency Lumbar degenerative disc disease Benign essential hypertension Pure hypercholesterolemia Diabetic neuropathy longterm (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 of insulin 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, bilateral Surgical History Hx of colonoscopy History of esophagogastroduodenoscopy (EGD) History of carpal tunnel release History of surgery History of cholecystectomy History of partial hysterectomy History of repair of rotator cuff Family History Father Diabetes Mother Diabetes CVD (cardiovascular disease) Social History Housing: Apartment Alcohol intake: never Patient Tobacco Use Status: Former Tobacco user e-Cigarette/Vaping Use: Never Used Second Hand Smoke Exposure: Yes service: No Current occupational status: disabled Cognitive needs: No Hearing needs: No Vision needs: Yes Assessment & Plan Assessment & Plan (1) Coronary artery disease due to type 2 diabetes mellitus: Code(s): E11.59 - Type 2 diabetes mellitus with other circulatory complications; I25.10 - Atherosclerotic heart disease of [place] coronary artery without angina pectoris Plan Personal Continuous Glucose Monitor: Patients CGM information reviewed Reviewed patient's sensor data: Hypoglycemia: ? 0% Hyperglycemia:? 48% Time in Range:? 52% Average glucose for the last 2 weeks?179 mg/dL Patient was transitioned from Humulin U 500 to Toujeo 50 units, and Humalog U 100 before meals Patient reports that glucose levels have been running high Discussed with patient the insulin needs to be titrated when starting on a new plan to reach optimal doses Patient is still waiting to schedule bariatric surgery Recommended to patient she increase Toujeo 50 units to 55 units Also discussed with patient's switching from Humalog U 100, to Humalog U 200, request for script Humalog U 200 sent to provider Reviewed how to interpret trend arrows Reminded patient that to check finger sticks if symptoms do not match sensor reading. Discussed lag time between finger stick and sensor data.? Patient able to insert sensor independently at home without issue.? Portions of this note were created using voice recognition software, please excuse any words or phrases that may have been misinterpreted. Patient Instructions: Increase Toujeo to 55 units Increase Humalog to 34 units before meals Use rule of 15s to treat low blood glucose If you have low glucose overnight or when you wake up go back to Toujeo 50 units If you have low glucose after meals go back to Humalog 30 units Follow up with Diabetes Education in 1 month Coding Level of Care Code Est Pt Level 1 (99737) Diagnoses Coronary artery disease due to type 2 diabetes mellitus E11.59; I25.10
== END 2024-04-06 11:00 | disposition home or self-care (01) ==
PROVIDERS: PCP Internal Medicine; Visit Provider Registered Nurse Diabetes Educator
DX: E11.59 Type 2 diabetes mellitus with other circulatory complications (principal); I25.10 Atherosclerotic heart disease of native coronary artery without angina pectoris

== ENCOUNTER → 2024-04-06 09:50 | Outpatient (BNVA) | payer OTHER, SELFPAY | PROVIDERS: PCP Internal Medicine; Visit Provider Registered Nurse Diabetes Educator | DX: E11.59 Type 2 diabetes mellitus with other circulatory complications (principal); I25.10 Atherosclerotic heart disease of native coronary artery without angina pectoris | CPT/HCPCS: 99211 ==

== ENCOUNTER 2024-05-08 07:39 | Outpatient (REF) | payer OTHER, SELFPAY ==
[2024-05-08 08:12] LABS: MANUAL DIFF FLAG NO
[2024-05-08 08:36] LABS: Basophils Percent Auto 0.4 % (0-2); Eosinophils Absolute Auto 0.1 X10*3/uL (0.0-0.4); Eosinophils Percent Auto 0.8 % (0-4); Hematocrit 40.3 % (37.0-47.0); Hemoglobin 12.8 g/dl (12.0-16.0); Imm Gran Abs Auto 0.03 X10*3/uL (0.00-0.03); Imm Gran Pct Auto 0.4 % (0.0-0.4); Lymphocytes Absolute Auto 2.3 X10*3/uL (1.2-4.9); Lymphocytes Percent Auto 30.5 % (20-40); Mean Corpuscular HGB Conc 31.8 g/dl (31.0-35.0); Mean Corpuscular Volume 91.2 fL (80.0-98.0); Mean Platelet Volume 10.9 fL (9.4-12.3); Monocytes Absolute Auto 0.6 X10*3/uL (0.1-1.2); Monocytes Percent Auto 7.3 % (2-11); Neutrophils Absolute Auto 4.6 x10*3/uL (2.0-8.3); Neutrophils Percent Auto 60.6 % (45-73); Platelet Count 216 X10*3/uL (160-400); Red Blood Count 4.42 X10*6/uL (4.20-5.50); Red Cell Distribution Width 13.1 % (11.0-16.0); White Blood Count 7.6 X10*3/uL (4.8-10.8)
[2024-05-08 08:42] LABS: INTERNATIONAL NORM RATIO 0.9 (0.9-1.1); Prothrombin Time 11.2 SEC (11.1-13.3)
[2024-05-08 08:45] LABS: Partial Thromboplastin Time 29.7 SEC (26.0-36.8)
[2024-05-08 09:01] LABS: Estimated Average Glucose 166 mg/dL; Hemoglobin A1c % 7.4 % (<6.0)
[2024-05-08 09:18] LABS: Cholesterol 90 mg/dL (<200); HDL Cholesterol 26 mg/dL (>40); LDL Cholesterol Calculated 39 mg/dL (<100); Triglycerides 128 mg/dL (<150)
[2024-05-08 09:26] LABS: Alanine Aminotransferase 30 U/L (0-31); Albumin Level 4.1 g/dL (3.5-5.0); Anion Gap 14 (12-20); Aspartate Amino Transferase 23 U/L (5-31); Bilirubin Total 0.5 mg/dL (0.0-1.0); Blood Urea Nitrogen 15 mg/dL (9-16); C Reactive Protein 0.16 mg/dL (< or = 0.50); Carbon Dioxide 28 mmol/L (22-29); Chloride 106 mmol/L (96-108); Cholesterol 92 mg/dL (<200); Estimated Glomerular Filt Rate > 60; Glucose Fasting 161 mg/dL (60-99); HDL Cholesterol 25 mg/dL (>40); LDL Cholesterol Calculated 41 mg/dL (<100); Potassium 4.6 mmol/L (3.3-5.1); Sodium 143 mmol/L (135-145); Total Protein 7.2 g/dL (6.5-8.0); Triglycerides 131 mg/dL (<150)
[2024-05-08 09:34] LABS: Insulin 28 uU/mL (2-29); TSH reflex Free T4 3.34 uIU/mL (0.32-4.0); Thyroid Stimulating Hormone 3.34 uIU/mL (0.32-4.0)
[2024-05-08 09:35] LABS: Free T4 (Free Thyroxine) 0.75 ng/dL (0.71-1.85); Vitamin D 25-OH Total 44.6 ng/mL (>30)
[2024-05-08 09:44] LABS: Folate 6.2 ng/mL (> or = 4.0); Vitamin B12 454 pg/mL (200-900)
[2024-05-08 09:51] LABS: Alkaline Phosphatase 137 U/L (39-117)
== END 2024-05-08 07:40 | disposition home or self-care (01) ==
LOC: HO.LAB 07:39
PROVIDERS: PCP Internal Medicine; Visit Provider Surgery
DX: E66.01 Morbid (severe) obesity due to excess calories (principal); Z68.39 Body mass index [BMI] 39.0-39.9, adult; E03.9 Hypothyroidism, unspecified; E11.59 Type 2 diabetes mellitus with other circulatory complications; I25.10 Atherosclerotic heart disease of native coronary artery without angina pectoris; E11.9 Type 2 diabetes mellitus without complications; Z79.4 Long term (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 of insulin; E78.00 Pure hypercholesterolemia, unspecified; E55.9 Vitamin D deficiency, unspecified; E53.8 Deficiency of other specified B group vitamins
CPT/HCPCS: 36415; 80053; 80061; 82306; 82607; 82746; 83036; 83525; 84439; 84443; 85025; 85610; 85730; 86140; 86850; 86900; 86901

== ENCOUNTER 2024-05-09 09:31 | Outpatient (AMB) | payer OTHER, SELFPAY ==
--- NOTE | 2024-05-09 09:45 | MHC.OFFVIS ---
Vital Signs 05/09/24 09:51 Height 5 ft 6 in Weight 211 lb BMI 34.1 BP 134/60 Position Sitting Pulse 81 Intake Visit Reasons: 6 mnth follow up Intake Note: Patricia presents to in office follow up of labs and US. CC: Patient reports constipation and having to take stuff every night in order to have a BM. She also c/o abdominal pain sometimes. Family Centered Specialist Required: No Accompanied by: Self / Same As Patient Allergies No Known Allergies Allergy (Verified 05/09/24 09:52) HPI HPI 6 mnth follow up: Details: Assessment & Plan (1) GERD (gastroesophageal reflux disease): Code(s): K21.9 - Gastro-esophageal reflux disease without esophagitis Qualifiers: Esophagitis presence: without esophagitis Qualified Code(s): K21.9 - Gastro-esophageal reflux disease without esophagitis (2) Constipation: Code(s): K59.00 - Constipation, unspecified (3) Gastroparesis due to DM: Code(s): E11.43 - Type 2 diabetes mellitus with diabetic autonomic (poly)neuropathy; K31.84 - Gastroparesis (4) MARTINEZ (nonalcoholic steatohepatitis): Comment: 06/2019 autoimmune workup is negative, hepatitis a B and C are negative, ferritin is normal, initial AST/ALT 27/51 with alk-phos of 121 normal bilirubin 07/07/2111/03/2111 08:1608:1608:16 Plt Count 174 Estimated GFR > 60 Hemoglobin A1c % 8.5 Total Bilirubin 0.6 AST 19 ALT 36 H Alkaline Phosphatase 131 H TSH 3.39 CURRENT LABS Laboratory Tests 01/01/2305/12/2304 07:2607:2607:26 Plt Count 206 Estimated GFR Hemoglobin A1c % 7.3 Total Bilirubin 0.4 AST 34 H ALT 70 H Alkaline Phosphatase 138 H 02/01/23 07:44 Plt Count Estimated GFR > 60 ULTRASOUND OF THE ABDOMEN 04/02/22 IMPRESSION: ? Increased hepatic echogenicity which can be seen in the setting of hepatic steatosis or underlying liver disease similar to prior. Code(s): K75.81 - Nonalcoholic steatohepatitis (MARTINEZ) Plan She speaks Eritrean She is due for MARTINEZ monitoring and is agreeable to going for lab work and having a repeat ultrasound. Her cough has resolved. She continues to be well controlled on her omeprazole and reglan and bisacodyl. She remains satisfied with her GI regimen. However, she was only taking the reglan prn, and especially with the Ozempic, she really needs to take it scheduled with meals as she is complaining of the food just sitting there. 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 She has not yet had her first appt. ROV 6 mos. Orders: Orders Liver Panel Today K75.81 - Nonalcoholic steatohepatitis (MARTINEZ) Complete Blood Count Auto Diff Today K75.81 - Nonalcoholic steatohepatitis (MARTINEZ) US abdomen complete Today K75.81 - Nonalcoholic steatohepatitis (MARTINEZ) Alpha Fetoprotein Today K75.81 - Nonalcoholic steatohepatitis (MARTINEZ) Medications: Changed From metoclopramide HCl 10 mg PO TID PRN 90 tabs 6RF for nausea/vomiting E11.43 - Type 2 diabetes mellitus with diabetic autonomic (poly)neuropathy, K31.84 - Gastroparesis To metoclopramide HCl 10 mg PO TID 90 tabs 6RF E11.43 - Type 2 diabetes mellitus with diabetic autonomic (poly)neuropathy, K31.84 - Gastroparesis Refilled bisacodyl Take 1-2 tablets by mouth once a day as needed for constipation 5 - 10 mg (1 - 2 x 5 mg) PO DAILY 30 days PRN 60 tabs 6RF constipation K59.00 - Constipation, unspecified metoclopramide HCl 10 mg PO TID PRN 90 tabs 6RF for nausea/vomiting E11.43 - Type 2 diabetes mellitus with diabetic autonomic (poly)neuropathy, K31.84 - Gastroparesis omeprazole 40 mg PO DAILY 30 caps 6RF LABS: [facility] 01/2024 IMPRESSION: 1. There is generalized increase in hepatic echotexture, consistent with fatty infiltration or hepatocellular disease. Please correlate clinically. No focal hepatic mass or intrahepatic biliary dilatation is seen. 2. There is hepatomegaly. 3. Liver elastography: Although measurements suggest a high probability of normal liver stiffness, there is statistical variability of the sampling which decreases accuracy. 4. The gallbladder is surgically absent. TODAY'S VISIT She speaks Eritrean She will be having a gastric sleeve surgery on the . She is very excited about this! The only concern she has though she still severely constipated. Apparently her primary care provider prescribed Linzess 145 micro g, but she did not take it because she did not understand what it was for. I explained to her the medication, and how to take it and she will start it in the next day or 2. I advised her it 1st to hold her bisacodyl until she sees how the Linzess works. If it is not working to move her bowels she can then add the bisacodyl and will consider a dose increase. If it is too strong she is to skip a few days and we will decrease the dose. Because she is having surgery and this could complicate her constipation management I would like to see her in 2 weeks. She has a follow-up on the with Dr. Willis so will see if we can get her in the same day. controlled on her omeprazole and reglan and bisacodyl Return office visit in 2 weeks [facility] Medical History Hypertension Obesity (BMI 30-39.9) Abnormal EKG Type 2 diabetes mellitus with diabetic polyneuropathy Gastroparesis due to DM Breast cancer screening BMI 39.0-39.9,adult Chronic constipation Type 2 diabetes mellitus with hyperglycemia, without long-term current use of insulin Obesity Acute bacterial bronchitis Subclinical hypothyroidism Acute cervical myofascial strain DM2 (diabetes mellitus, type 2) Dyslipidemia Acquired hypothyroidism Atherosclerotic cardiovascular disease Rheumatic fever GERD (gastroesophageal reflux disease) Diabetic nephropathy associated with type 2 diabetes mellitus Hirsutism Depression Anxiety Vitamin D deficiency Lumbar degenerative disc disease Benign essential hypertension Pure hypercholesterolemia Diabetic neuropathy halfway (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 of insulin 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, bilateral Surgical History Hx of colonoscopy History of esophagogastroduodenoscopy (EGD) History of carpal tunnel release History of surgery History of cholecystectomy History of partial hysterectomy History of repair of rotator cuff Family History Father Diabetes Mother Diabetes CVD (cardiovascular disease) Social History Housing: Apartment Alcohol intake: never Patient Tobacco Use Status: Former Tobacco user e-Cigarette/Vaping Use: Never Used Second Hand Smoke Exposure: Yes service: No Current occupational status: disabled Cognitive needs: No Hearing needs: No Vision needs: Yes Review of Systems Const Denies fatigue, Denies fever(s), Denies night sweats, Denies poor appetite and Denies weight loss Eyes Details: Glasses Reports requires corrective lenses ENT Details: glasses Reports Normal hearing present, Denies dental pain, Denies dysphagia, Denies hearing loss, Denies mouth pain, Denies odynophagia, Denies throat swelling, Denies tongue swelling and Reports other (Dentition adequate) Card Reports no additional complaints Resp Reports no additional complaints GI Details: Denies abdominal pain, Denies melena, Denies bloating, Denies hematochezia, Reports constipation, Denies GI cramping, Denies dysphagia, Denies excessive flatus, Reports early satiety, Reports heartburn, Denies diarrhea, Denies nausea, Denies odynophagia, Denies vomiting and Denies hematemesis Skin/Breast Denies pruritus, Denies lesions, Denies rash and Denies jaundice Neuro Reports Normal hearing present and Denies Abnormal speech present Endo Denies fatigue Aller/Immun Denies throat swelling and Denies tongue swelling Physical Exam Vital Signs: Last Vital Signs Pulse 81 05/09/24 09:51 BP 134/60 05/09/24 09:51 BMI result Body Mass Index 34.1 Const General: cooperative, no acute distress, well developed and well groomed Nutritional Appearance: well nourished and obese Orientation/consciousness: oriented to person, oriented to place and oriented to time Limitations: No language barrier HEENT Head: Yes normocephalic and Yes atraumatic Eyes General: appearance normal, both eyes and all related structures Pupils: Equal, round and reactive pupils present Neck Neck: Yes normal visual inspection and Yes no lymphadenopathy Thyroid: Thyroid normal Resp Effort & Inspection: normal respiratory effort and able to speak in complete sentences Auscultation: clear to auscultation bilaterally Cardio Rate: regular rate Rhythm: regular rhythm Heart sounds: Normal, physiologic split S2 sound present Peripheral pulses: radial pulses present and posterior tibial pulses present GI Inspection: No distended, No Abdominal panniculus present and Yes obesity Palpation (GI): Soft to palpation, nontender, no guarding, not rigid and No hepatosplenomegaly present Percussion: Yes normal to percussion Auscultation: normal bowel sounds Rectal Exam - Female: deferred Skin General skin exam: no rashes or lesions noted, turgor normal, skin not dry, no jaundice, No spider nevi and no striae Rashes: no rashes Nails: normal Neuro General: oriented to person, oriented to place and oriented to time Cranial nerves: Yes Equal, round and reactive pupils present and Yes Normal hearing present Speech: No Abnormal speech present Extrem General: Yes normal to inspection, No clubbing, No cyanosis and No edema Psych Appearance: grossly normal and well kempt Mental Status: mental status grossly normal Speech and movement: Normal speech and movement present Affect: normal affect Attitude: cooperative Thought process: Normal thought process present and not confabulating Thought content: Normal thought content present Insight: Fair insight present (Psych) Judgement: Fair judgement present (Psych) Assessment & Plan Assessment & Plan (1) GERD (gastroesophageal reflux disease): Code(s): K21.9 - Gastro-esophageal reflux disease without esophagitis Category: Medical Qualifiers: Esophagitis presence: without esophagitis Qualified Code(s): K21.9 - Gastro-esophageal reflux disease without esophagitis (2) Constipation: Code(s): K59.00 - Constipation, unspecified Category: Medical (3) MARTINEZ (nonalcoholic steatohepatitis): Comment: 06/2019 autoimmune workup is negative, hepatitis a B and C are negative, ferritin is normal, initial AST/ALT 27/51 with alk-phos of 121 normal bilirubin 07/07/2111/03/2111 08:1608:1608:16 Plt Count 174 Estimated GFR > 60 Hemoglobin A1c % 8.5 Total Bilirubin 0.6 AST 19 ALT 36 H Alkaline Phosphatase 131 H TSH 3.39 CURRENT LABS Laboratory Tests 01/01/2305/12/2304 07:2607:2607:26 Plt Count 206 Estimated GFR Hemoglobin A1c % 7.3 Total Bilirubin 0.4 AST 34 H ALT 70 H Alkaline Phosphatase 138 H 02/01/23 07:44 Plt Count Estimated GFR > 60 ULTRASOUND OF THE ABDOMEN 04/02/22 IMPRESSION: ? Increased hepatic echogenicity which can be seen in the setting of hepatic steatosis or underlying liver disease similar to prior. Code(s): K75.81 - Nonalcoholic steatohepatitis (MARTINEZ) Category: Medical (4) Gastroparesis: Code(s): K31.84 - Gastroparesis Category: Medical Plan She will be having a gastric sleeve surgery on the . She is very excited about this! The only concern she has though she still severely constipated. Apparently her primary care provider prescribed Linzess 145 micro g, but she did not take it because she did not understand what it was for. I explained to her the medication, and how to take it and she will start it in the next day or 2. I advised her it 1st to hold her bisacodyl until she sees how the Linzess works. If it is not working to move her bowels she can then add the bisacodyl and will consider a dose increase. If it is too strong she is to skip a few days and we will decrease the dose. Because she is having surgery and this could complicate her constipation management I would like to see her in 2 weeks. She has a follow-up on the with Dr. Willis so will see if we can get her in the same day. She will be facing many challenges with her constipation including possible problems with pain medication and anesthesia along with the necessary use of sucralfate promote gastric healing that could complicate her baseline constipation. She is also going to be starting protein shakes which are constipating as well. She is concerned about getting her constipation controlled could she is aware of these upcoming challenges. Apparently, she even had 1 incident where she had to self digitally disimpact. controlled on her omeprazole and reglan and bisacodyl Return office visit in 2 weeks Coding Level of Care Code Est Pt Level 3 (22795) Diagnoses Gastroesophageal reflux disease without esophagitis K21.9 Esophagitis presence: without esophagitis Constipation K59.00 MARTINEZ (nonalcoholic steatohepatitis) K75.81 Gastroparesis K31.84
[2024-05-09 09:51] VITALS: BP 134/60; PULSE 81; BMI 34.1
== END 2024-05-09 11:24 | disposition home or self-care (01) ==
PROVIDERS: PCP Internal Medicine; Visit Provider Nurse Practitioner
DX: K21.9 Gastro-esophageal reflux disease without esophagitis (principal); K59.00 Constipation, unspecified; K75.81 Nonalcoholic steatohepatitis (NASH); K31.84 Gastroparesis
CPT/HCPCS: 99213

== ENCOUNTER → 2024-05-09 09:31 | Outpatient (BNVA) | payer OTHER, SELFPAY | PROVIDERS: PCP Internal Medicine; Visit Provider Nurse Practitioner | DX: E66.9 Obesity, unspecified (principal); K21.9 Gastro-esophageal reflux disease without esophagitis; K59.00 Constipation, unspecified; K75.81 Nonalcoholic steatohepatitis (NASH); K31.84 Gastroparesis; Z68.34 Body mass index [BMI] 34.0-34.9, adult | CPT/HCPCS: 99212 ==

== ENCOUNTER 2024-05-12 08:06 | Outpatient (AMB) | payer OTHER, SELFPAY ==
--- NOTE | 2024-05-12 10:43 | A.OFFVIS_ITS ---
VS Expanded 05/12/24 10:48 Height 5 ft 6 in Weight 212 lb 4 oz BMI 34.3 Body Fat % 46 Body Fat Mass 97.7 Fat Free Mass 114.8 Visceral Fat Rating 16 Body Water % 33.4 Body Water Mass 70.9 Basal Metabolic Rate/Score 1,478 Intake Visit Reasons: TV Pre Op LSG 05/17/24 Allergies No Known Allergies Allergy (Verified 05/11/24 15:29) Medication List - Last Reconciled 05/12/24 by Karl Coello MD atorvastatin 80 mg PO BEDTIME bisacodyl 5 - 10 mg (1 - 2 x 5 mg) PO DAILY PRN 30 days blood sugar diagnostic ([employer] Ultra Test strips) As directed checks 4 X/day blood-glucose meter ([employer] Ultra2 Meter) As directed cholecalciferol (vitamin D3) 50 mcg PO DAILY gabapentin 300 mg PO TID insulin glargine U-300 conc (Toujeo Max U-300 SoloStar) 55 units subcut DAILY insulin lispro (Humalog KwikPen U-200 Insulin) 34 - 50 units subcut TID insulin lispro (Humalog KwikPen (U-100) Insulin) subcut lancets ([employer] UltraSoft 2 Lancet) As directed tests 4 X/day levothyroxine 50 mcg PO DAILY linaclotide (Linzess) 145 mcg PO QAM 30 days lorazepam 1 mg PO BID PRN 30 days losartan 100 mg PO DAILY metoclopramide HCl 10 mg PO TID omeprazole 40 mg PO DAILY ondansetron 4 mg PO Q12H pantoprazole 40 mg PO DAILY pen needle, diabetic (BD Ultra-Fine Micro Pen Needle) USE DIRECTED THREE TIMES A DAY polyethylene glycol 3350 17 grams PO DAILY sucralfate 10 mL PO BID HPI HPI TV Pre Op LSG 05/17/24: Details: Start time: 10.40am, End time: 11am ?I spent 15 minutes speaking with the patient on the phone plus an additional 5 minutes reviewing and updating records for a total of 20 minutes [facility] Medical History (Updated 05/11/24 @ 15:33 by Arianna Ayon RN) History of degenerative disc disease Back pain Peripheral neuropathy History of cardiac murmur Chronic constipation Abnormal EKG BMI 39.0-39.9,adult Obesity Hypertension Acquired hypothyroidism Acute bacterial bronchitis Atherosclerotic cardiovascular disease Breast cancer screening Subclinical hypothyroidism Acute cervical myofascial strain DM2 (diabetes mellitus, type 2) Rheumatic fever GERD (gastroesophageal reflux disease) Diabetic nephropathy associated with type 2 diabetes mellitus Hirsutism Dyslipidemia Type 2 diabetes mellitus with hyperglycemia, without long-term current use of insulin Type 2 diabetes mellitus with diabetic polyneuropathy Gastroparesis due to DM Obesity (BMI 30-39.9) Depression Anxiety Vitamin D deficiency Lumbar degenerative disc disease Benign essential hypertension Pure hypercholesterolemia Diabetic neuropathy rn long term care (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 of insulin 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, bilateral Surgical History Hx of colonoscopy History of esophagogastroduodenoscopy (EGD) History of carpal tunnel release History of surgery History of cholecystectomy History of partial hysterectomy History of repair of rotator cuff Family History Father Diabetes Mother Diabetes CVD (cardiovascular disease) Social History (Updated 05/11/24 @ 15:31 by Arianna Ayon RN) Household Members: None Caregiver staying overnight: No Housing: Apartment Are you a primary health care facilities inspector to a significant other at home: No Do you presently have visiting nurse or other home services: Yes ([employer] 4 x week) 75 years or older and lives alone: No Alcohol intake: never Patient Tobacco Use Status: Former Tobacco user Tobacco use type: Cigarette e-Cigarette/Vaping Use: Never Used Second Hand Smoke Exposure: Yes service: No Current occupational status: disabled Cognitive needs: No Hearing needs: No Vision needs: Yes Telehealth Telehealth Telehealth Platform: Telephone Location of provider rendering services: practice address Location of patient: address on file Patient Identification confirmed using: Name, : Yes Telehealth method: voice only Patient verbally consented to treatment: Yes Patient verbally consented to billing insurance company: Yes Patient informed of any privacy concerns related to visit: Yes Minutes spent on Phone/Video with Pt.: 20 Assessment & Plan Assessment & Plan (1) Obesity: Code(s): E66.9 - Obesity, unspecified Category: Medical Qualifiers: Obesity type: due to excess calories Obesity classification: adult class 2 (BMI 35 - 39.9) Serious obesity comorbidity presence: with serious comorbidity Body mass index: BMI 39.0-39.9 Qualified Code(s): E66.01 - Morbid (severe) obesity due to excess calories; Z68.39 - Body mass index [BMI] 39.0- 39.9, adult Plan: 1. Plan for lap sleeve gastrectomy including upper GI endoscopy. All tests has been completed and reviewed and the patient is cleared for the surgery. ?If diaphragmatic or ventral hernias are present at time of surgery, these will be repaired laparoscopically as well. Risks and complications were discussed in detail including possible conversion to an open procedure, anastomotic leak, bleeding requiring transfusion, small bowel obstruction, , DVT and pu lmonary embolism, cardiac, or pulmonary complications, as manager terminal complications such as anastomotic ulcer, insufficient weight loss and vitamin deficiencies. I emphasized the importance of close follow-up, adherence to instructions and good communication. So far she has proven to be an excellent communicator and very compliant with all our directions accomplishing a great weight loss. I believe that she is an excellent candidate and she is ready. 2. Preop prescriptions were provided and explained the purpose of each one. Need to be purchased preop. Start Pantoprazole now as you get it from the pharmacy, 1 pill per day. Sucralfate and Zofran are for after surgery as needed. 3. Bowel prep: please do 7 packets ?of Miralax mixing each one with a an 8oz glass of water, crystal light, gatorade zero, or propel ?on 05/15/24 and the same amount on 05/16/24. The Miralax you begin with one packet at a time in 8oz water or crystal light, gatorade zero, or propel ?as early in the day as you can and you do them back to back until you finish them. Continue the protein shakes during ?the bowel prep. 4. Needs to purchase 1oz medicine cups . 5. Needs to purchase Children's liquid Tylenol for postop pain control. 6. She needs to stop the Gabapentin on Wednesday05/14/24. Avoid aspirin, motrin, Advil, Aleve, Ibuprofen, Naproxyn. Tylenol is OK. 7. She needs to purchase the Celebrate 4:1 protein shakes from the hospital's gift shop. 8. Stop the Humolog. Continue with Toujeo 55 units per day. Let me know for any blood sugars over 150 or below 100. 9. Importance of adherence to postop folllow-up and recommendations was underscored and she understands that. 10. Continue to food and bars as and continue with e Celebrate REBUILD protein shakes (ONE scoop in 8oz almond milk) at 9am-11am, 12pm-2pm and 3pm-5pm and TWO more Celebrate REBUILD protein shake with TWO scoops in 8oz of almond milk at 6pm-8pm and 9pm-11pm 11. No soups, broths or V8 12. The patient's?medical?history has been reviewed and they are considered low risk for post op DVT and therefore DVT prophylaxis is not considered necessary. Travel after surgery was reviewed. The patient has not disclosed any travel plans during the first 30 days after surgery and they have been advised that within the first 30 days after surgery any bus, plane, train or car travel over 2 hours in duration is contraindicated due to the possibility of developing blood clots from immobility. Any travel, needs to include periods of ambulation of 10 minutes in duration every 2 hours.? Patient was instructed to discuss any plans for travel during this period with their bariatric surgeon.? 13. Measure your blood pressure daily as of tomorrow in the morning. If your blood pressure is: Less than 120/70: don't take the Losartan 121/71 to 130/85: take HALF Losartan Over 131/86: take the whole Losartan 14. Please take at the day of surgery the following medications: Losartan based on the above parameters 15. Stop any control pills and don't use them for one month after surgery 16. Absolutely no smoking or vaping, or marijuana until the surgery and for at least the first 4 weeks. Only nicotine patches are allowed. 17. Send me weight measurements today 05/12/24 and then on Wednesday05/17/24, the day of surgery before you go to the hospital. 18. Avoid any steroids by mouth for any reason. Let me know if someone prescribes them to you 19. These instructions supersede anything else you read in the handbook, anything you watched in videos or classes or you were told by any other provider. If there is any conflict, you follow the above instructions and nothing else.
[2024-05-12 10:48] VITALS: BMI 34.3
== END 2024-05-12 11:01 | disposition home or self-care (01) ==
LOC: HO.HBS 08:06
PROVIDERS: PCP Internal Medicine; Visit Provider Surgery
DX: E66.01 Morbid (severe) obesity due to excess calories (principal); Z68.39 Body mass index [BMI] 39.0-39.9, adult
CPT/HCPCS: 99213

== ENCOUNTER → 2024-05-12 08:06 | Outpatient (BNVA) | payer OTHER, SELFPAY | PROVIDERS: PCP Internal Medicine; Visit Provider Surgery ==

== ENCOUNTER 2024-05-17 07:22 | Inpatient (IN) | payer OTHER, SELFPAY ==
[2024-05-11 15:22] VITALS: BMI 34.1
--- NOTE | 2024-05-15 14:55 | HO.ANESPROP2 ---
Documented by User: Diane Butt NP 05/15/24 15:06 HPI - Anesthesia Eval Consult details Narrative: 64yo F for Gastrectomy Sleeve,EGD,possibel Diaphragmatic Hernia,possible Ventral Hernia,possible Open Preop cardiac w/u with cardiology recommending Nuc Stress. Dr Sheikh aware and not necessary - see preop note. [facility] Active Problems Active Problems: All Active Problems BMI 35.0-35.9,adult (Acute) Coronary artery disease due to type 2 diabetes mellitus (Acute) Diabetes mellitus, type II, insulin dependent (Acute) Gastroparesis (Acute) RBBB (Acute) SOB (shortness of breath) (Acute) Chest pain (Acute) Vertigo (Acute) MARTINEZ (nonalcoholic steatohepatitis) (Acute) Constipation (Acute) GERD (gastroesophageal reflux disease) (Acute) Obesity (Acute) Acquired hypothyroidism (Acute) Atherosclerotic cardiovascular disease (Acute) Diabetic nephropathy associated with type 2 diabetes mellitus (Acute) 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, bilateral (Acute) Hirsutism (Acute) Benign essential hypertension (Acute) Vitamin D deficiency (Acute) Depression (Acute) Anxiety (Acute) Lumbar degenerative disc disease (Acute) Pure hypercholesterolemia (Acute) Diabetic neuropathy (Acute) 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 (Acute) Past Medical History Medical History History of degenerative disc disease Back pain Peripheral neuropathy History of cardiac murmur Chronic constipation Abnormal EKG BMI 39.0-39.9,adult Obesity Hypertension Acquired hypothyroidism Acute bacterial bronchitis Atherosclerotic cardiovascular disease Breast cancer screening Subclinical hypothyroidism Acute cervical myofascial strain DM2 (diabetes mellitus, type 2) Rheumatic fever GERD (gastroesophageal reflux disease) Diabetic nephropathy associated with type 2 diabetes mellitus Hirsutism Dyslipidemia Type 2 diabetes mellitus with hyperglycemia, without long-term current use of insulin Type 2 diabetes mellitus with diabetic polyneuropathy Gastroparesis due to DM Obesity (BMI 30-39.9) Depression Anxiety Vitamin D deficiency Lumbar degenerative disc disease Benign essential hypertension Pure hypercholesterolemia Diabetic neuropathy 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, bilateral Family History Family History Father Diabetes Mother Diabetes CVD (cardiovascular disease) Surgical History Surgical History Hx of colonoscopy History of esophagogastroduodenoscopy (EGD) History of carpal tunnel release History of surgery History of cholecystectomy History of partial hysterectomy History of repair of rotator cuff Social History Social History Household Members: None Housing: Apartment Are you a primary healthcare science specialist to a significant other at home: No Do you 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 If so, by whom?: No Are you DNR?: No Advance Directives: No Advance Directives Information Provided: Yes Advance Directives on File: No Recently lost weight without trying: No Poor oral hygiene: No service: No Current occupational status: disabled Cognitive needs: No Hearing needs: No Vision needs: Yes Meds Allergies Allergy/AdvReac Type Severity Reaction Status Date / Time No Known Allergies Allergy Verified 05/11/24 15:29 Home Medications ?Medication ?Instructions ?Recorded ?Confirmed ?Last Taken ?Type insulin glargine U-300 conc 300 55 unit subcut DAILY 05/11/24 05/12/24 05/16/24 History unit/mL (3 mL) subcutaneous pen (Toujeo Max U-300 SoloStar) insulin lispro 200 unit/mL (3 mL) 34 - 50 unit subcut TID 05/11/24 05/12/24 Unknown History subcutaneous pen (Humalog KwikPen U-200 Insulin) semaglutide 1 mg/dose (4 mg/3 mL) mg subcut 05/17/24 05/05/24 History subcutaneous pen injector (Ozempic) Exam Height,Weight and Vital Signs: Height 5 ft 6 in Weight 95.708 kg Pertinent Lab Results Pertinent Lab Results: Laboratory Tests 05/08/24 07:51 Blood Type A Positive Antibody Screen NEGATIVE Laboratory Tests 05/08/24 08:11 WBC 7.6 Hgb 12.8 Hct 40.3 Plt Count 216 Sodium 143 Potassium 4.6 Chloride 106 Carbon Dioxide 28 BUN 15 Creatinine 0.75 Narrative Narrative: EKG 11/2023 Vent. Rate : 084 BPM Atrial Rate : 084 BPM P-R Int : 170 ms QRS Dur : 136 ms QT Int : 414 ms P-R-T Axes : 067 -04 016 degrees QTc Int : 489 ms Normal sinus rhythm Right bundle branch block Abnormal ECG When compared with ECG of 18-MAY-2023 03:00, T wave inversion improved in anterior leads ECHO 01/2024 Conclusions: - 1. Technically limited study 2. Hyperdynamic LV EF greater than 70% with impaired relaxation filling pattern 3. Limited visualization of cardiac valves with normal cardiac valvular Dopplers 4. Normal RV systolic pressure Exercise Stress 01/2024 Protocol: ISIDRO Max HR: 130 BPM 83% of Pred: 155 BPM Max BP: 192/038 mmHG Max Work Load: 4.8 METS Exercise stress test exercise 3 min 39 sec of Isidro protocol achieving 83% MPHR and 4.8 METS, with 8/10 chest pressure, with mild to moderate SOB, with htn response to exercise, without EKG changes. Chest pain and shortness of breath resolved with rest / recovery time of 6 min 48 sec[address]Test [address] with Dr[address] Cordero Recomnicho for further testing to order Lexiscan with nuclear images Assessment and Plan Assessment Anesthesia Assessment: Chart Reviewed Documented by User: Georgia Jiménez MD 05/17/24 10:25 HPI - Anesthesia Eval Consult details Narrative: 64yo F for EGD, Laparoscopic Sleeve Gastrectomy, possible Diaphragmatic Hernia repair, possible Ventral Hernia repair, possible Open Preop cardiac w/u with cardiology recommending Nuc Stress. Dr Sheikh aware and not necessary - see preop note. [facility] Past Medical History Medical History History of degenerative disc disease Back pain Peripheral neuropathy History of cardiac murmur Chronic constipation Abnormal EKG BMI 39.0-39.9,adult Obesity Hypertension Acquired hypothyroidism Acute bacterial bronchitis Atherosclerotic cardiovascular disease Breast cancer screening Subclinical hypothyroidism Acute cervical myofascial strain DM2 (diabetes mellitus, type 2) Rheumatic fever GERD (gastroesophageal reflux disease) Diabetic nephropathy associated with type 2 diabetes mellitus Hirsutism Dyslipidemia Type 2 diabetes mellitus with hyperglycemia, without long-term current use of insulin Type 2 diabetes mellitus with diabetic polyneuropathy Gastroparesis due to DM Obesity (BMI 30-39.9) Depression Anxiety Vitamin D deficiency Lumbar degenerative disc disease Benign essential hypertension Pure hypercholesterolemia Diabetic neuropathy 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, bilateral Family History Family History Father Diabetes Mother Diabetes CVD (cardiovascular disease) Family history of problems with anesthesia: No Surgical History Surgical History Hx of colonoscopy History of esophagogastroduodenoscopy (EGD) History of carpal tunnel release History of surgery History of cholecystectomy History of partial hysterectomy History of repair of rotator cuff History of Problems with Anesthesia: No Social History Social History Household Members: None Housing: Apartment Are you a primary healthcare science specialist to a significant other at home: No Do you 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 If so, by whom?: No Are you DNR?: No Advance Directives: No Advance Directives Information Provided: Yes Advance Directives on File: No Recently lost weight without trying: No Poor oral hygiene: No service: No Current occupational status: disabled Cognitive needs: No Hearing needs: No Vision needs: Yes Meds Allergies Allergy/AdvReac Type Severity Reaction Status Date / Time No Known Allergies Allergy Verified 05/11/24 15:29 Home Medications ?Medication ?Instructions ?Recorded ?Confirmed ?Last Taken ?Type insulin glargine U-300 conc 300 55 unit subcut DAILY 05/11/24 05/12/24 05/16/24 History unit/mL (3 mL) subcutaneous pen (Toujeo Max U-300 SoloStar) insulin lispro 200 unit/mL (3 mL) 34 - 50 unit subcut TID 05/11/24 05/12/24 Unknown History subcutaneous pen (Humalog KwikPen U-200 Insulin) semaglutide 1 mg/dose (4 mg/3 mL) mg subcut 05/17/24 05/05/24 History subcutaneous pen injector (Ozempic) Exam Height,Weight and Vital Signs: Height 5 ft 6 in Weight 95.708 kg Vital Signs Temp Pulse Resp BP Pulse Ox O2 Del Method 05/17/24 08:05 97.4 F 76 16 132/50 L 98 Room Air Pertinent Lab Results Pertinent Lab Results: Laboratory Tests 05/08/24 07:51 Blood Type A Positive Antibody Screen NEGATIVE Laboratory Tests 05/08/24 08:11 WBC 7.6 Hgb 12.8 Hct 40.3 Plt Count 216 Sodium 143 Potassium 4.6 Chloride 106 Carbon Dioxide 28 BUN 15 Creatinine 0.75 Laboratory Results - last 24 hr 05/17/24 08:58 POC Glucose 94 Narrative Narrative: EKG 11/2023 Vent. Rate : 084 BPM Atrial Rate : 084 BPM P-R Int : 170 ms QRS Dur : 136 ms QT Int : 414 ms P-R-T Axes : 067 -04 016 degrees QTc Int : 489 ms Normal sinus rhythm Right bundle branch block Abnormal ECG When compared with ECG of 18-MAY-2023 03:00, T wave inversion improved in anterior leads ECHO 01/2024 Conclusions: - 1. Technically limited study 2. Hyperdynamic LV EF greater than 70% with impaired relaxation filling pattern 3. Limited visualization of cardiac valves with normal cardiac valvular Dopplers 4. Normal RV systolic pressure Exercise Stress 01/2024 Protocol: ISIDRO Max HR: 130 BPM 83% of Pred: 155 BPM Max BP: 192/038 mmHG Max Work Load: 4.8 METS Exercise stress test exercise 3 min 39 sec of Isidro protocol achieving 83% MPHR and 4.8 METS, with 8/10 chest pressure, with mild to moderate SOB, with htn response to exercise, without EKG changes. Chest pain and shortness of breath resolved with rest / recovery time of 6 min [address] Cordero Recommend for further testing to order Lexiscan with nuclear images Airway Mallampati Class: II TM Dist: >3cm Neck ROM: Full Denture: Upper Loose/Missing/Broken Teeth: Yes (No teeth top. Denies broken or loose teeth bottom) Heart: RRR Lungs: CTAB Assessment and Plan Assessment Anesthesia Assessment: Anesthesia Plan Discussed and Chart Reviewed Final Anesthetic Review Family History of Problems with Anesthesia: No History of Problems with Anesthesia: No NPO: Yes ASA Class: III Final Preanesthetic Review: No Changes in Pt Med Stat, Meds/Allgs Chart Reviewed, Consent Obtained/Reviewed and Anes Risks/Benef Reviewed Patient Risk: Intermediate Procedure Risk: Intermediate Assessment/Block/Sedation in SS: Assess/Block/Sedation-SS Anesthetic Plan Anesthetic Plan: GA Disposition: Standard PACU and Inp. Admit - Standard Bed
[2024-05-17] VITALS (12 sets, daily range): BP systolic 119–149; BP diastolic 50–84; PULSE 68–76; RESP 13–20; TEMP 36–36.7; O2SAT 95–100; BMI 32.9
[2024-05-17] MEDS: Lactated Ringers 1,000 ML 999 ML IV (08:53)
[2024-05-17] MEDS: Aprepitant 32 MG/4.4 ML VIAL IVPUSH (08:54)
[2024-05-17 09:02] LABS: Glucose, Whole Blood 94 mg/dL (60-115)
--- NOTE | 2024-05-17 09:11 | MHC.SHP ---
Pre-Procedural Eval Section A - 24 Hr Update-Section A only Date of Service: 05/17/24 The patient is an INPATIENT: Yes The patient has been examined within 24 hours of the surgical procedure. The History & Physical has been completed within 30 days and I have reviewed it.: Yes Section B - Complete if H&P > 30 days Chief Complaint: Obesity Relevant Family History (Specify if Yes): No Relevant Social History: None Present Medications: None Medical History: No relevant PMH History of Previous Operations: No relevant previous surgery Allergies: Allergies Allergy/AdvReac Type Severity Reaction Status Date / Time No Known Allergies Allergy Verified 05/11/24 15:29 Review of Systems Sugical H&P ROS: Negative: Constitution, Cardiovascular, Respiratory, Neurological, Psychiatric, Hem-Onc, Allergic/Immunologic, Gastrointestinal, Genitourinary, Musculoskeletal, Integumentary, Endocrine and Eyes/Ears/Nose/Throat Exam Surgical H&P Exam: Normal: HEENT, Normal: Heart, Normal: Lungs, Normal: Extremities, Normal: Abdomen, Normal: Skin and Normal: Neurological Plan Diagnosis/Plan: Unchanged I have reviewed the history and physical and performed a pertinent physical examination on my patient. No changes have occurred unless specified. Time Spent With Patient Time: Total time managing care of this patient today ____ minutes.
--- NOTE | 2024-05-17 09:15 | PM.OP ---
Brief Operative Note Date of Service: 05/17/24 Pre-op diagnosis: Severe obesity with comorbidities (see below) Post-op diagnosis: same Procedure: INITIAL PATIENT BMI ON PRESENTATION AT OUR OFFICE: 39.3 kg/m2 LAST BMI BEFORE SURGERY: 35.5 kg/m2 COMORBIDITIES: insulin dependent diabetes, hypertension, hyperlipidemia, GERD, hypothyroidism, depression, anxiety, gastroparesis, liver steatosis ?The patient presented to the Weight Management Program with significant obesity that was negatively impacting the patient's comorbidities as listed above.? The program is a phased program with a special focus on preoperative medical weight management to promote substantial weight loss and prepare the patients for the second phase of the program: bariatric surgery. The patient participated in an intensive weekly lifestyle ?intervention and exercise program during which the patient ?has lost between the initial office visit and the last preoperative visit 30.4 lbs, or 12.68% of initial actual body weight. It was deemed appropriate for the patient to now have bariatric surgery. In light of the current Covid-19 pandemic and the well documented strong association of obesity and increased risk of worse outcomes if infected with Covid-19 (REFERENCES:https://pubmed.ncbi.nlm.nih.gov/09983832/,?https://pubmed.ncbi.nlm.nih.gov/90143196/), any delay in undergoing bariatric surgery may lead to the patient's worsening health condition and increased?risk of more severe Covid-19 disease if infected. In addition a recent?study from [facility] published in [facility] on 08/25/2021 ([email or web address]) found that, among patients with obesity, substantial weight loss achieved with surgery was associated with improved outcomes of COVID-19 infection. The findings suggest that obesity can be a modifiable risk factor for the severity of COVID-19 infection. In addition, the patient met the BMI-criteria for bariatric surgery based on the BMI on initial presentation. The patient should not be penalized for achieving such weight loss because ?it is not sustainable long-term without surgical intervention and it was achieved in preparation for bariatric surgery ?under my direction and based on my published research ([email or web address] and?https://www.soard.org/article/W1522-7804(24)28978-X/pdf) ?that a 10% preoperative weight loss improves long-term weight loss after surgery and reduces perioperative complications.? Insurance carriers such as [facility] have endorsed my recommendations ?and have included in their policies criteria to include a 10% preoperative weight loss requirement. PROCEDURE: Esophago-gastroscopy, laparoscopic sleeve gastrectomy and laparoscopic gastropexy INDICATIONS: This is a 64 year-old female who was electively scheduled for laparoscopic, possibly open sleeve gastrectomy. The risks and complications of the procedure were discussed with the patient in advance, particularly the possibility of ; pulmonary embolism; staple line leak; bleeding; GERD; cardiac, pulmonary, or renal complications; as well as long-term problems such as insufficient weight loss, vitamin deficiency, strictures, or ulcers. The patient understood all the risks, and was in agreement to proceed with surgery. DESCRIPTION OF PROCEDURE: After informed consent was obtained from the patient, the patient was given preoperative antibiotics, and was transferred to the operating room. After successful induction of general anesthesia, pneumatic compression devices were placed on both lower extremities. An upper endoscopy was performed next. The oropharynx and esophagus appeared to be within normal limits. There was no diaphragmatic hernia present. The stomach was entered. Then after all fluid and air were suctioned and the stomach was fully decompressed, the scope was withdrawn and secured in the mid esophagus. The patient was then prepped and draped in the usual sterile manner, and abdominal access was established at the right upper quadrant with the Julee technique. A 12 mm blunt port was inserted, and the abdomen was insufflated with CO2 to a pressure of 15 mmHg. Under direct visualization, additional ports were placed, specifically two 5 mm Versi-step ports to the left upper quadrant, and a 5 mm Versi-Step port to the right upper quadrant. 1% lidocaine plain was used to infiltrate all port sites as well as all fascia defects. There were adhesions in the mid-abdomen involving the omentum and the anterior abdominal wall. Those were left intact as they did not interfere with our procedure. Following that, the patient was placed in a steep reverse Trendelenburg position. An additional 5 mm port was placed to the right flank for the Mediflex retractor that was used to retract the left lobe of the liver. The gastro-esophageal fat pad was opened with the ultrasonic device (Thunderbeat, Olympus) and the anterior esophagus and hiatus were exposed. The angle of His was opened with the ultrasonic device the fundus of the stomach from any diaphragmatic and splenic attachments. I then opened the gastrocolic ligament between the transverse colon and the greater curvature of the stomach with the ultrasonic device to enter the lesser sac and facilitate the ligation of the short gastric vessels. I started at a mid-point along the greater curvature and using the Thunderbeat, all short gastric vessels were divided all the way to the angle of His until the left mary jane was completely dissected at its entirety. I then divided the gastro-colic ligament distally to a distance of about 3-4 cm proximal to the pylorus. The stomach was then divided transversely with one Endo SERENA-45 purple, two SERENA-60 purple, one SERENA-45 orange load and two SERENA-60 articulating orange loads using the SIGNIA stapler and SIGNIA and AEON loads. Every effort was made that the gastric sleeve had a tubular shape and an even caliber throughout. Once the sleeve resection was completed, the staple line of the gastric sleeve was reinforced with Hemoclips. The resected stomach was retrieved without difficulty from the Julee port. A gastropexy was then performed in order to prevent postoperative GERD and partial gastric volvulus. Several interrupted 2.0 Surgidac sutures were placed between the sleeve's staple line and the previously divided greater omentum and gastro-colic ligament using the Endo-Stitch device. ?An upper endoscopy was performed. There was no narrowing at the GE junction. The scope was easily advanced all the way to the pylorus which was clearly visualized. There was no narrowing anywhere and the sleeve's caliber was even throughout. The sleeve's staple line was inspected and there was no evidence of ischemia, bleeding or dehiscence. At that point the gastroscope was withdrawn from the patient?s mouth while we were decompressing the bowel and the stomach from any remaining air. I looked into the lesser sac to see how the sleeve was situating and it was situating well. There was no bleeding from the staple line, spleen, or short gastric vessels. The Mediflex retractor was removed, and the undersurface of the liver was inspected and there was no bleeding. The patient was placed in supine position. I closed the fascial defect of the 12 mm port site with a figure of eight #1 Polysorb suture. Then 30cc Ropivacaine plain with 10 mg of Dexamethasone were used to infiltrate the fascial closure as well as all skin incisions. At this point, the abdomen was deflated, all ports were removed under direct vision, and no bleeding was noted from any of the port sites. The skin incisions were irrigated with saline and were closed with 4-0 absorbable monofilament sutures. Steri-Strips and OpSites were used to cover all incisions. The patient was extubated and was transferred in stable condition to the recovery room for further care. I was present and performed all arellano parts of the procedure. Ms. Lugo was the environmental services assistant. There were no residents to assist with this case. Jonathan Coello MD, PhD, FACS Surgeon: Karl Coello MD Anesthesia: GETA, local and other (TAP block) Was an Xerox Machine Mechanic used for this Procedure?: No Xerox Machine Mechanic: Blossom Lugo Estimated blood loss (mL): 10 IV fluids (mL): 3,000 Urine output (mL): 0 (No Nur to record output) Pathology: other (Stomach) Condition: stable Disposition: PACU
--- NOTE | 2024-05-17 09:20 | P.PNGS_ITS ---
Subjective Subjective Date of Service: 05/18/24 Interval history: Feels well. Mild incisional pain. She is tolerating phase 1 bariatric diet Physical Exam 2 Vital Signs: Vital Signs: Last Vital Signs Temp 97.4 F 05/17/24 08:05 Pulse 76 05/17/24 08:05 Resp 16 05/17/24 08:05 BP 132/50 L 05/17/24 08:05 Pulse Ox 98 05/17/24 08:05 O2 Del Method Room Air 05/17/24 08:05 BMI result Body Mass Index 32.9 GI: Inspection: Yes normal to inspection, Yes incision (clean, dry and intact) and Yes obesity Palpation (GI): Soft to palpation Extrem: Right lower extremity: normal to inspection (no calf tenderness) L eft lower extremity: normal to inspection (no calf tenderness) Objective Data Active Medications Albuterol Sulfate (Albuterol Sulfate (0.083%) 2.5 Mg/3 Ml Vial.Neb) 2.5 mg INHALE ONCE PRN PRN Reason: Shortness of Breath/Wheezing Lactated Ringer's (Lr) 1,000 mls @ 100 mls/hr IVCONT .Q10H CANDACE Lactated Ringer's (Lr) 1,000 mls @ 999 mls/hr IV .Q1H1M CANDACE Stop: 05/17/24 09:30 Last Admin: 05/17/24 08:53 Dose: 999 mls/hr Documented By: VICKY Labs 05/18/24 05:54 05/18/24 05:53 Labs: Laboratory Results - last 24 hr 05/17/24 08:58 POC Glucose 94 Procedures Date of Service Date of Service: 05/18/24 Progress Note: A&P Assessment and plan (1) Obesity: Status: Acute Assessment and Plan: s/p laparoscopic sleeve gastrectomy and gastropexy Doing well Will check am labs and if OK the patient will be discharged home (2) BMI 35.0-35.9,adult: Status: Acute (3) Coronary artery disease due to type 2 diabetes mellitus: Status: Acute (4) Diabetes mellitus, type II, insulin dependent: Status: Acute (5) Gastroparesis: Status: Acute (6) RBBB: Status: Acute (7) MARTINEZ (nonalcoholic steatohepatitis): Status: Acute (8) GERD (gastroesophageal reflux disease): Status: Acute (9) Acquired hypothyroidism: Status: Acute (10) Anxiety: Status: Acute (11) Diabetic neuropathy: Status: Acute (12) S/P laparoscopic sleeve gastrectomy: Status: Acute Time Spent With Patient Time: Total time managing care of this patient today ____ minutes. Quality Stroke Does the patient have a stroke diagnosis?: No VTE Prior VTE?: No VTE Risk Level:: Surgical - moderate VTE Device Contraindication: N/A - Device Ordered VTE Drug Contraindication: Treatment Not Indicated
--- NOTE | 2024-05-17 12:32 | PM.DS ---
DS: Providers Provider Date of Service: 05/18/24 Date of admission: 05/17/24 07:22 Primary care physician: Fish Lomeli MD DS: Diagnosis Discharge Diagnosis (1) Obesity: Status: Acute (2) Coronary artery disease due to type 2 diabetes mellitus: Status: Acute (3) Diabetes mellitus, type II, insulin dependent: Status: Acute (4) Gastroparesis: Status: Acute (5) RBBB: Status: Acute (6) MARTINEZ (nonalcoholic steatohepatitis): Status: Acute (7) GERD (gastroesophageal reflux disease): Status: Acute (8) Acquired hypothyroidism: Status: Acute (9) Anxiety: Status: Acute (10) Diabetic neuropathy: Status: Acute DS: Summary Hospital Course Hospital Course: ADMITTING DIAGNOSIS: morbid obesity,?CAD, IDDM, RBBB, MARTINEZ, GERD, constipation, hypothyroid, HTN, anxiety/depression, HLD, gastroparesis, vertigo ? DISCHARGE DIAGNOSIS: same, s/p laparoscopic sleeve gastrectomy and gastropexy ? PAST SURGICAL HISTORY:? Hx of colonoscopy History of esophagogastroduodenoscopy (EGD) History of carpal tunnel release History of cholecystectomy History of partial hysterectomy History of repair of rotator cuff ? PROCEDURE: upper endoscopy, laparoscopic sleeve gastrectomy and gastropexy ? DISCHARGE SUMMARY: ? History of Present Illness: ? The patient is a? 64? year-old woman with a BMI of? ?32.9 ? kg/m2 and associated co-morbidities as described above. The patient had extensive work-up, lost? ?35.5 ? lbs preoperatively and was electively scheduled for laparoscopic, possible open sleeve gastrectomy and gastropexy. Risks and complications of the surgery were discussed with the patient in advance, particularly the possibility of , pulmonary embolism, anastomotic leak, bleeding, bowel injury, GERD, cardiac, renal or pulmonary complications. The patient understood all the risks and was in agreement with the surgical plan. ? Hospital Course: ? The patient underwent an uneventful laparoscopic sleeve gastrectomy with gastropexy on the day of admission. Postoperatively, the patient was transferred to the surgical floor. The patient received IV Acetaminophen and IV dilaudid for pain control. Patient was started on bariatric phase 1 diet POD #0. On postoperative day one, the patient was feeling well without nausea, vomiting, fevers, or tachycardia. The patient had some mild incisional pain and the abdomen was soft.? ? On the morning of postoperative day one, the patient was continued on 1 ounce of water or ice every half hour. During the day, the patient did fairly well, having some incisional pain, but able to ambulate adequately and to tolerate liquids well. ? Since the patient is doing well, we decided that the patient was ready to be discharged. The patient was given instructions to follow-up with me next week and to call my office for any fever over 101, persistent abdominal pain, nausea, vomiting, GERD, symptoms of DVT such as calf tenderness, or leg swelling, or pulmonary embolism such as chest pain or shortness of breath.? The patient was also instructed to drink 40-60 ounces of liquids per day using the 1-ounce cups. The patient had been given prescriptions for Tylenol for pain, Zofran prn for nausea, and pantoprazole and carafate previously. The patient was encouraged to ambulate and use the incentive spirometer. The patient was allowed to shower, but no baths, and encouraged to stay active at home. All of these instructions were given to the patient personally. All questions were answered and the patient understood all instructions, the instructions were also given to the patient in print. Time Attestation Total time managing care of this patient today: 30 mintues. Discharge Coordination Time (in mins): 30 Quality: Safe Use of Opioids Does Pt have an Active Cancer Diagnosis on the Problem List?: No Quality: Stroke Does the patient have a stroke diagnosis?: No Physical Exam Vital Signs: Vital Signs: Last Vital Signs Temp 97.2 F 05/17/24 12:20 Pulse 70 05/17/24 12:20 Resp 14 05/17/24 12:20 BP 141/62 H 05/17/24 12:20 Pulse Ox 99 05/17/24 12:20 O2 Del Method Simple Mask 05/17/24 12:20 O2 Flow Rate 6 05/17/24 12:20 BMI result Body Mass Index 32.9 DS: Data Data Completed and Pending Pending studies at discharge: Pending at discharge 05/17/24 11:52 Surgical [PTH] Routine Labs on day of discharge: Laboratory Results - last 24 hr 05/17/24 08:58 POC Glucose 94 Discharge Plan Discharge Anticipated Discharge Date/Time: 05/18/24 10:00 Patient Disposition: Home, Self-Care Discharge Diagnosis: s/p laparoscopic sleeve gastrectomy Referrals: Fish Lomeli MD [Primary Care Provider] - 1 Week Discharge Medications: Continued gabapentin 300 mg capsule 300 mg PO TID Qty: 90 5RF (DME) blood-glucose meter [OneTouch Ultra2 Meter] Misc See Rx Instructions .Route Qty: 1 0RF Rx Instructions: As directed (DME) OneTouch Ultra Test Strip See Rx Instructions .Route Qty: 100 4RF Rx Instructions: As directed checks 4 X/day (DME) lancets [OneTouch UltraSoft 2 Lancet] 30 gauge misc See Rx Instructions .Route Qty: 100 4RF Rx Instructions: As directed tests 4 X/day atorvastatin 80 mg tablet 80 mg PO BEDTIME Qty: 90 2RF (DME) pen needle, diabetic [BD Ultra-Fine Micro Pen Needle] 32 gauge x 1/4 needle See Rx Instructions .ROUTE .COMPLEX Qty: 100 11RF Dose Instruction: USE DIRECTED THREE TIMES A DAY Rx Instructions: USE DIRECTED THREE TIMES A DAY lorazepam 1 mg tablet 1 mg PO BID PRN (Reason: anxiety) 30 Days Qty: 60 0RF pantoprazole 40 mg tablet,delayed release (DR/EC) 40 mg PO DAILY Qty: 90 0RF sucralfate 100 mg/mL suspension 10 ml PO BID Qty: 600 2RF ondansetron 4 mg tablet,disintegrating 4 mg PO Q12H Qty: 20 0RF Humalog KwikPen Insulin 200 unit/mL (3 mL) insulin pen 34 - 50 unit subcut TID levothyroxine 50 mcg tablet 50 mcg PO DAILY@0600 Linzess 145 mcg capsule 145 mcg PO DAILY losartan 100 mg tablet 100 mg PO DAILY Qty: 30 5RF Rx Instructions: per instructions per Dr Sheikh bisacodyl 5 mg tablet,delayed release (DR/EC) 5 - 10 mg PO DAILY PRN (Reason: constipation) 30 Days Qty: 60 6RF Rx Instructions: Take 1-2 tablets by mouth once a day as needed for constipation metoclopramide HCl 10 mg tablet 10 mg PO TID Qty: 90 6RF Discontinued cholecalciferol (vitamin D3) 50 mcg (2,000 unit) capsule 50 mcg PO DAILY Qty: 30 11RF insulin glargine U-300 conc [Toujeo Max U-300 SoloStar] 300 unit/mL (3 mL) insulin pen 55 unit subcut DAILY Ozempic 2 mg/dose (8 mg/3 mL) pen injector 2 mg subcut FR omeprazole 40 mg capsule,delayed release(DR/EC) 40 mg PO DAILY Qty: 30 6RF Discharge Orders: Discharge Order (Routine); Ordered 05/18/24 Ordered By: Alessio Chaidez Activity on Discharge: No heavy lifting Stand Alone Forms: Patient Portal Discharge page Print Language: Cameroonian Care Plan Goals: weight loss Health Concerns: obesity Plan of Treatment: No tub baths, sex or returning to work until discussed at first post op appointment. No alcohol, tobacco or illegal drug use. Continue to use incentive spirometer hourly while awake. Walk in home for 5- 10 minutes every 2 hours during the first week. Wear abdominal binder with activity. Follow all meal plan instructions from your bariatric surgeon. Review bariatric handbook and call with any questions. Discharge Instructions 1. Please call your doctor or come back to the emergency room should any new symptoms arise. 2. Activity: abstain from alcohol,? limited stair climbing, no bending, no driving, no exercise, no illicit substances, no lifting, no sex, no tub bath, no work. 4. Diet: follow your bariatric surgeons recommendations for advancing diet. 5. Dressing Change/Wound Care: Your incisions are covered with waterproof dressings. You can shower with these and pat dry. Do not rub over dressings or incisions. If the area is tender, you may apply an ice pack for short intervals (no more than 20 minutes on, followed by at least 20 minutes off). Do not apply heat. Do not use creams, lotions, or topical antibiotics unless instructed to do so by your surgeon. 6. Call your doctor if: - Your temperature exceeds 101.5 F - You experience excessive pain or swelling - You have an unexpected reaction to medication - You have excessive bleeding - You experience continued vomiting/nausea - Your incision begins to separate - Your incision shows signs of infection such as increased redness, swelling, excessive pain, heat, or drainage (light blood or clear fluid is normal) General instructions: No lifting greater than 10 lbs for the next 6 weeks[address] driving within 24 hours of taking narcotic pain medications. If you do not move your bowels in the next 2 days, please take milk of magnesia over the counter. Please follow the post op diet and do not advance your diet until you are seen in the office in about 2 weeks. Please walk around your home every hour or two to prevent blood clots from forming in your legs. You do not need to wake from sleeping to walk. Please sleep in a bed or couch to prevent kinking at the hips and knees. Please take your incentive spirometer (your lung pipe coverer) home with you and use it for the next few days to prevent pneumonias. You may shower, no hot tubs, baths or swimming pools. Please call the office with any questions or concerns such as increasing abdominal pain, fever, chills, shortness of breath, chest pain, leg pain or swelling, or redness or drainage from your incisions. Please make sure you are consuming 40-60 ounces of total fluids per day. Avoid all carbonation. Do not hesitate to contact the office with any questions at . The patient's medical history has been reviewed and they are considered low risk for post op DVT and therefore DVT prophylaxis is not considered necessary. Travel after surgery was reviewed. The patient has not disclosed any travel plans during the first 30 days after surgery and they have been advised that within the first 30 days after surgery any bus, plane, train or car travel over 2 hours in duration is contraindicated due to the possibility of developing blood clots from immobility. Any travel, needs to include periods of ambulation of 10 minutes in duration every 2 hours.? The patient was instructed to discuss any plans for travel during this period with their bariatric surgeon. Assessment: s/p laparoscopic sleeve gastrectomy with gastropexy Discharge Date/Time: 05/18/24 13:22
[2024-05-17 13:39] LABS: Hematocrit 41.4 % (37.0-47.0); Hemoglobin 13.5 g/dl (12.0-16.0)
[2024-05-17 13:45] LABS: Anion Gap 17 (12-20); Blood Urea Nitrogen 12 mg/dL (9-16); Calcium 9.9 mg/dL (8.4-10.2); Carbon Dioxide 21 mmol/L (22-29); Chloride 106 mmol/L (96-108); Creatinine Clr Calc Pharmacy 74.5; Estimated Glomerular Filt Rate > 60; Glucose Random 166 mg/dL (60-115); Potassium 4.9 mmol/L (3.3-5.1); Sodium 139 mmol/L (135-145)
[2024-05-17 14:10] LABS: Glucose, Whole Blood 172 mg/dL (60-115)
[2024-05-17] MEDS: Lactated Ringers 1,000 ML 100 ML IVCONT (14:10)
[2024-05-17] MEDS: Insulin Lispro 100 UNIT/ML 3 ML VIAL SUBCUT ×3 (14:27→21:13)
--- NOTE | 2024-05-17 14:38 | PHA.MEDREC ---
Pharmacy Consult ? Medication Reconciliation Pharmacy has reviewed the medication reconciliation done by nursing. Spoke to patient to confirm med list. Patient confirm Humalog KwikPen is 34-50 units daily and Toujeo Max u-300 solostar is 55 units tid, Ozempic is every Wednesday, last dose was 05/12/24. Patient states she has both Omeprazole 40 mg and Pantoprazole 40 mg. Patient said I will take one or the other but not take both together. One day I will take omeprazole and not pantoprazole, another day I will take pantoprazole and not take omeprazole.
--- NOTE | 2024-05-17 14:54 | PHA.MEDREC ---
Addendum entered by Eliot Pedersen RPh 05/17/24 14:56: Med rec was reviewed by [facility]. Original Note: Pharmacy Consult ? Medication Reconciliation Pharmacy has completed the medication reconciliation. Spoke to patient to confirm med list. Patient confirm Humalog KwikPen is 34-50 units Tid and Toujeo Max u-300 solostar is 55 units Daily, Ozempic is every Wednesday, last dose was 05/12/24. Patient states she has both Omeprazole 40 mg and Pantoprazole 40 mg. Patient said I will take one or the other but not take both together. One day I will take omeprazole and not pantoprazole, another day I will take pantoprazole and not take omeprazole.
[2024-05-17] MEDS: Metoclopramide HCl 10 MG/2 ML VIAL IVPUSH (15:34)
[2024-05-17] MEDS: ceFAZolin Sodium/Dextrose,Iso 2 GM/50 ML PIGGYBACK IV (15:37)
[2024-05-17] MEDS: Acetaminophen 1,000 MG/100 ML PIGGYBACK 16.7 MG IV ×2 (16:23→21:14)
[2024-05-17 17:01] LABS: Glucose, Whole Blood 191 mg/dL (60-115)
[2024-05-17] MEDS: Atorvastatin Calcium 80 MG TABLET PO (19:40)
[2024-05-17] MEDS: Famotidine/PF 20 MG/2 ML VIAL IVPUSH (19:43)
[2024-05-17] MEDS: 0.9 % Sodium Chloride Flush 3 ML SYRINGE IVFLUSH (19:43)
[2024-05-17] MEDS: ondansetron HCL 4 MG/2 ML VIAL IVPUSH (20:14)
[2024-05-17 21:04] LABS: Glucose, Whole Blood 215 mg/dL (60-115)
[2024-05-18 00:47] LABS: Glucose, Whole Blood 205 mg/dL (60-115)
[2024-05-18] MEDS: Insulin Lispro 100 UNIT/ML 3 ML VIAL SUBCUT ×4 (00:48→12:37)
[2024-05-18] MEDS: Lactated Ringers 1,000 ML 100 ML IVCONT ×2 (00:49→10:55)
[2024-05-18] MEDS: Acetaminophen 1,000 MG/100 ML PIGGYBACK 16.7 MG IV ×2 (03:03→09:17)
[2024-05-18 03:50] VITALS: BP 116/55; PULSE 74; RESP 18; TEMP 36.3; O2SAT 95
[2024-05-18 04:52] LABS: Glucose, Whole Blood 179 mg/dL (60-115)
[2024-05-18] MEDS: Levothyroxine Sodium 50 MCG TABLET PO (05:01)
[2024-05-18] MEDS: Metoclopramide HCl 10 MG/2 ML VIAL IVPUSH (05:58)
[2024-05-18 06:35] LABS: MANUAL DIFF FLAG NO
[2024-05-18 06:58] LABS: Hematocrit 38.6 % (37.0-47.0); Hemoglobin 12.7 g/dl (12.0-16.0); Imm Gran Abs Auto 0.04 X10*3/uL (0.00-0.03); Imm Gran Pct Auto 0.4 % (0.0-0.4); Lymphocytes Absolute Auto 1.5 X10*3/uL (1.2-4.9); Lymphocytes Percent Auto 14.6 % (20-40); Mean Corpuscular HGB Conc 32.9 g/dl (31.0-35.0); Mean Corpuscular Hemoglobin 28.7 pg (27.0-33.0); Mean Corpuscular Volume 87.3 fL (80.0-98.0); Monocytes Absolute Auto 0.6 X10*3/uL (0.1-1.2); Monocytes Percent Auto 5.6 % (2-11); Neutrophils Absolute Auto 7.9 x10*3/uL (2.0-8.3); Neutrophils Percent Auto 79.4 % (45-73); Platelet Count 205 X10*3/uL (160-400); Red Blood Count 4.42 X10*6/uL (4.20-5.50); Red Cell Distribution Width 12.8 % (11.0-16.0)
[2024-05-18 07:11] LABS: Anion Gap 14 (12-20); Blood Urea Nitrogen 9 mg/dL (9-16); Calcium 9.5 mg/dL (8.4-10.2); Carbon Dioxide 24 mmol/L (22-29); Chloride 105 mmol/L (96-108); Creatinine Clr Calc Pharmacy 83.4; Estimated Glomerular Filt Rate > 60; Glucose Random 191 mg/dL (60-115); Potassium 4.1 mmol/L (3.3-5.1); Sodium 139 mmol/L (135-145)
[2024-05-18] MEDS: Famotidine/PF 20 MG/2 ML VIAL IVPUSH (07:34)
[2024-05-18] MEDS: 0.9 % Sodium Chloride Flush 3 ML SYRINGE IVFLUSH (07:34)
[2024-05-18 07:39] VITALS: BP 116/56; PULSE 74; RESP 18; TEMP 36.7; O2SAT 96
[2024-05-18 08:42] LABS: Glucose, Whole Blood 196 mg/dL (60-115)
--- NOTE | 2024-05-18 11:02 | MHC.CM.PN ---
Addendum entered by Jackie Gallegos 05/18/24 12:24: DP: PT HAS BEEN MEDICALLY CLEARED FOR DC HOME, NO SERVICES. S/O WILL TRANSPORT Original Note: [facility] DELIVERED PT LIVES ALONE. HAS CANE/ROLLATOR BUT ONLY USES NEEDED. HAS 8 HRS/CEO AND CO FOUNDER HELP PER WEEK THROUGH [facility]. +HCP PCP DR. HARRIS. DP: HOME WITH RESUMPTION OF CEO AND CO FOUNDER SERVICES IS THE GOAL. S/O WILL TRANSPORT. CM WILL CONTINUE TO FOLLOW FOR ANY CHANGE IN DC PLAN/NEEDS.
--- NOTE | 2024-05-18 11:25 | HO.POSTANES ---
Post Anesthesia Evaluation Post Anesthesia Evaluation Date of Service: 05/17/24 Vital Signs: Vital Signs Temp Pulse Resp BP Pulse Ox O2 Del Method 05/18/24 10:26 Room Air 05/18/24 07:39 98.1 F 74 18 116/56 L 96 Room Air 05/18/24 03:50 97.3 F 74 18 116/55 L 95 Room Air 05/17/24 23:42 98.0 F 72 18 119/59 L 96 Room Air Anesthesia: General Mental Status: Awake Pain Control: Satisfactory Nausea/Vomiting: None Hydration: Adequate Anesthesia-Related Issues: No Anes. Related Issues
[2024-05-18 11:45] VITALS: BP 135/60; PULSE 67; RESP 18; TEMP 37.2; O2SAT 99
[2024-05-18 12:32] LABS: Glucose, Whole Blood 166 mg/dL (60-115)
== END 2024-05-18 13:22 | disposition home or self-care (01) | DRG 621 ==
LOC: HO.SSSA 12:32 → HO.S3 12:42
PROVIDERS: Physician Assistant Surgical; Admitting Provider Surgery; PCP Internal Medicine; Visit Provider Surgery
PROC: 0DB64Z3 Excision of Stomach, Percutaneous Endoscopic Approach, Vertical (ICD-10-PCS; CPT 43845; principal; 2024-05-17 08:50)
DX: E66.01 Morbid (severe) obesity due to excess calories (principal); E11.42 Type 2 diabetes mellitus with diabetic polyneuropathy; Z68.35 Body mass index [BMI] 35.0-35.9, adult; I10 Essential (primary) hypertension; E78.5 Hyperlipidemia, unspecified; K21.9 Gastro-esophageal reflux disease without esophagitis; E03.9 Hypothyroidism, unspecified; F32.A Depression, unspecified; K75.81 Nonalcoholic steatohepatitis (NASH); F41.9 Anxiety disorder, unspecified; E11.43 Type 2 diabetes mellitus with diabetic autonomic (poly)neuropathy; K31.84 Gastroparesis; Z87.891 Personal history of nicotine dependence; Z79.4 Long term (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 of insulin; Z79.890 Hormone replacement therapy; Z79.899 Other long term (current) drug therapy
CPT/HCPCS: 36415; 80048; 82947; 85014; 85018; 85025; 86850; 86900; 86901; 88304; 88307; 88342; A4649; C9145; J0131; J0690; J1100; J1170; J2250; J2405; J2704; J2765; J2795; J3010; J7120

== ENCOUNTER → 2024-05-17 07:22 | Outpatient (BNV) | payer OTHER, SELFPAY | PROVIDERS: Admitting Provider Surgery; PCP Internal Medicine; Visit Provider Surgery | DX: E66.01 Morbid (severe) obesity due to excess calories (principal); Z68.39 Body mass index [BMI] 39.0-39.9, adult; E11.59 Type 2 diabetes mellitus with other circulatory complications; Z79.4 Long term (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 of insulin | CPT/HCPCS: 43659; 43775; 99024; 99499 ==

== ENCOUNTER 2024-05-20 20:35 | Emergency (ER) | payer OTHER, SELFPAY ==
--- NOTE | 2024-05-20 20:41 | ED_ITS ---
HPI - General Adult General Chief complaint: General Medical Stated complaint: white tongue,sore throat had tube in for surgery Time Seen by Provider: 05/20/24 22:23 Source: patient Mode of arrival: ambulatory Limitations: no limitations History of Present Illness ED Provider: lane FROST narrative: Patient is status post gastric sleeve surgery on 05/17 comes here as she feels pain in her throat with slight running nose no cough no shortness a breath Related Data Home Medications ?Medication ?Instructions ?Recorded ?Confirmed insulin lispro 200 unit/mL (3 mL) 34 - 50 unit subcut TID 05/11/24 05/12/24 subcutaneous pen (Humalog KwikPen U-200 Insulin) levothyroxine 50 mcg tablet 50 mcg PO DAILY@0600 05/17/24 05/17/24 linaclotide 145 mcg capsule 145 mcg PO DAILY 05/17/24 05/17/24 (Linzess) Previous Rx's ?Medication ?Instructions ?Recorded gabapentin 300 mg capsule 300 mg PO TID #90 caps 08/06/23 bisacodyl 5 mg tablet,delayed 5 - 10 mg (1 - 2 x 5 mg) PO DAILY 11/10/23 release PRN constipation 30 days #60 tabs metoclopramide HCl 10 mg tablet 10 mg PO TID #90 tabs 11/10/23 blood sugar diagnostic (OneTouch #100 ea 01/06/24 Ultra Test strips) blood-glucose meter (OneTouch #1 ea 01/06/24 Ultra2 Meter) lancets 30 gauge (OneTouch #100 ea 01/06/24 UltraSoft 2 Lancet) atorvastatin 80 mg tablet 80 mg PO BEDTIME #90 tabs 01/31/24 pen needle, diabetic 32 gauge x #100 ea 02/14/2409/02 (BD Ultra-Fine Micro Pen Needle) lorazepam 1 mg tablet 1 mg PO BID PRN anxiety 30 days 04/27/24 #60 tabs ondansetron 4 mg disintegrating 4 mg PO Q12H nausea and vomiting 05/06/24 tablet #20 tabs pantoprazole 40 mg tablet,delayed 40 mg PO DAILY #90 tabs 05/06/24 release sucralfate 100 mg/mL oral 10 ml PO BID #600 mL 05/06/24 suspension losartan 100 mg tablet 100 mg PO DAILY #30 tabs 05/18/24 Allergies Allergy/AdvReac Type Severity Reaction Status Date / Time No Known Allergies Allergy Verified 05/20/24 20:43 Review of Systems Review of Systems: Yes all other systems are reviewed and are negative [facility] Past Medical History Medical History BMI 35.0-35.9,adult History of degenerative disc disease Back pain Peripheral neuropathy History of cardiac murmur Chronic constipation Abnormal EKG BMI 39.0-39.9,adult Obesity Hypertension Acquired hypothyroidism Acute bacterial bronchitis Atherosclerotic cardiovascular disease Breast cancer screening Subclinical hypothyroidism Acute cervical myofascial strain DM2 (diabetes mellitus, type 2) Rheumatic fever GERD (gastroesophageal reflux disease) Diabetic nephropathy associated with type 2 diabetes mellitus Hirsutism Dyslipidemia Type 2 diabetes mellitus with hyperglycemia, without long-term current use of insulin Type 2 diabetes mellitus with diabetic polyneuropathy Gastroparesis due to DM Obesity (BMI 30-39.9) Depression Anxiety Vitamin D deficiency Lumbar degenerative disc disease Benign essential hypertension Pure hypercholesterolemia Diabetic neuropathy oil heaterman (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 of insulin 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, bilateral Surgical History Hx of colonoscopy History of esophagogastroduodenoscopy (EGD) History of carpal tunnel release History of surgery History of cholecystectomy History of partial hysterectomy History of repair of rotator cuff Family History Family History Father Diabetes Mother Diabetes CVD (cardiovascular disease) Social History Social History Household Members: Spouse Housing: House Are you a primary pharmacy customer care specialist to a significant other at home: No Do you presently have visiting nurse or other home services: No Alcohol intake: never Patient Tobacco Use Status: Former Tobacco user Tobacco use type: Cigarette e-Cigarette/Vaping Use: Never Used Second Hand Smoke Exposure: Yes Advance Directives: Yes Advance Directives on File: Yes Advance Directives Date on File: 05/19/24 Do you have a plan to hurt others: No Plan service: No Current occupational status: disabled Cognitive needs: No Hearing needs: No Vision needs: Yes Physical Exam ED Vital Signs: Vital Signs - 24 hr 05/20/24 20:42 Temperature 98.1 F Pulse Rate 80 Respiratory Rate 18 Blood Pressure 155/61 H Pulse Oximetry 98 Oxygen Delivery Method Room Air BMI result Body Mass Index 33.4 Appearance: Alert. Oriented X3. No acute distress. Eyes: PERRLA, No Nystagmus ENT: Pharynx normal. Oral Mucosa moist normal size done coated tongue no stridor Neck: Normal inspection. Neck supple. CVS: Normal heart rate and rhythm. Pulses normal. Respiratory: No respiratory distress. Equal air entry bilateral, no wheezing/rales/rhonchi Abdomen: Soft and nontender. Bowel sounds are present, no mass palpable, no CVA tenderness Skin: Skin warm and dry. Normal skin color. Normal skin turgor. Extremities: No lower extremity edema. No calf tenderness Neuro: Oriented X 3. No motor deficit. Course Course Course Narrative: This is a rapid medical exam performed by Yosvany Moreno NP: Additional HPI, ROS, PE not included below will be deferred to primary provider. Patient is a 64-year-old female with history of T2DM, HTN presenting to the ED stating that Wednesday she had bariatric surgery. noted nasal congestion/pain, sore throat, cough. States past few hours tongue feels swollen/white. Plan: viral and strep swabs Medical Decision Making Medical Decision Making [facility] Narrative: Patient is post op intubation throat pain COVID flu RSV strep negative Lab Data [facility] Lab Attestation statement: I reviewed the patient's lab results. Labs: Lab Results 05/20/24 Range/Units 20:50 Influenza Type A (PCR) NEGATIVE (Negative) Influenza Type B (PCR) NEGATIVE (Negative) RSV RNA Qual (PCR) NEGATIVE (Negative) SARS-CoV-2 RNA (RT-PCR) NEGATIVE (Negative) S. pyogenes GrpA EVE Negative (Negative) Discharge Plan Discharge Clinical Impression: Throat pain Patient Disposition: Home, Self-Care Instructions: Pain Management After Surgery (DC) Additional Instructions: throat pain is postop which should get better in few days Drink plenty of fluids have ice chips in the mouth Your COVID flu strep tests are negative Prescriptions: No Action gabapentin 300 mg capsule 300 mg PO TID Qty: 90 5RF (DME) blood-glucose meter [OneTouch Ultra2 Meter] Misc See Rx Instructions .Route Qty: 1 0RF Rx Instructions: As directed (DME) OneTouch Ultra Test Strip See Rx Instructions .Route Qty: 100 4RF Rx Instructions: As directed checks 4 X/day (DME) lancets [OneTouch UltraSoft 2 Lancet] 30 gauge misc See Rx Instructions .Route Qty: 100 4RF Rx Instructions: As directed tests 4 X/day atorvastatin 80 mg tablet 80 mg PO BEDTIME Qty: 90 2RF (DME) pen needle, diabetic [BD Ultra-Fine Micro Pen Needle] 32 gauge x 1/4 needle See Rx Instructions .ROUTE .COMPLEX Qty: 100 11RF Dose Instruction: USE DIRECTED THREE TIMES A DAY Rx Instructions: USE DIRECTED THREE TIMES A DAY lorazepam 1 mg tablet 1 mg PO BID PRN (Reason: anxiety) 30 Days Qty: 60 0RF pantoprazole 40 mg tablet,delayed release (DR/EC) 40 mg PO DAILY Qty: 90 0RF sucralfate 100 mg/mL suspension 10 ml PO BID Qty: 600 2RF ondansetron 4 mg tablet,disintegrating 4 mg PO Q12H Qty: 20 0RF Humalog KwikPen Insulin 200 unit/mL (3 mL) insulin pen 34 - 50 unit subcut TID levothyroxine 50 mcg tablet 50 mcg PO DAILY@0600 Linzess 145 mcg capsule 145 mcg PO DAILY losartan 100 mg tablet 100 mg PO DAILY Qty: 30 5RF Rx Instructions: per instructions per Dr Sheikh bisacodyl 5 mg tablet,delayed release (DR/EC) 5 - 10 mg PO DAILY PRN (Reason: constipation) 30 Days Qty: 60 6RF Rx Instructions: Take 1-2 tablets by mouth once a day as needed for constipation metoclopramide HCl 10 mg tablet 10 mg PO TID Qty: 90 6RF Print Language: Upper Sorbian
[2024-05-20 20:42] VITALS: BP 155/61; PULSE 80; RESP 18; TEMP 36.7; O2SAT 98; BMI 33.4
[2024-05-20 21:06] LABS: IDNOW Serial# 58CA691E; Strep A Nucleic Acid Negative (Negative)
[2024-05-20 21:35] LABS: Influenza A PCR NEGATIVE (Negative); Influenza B PCR NEGATIVE (Negative); Resp Syncy Virus RNA Qual PCR NEGATIVE (Negative); SARS COV2 PCR INHOUSE NEGATIVE (Negative)
[2024-05-21 00:03] VITALS: BP 155/61; PULSE 80; RESP 18; TEMP 36.7; O2SAT 98
== END 2024-05-21 00:03 | disposition home or self-care (01) ==
PROVIDERS: Registered Nurse Emergency; Emergency Provider Internal Medicine; PCP Internal Medicine
DX: J02.9 Acute pharyngitis, unspecified (principal); R09.89 Other specified symptoms and signs involving the circulatory and respiratory systems; I10 Essential (primary) hypertension; E11.9 Type 2 diabetes mellitus without complications; Z79.4 Long term (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 of insulin; Z98.84 Bariatric surgery status; Z79.899 Other long term (current) drug therapy; Z03.818 Encounter for observation for suspected exposure to other biological agents ruled out
CPT/HCPCS: 0241U; 87651; 99282; 99283

== ENCOUNTER 2024-05-23 10:40 | Outpatient (AMB) | payer OTHER, SELFPAY ==
--- NOTE | 2024-05-23 10:47 | MHC.PC.OV ---
Vital Signs 05/23/24 10:48 Height 5 ft 6 in Weight 203 lb BMI 32.8 BP 120/64 Blood Pressure Location Lt brachial Position Sitting Pulse 80 Pulse Source Pulse Oximeter Pulse Oximetry (%) 97 Oxygen Delivery Method Room Air Intake Visit Reasons: s/p Gastric Sleeve Intake Note: Patient is here for hospital discharge follow up and TCM. Patient was discharged from [facility] on 05/18/24. Poultry Eviscerator Required: No Safety Professional: Not Required per policy Accompanied by: Self / Same As Patient Allergies No Known Allergies Allergy (Verified 05/23/24 10:48) Tobacco use date assessed: 05/23/24 Fall risk assessment: No Falls in past year Last assessed Fall Risk: 05/23/24 Dental Screening Dental Screen Date: 12/20/23 HPI TCM TCM Information Date of Discharge 05/18/24 Discharged From [facility] Interactive Contact Date (Reference documentation from this date) 05/19/24 HPI Comments History of Present Illness Details 64 y/o female patient who presents to the clinic today for HDF. She was admitted at [facility] on 05/17/24 for Laparascopic sleeve Gastrectomy surgery (05/17/24). She was discharged home in stable condition 05/18/24. Today denies nausea or vomiting. Denies fevers or chills. She was briefly seen 05/20 at [facility] for sore-throat and other URI symptoms. Reports taking home and OTC cough/cold remedies. Advised to RTC if symptoms worse. Pt also reports feeling depressed since being discharged home, denies SA or SI. She feels down, unhappy and un-interested in doing anything. She does have a long h/o Depression, but has not seen therapist or Psych in over 20 years. Currently takes Lorazepam PRN. Declined mental health referral. Advised to f/u with PCP if symptoms not better. [facility] Medical History (Updated 05/22/24 @ 00:01 by Background Hoa) BMI 35.0-35.9,adult History of degenerative disc disease Back pain Peripheral neuropathy History of cardiac murmur Chronic constipation Abnormal EKG BMI 39.0-39.9,adult Obesity Hypertension Acquired hypothyroidism Acute bacterial bronchitis Atherosclerotic cardiovascular disease Breast cancer screening Subclinical hypothyroidism Acute cervical myofascial strain DM2 (diabetes mellitus, type 2) Rheumatic fever GERD (gastroesophageal reflux disease) Diabetic nephropathy associated with type 2 diabetes mellitus Hirsutism Dyslipidemia Type 2 diabetes mellitus with hyperglycemia, without long-term current use of insulin Type 2 diabetes mellitus with diabetic polyneuropathy Gastroparesis due to DM Obesity (BMI 30-39.9) Depression Anxiety Vitamin D deficiency Lumbar degenerative disc disease Benign essential hypertension Pure hypercholesterolemia Diabetic neuropathy 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, bilateral Surgical History (Updated 05/23/24 @ 10:56 by ALE Gutiérrez) History of bariatric surgery Hx of colonoscopy History of esophagogastroduodenoscopy (EGD) History of carpal tunnel release History of surgery History of cholecystectomy History of partial hysterectomy History of repair of rotator cuff Family History Father Diabetes Mother Diabetes CVD (cardiovascular disease) Social History Household Members: Spouse Caregiver staying overnight: No Housing: House Are you a primary care aid to a significant other at home: No Do you presently have visiting nurse or other home services: No 75 years or older and lives alone: No Alcohol intake: never Patient Tobacco Use Status: Former Tobacco user Tobacco use type: Cigarette e-Cigarette/Vaping Use: Never Used Second Hand Smoke Exposure: Yes Advance Directives Date on File: 05/19/24 service: No Current occupational status: disabled Cognitive needs: No Hearing needs: No Vision needs: Yes Questionnaire Thrive Questionnaire Date Thrive assessed: 05/18/24 LAURENT-7 AMB Questionnaire LAURENT-7 Date LAURENT - 7 assessed: 12/20/23 Source: Developed by Drs. Chin Mccollum, Liberty Coleman, Alverto Monge and colleagues, with an educational judy from [employer]. Review of Systems Const All systems reviewed & are unremarkable except as noted in HPI and below Physical exam (Primary Care) Vital Signs: Last Vital Signs Pulse 80 05/23/24 10:48 BP 120/64 05/23/24 10:48 Pulse Ox 97 05/23/24 10:48 Oxygen Delivery Method Room Air 05/23/24 10:48 BMI result Body Mass Index 32.8 Tobacco/Smoking Status: Tobacco use Status Tobacco use date assessed 05/23/24 05/23/24 10:57 Patient Tobacco Use Status Former Tobacco user 05/23/24 10:57 Tobacco use type Cigarette 05/23/24 10:57 e-Cigarette/Vaping Use Never Used 05/23/24 10:57 Thrive Assessment: Date of Thrive Assessment Date Thrive assessed 05/18/24 05/23/24 10:57 Const General: cooperative and no acute distress Nutritional Appearance: overweight Orientation/consciousness: patient oriented x3 Resp Effort & Inspection: normal respiratory effort Auscultation: clear to auscultation bilaterally Cardio Heart sounds: S1 normal heart sound present and S2 normal heart sound present GI Other: Small 5 Trocar site incisions covered with clean and dry dressings. Inspection: Yes obesity Palpation (GI): Soft to palpation, not firm, nontender, no guarding and not rigid Auscultation: normal bowel sounds General: Yes no CVA tenderness Back/Spine/Pelvis Back: no CVA tenderness Skin Wounds: wounds noted (clean incisions covered with clean dressings. ) Neuro General: patient oriented x3 and gait normal Psych Speech and movement: Normal speech and movement present Assessment and Plan Assessment & Plan (1) S/P laparoscopic sleeve gastrectomy: Code(s): Z98.84 - Bariatric surgery status Plan: F/u with General Surgery tomorrow as scheduled. F/u with PCP for Depression management. Coding Level of Care Code Est Pt Level 4 (73385) Diagnoses S/P laparoscopic sleeve gastrectomy Z98.84 Time Spent (min) 20 Comment Spent reviewing hospital notes and education
[2024-05-23 10:48] VITALS: BP 120/64; PULSE 80; O2SAT 97; BMI 32.8
== END 2024-05-23 12:40 | disposition home or self-care (01) ==
PROVIDERS: PCP Internal Medicine; Visit Provider Nurse Practitioner Family
DX: Z98.84 Bariatric surgery status (principal)

== ENCOUNTER → 2024-05-23 10:40 | Outpatient (BNVA) | payer OTHER, SELFPAY | PROVIDERS: PCP Internal Medicine; Visit Provider Nurse Practitioner Family | DX: Z98.84 Bariatric surgery status (principal) | CPT/HCPCS: 99212 ==

== ENCOUNTER 2024-05-24 13:47 | Outpatient (AMB) | payer OTHER, SELFPAY ==
--- NOTE | 2024-05-24 13:58 | A.OFFVIS_ITS ---
VS Expanded 05/24/24 14:21 BP 143/65 H Blood Pressure Location Rt brachial Blood Pressure Position Sitting Pulse 87 Pulse Source Pulse Oximeter Temp 96.9 F Temperature Source Temporal Artery Scan Pulse Oximetry 99 Oxygen Delivery Method Room Air Height 5 ft 5.5 in Weight 199 lb 3.2 oz BMI 32.6 Body Fat % 41.3 Body Fat Mass 82.2 Fat Free Mass 116.8 Visceral Fat Rating 12.0 Body Water % 41.5 Body Water Mass 82.6 Muscle Mass/Score 110.8 Basal Metabolic Rate/Score 1,603 Intake Visit Reasons: (OV) PO LSG 05/17/24 Allergies No Known Allergies Allergy (Verified 05/24/24 14:11) HPI Comments Details: Patient is a very pleasant 64-year-old female who returns to the office today in follow-up. She is 7 days post sleeve gastrectomy performed on 05/17/2024. She reports drinking 2 celebrate 4 in 1 shakes with 2 scoops each and 1 celebrate rebuild with 2 scoops and approximately 40 oz of fluids. She has moved her bowels. [facility] Medical History (Updated 05/22/24 @ 00:01 by Victor Manuel Camara) BMI 35.0-35.9,adult History of degenerative disc disease Back pain Peripheral neuropathy History of cardiac murmur Chronic constipation Abnormal EKG BMI 39.0-39.9,adult Obesity Hypertension Acquired hypothyroidism Acute bacterial bronchitis Atherosclerotic cardiovascular disease Breast cancer screening Subclinical hypothyroidism Acute cervical myofascial strain DM2 (diabetes mellitus, type 2) Rheumatic fever GERD (gastroesophageal reflux disease) Diabetic nephropathy associated with type 2 diabetes mellitus Hirsutism Dyslipidemia Type 2 diabetes mellitus with hyperglycemia, without long-term current use of insulin Type 2 diabetes mellitus with diabetic polyneuropathy Gastroparesis due to DM Obesity (BMI 30-39.9) Depression Anxiety Vitamin D deficiency Lumbar degenerative disc disease Benign essential hypertension Pure hypercholesterolemia Diabetic neuropathy custodial (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 of insulin 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, bilateral Surgical History (Updated 05/24/24 @ 14:11 by Shelby Pedersen CMA) S/P laparoscopic sleeve gastrectomy History of bariatric surgery Hx of colonoscopy History of esophagogastroduodenoscopy (EGD) History of carpal tunnel release History of surgery History of cholecystectomy History of partial hysterectomy History of repair of rotator cuff Family History Father Diabetes Mother Diabetes CVD (cardiovascular disease) Social History Household Members: Spouse Caregiver staying overnight: No Housing: House Are you a primary child day care teacher to a significant other at home: No Do you presently have visiting nurse or other home services: No 75 years or older and lives alone: No Alcohol intake: never Patient Tobacco Use Status: Former Tobacco user Tobacco use type: Cigarette e-Cigarette/Vaping Use: Never Used Second Hand Smoke Exposure: Yes Advance Directives Date on File: 05/19/24 service: No Current occupational status: disabled Cognitive needs: No Hearing needs: No Vision needs: Yes Physical Exam Vital Signs: Last Vital Signs Temp 96.9 F 05/24/24 14:21 Pulse 87 05/24/24 14:21 BP 143/65 H 05/24/24 14:21 Pulse Ox 99 05/24/24 14:21 Oxygen Delivery Method Room Air 05/24/24 14:21 BMI result Body Mass Index 32.6 GI Inspection: Yes incision (Clean, dry, intact.) Assessment & Plan Assessment & Plan (1) S/P laparoscopic sleeve gastrectomy: Code(s): Z98.84 - Bariatric surgery status Category: Surgical Plan: POD 7 s/p LSG on 05/17/[address] Coello Weight loss prior to surgery was 29.4 pounds or 12.2 % TBWL. Original weight on 12/10/2023 was 239.8 pounds and op weight was 210.4 pounds. Be sure to text Dr Coello exactly 1 week after surgery your weight from your home scale so he can adjust your meal plan. Continue meal plan until f/u w stationary bike in 2 weeks May shower, no submersion in bath for another week Continue abdominal binder with activity and exercise for the next 2 weeks. Exercise prior to surgery was Blossom and may resume No abdominal exercises for 6 weeks post operatively Will be emailed link to post op video for review Reminded of the pace of drinking, 2 mL per minute, 1 oz/15 min.
[2024-05-24 14:21] VITALS: BP 143/65; PULSE 87; TEMP 36.1; O2SAT 99; BMI 32.6
== END 2024-05-24 14:51 | disposition home or self-care (01) ==
PROVIDERS: PCP Internal Medicine; Visit Provider Physician Assistant Surgical
DX: Z98.84 Bariatric surgery status (principal)
CPT/HCPCS: 99024

== ENCOUNTER → 2024-05-24 13:47 | Outpatient (BNVA) | payer OTHER, SELFPAY | PROVIDERS: PCP Internal Medicine; Visit Provider Physician Assistant Surgical | DX: E66.9 Obesity, unspecified (principal); Z68.32 Body mass index [BMI] 32.0-32.9, adult; Z90.3 Acquired absence of stomach [part of] | CPT/HCPCS: 99212 ==

== ENCOUNTER 2024-05-25 09:46 | Outpatient (AMB) | payer OTHER, SELFPAY ==
--- NOTE | 2024-05-25 09:53 | A.OFFVIS_ITS ---
Vital Signs 05/25/24 09:55 Height 5 ft 6 in Weight 201 lb 15.095 oz BMI 32.6 BP 122/62 Blood Pressure Location Lt brachial Position Sitting Pulse 80 Pulse Source Pulse Oximeter Pulse Oximetry (%) 100 Oxygen Delivery Method Room Air Intake Visit Reasons: 2 week follow up Intake Note: Patricia presents in office today for a scheduled 2 week FUV. CC; Pt reports that they did have their gastric surgery performed x1 week ago today. Pt denies any complications or new concerns post op. Pt does report that they are still recovering and dealing with moderate pain/discomfort. No other issues to report. Senior Software Engineering Manager Required: No Allergies No Known Allergies Allergy (Verified 05/25/24 09:54) HPI HPI 2 week follow up: Details: Assessment & Plan (1) GERD (gastroesophageal reflux disease): Code(s): K21.9 - Gastro-esophageal reflux disease without esophagitis Category: Medical Qualifiers: Esophagitis presence: without esophagitis Qualified Code(s): K21.9 - Gastro-esophageal reflux disease without esophagitis (2) Constipation: Code(s): K59.00 - Constipation, unspecified Category: Medical (3) MARTINEZ (nonalcoholic steatohepatitis): Comment: 06/2019 autoimmune workup is negative, hepatitis a B and C are negative, ferritin is normal, initial AST/ALT 27/51 with alk-phos of 121 normal bilirubin 07/07/2111/03/2111 [id number]:[id number] Plt Count 174 Estimated GFR > 60 Hemoglobin A1c % 8.5 Total Bilirubin 0.6 AST 19 ALT 36 H Alkaline Phosphatase 131 H TSH 3.39 CURRENT LABS Laboratory Tests 01/01/2305/12/2304 07:2607:[id number]:26 Plt Count 206 Estimated GFR Hemoglobin A1c % 7.3 Total Bilirubin 0.4 AST 34 H ALT 70 H Alkaline Phosphatase 138 H 02/01/23 07:44 Plt Count Estimated GFR > 60 ULTRASOUND OF THE ABDOMEN 04/02/22 IMPRESSION: ? Increased hepatic echogenicity which can be seen in the setting of hepatic steatosis or underlying liver disease similar to prior. Code(s): K75.81 - Nonalcoholic steatohepatitis (MARTINEZ) Category: Medical (4) Gastroparesis: Code(s): K31.84 - Gastroparesis Category: Medical Plan She will be having a gastric sleeve surgery on the . She is very excited about this! The only concern she has though she still severely constipated. Apparently her primary care provider prescribed Linzess 145 micro g, but she did not take it because she did not understand what it was for. I explained to her the medication, and how to take it and she will start it in the next day or 2. I advised her it 1st to hold her bisacodyl until she sees how the Linzess works. If it is not working to move her bowels she can then add the bisacodyl and will consider a dose increase. If it is too strong she is to skip a few days and we will decrease the dose. Because she is having surgery and this could complicate her constipation management I would like to see her in 2 weeks. She has a follow-up on the with Dr. Willis so will see if we can get her in the same day. She will be facing many challenges with her constipation including possible problems with pain medication and anesthesia along with the necessary use of sucralfate promote gastric healing that could complicate her baseline constipation. She is also going to be starting protein shakes which are constipating as well. She is concerned about getting her constipation controlled could she is aware of these upcoming challenges. Apparently, she even had 1 incident where she had to self digitally disimpact. controlled on her omeprazole and reglan and bisacodyl Return office visit in 2 weeks TODAY'S VISIT She speaks Maori She is tearful re: Dr. Santos yelled at her in the hospital in a condescending manner. This was very embarrassing to her and she has had some mild depression since then. HOwever, she finds his PA, Alessio very supportive. She had her gastric surgery and has lost 45 lbs! She denies Si or HI and I offer medication therapy but she declines this. She is no longer taking the bisacodyl or reglan, and has held the LInzess for now. This is fine. She continues on pantoprazole. For how she is moving her bowels well. ROV 3 mos. PFS Medical History BMI 35.0-35.9,adult History of degenerative disc disease Back pain Peripheral neuropathy History of cardiac murmur Chronic constipation Abnormal EKG BMI 39.0-39.9,adult Obesity Hypertension Acquired hypothyroidism Acute bacterial bronchitis Atherosclerotic cardiovascular disease Breast cancer screening Subclinical hypothyroidism Acute cervical myofascial strain DM2 (diabetes mellitus, type 2) Rheumatic fever GERD (gastroesophageal reflux disease) Diabetic nephropathy associated with type 2 diabetes mellitus Hirsutism Dyslipidemia Type 2 diabetes mellitus with hyperglycemia, without long-term current use of insulin Type 2 diabetes mellitus with diabetic polyneuropathy Gastroparesis due to DM Obesity (BMI 30-39.9) Depression Anxiety Vitamin D deficiency Lumbar degenerative disc disease Benign essential hypertension Pure hypercholesterolemia Diabetic neuropathy 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, bilateral Surgical History S/P laparoscopic sleeve gastrectomy History of bariatric surgery Hx of colonoscopy History of esophagogastroduodenoscopy (EGD) History of carpal tunnel release History of surgery History of cholecystectomy History of partial hysterectomy History of repair of rotator cuff Family History Father Diabetes Mother Diabetes CVD (cardiovascular disease) Social History Household Members: Spouse Caregiver staying overnight: No Housing: House Are you a primary care taker to a significant other at home: No Do you presently have visiting nurse or other home services: No 75 years or older and lives alone: No Alcohol intake: never Patient Tobacco Use Status: Former Tobacco user Tobacco use type: Cigarette e-Cigarette/Vaping Use: Never Used Second Hand Smoke Exposure: Yes Advance Directives Date on File: 05/19/24 service: No Current occupational status: disabled Cognitive needs: No Hearing needs: No Vision needs: Yes Review of Systems Const Denies fatigue, Denies fever(s), Denies night sweats, Denies poor appetite and Denies weight loss Eyes Details: glasses Reports requires corrective lenses ENT Reports Normal hearing present, Denies dental pain, Denies dysphagia, Denies hearing loss, Denies mouth pain, Denies odynophagia, Denies throat swelling, Denies tongue swelling and Reports other (Dentition adequate) Card Reports no additional complaints Resp Reports no additional complaints GI Details: Denies abdominal pain, Denies melena, Denies bloating, Denies hematochezia, Reports constipation, Denies GI cramping, Denies dysphagia, Denies excessive flatus, Denies early satiety, Reports heartburn, Denies diarrhea, Denies nausea, Denies odynophagia, Denies vomiting and Denies hematemesis Skin/Breast Denies pruritus, Denies lesions, Denies rash and Denies jaundice Neuro Reports Normal hearing present and Denies Abnormal speech present Psych Reports anxiety, Reports depression, Denies homicidal ideation and Denies suicidal ideation Endo Denies fatigue Aller/Immun Denies throat swelling and Denies tongue swelling Physical Exam Vital Signs: Last Vital Signs Pulse 80 05/25/24 09:55 BP 122/62 05/25/24 09:55 Pulse Ox 100 05/25/24 09:55 Oxygen Delivery Method Room Air 05/25/24 09:55 BMI result Body Mass Index 32.6 Const General: cooperative, no acute distress, well developed and well groomed Nutritional Appearance: well nourished and obese Orientation/consciousness: oriented to person, oriented to place and oriented to time Limitations: No language barrier HEENT Head: Yes normocephalic and Yes atraumatic Eyes General: appearance normal, both eyes and all related structures Pupils: Equal, round and reactive pupils present Neck Neck: Yes normal visual inspection and Yes no lymphadenopathy Thyroid: Thyroid normal Resp Effort & Inspection: normal respiratory effort and able to speak in complete sentences Auscultation: clear to auscultation bilaterally Cardio Rate: regular rate Rhythm: regular rhythm Heart sounds: Normal, physiologic split S2 sound present Peripheral pulses: radial pulses present and posterior tibial pulses present GI Inspection: No distended, No Abdominal panniculus present and Yes obesity Palpation (GI): Soft to palpation, nontender, no guarding, not rigid and No hepatosplenomegaly present Percussion: Yes normal to percussion Auscultation: normal bowel sounds Rectal Exam - Female: deferred Skin General skin exam: no rashes or lesions noted, turgor normal, skin not dry, no jaundice, No spider nevi and no striae Rashes: no rashes Nails: normal Neuro General: oriented to person, oriented to place and oriented to time Cranial nerves: Yes Equal, round and reactive pupils present and Yes Normal hearing present Speech: No Abnormal speech present Extrem General: Yes normal to inspection, No clubbing, No cyanosis and No edema Psych Appearance: grossly normal and well kempt Mental Status: mental status grossly normal Speech and movement: Normal speech and movement present Affect: Labile affect present and Anxious affect present Attitude: cooperative Thought process: Normal thought process present and not confabulating Thought content: Normal thought content present Insight: Fair insight present (Psych) Judgement: Fair judgement present (Psych) Assessment & Plan Assessment & Plan (1) GERD (gastroesophageal reflux disease): Code(s): K21.9 - Gastro-esophageal reflux disease without esophagitis Category: Medical Qualifiers: Esophagitis presence: without esophagitis Qualified Code(s): K21.9 - Gastro-esophageal reflux disease without esophagitis (2) Gastroparesis: Code(s): K31.84 - Gastroparesis Category: Medical (3) S/P laparoscopic sleeve gastrectomy: Code(s): Z98.84 - Bariatric surgery status Category: Medical (4) Situational depression: Code(s): F43.21 - Adjustment disorder with depressed mood Category: Medical Plan She speaks Maori She is tearful re: Dr. Santos yelled at her in the hospital in a condescending manner. This was very embarrassing to her and she has had some mild depression since then. HOwever, she finds his PA, Alessio very supportive. She had her gastric surgery and has lost 45 lbs! She denies Si or HI and I offer medication therapy but she declines this. She is no longer taking the bisacodyl or reglan, and has held the LInzess for now. This is fine. She continues on pantoprazole. For how she is moving her bowels well. ROV 3 mos. Medications: Discontinued bisacodyl Take 1-2 tablets by mouth once a day as needed for constipation Discontinued Reason: Doctor's Order 5 - 10 mg (1 - 2 x 5 mg) PO DAILY 30 days PRN 60 tabs 6RF constipation K59.00 - Constipation, unspecified On Hold atorvastatin Hold Comment: Doctor's Order 80 mg PO BEDTIME 90 tabs 2RF E78.5 - Hyperlipidemia, unspecified metoclopramide HCl Hold Comment: Doctor's Order 10 mg PO TID 90 tabs 6RF E11.43 - Type 2 diabetes mellitus with diabetic autonomic (poly)neuropathy, K31.84 - Gastroparesis Coding Level of Care Code Est Pt Level 4 (68560) Diagnoses Gastroesophageal reflux disease without esophagitis K21.9 Esophagitis presence: without esophagitis Gastroparesis K31.84 S/P laparoscopic sleeve gastrectomy Z98.84 Situational depression F43.21 Time Spent (min) 33
[2024-05-25 09:55] VITALS: BP 122/62; PULSE 80; O2SAT 100; BMI 32.6
== END 2024-05-25 10:48 | disposition home or self-care (01) ==
PROVIDERS: PCP Internal Medicine; Visit Provider Nurse Practitioner
DX: K21.9 Gastro-esophageal reflux disease without esophagitis (principal); K31.84 Gastroparesis; Z98.84 Bariatric surgery status; F43.21 Adjustment disorder with depressed mood
CPT/HCPCS: 99214

== ENCOUNTER → 2024-05-25 09:46 | Outpatient (BNVA) | payer OTHER, SELFPAY | PROVIDERS: PCP Internal Medicine; Visit Provider Nurse Practitioner | DX: K21.9 Gastro-esophageal reflux disease without esophagitis (principal); K59.00 Constipation, unspecified; K75.81 Nonalcoholic steatohepatitis (NASH); K31.84 Gastroparesis; E78.5 Hyperlipidemia, unspecified; E11.43 Type 2 diabetes mellitus with diabetic autonomic (poly)neuropathy; F43.21 Adjustment disorder with depressed mood; Z98.84 Bariatric surgery status | CPT/HCPCS: 99212 ==

== ENCOUNTER 2024-06-01 07:48 | Outpatient (AMB) | payer MEDICARE, OTHER, SELFPAY ==
--- NOTE | 2024-06-01 08:02 | A.OFFVIS_ITS ---
Intake Intake Visit Reasons: 60 min [employer] Consultant Required: No Accompanied by: Self / Same As Patient Allergies No Known Allergies Allergy (Verified 05/25/24 09:54) HPI Comprehensive Diabetes Asmnt Most Recent Diabetes Results: Hemoglobin A1c 8.7 % 07/20/18 Microalb/Creat Ratio 12.1 ug/mg cr (<30) 12/01/23 Cholesterol 92 mg/dL (<200) 05/08/24 HDL Cholesterol 25 mg/dL (>40) L 05/08/24 Triglycerides 131 mg/dL (<150) 05/08/24 Creatinine 0.76 mg/dL (0.5-1.4) 05/18/24 Blood Urea Nitrogen 9 mg/dL (9-16) 05/18/24 Sodium 139 mmol/L (135-145) 05/18/24 Potassium 4.1 mmol/L (3.3-5.1) 05/18/24 Chloride 105 mmol/L (96-108) 05/18/24 Carbon Dioxide 24 mmol/L (22-29) 05/18/24 Calcium 9.5 mg/dL (8.4-10.2) 05/18/24 AST 23 U/L (5-31) 05/08/24 ALT 30 U/L (0-31) 05/08/24 Total Protein 7.2 g/dL (6.5-8.0) 05/08/24 Albumin 4.1 g/dL (3.5-5.0) 05/08/24 [facility]LY [facility], [facility] Medical History BMI 35.0-35.9,adult History of degenerative disc disease Back pain Peripheral neuropathy History of cardiac murmur Chronic constipation Abnormal EKG BMI 39.0-39.9,adult Obesity Hypertension Acquired hypothyroidism Acute bacterial bronchitis Atherosclerotic cardiovascular disease Breast cancer screening Subclinical hypothyroidism Acute cervical myofascial strain DM2 (diabetes mellitus, type 2) Rheumatic fever GERD (gastroesophageal reflux disease) Diabetic nephropathy associated with type 2 diabetes mellitus Hirsutism Dyslipidemia Type 2 diabetes mellitus with hyperglycemia, without long-term current use of insulin Type 2 diabetes mellitus with diabetic polyneuropathy Gastroparesis due to DM Obesity (BMI 30-39.9) Depression Anxiety Vitamin D deficiency Lumbar degenerative disc disease Benign essential hypertension Pure hypercholesterolemia Diabetic neuropathy intermediate frame tender (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 of insulin 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, bilateral Surgical History S/P laparoscopic sleeve gastrectomy History of bariatric surgery Hx of colonoscopy History of esophagogastroduodenoscopy (EGD) History of carpal tunnel release History of surgery History of cholecystectomy History of partial hysterectomy History of repair of rotator cuff Family History Father Diabetes Mother Diabetes CVD (cardiovascular disease) Social History Household Members: Spouse Caregiver staying overnight: No Housing: House Are you a primary lpn care manager to a significant other at home: No Do you presently have visiting nurse or other home services: No 75 years or older and lives alone: No Alcohol intake: never Patient Tobacco Use Status: Former Tobacco user Tobacco use type: Cigarette e-Cigarette/Vaping Use: Never Used Second Hand Smoke Exposure: Yes Advance Directives Date on File: 05/19/24 service: No Current occupational status: disabled Cognitive needs: No Hearing needs: No Vision needs: Yes Assessment & Plan Assessment & Plan (1) Diabetes mellitus, type II, insulin dependent: Code(s): E11.9 - Type 2 diabetes mellitus without complications; Z79.4 - custodial (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 of insulin Plan: Patient at visit to set up an insert Dexcom G7 Instructed patient sensors water proof you can shower, or swim do not submerge sensor in water for over 30 minutes Is sensor falls off cannot put back in you need to replace sensor, customer service number given to patient for sensor replacement Patient reports she had gastric sleeve on 05/17/2024 Instructed patient that as she continues to lose weight her body's insulin demand is decreased. Monitor for hypoglycemia if you are continue with diabetes medication Reviewed with patient how to treat hypoglycemia with rule of 15s She has stopped Ozempic and Toujeo She continues to use Humalog u200 glucose levels rise above 200 mg/dL, she reports she will take 3-4 units of insulin Sensor placed on the back of left arm Patient left visit with sensor in warmup Reviewed how to interpret trend arrows Reminded patient that to check finger sticks if symptoms do not match sensor reading. Discussed lag time between finger stick and sensor data.? Instructed patient she should always keep blood glucometer for backup testing if needed Reviewed delay of CGM from fingersticks Reminded pt that if symptoms do not match sensor still needs to check fingersticks. Portions of this note were created using voice recognition software, please excuse any words or phrases that may have been misinterpreted. Patient Instructions: Patient instruction: CGM provides information on blood glucose control throughout the day, including hyperglycemia and hypoglycemia. ? Continue to monitor blood glucose as instructed. Follow nutrition guidelines provided. Report any discomfort promptly to health care provider. ?Stay well-hydrated. You can bathe ,shower, swim and exercise while wearing the glucose sensor. Do not submerge glucose sensor in water for more than 30 minutes. Contact rn diabetes educator if experiencing hypoglycemia Follow-up with rn diabetes educator in 1 month Coding Level of Care Code Est Pt Level 1 (64962) Diagnoses Diabetes mellitus, type II, insulin dependent E11.9; Z79.4
== END 2024-06-01 08:08 | disposition home or self-care (01) ==
PROVIDERS: PCP Internal Medicine; Visit Provider Registered Nurse Diabetes Educator
DX: E11.9 Type 2 diabetes mellitus without complications (principal); Z79.4 Long term (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 of insulin

== ENCOUNTER → 2024-06-01 07:48 | Outpatient (BNVA) | payer OTHER, SELFPAY | PROVIDERS: PCP Internal Medicine; Visit Provider Registered Nurse Diabetes Educator | DX: E11.9 Type 2 diabetes mellitus without complications (principal); Z79.4 Long term (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 of insulin | CPT/HCPCS: 99211 ==

== ENCOUNTER 2024-06-09 10:58 | Outpatient (AMB) | payer OTHER, SELFPAY ==
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
== END 2024-06-09 11:00 | disposition home or self-care (01) ==
LOC: HO.HBST 10:58
PROVIDERS: PCP Internal Medicine; Visit Provider Counselor Mental Health
DX: F43.21 Adjustment disorder with depressed mood (principal)
CPT/HCPCS: 90791

== ENCOUNTER → 2024-06-09 10:58 | Outpatient (BNVA) | payer OTHER, SELFPAY | PROVIDERS: PCP Internal Medicine; Visit Provider Counselor Mental Health ==

== ENCOUNTER 2024-06-09 16:52 | Emergency (ER) | payer OTHER, SELFPAY ==
[2024-06-09 17:09] VITALS: BP 135/57; PULSE 77; RESP 18; TEMP 35.9; O2SAT 99; BMI 31.9
--- NOTE | 2024-06-09 17:09 | ED_ITS ---
HPI - Animal Bite General Chief Complaint: Animal Bite Stated Complaint: Her dog bit her left pointer finger Time Seen by Provider: 06/09/24 17:14 Source: patient Mode of arrival: ambulatory Limitations: no limitations History of Present Illness HPI narrative: Patient is a 64-year-old female who presents emergency department for evaluation of a bite to her left index finger from her personal dog. Reports that she was removing the muscle from the dog after giving the dog a bath and the dog nipped her finger. Admits that the dog is typically very agitated during bathing times. Reports dog is up-to-date on rabies vaccination, has not had concerning symptoms for rabies. Reports her last tetanus vaccination was 6-8 years ago. She is a diabetic, states her sugars have been well controlled. No anticoagulan ts and no active bleeding. Has full range of motion to the finger. Related Data Home Medications ?Medication ?Instructions ?Recorded ?Confirmed insulin lispro 200 unit/mL (3 mL) 34 - 50 unit subcut TID 05/11/24 05/12/24 subcutaneous pen (Humalog KwikPen U-200 Insulin) levothyroxine 50 mcg tablet 50 mcg PO DAILY@0600 05/17/24 05/17/24 Previous Rx's ?Medication ?Instructions ?Recorded gabapentin 300 mg capsule 300 mg PO TID #90 caps 08/06/23 metoclopramide HCl 10 mg tablet 10 mg PO TID #90 tabs 11/10/23 blood sugar diagnostic (OneTouch #100 ea 01/06/24 Ultra Test strips) blood-glucose meter (OneTouch #1 ea 01/06/24 Ultra2 Meter) lancets 30 gauge (OneTouch #100 ea 01/06/24 UltraSoft 2 Lancet) atorvastatin 80 mg tablet 80 mg PO BEDTIME #90 tabs 01/31/24 pen needle, diabetic 32 gauge x #100 ea 02/14/24/ (BD Ultra-Fine Micro Pen Needle) lorazepam 1 mg tablet 1 mg PO BID PRN anxiety 30 days 04/27/24 #60 tabs ondansetron 4 mg disintegrating 4 mg PO Q12H nausea and vomiting 05/06/24 tablet #20 tabs pantoprazole 40 mg tablet,delayed 40 mg PO DAILY #90 tabs 05/06/24 release sucralfate 100 mg/mL oral 10 ml PO BID #600 mL 05/06/24 suspension losartan 100 mg tablet 100 mg PO DAILY #30 tabs 05/18/24 amoxicillin 875 mg-potassium 1 tab PO BID #14 tabs 06/09/24 clavulanate 125 mg tablet Allergies Allergy/AdvReac Type Severity Reaction Status Date / Time No Known Allergies Allergy Verified 06/09/24 17:12 Review of Systems Review of Systems: Yes all other systems are reviewed and are negative [facility] Past Medical History Attestation statement: The following information was validated with the patient. Source: old records reviewed Medical History BMI 35.0-35.9,adult History of degenerative disc disease Back pain Peripheral neuropathy History of cardiac murmur Chronic constipation Abnormal EKG BMI 39.0-39.9,adult Obesity Hypertension Acquired hypothyroidism Acute bacterial bronchitis Atherosclerotic cardiovascular disease Breast cancer screening Subclinical hypothyroidism Acute cervical myofascial strain DM2 (diabetes mellitus, type 2) Rheumatic fever GERD (gastroesophageal reflux disease) Diabetic nephropathy associated with type 2 diabetes mellitus Hirsutism Dyslipidemia Type 2 diabetes mellitus with hyperglycemia, without long-term current use of insulin Type 2 diabetes mellitus with diabetic polyneuropathy Gastroparesis due to DM Obesity (BMI 30-39.9) Depression Anxiety Vitamin D deficiency Lumbar degenerative disc disease Benign essential hypertension Pure hypercholesterolemia Diabetic neuropathy [facility] (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 of insulin 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, bilateral Surgical History S/P laparoscopic sleeve gastrectomy History of bariatric surgery Hx of colonoscopy History of esophagogastroduodenoscopy (EGD) History of carpal tunnel release History of surgery History of cholecystectomy History of partial hysterectomy History of repair of rotator cuff Family History Family History Father Diabetes Mother Diabetes CVD (cardiovascular disease) Social History Social History Household Members: Spouse Housing: House Are you a primary post acute care nurse to a significant other at home: No Do you presently have visiting nurse or other home services: No Alcohol intake: never Patient Tobacco Use Status: Former Tobacco user Tobacco use type: Cigarette e-Cigarette/Vaping Use: Never Used Second Hand Smoke Exposure: Yes Advance Directives Date on File: 05/19/24 service: No Current occupational status: disabled Cognitive needs: No Hearing needs: No Vision needs: Yes Physical Exam ED Appearance: Alert.?Oriented to person, place and time. No acute distress.?Normal affect. CVS: Heart sounds normal. Normal heart rate and rhythm.? Pulses normal.?? Respiratory: No respiratory distress.? Lung sounds clear to auscultation bilaterally?? Abdomen: Soft and non-tender. Normoactive bowel sounds. Skin: Skin warm and dry.? Normal skin color.? Left index finger with 2 0.5 cm lacerations, no active bleeding, full range of motion to the digit, mild surrounding erythema and tenderness upon palpation. Extremities: No lower extremity edema.? Neuro: Moves all extremities spontaneously. Sensation intact bilaterally. Ambulates with normal steady gait. Medical Decision Making Medical Decision Making MDM Narrative: Patient is a 64-year-old male presents emergency department for evaluation of a dog bite to the left index finger, she is right-hand dominant. Dog up-to-date in rabies vaccination. Tdap was updated today. Finger was irrigated extensively with saline and Betadine. Has full range of motion, lower suspicion for fracture/dislocation/tendon/ligamentous injury. Discussed prophylactic antibiotics, acetaminophen for pain management. Worrisome signs and symptoms that would warrant re-evaluation in the emergency department. Outpatient follow-up with primary care doctor. Differential Diagnosis Differential Diagnoses: The differential diagnosis associated with the presentation includes (See narrative above) Independent Historian Clinical information obtained from an independent historian. History obtained from or confirmed by: Spouse External Record Review External record reviewed: Outpatient record Tests considered The following testing was considered but not selected: XR deferred, no obvious deformity, full range of motion, lower suspicion for fracture Prescription Management I considered prescription management with: Pain Medication (Acetaminophen) Discharge Plan Discharge Clinical Impression: Dog bite of left hand Patient Disposition: Home, Self-Care Instructions: Animal Bite (ED) Additional Instructions: Complete the entire course of antibiotics as prescribed. Do not skip any doses or stopped taking early. Monitor for signs of infection including increasing pain redness swelling pus- like discharge, fevers, chills, redness streaking up the finger/hand. Tetanus vaccination was updated today. As discussed, if your dog begins exhibiting symptoms concerning for rabies, you should seek re-evaluation and have the dog evaluated as well. Follow-up with your primary care doctor. You can take acetaminophen/Tylenol 500 mg, 2 tablets (1,000mg) every 4-6 hours as needed for pain, but not to exceed 3 doses daily (3,000mg).? Prescriptions: New amoxicillin-pot clavulanate 875-125 mg tablet 1 tab PO BID Qty: 14 0RF No Action gabapentin 300 mg capsule 300 mg PO TID Qty: 90 5RF (DME) blood-glucose meter [OneTouch Ultra2 Meter] Misc See Rx Instructions .Route Qty: 1 0RF Rx Instructions: As directed (DME) OneTouch Ultra Test Strip See Rx Instructions .Route Qty: 100 4RF Rx Instructions: As directed checks 4 X/day (DME) lancets [OneTouch UltraSoft 2 Lancet] 30 gauge misc See Rx Instructions .Route Qty: 100 4RF Rx Instructions: As directed tests 4 X/day atorvastatin 80 mg tablet 80 mg PO BEDTIME Qty: 90 2RF (DME) pen needle, diabetic [BD Ultra-Fine Micro Pen Needle] 32 gauge x 1/4 needle See Rx Instructions .ROUTE .COMPLEX Qty: 100 11RF Dose Instruction: USE DIRECTED THREE TIMES A DAY Rx Instructions: USE DIRECTED THREE TIMES A DAY lorazepam 1 mg tablet 1 mg PO BID PRN (Reason: anxiety) 30 Days Qty: 60 0RF pantoprazole 40 mg tablet,delayed release (DR/EC) 40 mg PO DAILY Qty: 90 0RF sucralfate 100 mg/mL suspension 10 ml PO BID Qty: 600 2RF ondansetron 4 mg tablet,disintegrating 4 mg PO Q12H Qty: 20 0RF Humalog KwikPen Insulin 200 unit/mL (3 mL) insulin pen 34 - 50 unit subcut TID levothyroxine 50 mcg tablet 50 mcg PO DAILY@0600 losartan 100 mg tablet 100 mg PO DAILY Qty: 30 5RF Rx Instructions: per instructions per Dr Sheikh metoclopramide HCl 10 mg tablet 10 mg PO TID Qty: 90 6RF Referrals: Fish Lomeli MD [Primary Care Provider] - Print Language: Faroese
[2024-06-09] MEDS: Diphth,Pertus(ACell),Tet Adult 0.5 ML SYRINGE IM (17:43)
[2024-06-09 18:11] VITALS: BP 135/57; PULSE 77; RESP 18; TEMP 35.9; O2SAT 99
== END 2024-06-09 18:13 | disposition home or self-care (01) ==
LOC: HO.ED 17:50
PROVIDERS: Emergency Provider Emergency Medicine; PCP Internal Medicine
DX: S61.251A Open bite of left index finger without damage to nail, initial encounter (principal); W54.0XXA Bitten by dog, initial encounter; Y93.89 Activity, other specified; Y92.9 Unspecified place or not applicable; Y99.9 Unspecified external cause status; Z23 Encounter for immunization
CPT/HCPCS: 90471; 90715; 99282; 99284

== ENCOUNTER 2024-06-13 12:45 | Outpatient (AMB) | payer OTHER, MEDICARE, SELFPAY ==
--- NOTE | 2024-06-13 12:48 | MHC.OFFVISWM ---
VS Expanded 06/13/24 13:10 BP 132/61 Blood Pressure Location Rt brachial Blood Pressure Position Sitting Pulse 84 Pulse Source Pulse Oximeter Temp 97.3 F Temperature Source Temporal Artery Scan Pulse Oximetry 97 Oxygen Delivery Method Room Air Height 5 ft 5.5 in Weight 196 lb 6.4 oz BMI 32.2 Body Fat % 39.1 Body Fat Mass 76.8 Fat Free Mass 119.4 Visceral Fat Rating 11.0 Body Water % 43.0 Body Water Mass 84.4 Muscle Mass/Score 113.6 Basal Metabolic Rate/Score 1,627 Intake Visit Reasons: (OV) PO LSG 05/18/24 Allergies No Known Allergies Allergy (Verified 06/13/24 13:07) Medication List - Last Reconciled 06/13/24 by REE Esquivel amoxicillin-pot clavulanate 875-125 mg 1 tab PO BID atorvastatin 80 mg PO BEDTIME blood sugar diagnostic ([employer] Ultra Test strips) As directed checks 4 X/day blood-glucose meter ([employer] Ultra2 Meter) As directed gabapentin 300 mg PO TID insulin lispro (Humalog KwikPen U-200 Insulin) 34 - 50 units subcut TID lancets ([employer] UltraSoft 2 Lancet) As directed tests 4 X/day levothyroxine 50 mcg PO DAILY@0600 lorazepam 1 mg PO BID PRN 30 days losartan 100 mg PO DAILY metoclopramide HCl 10 mg PO TID ondansetron 4 mg PO Q12H pantoprazole 40 mg PO DAILY pen needle, diabetic (BD Ultra-Fine Micro Pen Needle) USE DIRECTED THREE TIMES A DAY sucralfate 10 mL PO BID HPI Comments Details: This?is a?64?yo female who is s/p LSG 05/18/2024. Presents for 5 week post op visit. Weight loss of 2.8lbs since last OV 3w ago.? No complaints of nausea, emesis, abdominal pain or reflux. Has chronic constipation, taking Miralax. Struggling with depression, started after surgery. Was on Cymbalta in the past, was prescribed by PCP per pt, saw Farida earlier this week. Not taking losartan, not checking BP. Present meal plan includes: 8-10, 11-1, 1 scoop Celebrate 2-4 1 Celebrate bar 5 can have yogurt, eggs, or cottage 3 forkfuls 7-9 1 scoop (was supposed to do 2 but too heavy/thick) Exercise routine includes: I haven't done anything , will walk the mall for 2 hours or so 1-2x/week [facility] Medical History BMI 35.0-35.9,adult History of degenerative disc disease Back pain Peripheral neuropathy History of cardiac murmur Chronic constipation Abnormal EKG BMI 39.0-39.9,adult Obesity Hypertension Acquired hypothyroidism Acute bacterial bronchitis Atherosclerotic cardiovascular disease Breast cancer screening Subclinical hypothyroidism Acute cervical myofascial strain DM2 (diabetes mellitus, type 2) Rheumatic fever GERD (gastroesophageal reflux disease) Diabetic nephropathy associated with type 2 diabetes mellitus Hirsutism Dyslipidemia Type 2 diabetes mellitus with hyperglycemia, without long-term current use of insulin Type 2 diabetes mellitus with diabetic polyneuropathy Gastroparesis due to DM Obesity (BMI 30-39.9) Depression Anxiety Vitamin D deficiency Lumbar degenerative disc disease Benign essential hypertension Pure hypercholesterolemia 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, bilateral Surgical History S/P laparoscopic sleeve gastrectomy History of bariatric surgery Hx of colonoscopy History of esophagogastroduodenoscopy (EGD) History of carpal tunnel release History of surgery History of cholecystectomy History of partial hysterectomy History of repair of rotator cuff Family History Father Diabetes Mother Diabetes CVD (cardiovascular disease) Social History Household Members: Spouse Caregiver staying overnight: No Housing: House Are you a primary home health care physician to a significant other at home: No Do you presently have visiting nurse or other home services: No 75 years or older and lives alone: No Alcohol intake: never Patient Tobacco Use Status: Former Tobacco user Tobacco use type: Cigarette e-Cigarette/Vaping Use: Never Used Second Hand Smoke Exposure: Yes Advance Directives Date on File: 05/19/24 service: No Current occupational status: disabled Cognitive needs: No Hearing needs: No Vision needs: Yes Physical Exam Vital Signs: Last Vital Signs Temp 97.3 F 06/13/24 13:10 Pulse 84 06/13/24 13:10 BP 132/61 06/13/24 13:10 Pulse Ox 97 06/13/24 13:10 Oxygen Delivery Method Room Air 06/13/24 13:10 BMI result Body Mass Index 32.2 Assessment & Plan Assessment & Plan (1) Obesity: Code(s): E66.9 - Obesity, unspecified Category: Medical Qualifiers: Obesity type: due to excess calories Obesity classification: adult class 2 (BMI 35 - 39.9) Serious obesity comorbidity presence: with serious comorbidity Body mass index: BMI 39.0-39.9 Qualified Code(s): E66.01 - Morbid (severe) obesity due to excess calories; Z68.39 - Body mass index [BMI] 39.0-39.9, adult (2) S/P laparoscopic sleeve gastrectomy: Code(s): Z98.84 - Bariatric surgery status Category: Surgical Plan Pt to continue meal plan per Dr. Kwon Has another appt with Farida already scheduled. Encouraged her to engage in whatever exercise is enjoyable to her for now- walking ok. RTC 1 month. I spent a total of 30 minutes reviewing/updating records, examining the patient and counseling the patient on weight management as detailed above.
[2024-06-13 13:10] VITALS: BP 132/61; PULSE 84; TEMP 36.3; O2SAT 97; BMI 32.2
== END 2024-06-13 13:32 | disposition home or self-care (01) ==
PROVIDERS: PCP Internal Medicine; Visit Provider Physician Assistant Surgical
DX: E66.01 Morbid (severe) obesity due to excess calories (principal); Z68.39 Body mass index [BMI] 39.0-39.9, adult; Z90.3 Acquired absence of stomach [part of]; Z98.84 Bariatric surgery status
CPT/HCPCS: 99024

== ENCOUNTER → 2024-06-13 12:45 | Outpatient (BNVA) | payer OTHER, SELFPAY | PROVIDERS: PCP Internal Medicine; Visit Provider Physician Assistant Surgical | DX: Z48.815 Encounter for surgical aftercare following surgery on the digestive system (principal); Z98.84 Bariatric surgery status; Z68.32 Body mass index [BMI] 32.0-32.9, adult | CPT/HCPCS: 99212 ==

== ENCOUNTER → 2024-06-26 08:10 | Outpatient (BNVA) | payer OTHER, SELFPAY | PROVIDERS: PCP Internal Medicine; Visit Provider Counselor Mental Health ==

== ENCOUNTER → 2024-06-26 08:10 | Outpatient (AMB) | payer MEDICARE, MEDICAID, SELFPAY ==
--- NOTE | 2024-06-26 08:00 | MHC.WMTHER ---
Intake Intake Visit Reasons: (TV) PO LSG 05/18/24 Allergies No Known Allergies Allergy (Verified 06/13/24 13:07) [facility] Medical History BMI 35.0-35.9,adult History of degenerative disc disease Back pain Peripheral neuropathy History of cardiac murmur Chronic constipation Abnormal EKG BMI 39.0-39.9,adult Obesity Hypertension Acquired hypothyroidism Acute bacterial bronchitis Atherosclerotic cardiovascular disease Breast cancer screening Subclinical hypothyroidism Acute cervical myofascial strain DM2 (diabetes mellitus, type 2) Rheumatic fever GERD (gastroesophageal reflux disease) Diabetic nephropathy associated with type 2 diabetes mellitus Hirsutism Dyslipidemia Type 2 diabetes mellitus with hyperglycemia, without long-term current use of insulin Type 2 diabetes mellitus with diabetic polyneuropathy Gastroparesis due to DM Obesity (BMI 30-39.9) Depression Anxiety Vitamin D deficiency Lumbar degenerative disc disease Benign essential hypertension Pure hypercholesterolemia Diabetic neuropathy [facility] (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 of insulin 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, bilateral Surgical History S/P laparoscopic sleeve gastrectomy History of bariatric surgery Hx of colonoscopy History of esophagogastroduodenoscopy (EGD) History of carpal tunnel release History of surgery History of cholecystectomy History of partial hysterectomy History of repair of rotator cuff Family History Father Diabetes Mother Diabetes CVD (cardiovascular disease) Social History Household Members: Spouse Caregiver staying overnight: No Housing: House Are you a primary hospice care consultant to a significant other at home: No Do you presently have visiting nurse or other home services: No 75 years or older and lives alone: No Alcohol intake: never Patient Tobacco Use Status: Former Tobacco user Tobacco use type: Cigarette e-Cigarette/Vaping Use: Never Used Second Hand Smoke Exposure: Yes Advance Directives Date on File: 05/19/24 service: No Current occupational status: disabled Cognitive needs: No Hearing needs: No Vision needs: Yes Behavioral Health Assessment Weight Management Therapy Therapy Notes Details PT presents for a follow up session via Telehealth. Subjective: PT reports feeling the same, empty and sad , also reports no motivation but forcing herself to get out of the home. She is back doing spiritism responsibilities and walking in the mall/[employer] 3 times at week as exercise. Hasn't weight herself. Stated meal plan is not working for her. Objective/interventions: Discussed functioning and routine. Processed identified feelings: Emptiness and sadness . Identified things that brings her suhas and elevate sense of purpose. Used CPT interventions for Sx management, psychoeducation around mood management. Reviewed patient's goals re: weight loss, and gently reflected on her behavior Vs expectations. Advised to discuss with provider about alternatives as client finds hard to do 3 shakes and 1 bar. She wants something more water-like. Presenting Concerns Referral Source [facility]-Provider. Dr. Kwon Reason for referral Behavioral health support as post-op client. Precipitating Event PT developed depressive Sx after bariatric surgery Food/Weight/Diet Expectations of change -PT had Bariatric surgery on 05/18 Current meal plan: 8-10, 11-1, 1 scoop Celebrate 2-4 1 Celebrate bar 5 can have yogurt, eggs, or cottage 3 forkfuls 7-9 1 scoop (was supposed to do 2 but too heavy/thick) -PT reports she is doing the plan different. Assessment & Plan Assessment & Plan (1) Adjustment disorder with depressed mood: Code(s): F43.21 - Adjustment disorder with depressed mood Plan -Consult with provider about alternatives RE:shakes (more water-like) to meet protein goals. -Increase walking 1 day for a goal of 3-4 days as part of behavioral activation plan, as well of be more active and take inititative in spiritism-re activities or things gives her purpose and brings her suhas. -F/up in 3 weeks. Next demario: 07/17/2024 at 10am, Phone call. Coding Level of Care Code Established Pt Tele Psytx 45 mins (99381) Patient Type Established Diagnoses Adjustment disorder with depressed mood F43.21 Time Spent (min) 45 Comment Start time: 8:00am, End time: 8:45am.
== END ==
PROVIDERS: PCP Internal Medicine; Visit Provider Counselor Mental Health
DX: F43.21 Adjustment disorder with depressed mood (principal)
CPT/HCPCS: 90834

== ENCOUNTER 2024-06-29 08:22 | Outpatient (REF) | payer OTHER, SELFPAY ==
[2024-06-29 08:56] LABS: MANUAL DIFF FLAG NO
[2024-06-29 09:16] LABS: Basophils Percent Auto 0.7 % (0-2); Eosinophils Absolute Auto 0.1 X10*3/uL (0.0-0.4); Eosinophils Percent Auto 1.8 % (0-4); Hematocrit 39.7 % (37.0-47.0); Hemoglobin 12.5 g/dl (12.0-16.0); Imm Gran Abs Auto 0.01 X10*3/uL (0.00-0.03); Imm Gran Pct Auto 0.2 % (0.0-0.4); Lymphocytes Absolute Auto 1.7 X10*3/uL (1.2-4.9); Lymphocytes Percent Auto 39.3 % (20-40); Mean Corpuscular HGB Conc 31.5 g/dl (31.0-35.0); Mean Corpuscular Hemoglobin 28.4 pg (27.0-33.0); Mean Corpuscular Volume 90.2 fL (80.0-98.0); Mean Platelet Volume 11.5 fL (9.4-12.3); Monocytes Absolute Auto 0.4 X10*3/uL (0.1-1.2); Monocytes Percent Auto 7.9 % (2-11); Neutrophils Absolute Auto 2.2 x10*3/uL (2.0-8.3); Neutrophils Percent Auto 50.1 % (45-73); Platelet Count 179 X10*3/uL (160-400); Red Cell Distribution Width 13.5 % (11.0-16.0); White Blood Count 4.4 X10*3/uL (4.8-10.8)
[2024-06-29 09:25] LABS: Estimated Average Glucose 154 mg/dL; Hemoglobin A1C 165.7068 umol/L; Total Hemoglobin (HGBA1C) 3158.6094 umol/L
[2024-06-29 09:28] LABS: Appearance Urine Cloudy; Color Urine Yellow; Glucose Urine UA Negative (Negative); Leukocyte Esterase Urine Large (3+) (Negative); Nitrite Urine Negative (Negative); PH 5.5 (5.0-9.0); UMIC TRIGGER UACC YES; Urine Blood Negative (Negative); Urine Ketones Trace mg/dL (Negative); Urine Protein Negative (Neg-Trace)
[2024-06-29 09:37] LABS: Bacteria Urine 1+ (None Seen); Hyaline Casts Urine 0-2 /LPF (0-2); UACC Culture Trigger YES; WBC Urine >50 /HPF (0-5)
[2024-06-29 09:47] LABS: Creatinine Urine 135.66 mg/dL; Microalbum/Creatinine Ratio Ur 18.4 ug/mg cr (<30)
[2024-06-29 09:48] LABS: Creatinine Urine 135.15 mg/dL; Total Protein Urine Random 13 mg/dL (<12)
[2024-06-29 09:48] LABS: Alanine Aminotransferase 39 U/L (0-31); Alkaline Phosphatase 93 U/L (39-117); Anion Gap 12 (12-20); Aspartate Amino Transferase 25 U/L (5-31); Bilirubin Total 0.9 mg/dL (0.0-1.0); Blood Urea Nitrogen 11 mg/dL (9-16); Carbon Dioxide 26 mmol/L (22-29); Chloride 109 mmol/L (96-108); Cholesterol 236 mg/dL (<200); Estimated Glomerular Filt Rate > 60; Glucose Fasting 183 mg/dL (60-99); HDL Cholesterol 33 mg/dL (>40); LDL Cholesterol Calculated 168 mg/dL (<100); Potassium 3.9 mmol/L (3.3-5.1); Sodium 143 mmol/L (135-145); Triglycerides 176 mg/dL (<150)
[2024-06-29 09:56] LABS: Thyroid Stimulating Hormone 3.75 uIU/mL (0.32-4.0)
[2024-06-29 10:06] LABS: Free T4 (Free Thyroxine) 0.76 ng/dL (0.71-1.85); Vitamin D 25-OH Total 39.9 ng/mL (>30)
[2024-06-29 10:14] LABS: Folate 6.6 ng/mL (> or = 4.0); Vitamin B12 505 pg/mL (200-900)
== END 2024-06-29 08:23 | disposition home or self-care (01) ==
LOC: HO.LAB 08:22
PROVIDERS: PCP Internal Medicine; Visit Provider Internal Medicine Nephrology
DX: D64.9 Anemia, unspecified (principal); E11.21 Type 2 diabetes mellitus with diabetic nephropathy; I10 Essential (primary) hypertension; E03.9 Hypothyroidism, unspecified; E78.00 Pure hypercholesterolemia, unspecified; E11.9 Type 2 diabetes mellitus without complications; E55.9 Vitamin D deficiency, unspecified; E53.8 Deficiency of other specified B group vitamins; R30.0 Dysuria
CPT/HCPCS: 36415; 80053; 80061; 81001; 82043; 82306; 82570; 82607; 82746; 83036; 84156; 84439; 84443; 85025; 87086

== ENCOUNTER 2024-07-05 09:44 | Outpatient (AMB) | payer OTHER, SELFPAY ==
--- NOTE | 2024-07-05 09:52 | HO.NEPHOV_ITS ---
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 She underwent gastric surgery and has lost significant weight. She has neuropathy but no retinopathy. Her proteinuria is undetectable. She has no edema, PND, chest pain, orthopnea. Her BP has been at goal. She does not take any NSAID's [facility] Medical History BMI 35.0-35.9,adult History of degenerative disc disease Back pain Peripheral neuropathy History of cardiac murmur Chronic constipation Abnormal EKG BMI 39.0-39.9,adult Obesity Hypertension Acquired hypothyroidism Acute bacterial bronchitis Atherosclerotic cardiovascular disease Breast cancer screening Subclinical hypothyroidism Acute cervical myofascial strain DM2 (diabetes mellitus, type 2) Rheumatic fever GERD (gastroesophageal reflux disease) Diabetic nephropathy associated with type 2 diabetes mellitus Hirsutism Dyslipidemia Type 2 diabetes mellitus with hyperglycemia, without long-term current use of insulin Type 2 diabetes mellitus with diabetic polyneuropathy Gastroparesis due to DM Obesity (BMI 30-39.9) Depression Anxiety Vitamin D deficiency Lumbar degenerative disc disease Benign essential hypertension Pure hypercholesterolemia 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, bilateral Surgical History S/P laparoscopic sleeve gastrectomy History of bariatric surgery Hx of colonoscopy History of esophagogastroduodenoscopy (EGD) History of carpal tunnel release History of surgery History of cholecystectomy History of partial hysterectomy History of repair of rotator cuff Family History Father Diabetes Mother Diabetes CVD (cardiovascular disease) Social History Household Members: Spouse Caregiver staying overnight: No Housing: House Are you a primary patient care nursing assistant to a significant other at home: No Do you presently have visiting nurse or other home services: No 75 years or older and lives alone: No Alcohol intake: never Patient Tobacco Use Status: Former Tobacco user Tobacco use type: Cigarette e-Cigarette/Vaping Use: Never Used Second Hand Smoke Exposure: Yes Advance Directives Date on File: 05/19/24 service: No Current occupational status: disabled Cognitive needs: No Hearing needs: No Vision needs: Yes Review of Systems Const All systems reviewed & are unremarkable except as noted in HPI and below Physical Exam Vital Signs: Last Vital Signs Pulse 71 07/05/24 09:58 BP 116/60 07/05/24 09:58 Pulse Ox 97 07/05/24 09:58 Oxygen Delivery Method Room Air 07/05/24 09:58 BMI result Body Mass Index 32.3 Const General: comfortable and no acute distress Orientation/consciousness: patient oriented x3 HEENT Head: Yes normocephalic Mouth: Normal oral and palatal mucosa present Eyes EOM: EOMs intact bilaterally Neck Neck: Yes supple Resp Auscultation: clear to auscultation bilaterally Cardio Jugular venous distension: no JVD Rate: regular rate GI Palpation (GI): Soft to palpation Auscultation: normal bowel sounds General: Yes no CVA tenderness Back/Spine/Pelvis Back: no CVA tenderness Skin General skin exam: no rashes or lesions noted Neuro General: patient oriented x3 and moves all extremities Extrem General: Yes no pedal edema Results Reviewed Nephrology Results: Hgb 12.5 g/dl (12.0-16.0) 06/29/24 WBC 4.4 X10*3/uL (4.8-10.8) L 06/29/24 Plt Count 179 X10*3/uL (160-400) 06/29/24 Sodium 143 mmol/L (135-145) 06/29/24 Potassium 3.9 mmol/L (3.3-5.1) 06/29/24 Chloride 109 mmol/L (96-108) H 06/29/24 Carbon Dioxide 26 mmol/L (22-29) 06/29/24 BUN 11 mg/dL (9-16) 06/29/24 Creatinine 0.75 mg/dL (0.5-1.4) 06/29/24 Calcium 10.0 mg/dL (8.4-10.2) 06/29/24 Urine Protein Negative mg/dL (Neg-Trace) 06/29/24 Urine Creatinine 135.15 mg/dL 06/29/24 Protein/Creatinin Ratio 0.10 (<0.2) 06/29/24 Assessment & Plan Assessment & Plan (1) Diabetic nephropathy associated with type 2 diabetes mellitus: Code(s): E11.21 - Type 2 diabetes mellitus with diabetic nephropathy Category: Medical Plan Patricia was seen in follow up of her H/O Diabetic Nephropathy. She has neuropathy but no retinopathy. Her proteinuria is undetectable. She has no edema, PND, chest pain, orthopnea.She had gastric surgery fro weight loss. Her BP has been at goal. She does not take any NSAID's. I did not make any medication changes today Orders: Orders Blood Urea Nitrogen 6 Months Kumar Sim MD E11.21 - Type 2 diabetes mellitus with diabetic nephropathy Protein Creatinine Ratio, Ur 6 Months Kumar Sim MD E11.21 - Type 2 diabetes mellitus with diabetic nephropathy Creatinine 6 Months Kumar Sim MD E11.21 - Type 2 diabetes mellitus with diabetic nephropathy Electrolytes 6 Months Kumar Sim MD E11.21 - Type 2 diabetes mellitus with diabetic nephropathy Medications: On Hold losartan Hold Comment: Doctor's Order 100 mg PO DAILY 30 tabs 5RF Shona Porter MA Coding Level of Care Code Est Pt Level 4 (96766) Diagnoses Diabetic nephropathy associated with type 2 diabetes mellitus E11.21
[2024-07-05 09:58] VITALS: BP 116/60; PULSE 71; O2SAT 97; BMI 32.3
== END 2024-07-05 10:17 | disposition home or self-care (01) ==
PROVIDERS: PCP Internal Medicine; Visit Provider Internal Medicine Nephrology
DX: E11.21 Type 2 diabetes mellitus with diabetic nephropathy (principal)
CPT/HCPCS: 99214

== ENCOUNTER → 2024-07-05 09:44 | Outpatient (BNVA) | payer OTHER, SELFPAY | PROVIDERS: PCP Internal Medicine; Visit Provider Internal Medicine Nephrology | DX: E11.21 Type 2 diabetes mellitus with diabetic nephropathy (principal); E11.40 Type 2 diabetes mellitus with diabetic neuropathy, unspecified | CPT/HCPCS: 99212 ==

== ENCOUNTER 2024-07-07 07:58 | Outpatient (REF) | payer OTHER, SELFPAY ==
[2024-07-07 08:56] LABS: Basophils Percent Auto 0.7 % (0-2); Eosinophils Absolute Auto 0.1 X10*3/uL (0.0-0.4); Eosinophils Percent Auto 1.4 % (0-4); Estimated Average Glucose 154 mg/dL; Hematocrit 40.6 % (37.0-47.0); Hemoglobin 13.1 g/dl (12.0-16.0); Hemoglobin A1C 181.1717 umol/L; Imm Gran Abs Auto 0.01 X10*3/uL (0.00-0.03); Imm Gran Pct Auto 0.2 % (0.0-0.4); Lymphocytes Absolute Auto 1.5 X10*3/uL (1.2-4.9); Lymphocytes Percent Auto 35.3 % (20-40); MANUAL DIFF FLAG NO; Mean Corpuscular HGB Conc 32.3 g/dl (31.0-35.0); Mean Corpuscular Hemoglobin 29.3 pg (27.0-33.0); Mean Corpuscular Volume 90.8 fL (80.0-98.0); Mean Platelet Volume 11.2 fL (9.4-12.3); Monocytes Absolute Auto 0.3 X10*3/uL (0.1-1.2); Monocytes Percent Auto 6.2 % (2-11); Neutrophils Absolute Auto 2.4 x10*3/uL (2.0-8.3); Neutrophils Percent Auto 56.2 % (45-73); Platelet Count 169 X10*3/uL (160-400); Red Blood Count 4.47 X10*6/uL (4.20-5.50); Red Cell Distribution Width 13.2 % (11.0-16.0); Total Hemoglobin (HGBA1C) 3420.5028 umol/L; White Blood Count 4.2 X10*3/uL (4.8-10.8)
[2024-07-07 09:09] LABS: Appearance Urine Clear; Color Urine Yellow; Glucose Urine UA Negative (Negative); Leukocyte Esterase Urine Small (1+) (Negative); Nitrite Urine Negative (Negative); PH 5.5 (5.0-9.0); Specific Gravity - Urine 1.025 (1.005-1.025); UMIC TRIGGER UACC YES; Urine Blood Negative (Negative); Urine Ketones 15 mg/dL (Negative); Urine Protein Negative (Neg-Trace)
[2024-07-07 09:17] LABS: Bacteria Urine None Seen (None Seen); Hyaline Casts Urine 0-2 /LPF (0-2); RBC Urine 0-2 /HPF (0-2); UACC Culture Trigger YES; WBC Urine 0-5 /HPF (0-5)
[2024-07-07 09:23] LABS: Anion Gap 13 (12-20); Blood Urea Nitrogen 12 mg/dL (9-16); Calcium 9.3 mg/dL (8.4-10.2); Carbon Dioxide 24 mmol/L (22-29); Chloride 110 mmol/L (96-108); Estimated Glomerular Filt Rate > 60; Potassium 4.1 mmol/L (3.3-5.1); Sodium 143 mmol/L (135-145)
[2024-07-07 11:38] LABS: Creatinine Urine 182.38 mg/dL; Microalbum/Creatinine Ratio Ur 6.5 ug/mg cr (<30)
== END 2024-07-07 07:59 | disposition home or self-care (01) ==
LOC: HO.LAB 07:58
PROVIDERS: Internal Medicine Nephrology; PCP Internal Medicine; Visit Provider Internal Medicine
DX: I10 Essential (primary) hypertension (principal); E11.9 Type 2 diabetes mellitus without complications; E11.21 Type 2 diabetes mellitus with diabetic nephropathy; D64.9 Anemia, unspecified; R30.0 Dysuria
CPT/HCPCS: 36415; 80051; 81001; 82043; 82310; 82565; 82570; 83036; 84520; 85025; 87086

== ENCOUNTER 2024-07-11 10:02 | Outpatient (AMB) | payer OTHER, MEDICARE, SELFPAY ==
[2024-07-11 10:08] VITALS: BP 124/60; PULSE 69; O2SAT 97; BMI 32.0
--- NOTE | 2024-07-11 10:08 | MHC.PC.OV ---
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: No Accompanied by: Self / Same As Patient Allergies No Known Allergies Allergy (Verified 07/11/24 10:56) Medication List - Last Reconciled 07/11/24 by Fish Lomeli MD atorvastatin 80 mg PO BEDTIME bisacodyl 5 mg PO BEDTIME blood sugar diagnostic ([employer] Ultra Test strips) As directed checks 4 X/day blood-glucose meter ([employer] Ultra2 Meter) As directed gabapentin 300 mg PO TID insulin lispro (Humalog KwikPen U-200 Insulin) 34 - 50 units subcut TID lancets ([employer] UltraSoft 2 Lancet) As directed tests 4 X/day levothyroxine 50 mcg PO DAILY@0600 lorazepam 1 mg PO BID PRN 30 days losartan 100 mg PO DAILY pantoprazole 40 mg PO DAILY pen needle, diabetic (BD Ultra-Fine Micro Pen Needle) USE DIRECTED THREE TIMES A DAY sucralfate 10 mL PO BID Tobacco use date assessed: 07/11/24 Fall risk assessment: 1 Fall in past year Last assessed Fall Risk: 07/11/24 Dental Screening Dental Screen Date: 07/11/24 Did you have a dental visit in the last 12 months?: No Did you have a dental problem in the last 6 months where you did not have access to dental care?: No Was dental information given to patient?: No HPI DM, hyperlipidemia, constipation HPI Details Patient comes in today for her follow up visit States that she has been feeling very depressed lately - is not sure why Recalls that she was on Cymbalta in the past and was doing well on it - is not sure why it was stopped and why she is no longer on it Patient underwent laparoscopic sleeve gastrectomy with Dr. Coello a couple of months ago on 05/17/2024 and states that she did well post-op with no significant issues and she is happy that she has lost a lot of weight since She denies any headaches or dizziness Denies any chest pains, no increased SOB No nausea/vomiting, no abdominal pain No change in bowel habits noted She had her follow up labs done afew days ago - to discuss her results [facility] Medical History (Updated 07/11/24 @ 11:35 by Fish Lomeli MD) Chronic constipation Type 2 diabetes mellitus with diabetic polyneuropathy Gastroparesis due to DM Obesity (BMI 30-39.9) BMI 35.0-35.9,adult History of degenerative disc disease Back pain Peripheral neuropathy History of cardiac murmur Abnormal EKG BMI 39.0-39.9,adult Obesity Hypertension Acquired hypothyroidism Acute bacterial bronchitis Atherosclerotic cardiovascular disease Breast cancer screening Subclinical hypothyroidism Acute cervical myofascial strain DM2 (diabetes mellitus, type 2) Rheumatic fever GERD (gastroesophageal reflux disease) Diabetic nephropathy associated with type 2 diabetes mellitus Hirsutism Dyslipidemia Type 2 diabetes mellitus with hyperglycemia, without long-term current use of insulin Depression Anxiety Vitamin D deficiency Lumbar degenerative disc disease Benign essential hypertension Pure hypercholesterolemia Diabetic neuropathy manager terminal (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 of insulin 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, bilateral Surgical History (Updated 07/11/24 @ 11:11 by Fish Lomeli MD) S/P laparoscopic sleeve gastrectomy History of bariatric surgery Hx of colonoscopy History of esophagogastroduodenoscopy (EGD) History of carpal tunnel release History of surgery History of cholecystectomy History of partial hysterectomy History of repair of rotator cuff Family History Father Diabetes Mother Diabetes CVD (cardiovascular disease) Social History Household Members: Spouse Caregiver staying overnight: No Housing: House Are you a primary healthcare financial analyst to a significant other at home: No Do you presently have visiting nurse or other home services: No 75 years or older and lives alone: No Alcohol intake: never Patient Tobacco Use Status: Former Tobacco user Tobacco use type: Cigarette e-Cigarette/Vaping Use: Never Used Second Hand Smoke Exposure: Yes Advance Directives Date on File: 05/19/24 service: No Current occupational status: disabled Cognitive needs: No Hearing needs: No Vision needs: Yes Questionnaire PHQ-9 Over the last 2 weeks, how often have you been bothered by any of the following problems? 1. Little interest or pleasure in doing things: not at all 2. Feeling down, depressed, or hopeless: nearly every day 3. Trouble falling or staying asleep, or sleeping too much: not at all 4. Feeling tired or having little energy: not at all 5. Poor appetite or overeating: not at all 6. Feeling bad about yourself - or that you are a failure or have let yourself or your family down: not at all 7. Trouble concentrating on things, such as reading the newspaper or watching television: not at all 8. Moving or speaking so slowly that other people could have noticed. Or the opposite - being so fidgety or restless that you have been moving around a lot more than usual: not at all 9. Thoughts that you would be better off or of hurting yourself in some way: not at all Total score: 3 Depression Screening Interpretation: Positive Depression Screening Follow-up: Existing condition and New Medication prescribed Depression Screening Done: Yes 50757 - PHQ-9 Billing: Yes Source: Developed by Drs. Chin Mccollum, Liberty Coleman, Alverto Monge and colleagues, with an educational judy from [employer]. Thrive Questionnaire Date Thrive assessed: 07/11/24 I am a: Patient What is your living situation today?: I have a steady place to live Within the past 12 months, did the food you bought not last and you didn't have the money to get more?: Never true Within the past 12 months, did you worry whether your food would run out before you got money to buy more?: Never true Do you have trouble paying for medicines?: No Do you have trouble getting transportation to medical appointments?: No Do you have trouble paying your heating and electricity bill?: No Do you have trouble taking care of your child, family member or friend?: No Do you have trouble with day-to-day activities such as bathing, preparing meals, shopping, managing finances, etc.?: No Are you currently unemployed and looking for a job?: No Are you interested in more education?: No Please select the resources that you would like help with: None Currently or been in a relationship where the following occur: No concerns reported THRIVE Score: 0 AUDIT C Alcohol Use Questionnaire (AUDIT-C) 1. How often do you have a drink containing alcohol?: Never 3. How often do you have six or more drinks on one occasion?: Never Total Score: 0 Score Reviewed/Action Taken: Yes LAURENT-7 AMB Questionnaire LAURENT-7 Date LAURENT - 7 assessed: 07/11/24 Feeling nervous, anxious, or on edge: 0 = Not at all Not being able to stop or control worryin = Not at all Worrying too much about different things: 0 = Not at all Trouble relaxin = Not at all Being so restless that it is hard to sit still: 0 = Not at all Becoming easily annoyed or irritable: 0 = Not at all Feeling afraid as if something awful might happen: 0 = Not at all Total LAURENT-7 score (0-4 normal; 5-9 mild; 10-14 moderate; 15-21 severe): 0 Source: Developed by Drs. Chin Mccollum, Liberty Coleman, Alverto Monge and colleagues, with an educational judy from [employer]. Review of Systems Const Denies chills, Reports fatigue, Denies fever(s) and Denies headache(s) ENT Denies dysphagia, Denies dizziness, Denies otalgia, Denies headache(s), Denies neck pain, Denies odynophagia and Denies sore throat Card Denies chest pain, Denies palpitations and Reports dyspnea on exertion (mild) Resp Denies chest congestion, Denies cough, Reports dyspnea on exertion (mild) and Denies wheezing GI Denies abdominal pain, Reports constipation (chronic), Denies dysphagia, Denies heartburn, Denies diarrhea, Denies nausea, Denies odynophagia and Denies vomiting Denies difficulty voiding, Denies nocturia, Denies dysuria and Denies urinary urgency Musc Reports back pain (over the lower back - chronic) and Denies neck pain Skin/Breast Denies rash Neuro Denies dizziness and Denies headache(s) Psych Reports anxiety and Reports depression (increased lately) Endo Reports fatigue and Denies palpitations Davion/Lymph Denies easy bruising Aller/Immun Denies wheezing Physical exam (Primary Care) Vital Signs: Last Vital Signs Pulse 69 07/11/24 10:08 BP 124/60 07/11/24 10:08 Pulse Ox 97 07/11/24 10:08 Oxygen Delivery Method Room Air 07/11/24 10:08 BMI result Body Mass Index 32.0 Tobacco/Smoking Status: Tobacco use Status Tobacco use date assessed 07/11/24 07/11/24 10:11 Patient Tobacco Use Status Former Tobacco user 07/11/24 10:11 Tobacco use type Cigarette 07/11/24 10:11 e-Cigarette/Vaping Use Never Used 07/11/24 10:11 PHQ-9: PHQ-9 Score PHQ-9: Total score 0 07/11/24 10:11 Depression Screening Interpretation: Positive Depression Screening Follow-up: Existing condition and New Medication prescribed Thrive Assessment: Date of Thrive Assessment Date Thrive assessed 07/11/24 07/11/24 10:11 Currently or been in a relationship where the following occur: No concerns reported Const General: no acute distress and alert HENMT Ears: TM's normal bilaterally and EAC's normal Throat: Yes posterior oropharynx normal and Yes tonsils normal (no TP congestion noted) Neck Neck: Yes no lymphadenopathy, Yes supple and Yes tender (over the left cervical paraspinal muscles) Thyroid: Thyroid normal Resp Auscultation: clear to auscultation bilaterally, no rales and no wheezes Cardio Rate: regular rate Rhythm: regular rhythm Heart sounds: no murmurs GI Palpation (GI): Soft to palpation and nontender Auscultation: normal bowel sounds General: Yes no CVA tenderness Back/Spine/Pelvis Back: no CVA tenderness Cervical Spine: No Cervical spine tenderness Thoracic/Lumbar Spine: lumbar spinal tenderness Skin Rashes: no rashes Extrem General: Yes no clubbing, cyanosis or edema Office Procedures Flu Questionnaire Does the patient have a severe egg allergy?: No Does the patient have severe life threatening allergies?: No Does the patient have a fever or illness today?: No Has the patient ever had Guillain-Grant Syndrome?: No Has the patient ever had any past reaction to a flu shot?: No Immunizations Fluarix Triv [id number] (PF) 45 mcg (15 mcg x 3)/0.5 mL IM syringe Performing Provider: Fish Lomeli MD [facility] Administered by: ALE Chung on 07/11/24 10:19 Dose Route Admin Location Dispensed Lot Number Expiration Date [facility] Electronic Repair Troubleshooter 0.5 mL IM Right Deltoid 0.5 mL [id number] 02/26/25 [id number] Medical Envelope VIS Given Date VIS Provided VIS Publication Date 07/11/24 Single Vaccine 21 Eligibility Eligibility Date Funding Source Not [facility] Eligible 07/11/24 Private Results Reviewed Results Reviewed: Laboratory Tests 06/29/24 06/29/24 07/07/24 08:40 08:53 08:15 WBC Hgb Hct Plt Count Sodium Potassium Creatinine Estimated GFR Fasting Glucose 183 H Hemoglobin A1c % Calcium AST 25 ALT 39 H Triglycerides 176 H Cholesterol 236 H LDL Cholesterol, Calc 168 H HDL Cholesterol 33 L Vitamin B12 505 25-OH Vitamin D Total 39.9 TSH 3.75 Free T4 0.76 Ur Specific Friedens 1.025 Urine Protein Negative Urine Glucose (UA) Negative Urine Blood Negative Urine Nitrite Negative Ur Leukocyte Esterase Small (1+) H Microalb/Creat Ratio 6.5 Protein/Creatinin Ratio 0.10 07/07/24 08:21 WBC 4.2 L Hgb 13.1 Hct 40.6 Plt Count 169 Sodium 143 Potassium 4.1 Creatinine 0.79 Estimated GFR > 60 Fasting Glucose Hemoglobin A1c % 7.0 H Calcium 9.3 D AST ALT Triglycerides Cholesterol LDL Cholesterol, Calc HDL Cholesterol Vitamin B12 25-OH Vitamin D Total TSH Free T4 Ur Specific Friedens Urine Protein Urine Glucose (UA) Urine Blood Urine Nitrite Ur Leukocyte Esterase Microalb/Creat Ratio Protein/Creatinin Ratio Coding Level of Care Code Est Pt Level 4 (23472) Complex EM visit Add On G2211 Diagnoses Type 2 diabetes mellitus with diabetic polyneuropathy, with long-term current use of insulin E11.42; Z79.4 Diabetes mellitus care home insulin use: 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 Pure hypercholesterolemia E78.00 Diabetic nephropathy associated with type 2 diabetes mellitus E11.21 Diabetic polyneuropathy associated with type 2 diabetes mellitus E11.42 Diabetes mellitus type: type 2 Diabetes mellitus complication detail: diabetic polyneuropathy Benign essential hypertension I10 Gastroparesis due to DM E11.43; K31.84 Gastroesophageal reflux disease without esophagitis K21.9 Esophagitis presence: without esophagitis Acquired hypothyroidism E03.9 Chronic constipation K59.09 Degeneration of intervertebral disc of lumbar region with discogenic back pain M51.360 Disc-related pain type: discogenic back pain only Vitamin D deficiency E55.9 Anxiety F41.9 Moderate episode of recurrent major depressive disorder F33.1 Depression Type: major depressive disorder Major depression recurrence: recurrent Active/Remission status: currently active Major depression episode severity: moderate Obesity (BMI 30-39.9) E66.9 Additional Codes PHQ-9 - 02191 - PHQ-9 Billing: Yes ([id number]) Assessment & Plan Assessment & Plan (1) Type 2 diabetes mellitus with diabetic polyneuropathy: Code(s): E11.42 - Type 2 diabetes mellitus with diabetic polyneuropathy Category: Medical Qualifiers: Diabetes mellitus care home insulin use: 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 Qualified Code(s): E11.42 - Type 2 diabetes mellitus with diabetic polyneuropathy; Z79.4 - long-term (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 of insulin Plan: Her HgbA1c was at 7.0% on her labs done a few days ago (was previously at 7.1% a few months ago) - goal is <7.0% but if she starts experiencing hypoglycemic symptoms, may allow her HgbA1c to go up to 7.5% Reinforced diabetic diet She is now only on Humulin U-200 34 to 50 TID with meals for her diabetes since her gastric sleeve surgery Follow up with endocrinology as scheduled Patient also follows up with Dr. Cameron Perez for her retinopathy - she has severe nonproliferative diabetic retinopathy with macular edema Have again emphasized strict control of her diabetes to slow down the progression of her retinopathy (2) Pure hypercholesterolemia: Code(s): E78.00 - Pure hypercholesterolemia, unspecified Category: Medical Plan: Results of her labs done a few days ago reviewed and discussed with patient - have advised that her cholesterol levels have increased significantly from previous, likely due to her Atorvastatin being held for several weeks since before her bariatric surgery but patient states that she started BACK on her Rx a couple of days ago Reinforced low cholesterol diet Continue Atorvastatin 40 mg QD Will recheck her labs and fasting lipids in 3 months for follow-up (3) Diabetic nephropathy associated with type 2 diabetes mellitus: Code(s): E11.21 - Type 2 diabetes mellitus with diabetic nephropathy Category: Medical Plan: Her renal function appears stable on her recent labs Follow up with nephrology (Dr. Sim) as scheduled (4) Diabetic neuropathy: Code(s): E11.40 - Type 2 diabetes mellitus with diabetic neuropathy, unspecified Category: Medical Qualifiers: Diabetes mellitus type: type 2 Diabetes mellitus complication detail: diabetic polyneuropathy Qualified Code(s): E11.42 - Type 2 diabetes mellitus with diabetic polyneuropathy Plan: Reinforced importance of strict glycemic control to slow down the progression of her neuropathy Continue Gabapentin 300 mg TID (5) Benign essential hypertension: Code(s): I10 - Essential (primary) hypertension Category: Medical Plan: Reinforced low sodium diet - goal is systolic BP of at least 130 mm or less She was previously on?Losartan 100 mg QD but this has been held since before her gastric sleeve surgery and it does not look like she needs to go back on it yet at this time, as his blood pressure is still normal when checked in the office today Have reminded patient to continue monitoring her blood pressure regularly (6) Gastroparesis due to DM: Code(s): E11.43 - Type 2 diabetes mellitus with diabetic autonomic (poly)neuropathy; K31.84 - Gastroparesis Category: Medical Plan: Have advised patient again that her recurrent GI symptoms are mostly due to gastroparesis and unfortunately, there are no available medications that help effectively with this Patient states that her GI symptoms seem to be subsided a lot since her surgery back in April 2024 and she has not had to take her Metoclopramide 10 mg TID before meals over the past couple of months Follow up with GI as scheduled (7) GERD (gastroesophageal reflux disease): Code(s): K21.9 - Gastro-esophageal reflux disease without esophagitis Category: Medical Qualifiers: Esophagitis presence: without esophagitis Qualified Code(s): K21.9 - Gastro-esophageal reflux disease without esophagitis Plan: Dietary restrictions reinforced Continue Omeprazole 40 mg QD (8) Acquired hypothyroidism: Code(s): E03.9 - Hypothyroidism, unspecified Category: Medical Plan: Continue Levothyroxine 50 mcg QD Will recheck her TFTs in 3 months for follow up (9) Chronic constipation: Code(s): K59.09 - Other constipation Category: Medical Plan: Reinforced increased oral fluids and dietary fiber Patient was taking Dulcolax 5 to 10 mg QD and Linzess most recently but appears to be off most of her meds since her bariatric surgery a couple of months ago I started her on Linzess 145 mcg QD a few months ago but she never started the Rx Have advised her to start taking it if constipation remains a significant issue for her Follow up with GI as scheduled (10) Lumbar degenerative disc disease: Code(s): M51.36 - Other intervertebral disc degeneration, lumbar region Category: Medical Qualifiers: Disc-related pain type: discogenic back pain only Qualified Code(s): M51.360 - Other intervertebral disc degeneration, lumbar region with discogenic back pain only Plan: Reinforced activity and weight lifting restrictions Continue Gabapentin 300 mg TID Patient also used to take Duloxetine 30 mg QD and Tizanidine 4 mg TID PRN in the past but she stopped taking these Rx at some point as she felt that she did not need them at the time (11) Vitamin D deficiency: Code(s): E55.9 - Vitamin D deficiency, unspecified Category: Medical Plan: Continue Vitamin D3 2000 units QD (12) Anxiety: Code(s): F41.9 - Anxiety disorder, unspecified Category: Medical Plan: Continue Lorazepam 1 mg BID PRN (13) Depression: Code(s): F32.9 - Major depressive disorder, single episode, unspecified Category: Medical Qualifiers: Depression Type: major depressive disorder Major depression recurrence: recurrent Active/Remission status: currently active Major depression episode severity: moderate Qualified Code(s): F33.1 - Major depressive disorder, recurrent, moderate Plan: Will start patient back on Duloxetine 30 mg QD and advised that if she still does not feel any better in 2 weeks, can go up to 30 mg BID (14) Obesity (BMI 30-39.9): Code(s): E66.9 - Obesity, unspecified Category: Medical Plan: S/P bariatric surgery (gastric sleeve) a couple of months ago in April 2024 - states that she has lost a lot of weight since and has been able to come of some of his previous meds Follow up with weight management as scheduled Plan Follow up in 3 months Orders: Orders Thyroid Stimulating Hormone 3 Months Fish Lomeli MD E03.9 - Hypothyroidism, unspecified Hemoglobin A1c 3 Months Fish Lomeli MD E11.9 - Type 2 diabetes mellitus without complications Free T4 (Free Thyroxine) 3 Months Fish Lomeli MD E03.9 - Hypothyroidism, unspecified UA CC w/rflx Micro + Cult 3 Months Fish Lomeli MD R30.0 - Dysuria Influenza [id number] Immunization Today Fish Lomeli MD Z23 - Encounter for immunization Lipid Panel 3 Months Fish Lomeli MD E78.00 - Pure hypercholesterolemia, unspecified Comprehensive Clark. Panel Fast 3 Months Fish Lomeli MD E78.00 - Pure hypercholesterolemia, unspecified Complete Blood Count Auto Diff 3 Months Fish Lomeli MD D64.9 - Anemia, unspecified Microalbumin, Random (w Creat) 3 Months Fish Lomeli MD E11.9 - Type 2 diabetes mellitus without complications Vitamin D 25-OH Total 3 Months Fish Lomeli MD E55.9 - Vitamin D deficiency, unspecified Vitamin B12 and Folate 3 Months Fish Lomeli MD E53.8 - Deficiency of other specified B group vitamins Medications: New duloxetine 30 mg PO BID 30 days 60 caps 3RF Fish Lomeli MD Resumed atorvastatin 80 mg PO BEDTIME 90 tabs 2RF Chin Vazquez MD E78.5 - Hyperlipidemia, unspecified
== END 2024-07-11 11:02 | disposition home or self-care (01) ==
PROVIDERS: PCP Internal Medicine; Visit Provider Internal Medicine
DX: E11.42 Type 2 diabetes mellitus with diabetic polyneuropathy (principal); Z79.4 Long term (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 of insulin; E11.21 Type 2 diabetes mellitus with diabetic nephropathy; E11.43 Type 2 diabetes mellitus with diabetic autonomic (poly)neuropathy; F33.1 Major depressive disorder, recurrent, moderate; E78.00 Pure hypercholesterolemia, unspecified; I10 Essential (primary) hypertension; K31.84 Gastroparesis; K21.9 Gastro-esophageal reflux disease without esophagitis; E03.9 Hypothyroidism, unspecified; K59.09 Other constipation; M51.360 Other intervertebral disc degeneration, lumbar region with discogenic back pain only

== ENCOUNTER → 2024-07-11 10:02 | Outpatient (BNVA) | payer OTHER, SELFPAY | PROVIDERS: PCP Internal Medicine; Visit Provider Internal Medicine | DX: Z23 Encounter for immunization (principal); E11.42 Type 2 diabetes mellitus with diabetic polyneuropathy; E11.21 Type 2 diabetes mellitus with diabetic nephropathy; I10 Essential (primary) hypertension; E11.43 Type 2 diabetes mellitus with diabetic autonomic (poly)neuropathy; K31.84 Gastroparesis; K21.9 Gastro-esophageal reflux disease without esophagitis; E03.9 Hypothyroidism, unspecified; K59.09 Other constipation; M51.360 Other intervertebral disc degeneration, lumbar region with discogenic back pain only; E55.9 Vitamin D deficiency, unspecified; F41.9 Anxiety disorder, unspecified; F33.1 Major depressive disorder, recurrent, moderate; E66.9 Obesity, unspecified; Z79.4 Long term (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 of insulin | CPT/HCPCS: 90471; 90656; 96127; 99212 ==

== ENCOUNTER 2024-07-18 10:10 | Outpatient (AMB) | payer OTHER, SELFPAY ==
--- NOTE | 2024-07-18 10:03 | MHC.OFFVISWM ---
VS Expanded 07/18/24 10:13 Height 5 ft 5.5 in Weight 192 lb BMI 31.5 Intake Visit Reasons: TELEPHONE PO LSG 05/18/24 Allergies No Known Allergies Allergy (Verified 07/11/24 10:56) Medication List - Last Reconciled 07/18/24 by REE Esquivel atorvastatin 80 mg PO BEDTIME bisacodyl 5 mg PO BEDTIME blood sugar diagnostic (Gelexir HealthcareTouch Ultra Test strips) As directed checks 4 X/day blood-glucose meter (Gelexir HealthcareTouch Ultra2 Meter) As directed duloxetine 30 mg PO BID 30 days gabapentin 300 mg PO TID insulin lispro (Humalog KwikPen U-200 Insulin) 34 - 50 units subcut TID lancets (Gelexir HealthcareTouch UltraSoft 2 Lancet) As directed tests 4 X/day levothyroxine 50 mcg PO DAILY@0600 lorazepam 1 mg PO BID PRN 30 days losartan 100 mg PO DAILY pantoprazole 40 mg PO DAILY pen needle, diabetic (BD Ultra-Fine Micro Pen Needle) USE DIRECTED THREE TIMES A DAY sucralfate 10 mL PO BID HPI Comments Details: This?is a?64?yo female who is s/p LSG 05/18/2024. Presents for 2 month post op visit. Weight loss of 2.8lbs since last OV 3w ago.? No complaints of nausea, emesis, abdominal pain or reflux. Has chronic constipation, taking Miralax. Struggling with depression, started after surgery, was following with Farida. Started Cymbalta which is helping. Not taking losartan, not checking BP. Blood sugars well controlled. Present meal plan includes: 1 scoop Celebrate Rebuild can have yogurt, eggs, or cottage 3 forkfuls- has not been measuring in [employer] 1 scoop has not been in contact with Dr Sheikh Exercise routine includes: will walk the mall for 2 hours or so 2-3x/week [facility] Medical History (Updated 07/11/24 @ 11:35 by Fish Lomeli MD) Chronic constipation Type 2 diabetes mellitus with diabetic polyneuropathy Gastroparesis due to DM Obesity (BMI 30-39.9) BMI 35.0-35.9,adult History of degenerative disc disease Back pain Peripheral neuropathy History of cardiac murmur Abnormal EKG BMI 39.0-39.9,adult Obesity Hypertension Acquired hypothyroidism Acute bacterial bronchitis Atherosclerotic cardiovascular disease Breast cancer screening Subclinical hypothyroidism Acute cervical myofascial strain DM2 (diabetes mellitus, type 2) Rheumatic fever GERD (gastroesophageal reflux disease) Diabetic nephropathy associated with type 2 diabetes mellitus Hirsutism Dyslipidemia Type 2 diabetes mellitus with hyperglycemia, without long-term current use of insulin Depression Anxiety Vitamin D deficiency Lumbar degenerative disc disease Benign essential hypertension Pure hypercholesterolemia Diabetic neuropathy 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, bilateral Surgical History (Updated 07/11/24 @ 11:11 by Fish Lomeli MD) S/P laparoscopic sleeve gastrectomy History of bariatric surgery Hx of colonoscopy History of esophagogastroduodenoscopy (EGD) History of carpal tunnel release History of surgery History of cholecystectomy History of partial hysterectomy History of repair of rotator cuff Family History Father Diabetes Mother Diabetes CVD (cardiovascular disease) Social History Household Members: Spouse Caregiver staying overnight: No Housing: House Are you a primary wild animal caretaker to a significant other at home: No Do you presently have visiting nurse or other home services: No 75 years or older and lives alone: No Alcohol intake: never Patient Tobacco Use Status: Former Tobacco user Tobacco use type: Cigarette e-Cigarette/Vaping Use: Never Used Second Hand Smoke Exposure: Yes Advance Directives Date on File: 05/19/24 service: No Current occupational status: disabled Cognitive needs: No Hearing needs: No Vision needs: Yes Telehealth Telehealth Telehealth Platform: Telephone Location of provider rendering services: other Location of patient: address on file Patient Identification confirmed using: Name, : Yes Telehealth method: voice only Patient verbally consented to treatment: Yes Patient verbally consented to billing insurance company: Yes Patient informed of any privacy concerns related to visit: Yes Minutes spent on Phone/Video with Pt.: 15 Assessment & Plan Assessment & Plan (1) Obesity (BMI 30-39.9): Code(s): E66.9 - Obesity, unspecified Category: Medical (2) S/P laparoscopic sleeve gastrectomy: Comment: 05/17/2024 (Dr. Coello) Code(s): Z98.84 - Bariatric surgery status Category: Medical Plan Pt appears far too low in protein intake, has not been following plan. I recommended 2 Celebrate Rebuild shakes with two scoops each, 1 bar, and 1 meal 4 forks of protein. We discussed that protein intake being too low may inhibit her weight loss. Had to cancel appt with Farida yesterday due to her being sick, will reschedule. RTC 4-6 weeks. I spent a total of 30 minutes reviewing/updating records, examining the patient and counseling the patient on weight management as detailed above.
[2024-07-18 10:13] VITALS: BMI 31.5
== END 2024-07-18 10:32 | disposition home or self-care (01) ==
LOC: HO.HBS 10:10
PROVIDERS: PCP Internal Medicine; Visit Provider Physician Assistant Surgical
DX: E66.9 Obesity, unspecified (principal); Z98.84 Bariatric surgery status
CPT/HCPCS: 99024

== ENCOUNTER 2024-07-20 11:34 | Outpatient (AMB) | payer OTHER, SELFPAY ==
--- NOTE | 2024-07-20 12:02 | MHC.AMDMED ---
Intake Intake Visit Reasons: [id number] Allergies No Known Allergies Allergy (Verified 07/11/24 10:56) [facility] Comprehensive Diabetes Asmnt Most Recent Diabetes Results: Microalb/Creat Ratio 6.5 ug/mg cr (<30) 07/07/24 Cholesterol 236 mg/dL (<200) H 06/29/24 HDL Cholesterol 33 mg/dL (>40) L 06/29/24 Triglycerides 176 mg/dL (<150) H 06/29/24 Creatinine 0.79 mg/dL (0.5-1.4) 07/07/24 Blood Urea Nitrogen 12 mg/dL (9-16) 07/07/24 Sodium 143 mmol/L (135-145) 07/07/24 Potassium 4.1 mmol/L (3.3-5.1) 07/07/24 Chloride 110 mmol/L (96-108) H 07/07/24 Carbon Dioxide 24 mmol/L (22-29) 07/07/24 Calcium 9.3 mg/dL (8.4-10.2) 07/07/24 AST 25 U/L (5-31) 06/29/24 ALT 39 U/L (0-31) H 06/29/24 Total Protein 7.0 g/dL (6.5-8.0) 06/29/24 Albumin 4.0 g/dL (3.5-5.0) 06/29/24 [facility] Medical History (Updated 07/11/24 @ 11:35 by Fish Lomeli MD) Chronic constipation Type 2 diabetes mellitus with diabetic polyneuropathy Gastroparesis due to DM Obesity (BMI 30-39.9) BMI 35.0-35.9,adult History of degenerative disc disease Back pain Peripheral neuropathy History of cardiac murmur Abnormal EKG BMI 39.0-39.9,adult Obesity Hypertension Acquired hypothyroidism Acute bacterial bronchitis Atherosclerotic cardiovascular disease Breast cancer screening Subclinical hypothyroidism Acute cervical myofascial strain DM2 (diabetes mellitus, type 2) Rheumatic fever GERD (gastroesophageal reflux disease) Diabetic nephropathy associated with type 2 diabetes mellitus Hirsutism Dyslipidemia Type 2 diabetes mellitus with hyperglycemia, without long-term current use of insulin Depression Anxiety Vitamin D deficiency Lumbar degenerative disc disease Benign essential hypertension Pure hypercholesterolemia Diabetic neuropathy 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, bilateral Surgical History (Updated 07/11/24 @ 11:11 by Fish Lomeli MD) S/P laparoscopic sleeve gastrectomy History of bariatric surgery Hx of colonoscopy History of esophagogastroduodenoscopy (EGD) History of carpal tunnel release History of surgery History of cholecystectomy History of partial hysterectomy History of repair of rotator cuff Family History Father Diabetes Mother Diabetes CVD (cardiovascular disease) Social History Household Members: Spouse Caregiver staying overnight: No Housing: House Are you a primary career development consultant to a significant other at home: No Do you presently have visiting nurse or other home services: No 75 years or older and lives alone: No Alcohol intake: never Patient Tobacco Use Status: Former Tobacco user Tobacco use type: Cigarette e-Cigarette/Vaping Use: Never Used Second Hand Smoke Exposure: Yes Advance Directives Date on File: 05/19/24 service: No Current occupational status: disabled Cognitive needs: No Hearing needs: No Vision needs: Yes Assessment & Plan Assessment & Plan (1) 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, bilateral: Code(s): E11.3413 - 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, bilateral Qualifiers: Diabetes mellitus mcc insulin use: with mcc use Qualified Code(s): E11.3413 - 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, bilateral; Z79.4 - 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 Plan: Personal Continuous Glucose Monitor: Patients CGM information reviewed, Pt uses Dexcom G7 Sensor data: Hypoglycemia: 1%? Hyperglycemia:? 37% Time in Range:? 62% Average glucose for the last 2 weeks? 159 mg/dL Patient is post bariatric surgery, still using protein shakes for meals Reports taking Humalog U 200 25 units before meals Patient is having spiking glucose in the middle part of the day, then dropping off in the evening, with an occasional episode of hypoglycemia. Overnight patient's glucose tends to rise Patient does not take mealtime insulin unless glucose is above 200 mg/dL, in the morning she generally is within target range, however after drinking 1st protein shake of the day glucose tends to rise in stay above target for the middle in late afternoon. Reviewed with patient how to treat hypoglycemia with rule of 15s Suggested to patient if glucose is above 175 mg/dL to take Humalog U 200 20 units. Patient also stated at visit that she has been feeling depressed, patient has history of depression. She is not currently seeing behavioral health specialist. Suggested to patient she request behavioral health referral from PCP Reviewed how to interpret trend arrows Reminded patient that to check finger sticks if symptoms do not match sensor reading. Discussed lag time between finger stick and sensor data.? Patient able to insert sensor independently at home without issue.? Portions of this note were created using voice recognition software, please excuse any words or phrases that may have been misinterpreted. Patient Instructions: If glucose is greater than 175 mg/dL take Humalog U 200 20 units before meals Follow-up with agricultural extension educator in 3 months Coding Level of Care Code Est Pt Level 1 (88768) Diagnoses Type 2 diabetes mellitus with both eyes affected by severe nonproliferative retinopathy and macular edema, with long-term current use of insulin E11.3413; Z79.4 Diabetes mellitus river crossing supervisor insulin use: with river crossing supervisor use
== END 2024-07-20 12:04 | disposition home or self-care (01) ==
PROVIDERS: PCP Internal Medicine; Visit Provider Registered Nurse Diabetes Educator
DX: E11.3413 Type 2 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, bilateral (principal); Z79.4 Long term (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 of insulin

== ENCOUNTER → 2024-07-20 11:34 | Outpatient (BNVA) | payer OTHER, SELFPAY | PROVIDERS: PCP Internal Medicine; Visit Provider Registered Nurse Diabetes Educator | DX: E11.3413 Type 2 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, bilateral (principal); Z79.4 Long term (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 of insulin | CPT/HCPCS: 99211 ==

== ENCOUNTER 2024-08-02 08:53 | Outpatient (AMB) | payer OTHER, SELFPAY ==
--- NOTE | 2024-08-02 08:56 | A.OFFVIS_ITS ---
Vital Signs 08/02/24 08:58 Height 5 ft 5.5 in Weight 191 lb 9.307 oz BMI 31.4 BP 110/58 L Blood Pressure Location Rt brachial Position Sitting Pulse 82 Pulse Source Pulse Oximeter Intake Visit Reasons: T2DM/Confirmed Intake Note: Patient present today to follow up on Type 2 Diabetes Mellitus. Last Diabetic Eye exam: Within the year, [facility] Last Podiatry Visit: Does not see a Catalogue Clerk Random Glucose: 159 mg/dl HgA1C: 7.0% 07/07/24 Oxygen Furnace Operator Required: No Accompanied by: Self / Same As Patient Allergies No Known Allergies Allergy (Verified 08/02/24 09:02) HPI Comments Details: Patient is a 64-year-old female with DM type 2 diagnosed around 2004 who presents for management of diabetes. Of note patient is status post sleeve gastrectomy on 05/17/2024 She is doing 1 egg for breakfast around 7 or 8am, CELEBRATE protein shakes (ONE scoop EACH in 8oz low fat unsweetened almond milk each) at 9am-11am and 2-4pm Patient tells me she is off ozempic, off toujeo. She is currently taking humalog 20-24 units around 4 times daily. Previously on trulicity -stopped 2/2 gastroparesis. A1C was 7.0% on 07/07/24 Dexcom downloaded today. Her GMI is 7.5%, tgt 47%, high 51 %, low 2%. The lows seem to be inconsistently timed. Micro and macrovascular complications: retinopathy, nephropathy, neuropathy, Symptoms reported: + numbness, tingling, cramping in lower extremities Hypoglycemia: see above Hyperglycemia: +urinary frequency, +nocturia, denies polydypsia Exercise: daily Bottle Hop - follows with weight management. Follows with teaching diabetic RN Catalogue Clerk: denies Ophthalmology evaluation-UTD History of severe non-proliferative retinopathy, Had VEGF therapy with Dr Perez . Other specialists:nephrology, cardiology ROS see HPI. PHYSICAL EXAM: GENERAL: Alert and oriented x 3. NAD EYES: EOMI. Anicteric. HENT: Moist mucous membranes. No scleral icterus. No cervical lymphadenopathy. LUNGS: Clear to auscultation bilaterally. CARDIOVASCULAR: Regular rate and rhythm. ABDOMEN: Soft, non-tender +bs EXTREMITIES: No edema. Non-tender. SKIN: No rashes or lesions. Warm. NEUROLOGIC: No focal neurological deficits. FOOT: No ulcerations or open lesions. 2+ DP. Sensation decreased on monofilament exam. Vibratory decreased PSYCHIATRIC: Cooperative. Appropriate mood and affect [facility] Medical History (Updated 07/11/24 @ 11:35 by Fish Lomeli MD) Chronic constipation Type 2 diabetes mellitus with diabetic polyneuropathy Gastroparesis due to DM Obesity (BMI 30-39.9) BMI 35.0-35.9,adult History of degenerative disc disease Back pain Peripheral neuropathy History of cardiac murmur Abnormal EKG BMI 39.0-39.9,adult Obesity Hypertension Acquired hypothyroidism Acute bacterial bronchitis Atherosclerotic cardiovascular disease Breast cancer screening Subclinical hypothyroidism Acute cervical myofascial strain DM2 (diabetes mellitus, type 2) Rheumatic fever GERD (gastroesophageal reflux disease) Diabetic nephropathy associated with type 2 diabetes mellitus Hirsutism Dyslipidemia Type 2 diabetes mellitus with hyperglycemia, without long-term current use of insulin Depression Anxiety Vitamin D deficiency Lumbar degenerative disc disease Benign essential hypertension Pure hypercholesterolemia Diabetic neuropathy 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 termite (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 of insulin 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, bilateral Surgical History S/P laparoscopic sleeve gastrectomy History of bariatric surgery Hx of colonoscopy History of esophagogastroduodenoscopy (EGD) History of carpal tunnel release History of surgery History of cholecystectomy History of partial hysterectomy History of repair of rotator cuff Family History Father Diabetes Mother Diabetes CVD (cardiovascular disease) Social History Household Members: Spouse Caregiver staying overnight: No Housing: House Are you a primary career orientation teacher to a significant other at home: No Do you presently have visiting nurse or other home services: No 75 years or older and lives alone: No Alcohol intake: never Patient Tobacco Use Status: Former Tobacco user Tobacco use type: Cigarette e-Cigarette/Vaping Use: Never Used Second Hand Smoke Exposure: Yes Advance Directives Date on File: 05/19/24 service: No Current occupational status: disabled Cognitive needs: No Hearing needs: No Vision needs: Yes Physical Exam Vital Signs: Last Vital Signs Pulse 82 08/02/24 08:58 BP 110/58 L 08/02/24 08:58 BMI result Body Mass Index 31.4 Assessment & Plan Assessment & Plan (1) Type 2 diabetes mellitus with diabetic polyneuropathy: Code(s): E11.42 - Type 2 diabetes mellitus with diabetic polyneuropathy Category: Medical Qualifiers: Diabetes mellitus long term care social worker insulin use: with long term care social worker use Qualified Code(s): E11.42 - Type 2 diabetes mellitus with diabetic polyneuropathy; Z79.4 - 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 termite (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 of insulin Plan: Controlled Restart toujeo at 20 units Humalog 5 units if BG>150 with breakfast Humalog 10 units if BG>100 with lunch, dinner Conservative management given current diet 1-2 week follow up (2) S/P laparoscopic sleeve gastrectomy: Comment: 05/17/2024 (Dr. Coello) Code(s): Z98.84 - Bariatric surgery status Category: Surgical Plan: continue follow up Medications: New Toujeo SoloStar U-300 Insulin (insulin glargine U-300 conc) 20 units (0.0667 mL) subcut BEDTIME 4.5 mL 3RF NS E11.42 - Type 2 diabetes mellitus with diabetic polyneuropathy, Z79.4 - 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 insulin lispro (Humalog KwikPen U-200 Insulin) subcutaneously 3 times a day; 5 units before breakfast if BG >150 10 units before lunch and dinner (shakes) if BG>100 6 mL 3RF Coding Level of Care Code Est Pt Level 4 (57327) Diagnoses Type 2 diabetes mellitus with diabetic polyneuropathy, with long-term current use of insulin E11.42; Z79.4 Diabetes mellitus long term care social worker insulin use: with [facility] use S/P laparoscopic sleeve gastrectomy Z98.84
[2024-08-02 08:58] VITALS: BP 110/58; PULSE 82; BMI 31.4
[2024-08-02 09:11] LABS: Glucose, Whole Blood 159 mg/dL (60-115)
== END 2024-08-02 09:33 | disposition home or self-care (01) ==
PROVIDERS: PCP Internal Medicine; Visit Provider Internal Medicine
DX: E11.42 Type 2 diabetes mellitus with diabetic polyneuropathy (principal); Z79.4 Long term (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 of insulin; Z98.84 Bariatric surgery status

== ENCOUNTER → 2024-08-02 08:53 | Outpatient (BNVA) | payer OTHER, SELFPAY | PROVIDERS: PCP Internal Medicine; Visit Provider Internal Medicine | DX: E11.42 Type 2 diabetes mellitus with diabetic polyneuropathy (principal); Z79.4 Long term (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 of insulin; Z98.84 Bariatric surgery status | CPT/HCPCS: 82947; 99212 ==

== ENCOUNTER 2024-08-17 10:18 | Outpatient (AMB) | payer OTHER, SELFPAY ==
--- NOTE | 2024-08-17 10:20 | A.OFFVIS_ITS ---
Vital Signs 08/17/24 10:21 Height 5 ft 5.5 in Weight 191 lb 12.835 oz BMI 31.4 BP 114/60 Blood Pressure Location Rt brachial Position Sitting Pulse 72 Pulse Source Pulse Oximeter Intake Visit Reasons: T2DM Intake Note: Patient present today to follow up on Type 2 Diabetes Mellitus. Last Diabetic Eye exam: Within the year, [facility] Last Podiatry Visit: Does not see a Computing Machine Operator Most Recent HgA1C: 7.0%, 07/07/2024 Random Glucose: 124 mg/dL, Today Plastic Parts Designer Required: No Accompanied by: Self / Same As Patient Allergies No Known Allergies Allergy (Verified 08/17/24 10:22) Medication List - Last Reconciled 08/17/24 by Chin Vazquez MD atorvastatin 80 mg PO BEDTIME bisacodyl 5 mg PO BEDTIME blood sugar diagnostic (OneTouch Ultra Test strips) As directed checks 4 X/day blood-glucose meter (FlashnotesTouch Ultra2 Meter) As directed duloxetine 30 mg PO BID 30 days gabapentin 300 mg PO TID insulin lispro (Humalog KwikPen U-200 Insulin) subcutaneously 3 times a day; 5 units before breakfast if BG >150 10 units before lunch and dinner (shakes) if BG>100 lancets (FlashnotesTouch UltraSoft 2 Lancet) As directed tests 4 X/day levothyroxine 50 mcg PO DAILY lorazepam 1 mg PO BID PRN 30 days losartan 100 mg PO DAILY pantoprazole 40 mg PO DAILY pen needle, diabetic (BD Ultra-Fine Micro Pen Needle) USE DIRECTED THREE TIMES A DAY sucralfate 10 mL PO BID Toujeo SoloStar U-300 Insulin (insulin glargine U-300 conc) 20 units (0.0667 mL) subcut BEDTIME NS HPI Comments Details: Patient is a 64-year-old female with DM type 2 diagnosed around 2004 who presents for management of diabetes. Status post sleeve gastrectomy Past medical history: DM2, HTN, HLD, insomnia, depression, gastroparesis (dx 2018) Micro and macrovascular complications: retinopathy, nephropathy, neuropathy, Diabetes medications: Toujeo 20 units Humalog 5 units if BG>150 with breakfast Humalog 18-24 units if BG>100 with lunch, dinner . The Trulicity and Ozempic was stop because of the gastroparesis Continuous glucose monitoring: Dexcom download from 08/04/2024 through S 08/17/2024 shows average gluc 163 with standard deviation of 56. G mi 7.2%. The sensors be use 93% of the time. 58% range with 41% hyperglycemia and 1% hypoglycemia blood sugar pen shows increased point cares after dinner of ose ymptoms reported: + numbness, tingling, cramping in lower extremities Hypoglycemia: infrequently overnight but not recently Hyperglycemia: +urinary frequency, +nocturia, denies polydypsia Exercise: Walks on Saturdays for 2 hours. 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 Other specialists: Laboratory Tests 10/01/21 10/13/21 10/13/21 14:36 07:40 07:40 Creatinine 0.85 Estimated GFR > 60 Hgb A1c (Clinic) 9.0 H Triglycerides 186 Cholesterol 142 LDL Cholesterol, Calc 74 HDL Cholesterol 31 Vitamin B12 530 25-OH Vitamin D Total 30.6 TSH 4.19 H Free T4 0.71 Microalb/Creat Ratio 10/13/21 09:26 Creatinine Estimated GFR Hgb A1c (Clinic) Triglycerides Cholesterol LDL Cholesterol, Calc HDL Cholesterol Vitamin B12 25-OH Vitamin D Total TSH Free T4 Microalb/Creat Ratio 27.5 PFSH Medical History Chronic constipation Type 2 diabetes mellitus with diabetic polyneuropathy Gastroparesis due to DM Obesity (BMI 30-39.9) BMI 35.0-35.9,adult History of degenerative disc disease Back pain Peripheral neuropathy History of cardiac murmur Abnormal EKG BMI 39.0-39.9,adult Obesity Hypertension Acquired hypothyroidism Acute bacterial bronchitis Atherosclerotic cardiovascular disease Breast cancer screening Subclinical hypothyroidism Acute cervical myofascial strain DM2 (diabetes mellitus, type 2) Rheumatic fever GERD (gastroesophageal reflux disease) Diabetic nephropathy associated with type 2 diabetes mellitus Hirsutism Dyslipidemia Type 2 diabetes mellitus with hyperglycemia, without long-term current use of insulin Depression Anxiety Vitamin D deficiency Lumbar degenerative disc disease Benign essential hypertension Pure hypercholesterolemia Diabetic neuropathy half-way (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 of insulin 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, bilateral Surgical History S/P laparoscopic sleeve gastrectomy History of bariatric surgery Hx of colonoscopy History of esophagogastroduodenoscopy (EGD) History of carpal tunnel release History of surgery History of cholecystectomy History of partial hysterectomy History of repair of rotator cuff Family History Father Diabetes Mother Diabetes CVD (cardiovascular disease) Social History Household Members: Spouse Caregiver staying overnight: No Housing: House Are you a primary residential care officer to a significant other at home: No Do you presently have visiting nurse or other home services: No 75 years or older and lives alone: No Alcohol intake: never Patient Tobacco Use Status: Former Tobacco user Tobacco use type: Cigarette e-Cigarette/Vaping Use: Never Used Second Hand Smoke Exposure: Yes Advance Directives Date on File: 05/19/24 service: No Current occupational status: disabled Cognitive needs: No Hearing needs: No Vision needs: Yes Physical Exam Absence of Cushingoid features. Absence of acromegalic features. Neck exam reveals nl size thyroid about 15 gms. No thyroid nodules palpable. No carotid bruits present. Lungs CTA. Heart S1 S2, Reg R/R. No M/R/ G. Skin exam reveals absence of vitiligo or acanthosis nigricans. Abdominal exam reveals Soft NT/ND with NA BS. No organomegaly present. Neck Other: . Extrem Other: Visual exam of foot performed. No ulcerations or open lesions. No onchomycosis, no callouses.Pulses 2 + distally Sensation decreased to monofilament exam. Vibratory sensation sensed is decreased with 128 Hz tuning fork Assessment & Plan Assessment & Plan (1) 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, bilateral: Code(s): E11.3413 - 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, bilateral Category: Medical Qualifiers: Diabetes mellitus dedicated intermodal truck driver insulin use: with mcfp use Qualified Code(s): E11.3413 - 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, bilateral; Z79.4 - half-way (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 of insulin Plan: This 62-year-old female with a history of type 2 diabetes status post sleeve gastrectomy being treated with basal-bolus insulin with improved good but not optimal glycemic control and known microvascular complications namely neuropathy and retinopathy. Plan is to increase the dinner Humalog to 24-30 units pre-dinner. I did tell her to talk to the bariatric surgeon about potentially switching the supplement to a low glycemic supplement if possible. If this can not be done, the Humalog pre dinner can be increase this stayed above. Patient was also off the atorvastatin for some period of time but now resumed and recheck a lipid profile is ordered by her primary care provider in about 2 months' time Coding Level of Care Code Est Pt Level 4 (72597) Complex EM visit Add On G2211 Diagnoses Type 2 diabetes mellitus with both eyes affected by severe nonproliferative retinopathy and macular edema, with long-term current use of insulin E11.3413; Z79.4 Diabetes mellitus dedicated intermodal truck driver insulin use: with dedicated intermodal truck driver use
[2024-08-17 10:21] VITALS: BP 114/60; PULSE 72; BMI 31.4
[2024-08-17 10:30] LABS: Glucose, Whole Blood 124 mg/dL (60-115)
== END 2024-08-17 10:41 | disposition home or self-care (01) ==
PROVIDERS: PCP Internal Medicine; Visit Provider Internal Medicine Endocrinology, Diabetes & Metabolism
DX: E11.3413 Type 2 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, bilateral (principal); Z79.4 Long term (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 of insulin
CPT/HCPCS: 99214; G2211

== ENCOUNTER → 2024-08-17 10:18 | Outpatient (BNVA) | payer OTHER, SELFPAY | PROVIDERS: PCP Internal Medicine; Visit Provider Internal Medicine Endocrinology, Diabetes & Metabolism | DX: E11.3413 Type 2 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, bilateral (principal); E11.21 Type 2 diabetes mellitus with diabetic nephropathy; E11.40 Type 2 diabetes mellitus with diabetic neuropathy, unspecified; E78.5 Hyperlipidemia, unspecified; Z79.4 Long term (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 of insulin; Z79.899 Other long term (current) drug therapy | CPT/HCPCS: 82947; 99212 ==

== ENCOUNTER 2024-08-31 10:18 | Outpatient (AMB) | payer OTHER, MEDICAID, SELFPAY ==
[2024-08-31 10:20] VITALS: BP 114/50; PULSE 75; BMI 31.0
--- NOTE | 2024-08-31 10:20 | A.OFFVIS_ITS ---
Vital Signs 08/31/24 10:20 Height 5 ft 5.5 in Weight 189 lb 2.506 oz BMI 31.0 BP 114/50 L Blood Pressure Location Lt brachial Position Sitting Pulse 75 Intake Visit Reasons: 3 months f/u CIC, GERD Intake Note: Patricia in office today in 3 months follow up of CIC and GERD. CC: Patient doing well she reports constipation but states that she is able to have BMs when she takes the bisacodyl. Per patient she was told by Dr. Coello to d/c carafate and pantoprazole once she finished the ones prescribed by him. Rheumatology Specialist Required: No Accompanied by: Self / Same As Patient Allergies No Known Allergies Allergy (Verified 08/31/24 10:21) HPI HPI 3 months f/u [facility]IC, GERD: Details: Assessment & Plan (1) GERD (gastroesophageal reflux disease): Code(s): K21.9 - Gastro-esophageal reflux disease without esophagitis Category: Medical Qualifiers: Esophagitis presence: without esophagitis Qualified Code(s): K21.9 - Gastro-esophageal reflux disease without esophagitis (2) Gastroparesis: Code(s): K31.84 - Gastroparesis Category: Medical (3) S/P laparoscopic sleeve gastrectomy: Code(s): Z98.84 - Bariatric surgery status Category: Medical (4) Situational depression: Code(s): F43.21 - Adjustment disorder with depressed mood Category: Medical Plan She speaks [place]an She is tearful re: Dr. Santos yelled at her in the hospital in a condescending manner. This was very embarrassing to her and she has had some mild depression since then. HOwever, she finds his PA, Alessio very supportive. She had her gastric surgery and has lost 45 lbs! She denies Si or HI and I offer medication therapy but she declines this. She is no longer taking the bisacodyl or reglan, and has held the LInzess for now. This is fine. She continues on pantoprazole. For how she is moving her bowels well. ROV 3 mos. Medications: Discontinued bisacodyl Take 1-2 tablets by mouth once a day as needed for constipation Discontinued Reason: Doctor's Order 5 - 10 mg (1 - 2 x 5 mg) PO DAILY 30 days PRN 60 tabs 6RF constipation K59.00 - Constipation, unspecified On Hold atorvastatin Hold Comment: Doctor's Order 80 mg PO BEDTIME 90 tabs 2RF E78.5 - Hyperlipidemia, unspecified metoclopramide HCl Hold Comment: Doctor's Order 10 mg PO TID 90 tabs 6RF E11.43 - Type 2 diabetes mellitus with diabetic autonomic (poly)neuropathy, K31.84 - Gastroparesis TODAY'S VISIT She speaks [place]an She stillhas limited ability to eat r/t her gastric pouch. She is not taking any stomach medications including her pantoprazole, carafate that were rx'ed by Dr. Sheikh nor the Doreen. She is maintaining on bisacodyl 2 qhs. She has not taken the reglan. In general she feels well now, but she just recovered from a [id number] cough. She was started on cymbalts for mood and is doing well. She continues to lose wt via her bypass and intentional dieting. ROV 6 mos. 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 Diabetic neuropathy Depression Constipation Chest pain SOB (shortness of breath) Situational depression Gastroparesis due to DM Chronic constipation Type 2 diabetes mellitus with diabetic polyneuropathy Obesity (BMI 30-39.9) BMI 35.0-35.9,adult History of degenerative disc disease Back pain Peripheral neuropathy History of cardiac murmur Abnormal EKG BMI 39.0-39.9,adult Obesity Hypertension Acquired hypothyroidism Acute bacterial bronchitis Atherosclerotic cardiovascular disease Breast cancer screening Subclinical hypothyroidism Acute cervical myofascial strain DM2 (diabetes mellitus, type 2) Rheumatic fever GERD (gastroesophageal reflux disease) Diabetic nephropathy associated with type 2 diabetes mellitus Hirsutism Dyslipidemia Type 2 diabetes mellitus with hyperglycemia, without long-term current use of insulin Anxiety Vitamin D deficiency Lumbar degenerative disc disease Benign essential hypertension Pure hypercholesterolemia 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, bilateral Surgical History (Updated 08/31/24 @ 10:41 by RAJINDER Martel) S/P laparoscopic sleeve gastrectomy History of bariatric surgery Hx of colonoscopy History of esophagogastroduodenoscopy (EGD) History of carpal tunnel release History of surgery History of cholecystectomy History of partial hysterectomy History of repair of rotator cuff Family History Father Diabetes Mother Diabetes CVD (cardiovascular disease) Social History Household Members: Spouse Caregiver staying overnight: No Housing: House Are you a primary respiratory care faculty to a significant other at home: No Do you presently have visiting nurse or other home services: No 75 years or older and lives alone: No Alcohol intake: never Patient Tobacco Use Status: Former Tobacco user Tobacco use type: Cigarette e-Cigarette/Vaping Use: Never Used Second Hand Smoke Exposure: Yes Advance Directives Date on File: 05/19/24 service: No Current occupational status: disabled Cognitive needs: No Hearing needs: No Vision needs: Yes Review of Systems Const Denies fatigue, Denies fever(s), Denies night sweats, Denies poor appetite and Reports weight loss Eyes Details: glasses Reports requires corrective lenses ENT Reports Normal hearing present, Denies dental pain, Denies dysphagia, Denies hearing loss, Denies mouth pain, Denies odynophagia, Denies throat swelling, Denies tongue swelling and Reports other (Dentition adequate) Card Reports no additional complaints Resp Reports no additional complaints GI Details: Denies abdominal pain, Denies melena, Denies bloating, Denies hematochezia, Reports constipation, Denies GI cramping, Denies dysphagia, Denies excessive flatus, Reports early satiety, Denies heartburn, Denies diarrhea, Denies nausea, Denies odynophagia, Denies vomiting and Denies hematemesis Skin/Breast Denies pruritus, Denies lesions, Denies rash and Denies jaundice Neuro Reports Normal hearing present and Denies Abnormal speech present Endo Denies fatigue Aller/Immun Denies throat swelling and Denies tongue swelling Physical Exam Vital Signs: Last Vital Signs Pulse 75 08/31/24 10:20 BP 114/50 L 08/31/24 10:20 BMI result Body Mass Index 31.0 Const General: cooperative, no acute distress, well developed and well groomed Nutritional Appearance: well nourished and obese Orientation/consciousness: oriented to person, oriented to place and oriented to time Limitations: No language barrier HEENT Head: Yes normocephalic and Yes atraumatic Eyes General: appearance normal, both eyes and all related structures Pupils: Equal, round and reactive pupils present Neck Neck: Yes normal visual inspection and Yes no lymphadenopathy Thyroid: Thyroid normal Resp Effort & Inspection: normal respiratory effort and able to speak in complete sentences Auscultation: clear to auscultation bilaterally Cardio Rate: regular rate Rhythm: regular rhythm Heart sounds: Normal, physiologic split S2 sound present Peripheral pulses: radial pulses present and posterior tibial pulses present GI Inspection: No distended, Yes Abdominal panniculus present and Yes obesity Palpation (GI): Soft to palpation, nontender, no guarding, not rigid and No hepatosplenomegaly present Percussion: Yes normal to percussion Auscultation: normal bowel sounds Rectal Exam - Female: deferred Skin General skin exam: no rashes or lesions noted, turgor normal, skin not dry, no jaundice, No spider nevi and no striae Rashes: no rashes Nails: normal Neuro General: oriented to person, oriented to place and oriented to time Cranial nerves: Yes Equal, round and reactive pupils present and Yes Normal hearing present Speech: No Abnormal speech present Extrem General: Yes normal to inspection, No clubbing, No cyanosis and No edema Psych Appearance: grossly normal and well kempt Mental Status: mental status grossly normal Speech and movement: Normal speech and movement present Affect: normal affect Attitude: cooperative Thought process: Normal thought process present and not confabulating Thought content: Normal thought content present Insight: Fair insight present (Psych) Judgement: Fair judgement present (Psych) Assessment & Plan Assessment & Plan (1) Chronic constipation: Code(s): K59.09 - Other constipation Category: Medical (2) Gastroparesis: Code(s): K31.84 - Gastroparesis Category: Medical (3) GERD (gastroesophageal reflux disease): Comment: resolved with bypass surgery and wt loss Code(s): K21.9 - Gastro-esophageal reflux disease without esophagitis Category: Medical Qualifiers: Esophagitis presence: without esophagitis Qualified Code(s): K21.9 - Gastro-esophageal reflux disease without esophagitis Plan She speaks [place]an She still has limited ability to eat r/t her gastric pouch. She is not taking any stomach medications including her pantoprazole, carafate that were rx'ed by Dr. Sheikh nor the Doreen. She is maintaining on bisacodyl 2 qhs. She has not taken the reglan. In general she feels well now, but she just recovered from a severe cough. She was started on cymbalta for mood and is doing well. She continues to lose wt via her bypass and intentional dieting. ROV 6 mos. Medications: New bisacodyl 10 mg (2 x 5 mg) PO BEDTIME 60 tabs 6RF Discontinued sucralfate Discontinued Reason: Doctor's Order 10 mL PO BID 600 mL 2RF K21.9 - Gastro -esophageal reflux disease without esophagitis pantoprazole Discontinued Reason: Doctor's Order 40 mg PO DAILY 90 tabs 0RF K21.9 - Gastro-esophageal reflux disease without esophagitis Coding Level of Care Code Est Pt Level 3 (93326) Diagnoses Chronic constipation K59.09 Gastroparesis K31.84 Gastroesophageal reflux disease without esophagitis K21.9 Esophagitis presence: without esophagitis
== END 2024-08-31 10:53 | disposition home or self-care (01) ==
PROVIDERS: PCP Internal Medicine; Visit Provider Nurse Practitioner
DX: K59.09 Other constipation (principal); K31.84 Gastroparesis; K21.9 Gastro-esophageal reflux disease without esophagitis
CPT/HCPCS: 99213

== ENCOUNTER → 2024-08-31 10:18 | Outpatient (BNVA) | payer OTHER, MEDICARE, SELFPAY | PROVIDERS: PCP Internal Medicine; Visit Provider Nurse Practitioner ==

== ENCOUNTER 2024-09-04 15:10 | Outpatient (AMB) | payer OTHER, SELFPAY ==
--- NOTE | 2024-09-04 15:03 | MHC.OFFVISWM ---
VS Expanded 09/04/24 15:05 Height 5 ft 5.5 in Weight 185 lb BMI 30.3 Intake Visit Reasons: TELEPHONE PO LSG 05/18/24 Allergies No Known Allergies Allergy (Verified 08/31/24 10:21) Medication List - Last Reconciled 09/04/24 by REE Esquivel atorvastatin 80 mg PO BEDTIME bisacodyl 10 mg (2 x 5 mg) PO BEDTIME blood sugar diagnostic (OneTouch Ultra Test strips) As directed checks 4 X/day blood-glucose meter (OneTouch Ultra2 Meter) As directed duloxetine 30 mg PO BID 30 days gabapentin 300 mg PO TID insulin lispro (Humalog KwikPen U-200 Insulin) subcutaneously 3 times a day; 5 units before breakfast if BG >150 10 units before lunch and dinner (shakes) if BG>100 lancets (OneTouch UltraSoft 2 Lancet) As directed tests 4 X/day levothyroxine 50 mcg PO DAILY lorazepam 1 mg PO BID PRN 30 days losartan 100 mg PO DAILY pen needle, diabetic (BD Ultra-Fine Micro Pen Needle) USE DIRECTED THREE TIMES A DAY Toujeo SoloStar U-300 Insulin (insulin glargine U-300 conc) 20 units (0.0667 mL) subcut BEDTIME NS HPI Comments Details: This?is a?64?yo female who is s/p LSG 05/18/2024. Presents for 3.5 month post op visit. Weight at last visit on 07/18/2024 was 192 pounds with a BMI of 31.5, weight today is 185 pounds, representing a 7 pound weight loss with a BMI today of 30.3.? No complaints of nausea, emesis, abdominal pain or reflux, or constipation. Still using insulin, checking blood sugars- 130s-150s. Restarted losartan for high BP. 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 Diabetic neuropathy Depression Constipation Chest pain SOB (shortness of breath) Situational depression Gastroparesis due to DM Chronic constipation Type 2 diabetes mellitus with diabetic polyneuropathy Obesity (BMI 30-39.9) BMI 35.0-35.9,adult History of degenerative disc disease Back pain Peripheral neuropathy History of cardiac murmur Abnormal EKG BMI 39.0-39.9,adult Obesity Hypertension Acquired hypothyroidism Acute bacterial bronchitis Atherosclerotic cardiovascular disease Breast cancer screening Subclinical hypothyroidism Acute cervical myofascial strain DM2 (diabetes mellitus, type 2) Rheumatic fever GERD (gastroesophageal reflux disease) Diabetic nephropathy associated with type 2 diabetes mellitus Hirsutism Dyslipidemia Type 2 diabetes mellitus with hyperglycemia, without long-term current use of insulin Anxiety Vitamin D deficiency Lumbar degenerative disc disease Benign essential hypertension Pure hypercholesterolemia 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, bilateral Surgical History (Updated 09/04/24 @ 15:11 by REE Esquivel) S/P laparoscopic sleeve gastrectomy History of bariatric surgery Hx of colonoscopy History of esophagogastroduodenoscopy (EGD) History of carpal tunnel release History of surgery History of cholecystectomy History of partial hysterectomy History of repair of rotator cuff Family History Father Diabetes Mother Diabetes CVD (cardiovascular disease) Social History Household Members: Spouse Caregiver staying overnight: No Housing: House Are you a primary career development coordinator/teacher to a significant other at home: No Do you presently have visiting nurse or other home services: No 75 years or older and lives alone: No Alcohol intake: never Patient Tobacco Use Status: Former Tobacco user Tobacco use type: Cigarette e-Cigarette/Vaping Use: Never Used Second Hand Smoke Exposure: Yes Advance Directives Date on File: 05/19/24 service: No Current occupational status: disabled Cognitive needs: No Hearing needs: No Vision needs: Yes Telehealth Telehealth Telehealth Platform: Telephone Location of provider rendering services: other Location of patient: address on file Patient Identification confirmed using: Name, : Yes Telehealth method: voice only Patient verbally consented to treatment: Yes Patient verbally consented to billing insurance company: Yes Patient informed of any privacy concerns related to visit: Yes Minutes spent on Phone/Video with Pt.: 12 Assessment & Plan Assessment & Plan (1) Obesity (BMI 30-39.9): Code(s): E66.9 - Obesity, unspecified Category: Medical (2) S/P laparoscopic sleeve gastrectomy: Comment: 05/17/2024 (Dr. Coello) Code(s): Z98.84 - Bariatric surgery status Category: Surgical Plan Pt to continue above meal plan. Encouraged increasing exercise, likely not meeting goal of 2000 lo/week. No reflux off PPI/carafate. RTC 2 months, can order 6mo labs at that time. I spent a total of 30 minutes reviewing/updating records, examining the patient and counseling the patient on weight management as detailed above.
[2024-09-04 15:05] VITALS: BMI 30.3
== END 2024-09-04 15:25 | disposition home or self-care (01) ==
LOC: HO.HBS 15:10
PROVIDERS: PCP Internal Medicine; Visit Provider Physician Assistant Surgical
DX: E66.811 Obesity, class 1 (principal); Z68.30 Body mass index [BMI] 30.0-30.9, adult; Z90.3 Acquired absence of stomach [part of]; Z98.84 Bariatric surgery status
CPT/HCPCS: 98012

== ENCOUNTER → 2024-09-04 15:10 | Outpatient (BNVA) | payer OTHER, SELFPAY | PROVIDERS: PCP Internal Medicine; Visit Provider Physician Assistant Surgical ==

== ENCOUNTER 2024-10-05 11:09 | Outpatient (AMB) | payer MEDICARE, OTHER, SELFPAY ==
--- OUTSIDE RECORDS SUMMARY | 2024-10-05 11:13 | XMS_ITS | Clinical Summary ---
Author Organization [facility] Address [address] [place] [address] Phone Care Team Providers Care Aerial Photograph Interpreter Name Role Phone Fish Lomeli MD Primary Care Provider [phone]- [phone] Allergies Active Allergy Reactions Criticality Noted Date Comments Lisinopril Other (see comments) 01/22/2021 Medications atorvastatin (LIPITOR) 80 MG tablet Take 1 tablet by mouth 1 (one) time each day Active docusate sodium (COLACE) 100 MG capsule Take 1 capsule by mouth 2 (two) times a day Active gabapentin (NEURONTIN) 300 MG capsule Take 1 capsule by mouth 3 (three) times a day Active insulin regular (HumuLIN R) 500 UNIT/ML CONCENTRATED injection Inject under the skin Active LORazepam (ATIVAN) 1 MG tablet Take 1 tablet by mouth 2 (two) times a day Active Cholecalciferol 50 MCG (1999 UT) capsule Take 1 capsule by mouth 1 (one) time each day Active omeprazole (PriLOSEC) [address] capsule Take 40 mg by mouth 1 (one) time each day 12/30/19 22 Active metoclopramide (REGLAN) 10 MG tablet Take 1 tablet by mouth 1 (one) time each day 11/06/19 22 Active bisacodyl (DULCOLAX) 5 MG EC tablet Take 5 mg by mouth 1 (one) time each day if needed for constipation Do not crush, chew, or split. Active Trulicity 1.5 MG/0.5ML solution pen-injector INJECT 1.5 MG 0.5 ML) SUBCUTANEOUSLY EVERY WEEK 09/02/19 23 Active levothyroxine (SYNTHROID, LEVOTHROID) 50 MCG tablet Take 50 mcg by mouth 1 (one) time each day 09/08/19 23 Active losartan (COZAAR) 100 MG tablet Take 1 tablet (100 mg total) by mouth 1 (one) time each day 90 tablet 3 09/30/19 23 Active Active Problems Problem Noted Date Diagnosed Date Hypertension 01/14/2022 Benign hypertensive renal disease 01/22/2021 Chronic kidney disease stage 1 01/22/2021 Renal disorder due to type 2 diabetes mellitus 0 01/22/2021 Proteinuria 05/15/2014 Family History Medical History Relation Comments Diabetes Mother Heart disease Mother Hypertension Mother Relation Status Comments Father Alive Mother Social History Tobacco Use Types Packs/Day Years Used Date Smoking Tobacco: Former Smokeless Tobacco: Never Tobacco Cessation:Counseling Given: Not Answered Comments Unknown Sex and Gender Information Value Date Recorded Sex Assigned at Not on file Legal Sex Female 5:01 PM EST Gender Identity Not on file Sexual Orientation Not on file Last Filed Vital Signs Vital Sign Reading Time Taken Comments Blood Pressure 116/60 09/23/2022 4:22 PM EST Pulse 82 09/23/2022 4:22 PM EST Temperature - - Respiratory Rate - - Oxygen Saturation 99% 07/16/2021 1:44 PM EST Inhaled Oxygen Concentration - - Weight 110 kg (242 lb) 09/23/2022 4:22 PM EST Height 172.7 cm (5' 8 ) 06/19/2020 12:00 PM EDT Body Mass Index 36.8 06/19/2020 12:00 PM EDT Plan of Treatment Health Maintenance Due Date Last Done Comments Breast Cancer Screening 1960 Pneumococcal Vaccine: 65+ Ye ars (1 of 2 - PCV) 1964 Colorectal Cancer Screening: Annual FOBT 2007 Colorectal Cancer Screening: Colonoscopy 2007 Colorectal Cancer Screening: Sigmoidoscopy 2007 Diabetes: Hemoglobin A1C 09/30/2020 Diabetes: Ophthalmology Exam 09/30/2020 Diabetes: Pedal Pulse Checked 09/30/2020 Diabetes: Sensory Foot Exam 09/30/2020 Diabetes: Visual Foot Exam 09/30/2020 Influenza Vaccine (#1) 2024 Hepatitis B Vaccine Aged Out No longe r eligible based on patient's age to complete this topic Insurance MEDICARE MEDICAID [place]ARE [place]ICA[place] Care Teams Aerial Photograph Interpreter Relationship Specialty Start Date End Date Armani, Fish S, MD [address] [place] [address] PCP - General 09/09/20
[2024-10-05 11:14] VITALS: BP 100/68; PULSE 79; O2SAT 96; BMI 30.5
--- NOTE | 2024-10-05 11:14 | AM.OFFVISMDC ---
Intake Vital Signs 10/05/24 11:14 Height 5 ft 5.5 in Weight 186 lb 2 oz BMI 30.5 BP 100/68 Blood Pressure Location Lt brachial Position Sitting Pulse 79 Pulse Source Pulse Oximeter Pulse Oximetry (%) 96 Oxygen Delivery Method Room Air Intake Visit Reasons: AWV Historic Preservationist Required: No Accompanied by: Self / Same As Patient Allergies No Known Allergies Allergy (Verified 10/05/24 11:40) Medication List - Last Reconciled 10/05/24 by Fish Lomeli MD atorvastatin 80 mg PO BEDTIME bisacodyl 10 mg (2 x 5 mg) PO BEDTIME blood sugar diagnostic (Easy TaxiTouch Ultra Test strips) As directed checks 4 X/day blood-glucose meter (1stGig.comuch Ultra2 Meter) As directed duloxetine 30 mg PO BID 30 days gabapentin 300 mg PO TID insulin lispro (Humalog KwikPen U-200 Insulin) subcutaneously 3 times a day; 5 units before breakfast if BG >150 10 units before lunch and dinner (shakes) if BG>100 lancets (1stGig.comuch UltraSoft 2 Lancet) As directed tests 4 X/day levothyroxine 50 mcg PO DAILY lorazepam 1 mg PO BID PRN 30 days losartan 100 mg PO DAILY pen needle, diabetic (BD Ultra-Fine Micro Pen Needle) USE DIRECTED THREE TIMES A DAY Toujeo SoloStar U-300 Insulin (insulin glargine U-300 conc) 20 units (0.0667 mL) subcut BEDTIME NS Do you need a note to return to daycare/school/sports/work: No HPI AWV HPI Details Patient comes in today for her Annual Medicare Wellness Exam She reports that she has been experiencing increasing pain over her lower back for a few weeks now Relates that she's had lower back problems in the past but denies any recent injuries or trauma Adds that she is still losing hair and is not happy about this - states that her hair has thinned out a lot over the past year Her squaxin of care was reviewed and updated today Patient has a healthcare proxy in place and on file IPPE/AWV: c/o of Annual Wellness Visit, initial visit. Medical / Social History Reviewed Past Medical History Yes . [place] of Care / Care Team list updated Yes . Surgical/Hospitalization History Yes . Current Medications (including OTC and supplements) Yes . Family History Yes . Tobacco Control form Yes . AUDIT-C (Alcohol use) form Yes . Illicit drug use in Social History Yes . Current diagnosis of depression? No Appropriate PHQ2/PHQ9 completed Yes . Data entered by Snuff Container Inspector and reviewed by provider Home Safety Throw rugs? No Grab bars? No Raised toilet seats? No Working smoke detectors? Yes Working carbon monoxide detectors? Yes Data entered by Snuff Container Inspector and reviewed by provider Activities of Daily Living (ADLs) Difficulty bathing or showering? No Difficulty dressing? No Difficulty using the toilet? No Difficulty getting in and out of bed? No Difficulty walking? No Receives help from another person with any of the above tasks? No Instrumental Activities of Daily Living (IADLs) Uses the telephone without help Gets to places out of walking distance without help Goes shopping for groceries without help Prepares own meals without help Does own minor home maintenance with help Does own laundry with help Does own housework with help Manages own money without help Currently takes medications? Yes Takes medication without help End-of-Life Planning Discussed advance directive Yes Advance directive on file Discussed wishes expressed in advance directive agreed to following patient's wishes Fall Risk: Fall History Have you had any falls with injury in the past year? No . Have you had two or more falls in the past year? No . Fall Risk Assessment: No falls in the past year . HRA filled out by the patient, reviewed by Provider and scanned. 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 Diabetic neuropathy Depression Constipation Chest pain SOB (shortness of breath) Situational depression Gastroparesis due to DM Chronic constipation Type 2 diabetes mellitus with diabetic polyneuropathy Obesity (BMI 30-39.9) BMI 35.0-35.9,adult History of degenerative disc disease Back pain Peripheral neuropathy History of cardiac murmur Abnormal EKG BMI 39.0-39.9,adult Obesity Hypertension Acquired hypothyroidism Acute bacterial bronchitis Atherosclerotic cardiovascular disease Breast cancer screening Subclinical hypothyroidism Acute cervical myofascial strain DM2 (diabetes mellitus, type 2) Rheumatic fever GERD (gastroesophageal reflux disease) Diabetic nephropathy associated with type 2 diabetes mellitus Hirsutism Dyslipidemia Type 2 diabetes mellitus with hyperglycemia, without long-term current use of insulin Anxiety Vitamin D deficiency Lumbar degenerative disc disease Benign essential hypertension Pure hypercholesterolemia 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, bilateral Surgical History S/P laparoscopic sleeve gastrectomy History of bariatric surgery Hx of colonoscopy History of esophagogastroduodenoscopy (EGD) History of carpal tunnel release History of surgery History of cholecystectomy History of partial hysterectomy History of repair of rotator cuff Family History Father Diabetes Mother Diabetes CVD (cardiovascular disease) Social History Household Members: Spouse Caregiver staying overnight: No Housing: House Are you a primary child care development specialist to a significant other at home: No Do you presently have visiting nurse or other home services: No 75 years or older and lives alone: No Alcohol intake: never Patient Tobacco Use Status: Former Tobacco user Tobacco use type: Cigarette e-Cigarette/Vaping Use: Never Used Second Hand Smoke Exposure: Yes Advance Directives Date on File: 05/19/24 service: No Current occupational status: disabled Cognitive needs: No Hearing needs: No Vision needs: Yes Questionnaire Medicare Wellness Checkup What [age] 65-69 What gender do you identify with?: female During the past 4 weeks, how much have you been bothered by emotional problems such as feeling anxious, depressed, irritable, sad or downhearted, and blue?: moderately During the past 4 weeks, has your physical & emotional health limited your social activities with family, friends, neighbors, or groups?: slightly During the past 4 weeks, how much bodily pain have you generally had?: moderate pain During the past 4 weeks, what was the hardest physical activity you could do for at least 2 minutes?: light Can you get to places out of walking distance without help? (For eg., can you travel alone on buses, taxis or drive your car?): No Can you go shopping for groceries or clothes without someone's help?: Yes Can you prepare your own meals?: Yes Can you do your housework without help?: No Because of any health problems, do you need the help of another person with your personal care needs such as eating, bathing, dressing or getting around the house?: Yes Can you handle your own money without help?: Yes During the past 4 weeks, how would you rate your health in general?: fair During the past 4 weeks how have things been going for you?: good & bad parts about equal Are you having difficulties driving your car?: sometimes Do you always fasten your seat belt when you are in a car?: yes, usually During past 4 weeks, have you been bothered by the following: never: Sexual problems?, Teeth or denture problems? and Problems using the telephone?, sometimes: Falling or dizzy when standing up and Trouble eating well? and always: Tiredness or fatigue? Have you fallen 2 or more times in the past year?: Yes Are you afraid of falling?: Yes Are you a smoker?: no During the past 4 weeks, how many drinks of wine, beer, or other alcoholic beverages did you have?: no alcohol at all Do you exercise for about 20 minutes 3 or more times a week?: no, I usually do not exercise this much Have you been given information to help with the following?: yes: Keeping track of your medications? and no: Hazards in your house that might hurt you? How often do you have trouble taking medicines the way you have been told to take them?: I always take medicine as prescribed How confident are you that you can control & manage most of your health problems?: somewhat confident What is your race?: or origin or descent Mini Mental State Exam (MMSE) Orientation What is the (year) (season) (date) (day) (month)?: year, season, date, day and month Where are we (state) (county) (town or city) (hospital) (floor)?: state, county, town or city, hospital/clinic and floor Score Score: 10 Activity of Daily Living Bathing - sponge bath, tub bath or shower: receives no assistance (gets in/out by self, if usual bathing means Dressing - getting clothes from closets & drawers, including inner/outer garments & fasteners.: gets clothes & gets completely dressed without help Toileting - going to the 'toilet room' for urine/bowel elimination & cleaning self/arranging clothes: goes to toilet room, cleans self, arranges clothes without help Transfer: moves in & out of bed and chair without help (may use support object) Continence: has occasional 'accidents' Feeding: feeds self without help Total Score: 0 Information obtained from: patient Using telephone: independent Traveling: independent Shopping: independent Preparing meals: independent Housework: needs assistance Taking medicine: independent Managing money: independent PHQ-9 Over the last 2 weeks, how often have you been bothered by any of the following problems? 1. Little interest or pleasure in doing things: more than half the days 2. Feeling down, depressed, or hopeless: several days 3. Trouble falling or staying asleep, or sleeping too much: nearly every day 4. Feeling tired or having little energy: nearly every day 5. Poor appetite or overeating: several days 6. Feeling bad about yourself - or that you are a failure or have let yourself or your family down: not at all 7. Trouble concentrating on things, such as reading the newspaper or watching television: not at all 8. Moving or speaking so slowly that other people could have noticed. Or the opposite - being so fidgety or restless that you have been moving around a lot more than usual: nearly every day 9. Thoughts that you would be better off or of hurting yourself in some way: nearly every day Total score: 16 Depression Screening Interpretation: Positive Depression Screening Follow-up: Existing condition and In treatment Depression Screening Done: Yes 67759 - PHQ-9 Billing: Yes Source: Developed by Drs. Chin Mccollum, Liberty Coleman, Alverto Monge and colleagues, with an educational judy from [employer]. PHQ-2/PHQ-9 PHQ-2 Over the last 2 weeks, how often have you been bothered by any of the following problems? 1. Little interest or pleasure in doing things: more than half the days 2. Feeling down, depressed, or hopeless: several days Total score: 3 If score is 3 or greater, continue 3. Trouble falling or staying asleep, or sleeping too much: nearly every day 4. Feeling tired or having little energy: nearly every day 5. Poor appetite or overeating: several days 6. Feeling bad about yourself - or that you are a failure or have let yourself or your family down: not at all 7. Trouble concentrating on things, such as reading the newspaper or watching television: not at all 8. Moving or speaking so slowly that other people could have noticed. Or the opposite - being so fidgety or restless that you have been moving around a lot more than usual: nearly every day 9. Thoughts that you would be better off or of hurting yourself in some way: nearly every day Total score: 16 0-4 None-Minimal, 5-9 Mild, 10-14 Moderate, 15-19 Moderately Severe, 20-27 Severe Source: Developed by Drs. Chin Mccollum, Liberty Coleman, Alverto Monge and colleagues, with an educational judy from [employer]. Thrive Questionnaire Date Thrive assessed: 10/05/24 I am a: Patient What is your living situation today?: I have a steady place to live Within the past 12 months, did the food you bought not last and you didn't have the money to get more?: Never true Within the past 12 months, did you worry whether your food would run out before you got money to buy more?: Never true Do you have trouble paying for medicines?: No Do you have trouble getting transportation to medical appointments?: No Do you have trouble paying your heating and electricity bill?: No Do you have trouble taking care of your child, family member or friend?: No Do you have trouble with day-to-day activities such as bathing, preparing meals, shopping, managing finances, etc.?: No Are you currently unemployed and looking for a job?: No Are you interested in more education?: No Please select the resources that you would like help with: None Currently or been in a relationship where the following occur: No concerns reported THRIVE Score: 0 LAURENT-7 AMB Questionnaire LAURENT-7 Date LAURENT - 7 assessed: 10/05/24 Feeling nervous, anxious, or on edge: 0 = Not at all Not being able to stop or control worryin = Not at all Worrying too much about different things: 0 = Not at all Trouble relaxin = Not at all Being so restless that it is hard to sit still: 0 = Not at all Becoming easily annoyed or irritable: 0 = Not at all Feeling afraid as if something awful might happen: 0 = Not at all Total LAURENT-7 score (0-4 normal; 5-9 mild; 10-14 moderate; 15-21 severe): 0 Source: Developed by Drs. Chin Mccollum, Liberty Coleman, Alverto Monge and colleagues, with an educational judy from [employer]. Review of Systems Const Denies chills, Reports fatigue, Denies fever(s) and Denies headache(s) ENT Denies dysphagia, Denies dizziness, Denies otalgia, Denies headache(s), Denies neck pain, Denies odynophagia and Denies sore throat Card Denies chest pain, Denies palpitations and Reports dyspnea on exertion (mild) Resp Denies chest congestion, Denies cough and Reports dyspnea on exertion (mild) GI Denies abdominal pain, Reports constipation (chronic), Denies dysphagia, Denies heartburn, Denies diarrhea, Denies nausea, Denies odynophagia and Denies vomiting Denies difficulty voiding, Denies nocturia, Denies dysuria and Denies urinary urgency Musc Reports back pain (over the lower back - chronic but increased lately) and Denies neck pain Skin/Breast Reports alopecia (increased over the past year ) and Denies rash Neuro Denies dizziness and Denies headache(s) Psych Reports anxiety and Reports depression (increased lately) Endo Reports fatigue and Denies palpitations Davion/Lymph Denies easy bruising Physical Exam Vital Signs: Last Vital Signs Pulse 79 10/05/24 11:14 BP 100/68 10/05/24 11:14 Pulse Ox 96 10/05/24 11:14 Oxygen Delivery Method Room Air 10/05/24 11:14 BMI result Body Mass Index 30.5 IPPE/AWV: Balance [place] Yes . Tandem walk No . Walk and Turn No . Rise from sit to stand No . Vision Corrective lens Yes Vision screen pass Hearing Whisper test pass . Urinary incont. no. EKG Not clinically necessary. Const Orientation/consciousness: patient oriented x3 HEENT Head: No scalp lesion Back/Spine/Pelvis Thoracic/Lumbar Spine: lumbar spinal tenderness Skin Rashes: no rashes Neuro General: patient oriented x3 Cognition (Neuro): normal cognition Psych Thought process: Normal thought process present Assessment & Plan Assessment & Plan (1) Medicare annual wellness visit, initial: Code(s): Z00.00 - Encounter for general adult medical examination without abnormal findings Plan: HRA form discussed and completed with patient; form will be scanned into patient's chart GISSELL updated Recommended cancer screenings reviewed with patient Patient states that she's had a colonoscopy done in the past but cannot remember exactly when - thinks it is over 10 years ago now but declines offer to send her for repeat colonoscopy States that she will discuss with GI at her next appointment about getting Cologuard testing instead if it is appropriate Her annual mammogram was last done in 06/2023 - she does not wish to go for another one at this time States that she does not need to go for yearly gynecology exam and pap smears any longer since she's had a partial hysterectomy done years ago (2) Lumbar degenerative disc disease: Code(s): M51.36 - Other intervertebral disc degeneration, lumbar region Qualifiers: Disc-related pain type: discogenic back pain only Qualified Code(s): M51.360 - Other intervertebral disc degeneration, lumbar region with discogenic back pain only Plan: Will send her for repeat lumbar spine x-rays for further evaluation She reportedly had imaging studies done on her lower back in the past but none in the past 5 years Discussed consideration of referring her to pain management but will wait and see how her x-rays come out first (3) Hair loss disorder: Code(s): L65.9 - Nonscarring hair loss, unspecified Plan: Discussed with patient the likely probability that her hair loss/thinning over the past year is due to telogen phase hair loss but to be complete, will refer her to dermatology for further evaluation and management Plan Follow up as scheduled in 2 weeks Orders: Orders XR lumbar spine 2-3V Today M54.50 - Low back pain, unspecified Referrals Dermatology Referral L65.9 - Nonscarring hair loss, unspecified Quality Reporting (2019) Depression/Bipolar (159/160/161/177) PHQ-9: Total score: 16 Coding Level of Care Code Medicare First (G0438) Est Pt Level 3 (18250) Diagnoses Medicare annual wellness visit, initial Z00.00 Degeneration of intervertebral disc of lumbar region with discogenic back pain M51.360 Disc-related pain type: discogenic back pain only Hair loss disorder L65.9 Additional Codes PHQ-9 - 49273 - PHQ-9 Billing: Yes ([id number])
--- OUTSIDE RECORDS SUMMARY | 2024-10-05 11:14 | XMS_ITS | Encounter Summary ---
Author Organization [facility] Address [address] [place] [address] Phone Care Team Providers Care Shampooer Name Role Phone Fish Lomeli MD Primary Care Provider [phone]- [phone] Encounter Details Date Type Department Care Team (Late st Contact Info) Description 07/14/2022 Office Communication [facility] [place] [address] [place] [address] Juan David Jones Social History Tobacco Use Types Packs/Day Years Used Date Smoking Tobacco: Former Smokeless Tobacco: Never Comments Unknown Sex and Gender Information Value Date Recorded Sex Assigned at Not on file Legal Sex Female 5:01 PM EST Gender Identity Not on file Sexual Orientation Not on file documented as of this encounter Plan of Treatment Not on file documented as of this encounter Visit Diagnoses Not on filedocumented in this encounter Care Teams Shampooer Relationship Specialty Start Date End Date Fish Lomeli MD [address] [place] [address] PCP - General 09/09/20 documented as of this encounter
== END 2024-10-05 11:55 | disposition home or self-care (01) ==
LOC: HO.HMCH 11:09
PROVIDERS: PCP Internal Medicine; Visit Provider Internal Medicine
DX: Z00.00 Encounter for general adult medical examination without abnormal findings (principal); M51.360 Other intervertebral disc degeneration, lumbar region with discogenic back pain only; L65.9 Nonscarring hair loss, unspecified

== ENCOUNTER → 2024-10-05 11:09 | Outpatient (BNVA) | payer MEDICARE, OTHER, SELFPAY | PROVIDERS: PCP Internal Medicine; Visit Provider Internal Medicine | DX: Z00.00 Encounter for general adult medical examination without abnormal findings (principal); M51.360 Other intervertebral disc degeneration, lumbar region with discogenic back pain only; L65.9 Nonscarring hair loss, unspecified | CPT/HCPCS: 96127; 99212 ==

== ENCOUNTER 2024-10-13 07:32 | Outpatient (REF) | payer MEDICARE, SELFPAY ==
--- NOTE | ~2024-10-13 | XR_ITS ---
EXAMINATION: XR LUMBAR SPINE 2-3 VIEWS HISTORY: M54.50 - Low back pain, unspecified COMPARISON: Comparison is made with the prior examination dated 04/19/2020. FINDINGS: AP, lateral, and coned down views of the lumbar spine are submitted. Osseous mineralization is normal. Five nonrib-bearing lumbar vertebral bodies are identified, maintaining normal height and alignment without evidence of fracture or spondylolisthesis. There is minimal anterior spurring. The intervertebral disc spaces are preserved. The posterior elements are intact. There is calcification of the abdominal aorta. XR/XR lumbar spine 2-3V IMPRESSION: Minimal anterior spurring without change. Electronically signed by: Chin Mejia MD 10/13/2024 09:24 AM BETH
--- OUTSIDE RECORDS SUMMARY | 2024-10-13 07:35 | XMS_ITS | Clinical Summary ---
Author Organization [facility] Address [address] [place] [address] Phone Care Team Providers Care Communications Lead Name Role Phone Fish Lomeli MD Primary Care Provider +1- [phone] Allergies Active Allergy Reactions Criticality Noted Date [...] [place]ICAID [place] Care Teams Communications Lead Relationship Specialty Start Date End Date Armani, Fish S, MD [address] [place] [address] PCP - General 09/09/20
--- OUTSIDE RECORDS SUMMARY | 2024-10-13 07:35 | XMS_ITS | Encounter Summary ---
Author Organization [facility] Address [address] [facility] [facility] [address] [place] [address] Phone Care Team Providers Care Medical Data Entry Clerk Name Role Phone Fish Lomeli MD Primary Care Provider +1- [phone] Encounter Details Date Type Department Care Team (Late st Contact Info) Description 07/14/2022 Office Communication [facility] [address] [place] [address] Juan David Jones Social History Tobacco Use [...] on filedocumented in this encounter Care Teams Medical Data Entry Clerk Relationship Specialty Start Date End Date Fish Lomeli MD [address] [place] [address] PCP - General 09/09/20 documented as of this encounter
[2024-10-13 07:50] LABS: MANUAL DIFF FLAG NO
[2024-10-13 08:06] LABS: Basophils Absolute Auto 0.1 X10*3/uL (0.0-0.2); Eosinophils Absolute Auto 0.1 X10*3/uL (0.0-0.4); Eosinophils Percent Auto 1.3 % (0-4); Hematocrit 42.8 % (37.0-47.0); Hemoglobin 13.3 g/dl (12.0-16.0); Lymphocytes Absolute Auto 2.1 X10*3/uL (1.2-4.9); Lymphocytes Percent Auto 44.6 % (20-40); Mean Corpuscular HGB Conc 31.1 g/dl (31.0-35.0); Mean Corpuscular Hemoglobin 28.1 pg (27.0-33.0); Mean Corpuscular Volume 90.3 fL (80.0-98.0); Mean Platelet Volume 11.1 fL (9.4-12.3); Monocytes Absolute Auto 0.4 X10*3/uL (0.1-1.2); Monocytes Percent Auto 7.9 % (2-11); Neutrophils Absolute Auto 2.2 x10*3/uL (2.0-8.3); Neutrophils Percent Auto 45.2 % (45-73); Platelet Count 179 X10*3/uL (160-400); Red Blood Count 4.74 X10*6/uL (4.20-5.50); Red Cell Distribution Width 12.9 % (11.0-16.0); White Blood Count 4.8 X10*3/uL (4.8-10.8)
[2024-10-13 08:08] LABS: Appearance Urine Cloudy; Color Urine Yellow; Glucose Urine UA Negative (Negative); Leukocyte Esterase Urine Small (1+) (Negative); Nitrite Urine Negative (Negative); UMIC TRIGGER UACC YES; Urine Blood Negative (Negative); Urine Ketones Negative (Negative); Urine Protein Negative (Neg-Trace)
[2024-10-13 08:16] LABS: Estimated Average Glucose 157 mg/dL; Hemoglobin A1c % 7.1 % (<6.0); Total Hemoglobin (HGBA1C) 3450.3571 umol/L
[2024-10-13 08:22] LABS: Bacteria Urine None Seen (None Seen); Hyaline Casts Urine 0-2 /LPF (0-2); RBC Urine 0-2 /HPF (0-2); UACC Culture Trigger YES; WBC Urine 0-5 /HPF (0-5)
[2024-10-13 08:43] LABS: Alanine Aminotransferase 56 U/L (0-31); Albumin Level 4.2 g/dL (3.5-5.0); Alkaline Phosphatase 117 U/L (39-117); Anion Gap 12 (12-20); Aspartate Amino Transferase 31 U/L (5-31); Bilirubin Total 0.8 mg/dL (0.0-1.0); Blood Urea Nitrogen 9 mg/dL (9-16); Calcium 10.3 mg/dL (8.4-10.2); Carbon Dioxide 27 mmol/L (22-29); Chloride 107 mmol/L (96-108); Cholesterol 108 mg/dL (<200); Estimated Glomerular Filt Rate > 60; Glucose Fasting 128 mg/dL (60-99); HDL Cholesterol 37 mg/dL (>40); LDL Cholesterol Calculated 48 mg/dL (<100); Potassium 4.7 mmol/L (3.3-5.1); Sodium 141 mmol/L (135-145); Total Protein 7.5 g/dL (6.5-8.0); Triglycerides 118 mg/dL (<150)
[2024-10-13 09:00] LABS: Creatinine Urine 170.01 mg/dL; Microalbum/Creatinine Ratio Ur 9.4 ug/mg cr (<30)
[2024-10-13 09:01] LABS: Free T4 (Free Thyroxine) 0.83 ng/dL (0.71-1.85); Thyroid Stimulating Hormone 2.67 uIU/mL (0.32-4.0); Vitamin D 25-OH Total 42.8 ng/mL (>30)
[2024-10-13 09:06] LABS: Folate 6.9 ng/mL (> or = 4.0); Vitamin B12 542 pg/mL (200-900)
== END 2024-10-13 07:33 | disposition home or self-care (01) ==
LOC: HO.LAB 07:32
PROVIDERS: PCP Internal Medicine; Visit Provider Internal Medicine
DX: E11.9 Type 2 diabetes mellitus without complications (principal); E03.9 Hypothyroidism, unspecified; E55.9 Vitamin D deficiency, unspecified; E78.00 Pure hypercholesterolemia, unspecified; D64.9 Anemia, unspecified; E53.8 Deficiency of other specified B group vitamins; M54.50 Low back pain, unspecified; R30.0 Dysuria
CPT/HCPCS: 36415; 72100; 80053; 80061; 81001; 81003; 82043; 82306; 82570; 82607; 82746; 83036; 84439; 84443; 85025; 87086

== ENCOUNTER → 2024-10-13 07:52 | Outpatient (BNV) | payer MEDICARE, SELFPAY | PROVIDERS: PCP Internal Medicine; Visit Provider Radiology Diagnostic Radiology | DX: M54.50 Low back pain, unspecified (principal) | CPT/HCPCS: 72100 ==

== ENCOUNTER 2024-10-18 08:02 | Outpatient (AMB) | payer MEDICARE, SELFPAY ==
--- OUTSIDE RECORDS SUMMARY | 2024-10-18 08:09 | XMS_ITS | Clinical Summary ---
Author Organization [facility] Address [address] [place] [address] Phone Care Team Providers Care Advertising Copy Writer Name Role Phone Fish Lomeli MD Primary Care Provider +1- [phone] Allergies Active Allergy Reactions Criticality Noted Date [...] [place] Care Teams Advertising Copy Writer Relationship Specialty Start Date End Date Armani, Fish S, MD [address] [place] [address] PCP - General 09/09/20
--- OUTSIDE RECORDS SUMMARY | 2024-10-18 08:10 | XMS_ITS | Encounter Summary ---
Author Organization [facility] Address [address] [facility] [address] [place] [address] Phone Care Team Providers Care Icer Hand Name Role Phone Fish Lomeli MD Primary Care Provider [phone]- [phone] Encounter Details Date Type Department Care Team (Late st Contact Info) Description 07/14/2022 Office Communication [facility] [address] [place] [address] Juan David Jones Social History Tobacco Use [...] on filedocumented in this encounter Care Teams Icer Hand Relationship Specialty Start Date End Date Fish Lomeli MD [address] [place] [address] PCP - General 09/09/20 documented as of this encounter
[2024-10-18 09:39] VITALS: BP 110/76; PULSE 78; O2SAT 96; BMI 29.8
--- NOTE | 2024-10-18 09:39 | A.OFFPC_ITS ---
Vital Signs 10/18/24 09:39 Height 5 ft 5.5 in Weight 182 lb BMI 29.8 BP 110/76 Blood Pressure Location Lt brachial Position Sitting Pulse 78 Pulse Source Pulse Oximeter Pulse Oximetry (%) 96 Oxygen Delivery Method Room Air Intake Visit Reasons: DM, GERD, Hyperlipidemia Vocational Rehabilitation Technician Required: No Accompanied by: Self / Same As Patient Allergies No Known Allergies Allergy (Verified 10/18/24 10:27) Medication List - Last Reconciled 10/18/24 by Fish Lomeli MD atorvastatin 80 mg PO BEDTIME bisacodyl 10 mg (2 x 5 mg) PO BEDTIME blood sugar diagnostic (Rewarderuch Ultra Test strips) As directed checks 4 X/day blood-glucose meter (Rewarderuch Ultra2 Meter) As directed duloxetine 30 mg PO BID 30 days gabapentin 300 mg PO TID insulin lispro (Humalog KwikPen U-200 Insulin) subcutaneously 3 times a day; 5 units before breakfast if BG >150 10 units before lunch and dinner (shakes) if BG>100 lancets (Rewarderuch UltraSoft 2 Lancet) As directed tests 4 X/day levothyroxine 50 mcg PO DAILY lorazepam 1 mg PO BID PRN 30 days losartan 100 mg PO DAILY pen needle, diabetic (BD Ultra-Fine Micro Pen Needle) USE DIRECTED THREE TIMES A DAY Toujeo SoloStar U-300 Insulin (insulin glargine U-300 conc) 20 units (0.0667 mL) subcut BEDTIME NS Tobacco use date assessed: 10/18/24 Fall risk assessment: No Falls in past year Last assessed Fall Risk: 10/18/24 Dental Screening Dental Screen Date: 10/18/24 Did you have a dental visit in the last 12 months?: No Did you have a dental problem in the last 6 months where you did not have access to dental care?: No Was dental information given to patient?: No HPI DM, GERD, Hyperlipidemia HPI Details Patient comes in today for her follow up visit States that she feels okay except for her lower back, which she states has been bothering her a lot for a while now Recalls that she was getting injections into her lower back from [facility] Management at [facility] with some relief temporarily but she has not been back to see them in a while Would like to know how her recent back x-rays came out She denies any headaches or dizziness Denies any chest pains, no increased SOB No nausea/vomiting, no abdominal pain No change in bowel habits noted She had her follow up labs done a few days ago - to discuss her results [facility] Medical History 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 Diabetic neuropathy Depression Constipation Chest pain SOB (shortness of breath) Situational depression Gastroparesis due to DM Chronic constipation Type 2 diabetes mellitus with diabetic polyneuropathy Obesity (BMI 30-39.9) BMI 35.0-35.9,adult History of degenerative disc disease Back pain Peripheral neuropathy History of cardiac murmur Abnormal EKG BMI 39.0-39.9,adult Obesity Hypertension Acquired hypothyroidism Acute bacterial bronchitis Atherosclerotic cardiovascular disease Breast cancer screening Subclinical hypothyroidism Acute cervical myofascial strain DM2 (diabetes mellitus, type 2) Rheumatic fever GERD (gastroesophageal reflux disease) Diabetic nephropathy associated with type 2 diabetes mellitus Hirsutism Dyslipidemia Type 2 diabetes mellitus with hyperglycemia, without long-term current use of insulin Anxiety Vitamin D deficiency Lumbar degenerative disc disease Benign essential hypertension Pure hypercholesterolemia 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, bilateral Surgical History S/P laparoscopic sleeve gastrectomy History of bariatric surgery Hx of colonoscopy History of esophagogastroduodenoscopy (EGD) History of carpal tunnel release History of surgery History of cholecystectomy History of partial hysterectomy History of repair of rotator cuff Family History Father Diabetes Mother Diabetes CVD (cardiovascular disease) Social History Household Members: Spouse Caregiver staying overnight: No Housing: House Are you a primary special needs caregiver to a significant other at home: No Do you presently have visiting nurse or other home services: No 75 years or older and lives alone: No Alcohol intake: never Patient Tobacco Use Status: Former Tobacco user Tobacco use type: Cigarette e-Cigarette/Vaping Use: Never Used Second Hand Smoke Exposure: Yes Advance Directives Date on File: 05/19/24 service: No Current occupational status: disabled Cognitive needs: No Hearing needs: No Vision needs: Yes Questionnaire PHQ-9 Over the last 2 weeks, how often have you been bothered by any of the following problems? 1. Little interest or pleasure in doing things: more than half the days 2. Feeling down, depressed, or hopeless: several days 3. Trouble falling or staying asleep, or sleeping too much: nearly every day 4. Feeling tired or having little energy: nearly every day 5. Poor appetite or overeating: several days 6. Feeling bad about yourself - or that you are a failure or have let yourself or your family down: not at all 7. Trouble concentrating on things, such as reading the newspaper or watching television: not at all 8. Moving or speaking so slowly that other people could have noticed. Or the opposite - being so fidgety or restless that you have been moving around a lot more than usual: nearly every day 9. Thoughts that you would be better off or of hurting yourself in some way: nearly every day Total score: 16 Depression Screening Interpretation: Positive Depression Screening Follow-up: Existing condition and In treatment Depression Screening Done: Yes 14284 - PHQ-9 Billing: Yes Source: Developed by Drs. Chin Mccollum, Liberty Coleman, Alverto Monge and colleagues, with an educational judy from [employer]. Thrive Questionnaire Date Thrive assessed: 10/18/24 I am a: Patient What is your living situation today?: I have a steady place to live Within the past 12 months, did the food you bought not last and you didn't have the money to get more?: Never true Within the past 12 months, did you worry whether your food would run out before you got money to buy more?: Never true Do you have trouble paying for medicines?: No Do you have trouble getting transportation to medical appointments?: No Do you have trouble paying your heating and electricity bill?: No Do you have trouble taking care of your child, family member or friend?: No Do you have trouble with day-to-day activities such as bathing, preparing meals, shopping, managing finances, etc.?: No Are you currently unemployed and looking for a job?: No Are you interested in more education?: No Please select the resources that you would like help with: None Currently or been in a relationship where the following occur: No concerns reported THRIVE Score: 0 AUDIT C Alcohol Use Questionnaire (AUDIT-C) 1. How often do you have a drink containing alcohol?: Never 3. How often do you have six or more drinks on one occasion?: Never Total Score: 0 Score Reviewed/Action Taken: Yes LAURENT-7 AMB Questionnaire LAURENT-7 Date LAURENT - 7 assessed: 10/18/24 Feeling nervous, anxious, or on edge: 0 = Not at all Not being able to stop or control worryin = Not at all Worrying too much about different things: 0 = Not at all Trouble relaxin = Not at all Being so restless that it is hard to sit still: 0 = Not at all Becoming easily annoyed or irritable: 0 = Not at all Feeling afraid as if something awful might happen: 0 = Not at all Total LAURENT-7 score (0-4 normal; 5-9 mild; 10-14 moderate; 15-21 severe): 0 Source: Developed by Drs. Chin Mccollum, Liberty Coleman, Alverto Monge and colleagues, with an educational judy from [employer]. Review of Systems Const Denies chills, Reports fatigue, Denies fever(s) and Denies headache(s) ENT Denies dysphagia, Denies dizziness, Denies otalgia, Denies headache(s), Denies neck pain, Denies odynophagia and Denies sore throat Card Denies chest pain, Denies palpitations and Reports dyspnea on exertion (mild) Resp Denies chest congestion, Denies cough and Reports dyspnea on exertion (mild) GI Denies abdominal pain, Reports constipation (chronic), Denies dysphagia, Denies heartburn, Denies diarrhea, Denies nausea, Denies odynophagia and Denies vomiting Denies difficulty voiding, Denies nocturia, Denies dysuria and Denies urinary urgency Musc Reports back pain (over the lower back - chronic but increased lately) and Denies neck pain Skin/Breast Reports alopecia (increased over the past year ) and Denies rash Neuro Denies dizziness and Denies headache(s) Psych Reports anxiety and Reports depression (increased lately) Endo Reports fatigue and Denies palpitations Davion/Lymph Denies easy bruising Physical exam (Primary Care) Vital Signs: Last Vital Signs Pulse 78 10/18/24 09:39 BP 110/76 10/18/24 09:39 Pulse Ox 96 10/18/24 09:39 Oxygen Delivery Method Room Air 10/18/24 09:39 BMI result Body Mass Index 29.8 Tobacco/Smoking Status: Tobacco use Status Tobacco use date assessed 10/18/24 10/18/24 09:46 Patient Tobacco Use Status Former Tobacco user 10/18/24 09:46 Tobacco use type Cigarette 10/18/24 09:46 e-Cigarette/Vaping Use Never Used 10/18/24 09:46 PHQ-9: PHQ-9 Score PHQ-9: Total score 16 10/18/24 10:34 Depression Screening Interpretation: Positive Depression Screening Follow-up: Existing condition and In treatment Thrive Assessment: Date of Thrive Assessment Date Thrive assessed 10/18/24 10/18/24 09:46 Currently or been in a relationship where the following occur: No concerns reported Const General: no acute distress and alert HENMT Ears: TM's normal bilaterally and EAC's normal Throat: Yes posterior oropharynx normal and Yes tonsils normal (no TP congestion noted) Neck Neck: Yes supple and No lymphadenopathy Thyroid: Thyroid normal Resp Auscultation: clear to auscultation bilaterally, no rales and no wheezes Cardio Rate: regular rate Rhythm: regular rhythm Heart sounds: no murmurs GI Palpation (GI): Soft to palpation and nontender Auscultation: normal bowel sounds General: Yes no CVA tenderness Back/Spine/Pelvis Back: no CVA tenderness Cervical Spine: No Cervical spine tenderness Thoracic/Lumbar Spine: lumbar spinal tenderness Skin Rashes: no rashes Extrem General: Yes no clubbing, cyanosis or edema Results Reviewed Results Reviewed: Laboratory Tests 10/13/24 10/13/24 07:43 07:48 WBC 4.8 Hgb 13.3 Hct 42.8 Plt Count 179 Sodium 141 Potassium 4.7 Creatinine 0.73 Estimated GFR > 60 Fasting Glucose 128 H Hemoglobin A1c % 7.1 H Calcium 10.3 H D AST 31 ALT 56 H Triglycerides 118 Cholesterol 108 LDL Cholesterol, Calc 48 HDL Cholesterol 37 L Vitamin B12 542 25-OH Vitamin D Total 42.8 TSH 2.67 Free T4 0.83 Ur Specific Faber 1.020 Urine Protein Negative Urine Glucose (UA) Negative Urine Blood Negative Urine Nitrite Negative Ur Leukocyte Esterase Small (1+) H Microalb/Creat Ratio 9.4 Coding Level of Care Code Est Pt Level 4 (48761) Diagnoses Type 2 diabetes mellitus with diabetic polyneuropathy, with long-term current use of insulin E11.42; Z79.4 Diabetes mellitus jail insulin use: with longwall foreman use Pure hypercholesterolemia E78.00 Diabetic nephropathy associated with type 2 diabetes mellitus E11.21 Diabetic polyneuropathy associated with type 2 diabetes mellitus E11.42 Diabetes mellitus type: type 2 Diabetes mellitus complication detail: diabetic polyneuropathy Benign essential hypertension I10 Gastroparesis due to DM E11.43; K31.84 Gastroesophageal reflux disease without esophagitis K21.9 Esophagitis presence: without esophagitis Acquired hypothyroidism E03.9 Chronic constipation K59.09 Degeneration of intervertebral disc of lumbar region with discogenic back pain M51.360 Disc-related pain type: discogenic back pain only Vitamin D deficiency E55.9 Anxiety F41.9 Moderate episode of recurrent major depressive disorder F33.1 Depression Type: major depressive disorder Major depression recurrence: recurrent Active/Remission status: currently active Major depression episode severity: moderate Obesity (BMI 30-39.9) E66.9 Additional Codes PHQ-9 - 35365 - PHQ-9 Billing: Yes ([id number]) Assessment & Plan Assessment & Plan (1) Type 2 diabetes mellitus with diabetic polyneuropathy: Code(s): E11.42 - Type 2 diabetes mellitus with diabetic polyneuropathy Category: Medical Qualifiers: Diabetes mellitus jail insulin use: with jail use Qualified Code(s): E11.42 - Type 2 diabetes mellitus with diabetic polyneuropathy; Z79.4 - detention (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 of insulin Plan: Her HgbA1c was at 7.1% on her labs done a few days ago (was previously at 7.0% a few months ago) - goal is <7.0% but if she starts experiencing hypoglycemic symptoms, may allow her HgbA1c to go up to 7.5% Reinforced diabetic diet She is now only on Humulin U-200 34 to 50 TID with meals for her diabetes since her gastric sleeve surgery Follow up with endocrinology as scheduled Patient also follows up with Dr. Cameron Perez for her retinopathy - she has severe nonproliferative diabetic retinopathy with macular edema Have again emphasized strict control of her diabetes to slow down the progression of her retinopathy (2) Pure hypercholesterolemia: Code(s): E78.00 - Pure hypercholesterolemia, unspecified Category: Medical Plan: Results of her labs done a few days ago reviewed and discussed with patient - her cholesterol levels have improved significantly from previous now that she is back on her cholesterol medication regularly Reinforced low cholesterol diet Continue Atorvastatin 40 mg QD Will recheck her labs and fasting lipids in 3 months for follow-up (3) Diabetic nephropathy associated with type 2 diabetes mellitus: Code(s): E11.21 - Type 2 diabetes mellitus with diabetic nephropathy Category: Medical Plan: Her renal function appears stable on her recent labs Follow up with nephrology (Dr. Sim) as scheduled (4) Diabetic neuropathy: Code(s): E11.40 - Type 2 diabetes mellitus with diabetic neuropathy, unspecified Category: Medical Qualifiers: Diabetes mellitus type: type 2 Diabetes mellitus complication detail: diabetic polyneuropathy Qualified Code(s): E11.42 - Type 2 diabetes mellitus with diabetic polyneuropathy Plan: Reinforced again the importance of strict glycemic control to slow down the progression of her neuropathy Continue Gabapentin 300 mg TID (5) Benign essential hypertension: Code(s): I10 - Essential (primary) hypertension Category: Medical Plan: Reinforced low sodium diet - goal is systolic BP of at least 130 mm or less She was previously on?Losartan 100 mg QD but this has been held since before her gastric sleeve surgery and it does not look like she needs to go back on it yet at this time, as his blood pressure is still normal when checked in the office today Have reminded patient to continue monitoring her blood pressure regularly (6) Gastroparesis due to DM: Code(s): E11.43 - Type 2 diabetes mellitus with diabetic autonomic (poly)neuropathy; K31.84 - Gastroparesis Category: Medical Plan: Have advised patient again that her recurrent GI symptoms are mostly due to gastroparesis and unfortunately, there are no available medications that help effectively with this Patient states that her GI symptoms seem to be subsided a lot since her surgery back in April 2024 and she has not had to take her Metoclopramide 10 mg TID before meals over the past couple of months Follow up with GI as scheduled (7) GERD (gastroesophageal reflux disease): Comment: resolved with bypass surgery and wt loss Code(s): K21.9 - Gastro-esophageal reflux disease without esophagitis Category: Medical Qualifiers: Esophagitis presence: without esophagitis Qualified Code(s): K21.9 - Gastro-esophageal reflux disease without esophagitis Plan: Dietary restrictions reinforced Continue Omeprazole 40 mg QD (8) Acquired hypothyroidism: Code(s): E03.9 - Hypothyroidism, unspecified Category: Medical Plan: Continue Levothyroxine 50 mcg QD Will recheck her TFTs in 3 months for follow up (9) Chronic constipation: Code(s): K59.09 - Other constipation Category: Medical Plan: Reinforced increased oral fluids and dietary fiber Patient was taking Dulcolax 5 to 10 mg QD and Linzess most recently but appears to be off most of her meds since her bariatric surgery a couple of months ago I started her on Linzess 145 mcg QD a few months ago but she never started the Rx Have advised her to start taking it if constipation remains a significant issue for her Follow up with GI as scheduled (10) Lumbar degenerative disc disease: Code(s): M51.36 - Other intervertebral disc degeneration, lumbar region Category: Medical Qualifiers: Disc-related pain type: discogenic back pain only Qualified Code(s): M51.360 - Other intervertebral disc degeneration, lumbar region with discogenic back pain only Plan: Reinforced activity and weight lifting restrictions Continue Gabapentin 300 mg TID Patient also used to take Duloxetine 30 mg QD and Tizanidine 4 mg TID PRN in the past but she stopped taking these Rx at some point as she felt that she did not need them at the time With her increasing low back pain recently, we will start her back on Tizanidine 4 mg TID PRN Will also refer her to pain management for her increasing low back pain (11) Vitamin D deficiency: Code(s): E55.9 - Vitamin D deficiency, unspecified Category: Medical Plan: Continue Vitamin D3 2000 units QD (12) Anxiety: Code(s): F41.9 - Anxiety disorder, unspecified Category: Medical Plan: Continue Lorazepam 1 mg BID PRN (13) Depression: Code(s): F32.9 - Major depressive disorder, single episode, unspecified Category: Medical Qualifiers: Depression Type: major depressive disorder Major depression recurrence: recurrent Active/Remission status: currently active Major depression episode severity: moderate Qualified Code(s): F33.1 - Major depressive disorder, r ecurrent, moderate Plan: Continue Duloxetine 30 mg BID (14) Obesity (BMI 30-39.9): Code(s): E66.9 - Obesity, unspecified Category: Medical Plan: S/P bariatric surgery (gastric sleeve) a few months ago in April 2024 - states that she has lost a lot of weight since and has been able to come of some of his previous meds Follow up with weight management as scheduled Plan Follow-up in 3 months Orders: Orders Hemoglobin A1c 3 Months E11.9 - Type 2 diabetes mellitus without complications Comprehensive [place]. Panel Fast 3 Months E78.00 - Pure hypercholesterolemia, unspecified Lipid Panel 3 Months E78.00 - Pure hypercholesterolemia, unspecified Free T4 (Free Thyroxine) 3 Months E03.9 - Hypothyroidism, unspecified Vitamin B12 and Folate 3 Months E53.8 - Deficiency of other specified B group vitamins Microalbumin, Random (w Creat) 3 Months E11.9 - Type 2 diabetes mellitus without complications Complete Blood Count Auto Diff 3 Months D64.9 - Anemia, unspecified Thyroid Stimulating Hormone 3 Months E03.9 - Hypothyroidism, unspecified Vitamin D 25-OH Total 3 Months E55.9 - Vitamin D deficiency, unspecified Referrals Pain Management Referral M54.50 - Low back pain, unspecified Medications: New tizanidine 4 mg PO Q8H 30 days PRN 90 tabs 0RF muscle spasms
== END 2024-10-18 10:37 | disposition home or self-care (01) ==
PROVIDERS: PCP Internal Medicine; Visit Provider Internal Medicine
DX: E11.42 Type 2 diabetes mellitus with diabetic polyneuropathy (principal); Z79.4 Long term (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 of insulin; E11.21 Type 2 diabetes mellitus with diabetic nephropathy; E11.43 Type 2 diabetes mellitus with diabetic autonomic (poly)neuropathy; F33.1 Major depressive disorder, recurrent, moderate; E78.00 Pure hypercholesterolemia, unspecified; I10 Essential (primary) hypertension; K31.84 Gastroparesis; K21.9 Gastro-esophageal reflux disease without esophagitis; E03.9 Hypothyroidism, unspecified; K59.09 Other constipation; M51.360 Other intervertebral disc degeneration, lumbar region with discogenic back pain only

== ENCOUNTER → 2024-10-18 08:02 | Outpatient (BNVA) | payer MEDICARE, SELFPAY | PROVIDERS: PCP Internal Medicine; Visit Provider Internal Medicine | DX: E11.42 Type 2 diabetes mellitus with diabetic polyneuropathy (principal); I10 Essential (primary) hypertension; K31.84 Gastroparesis; K21.9 Gastro-esophageal reflux disease without esophagitis; E03.9 Hypothyroidism, unspecified; K59.09 Other constipation; M51.360 Other intervertebral disc degeneration, lumbar region with discogenic back pain only; E55.9 Vitamin D deficiency, unspecified; F41.9 Anxiety disorder, unspecified; F33.1 Major depressive disorder, recurrent, moderate; E66.9 Obesity, unspecified; Z79.4 Long term (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 of insulin | CPT/HCPCS: 96127; 99212 ==

== ENCOUNTER 2024-11-03 09:43 | Outpatient (AMB) | payer MEDICARE, SELFPAY ==
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
[2024-11-03 09:55] VITALS: BP 118/55; PULSE 94; O2SAT 99; BMI 29.2
--- OUTSIDE RECORDS SUMMARY | 2024-11-03 10:34 | XMS_ITS | Clinical Summary ---
Author Organization [facility] Address [address] [place] [address] Phone Care Team Providers Care Transplant Immunologist Name Role Phone Fish Lomeli MD Primary Care Provider +1- [phone] Allergies Active Allergy Reactions Criticality Noted Date [...] [place] Care Teams Transplant Immunologist Relationship Specialty Start Date End Date Armani, Fish S, MD [address] [place] [address] PCP - General 09/09/20
--- OUTSIDE RECORDS SUMMARY | 2024-11-03 10:34 | XMS_ITS | Encounter Summary ---
Author Organization [facility] Address [address] [place] [address] Phone Care Team Providers Care Staff Air Tactical Officer Name Role Phone Fish Lomeli MD Primary Care Provider +1- [phone] Encounter Details Date Type Department Care Team (Late st Contact Info) Description 07/14/2022 Office Communication [facility] [address] [place] [address] Juan David Jones Social History Tobacco Use [...] on filedocumented in this encounter Care Teams Staff Air Tactical Officer Relationship Specialty Start Date End Date Fish Lomeli MD [address] [place] [address] PCP - General 09/09/20 documented as of this encounter
== END 2024-11-03 10:37 | disposition home or self-care (01) ==
PROVIDERS: PCP Internal Medicine; Referring Provider Internal Medicine; Visit Provider Nurse Practitioner Family
DX: M54.9 Dorsalgia, unspecified (principal); R42 Dizziness and giddiness; G44.52 New daily persistent headache (NDPH); M51.360 Other intervertebral disc degeneration, lumbar region with discogenic back pain only; M25.551 Pain in right hip; M25.552 Pain in left hip; M53.3 Sacrococcygeal disorders, not elsewhere classified; M47.816 Spondylosis without myelopathy or radiculopathy, lumbar region
CPT/HCPCS: 99204; G2211

== ENCOUNTER → 2024-11-03 09:43 | Outpatient (BNVA) | payer MEDICARE, SELFPAY | PROVIDERS: PCP Internal Medicine; Referring Provider Internal Medicine; Visit Provider Nurse Practitioner Family | DX: M54.9 Dorsalgia, unspecified (principal); M25.551 Pain in right hip; M25.552 Pain in left hip; M51.360 Other intervertebral disc degeneration, lumbar region with discogenic back pain only; R42 Dizziness and giddiness; M53.3 Sacrococcygeal disorders, not elsewhere classified; G44.52 New daily persistent headache (NDPH); M47.816 Spondylosis without myelopathy or radiculopathy, lumbar region | CPT/HCPCS: 99202 ==

== ENCOUNTER 2024-11-07 07:40 | Outpatient (REF) | payer MEDICARE, SELFPAY ==
--- NOTE | ~2024-11-07 | XR_ITS ---
EXAMINATION: XR THORACIC SPINE CLINICAL INFORMATION: M54.9 - Dorsalgia, unspecified COMPARISON: 03/14/2013. TECHNIQUE: 3 views of the thoracic spine were obtained. FINDINGS: There is a mild right convex scoliosis apex at T6-7. There is normal kyphosis. There is normal alignment. No fracture, compression deformity, or suspicious bone lesion. Mild multilevel disc degeneration present. Normal facet alignment. There are surgical clips in the right upper quadrant and epigastric region. Imaged lungs, soft tissues, and mediastinal contents appear normal. There are vascular calcifications. XR/XR thoracic spine 3V IMPRESSION: 1. Mild scoliosis and mild spondylosis of the thoracic spine. No acute finding. Electronically signed by: Ga Pablo MD 11/07/2024 01:53 PM EDT
--- NOTE | ~2024-11-07 | XR_ITS ---
EXAMINATION: XR BILATERAL HIPS WITH AP PELVIS CLINICAL INFORMATION: M25.551 - Pain in right hip COMPARISON: None available. TECHNIQUE: AP and frog-leg lateral views of each hip and an AP view of the pelvis. FINDINGS: No fracture, dislocation, or suspicious bone lesion. Normal alignment of both hip joints. Mild degenerative arthritis in both hip joints with mild superolateral acetabular spurring. Normal acetabular coverage. Small subcapital osteophytes. Mild enthesopathy of the gluteal insertions upon the iliac wings and greater trochanters. Normal sacrum and SI joints. Normal soft tissues. XR/XR hip BI w PEL1V IMPRESSION: 1. Mild degenerative arthritis bilateral hip joints. 2. Gluteal enthesopathy. Electronically signed by: Ga Pablo MD 11/07/2024 01:50 PM EDT
--- OUTSIDE RECORDS SUMMARY | 2024-11-07 07:44 | XMS_ITS | Encounter Summary ---
Author Organization [facility] Address [address] [address] [place] [address] Phone Care Team Providers Care Milking Worker Name Role Phone Fish Lomeli MD Primary Care Provider +1- [phone] Encounter Details Date Type Department Care Team (Late st Contact Info) Description 07/14/2022 Office Communication [facility] [address] [place] [address] Juan David Jones Social History Tobacco Use [...] on filedocumented in this encounter Care Teams Milking Worker Relationship Specialty Start Date End Date Fish Lomeli MD [address] [place] [address] [place] [address] PCP - General 09/09/20 documented as of this encounter
--- OUTSIDE RECORDS SUMMARY | 2024-11-07 07:44 | XMS_ITS | Clinical Summary ---
Author Organization [facility] Address [address] [place] [address] Phone Care Team Providers Care Writer Editor Name Role Phone Fish Lomeli MD Primary Care Provider +1- [phone] Allergies Active Allergy Reactions Criticality Noted Date [...] [place] Care Teams Writer Editor Relationship Specialty Start Date End Date Armani, Fish S, MD [address] [place] [address] PCP - General 09/09/20
== END 2024-11-07 07:41 | disposition home or self-care (01) ==
LOC: HO.XRAY 07:40
PROVIDERS: PCP Internal Medicine; Visit Provider Nurse Practitioner Family
DX: M25.551 Pain in right hip (principal); M25.552 Pain in left hip; M53.3 Sacrococcygeal disorders, not elsewhere classified; M54.9 Dorsalgia, unspecified
CPT/HCPCS: 72072; 73521

== ENCOUNTER → 2024-11-07 07:49 | Outpatient (BNV) | payer MEDICARE, SELFPAY | PROVIDERS: PCP Internal Medicine; Visit Provider Radiology Diagnostic Radiology | DX: M54.6 Pain in thoracic spine (principal); M76.00 Gluteal tendinitis, unspecified hip | CPT/HCPCS: 72072; 73521 ==

== ENCOUNTER 2024-11-16 09:53 | Outpatient (AMB) | payer MEDICARE, SELFPAY ==
--- NOTE | 2024-11-16 10:03 | MHC.AMDMED ---
Intake Intake Visit Reasons: 30 min Workforce Staffing Advisor Required: No Accompanied by: Self / Same As Patient Allergies No Known Allergies Allergy (Verified 11/03/24 09:55) HPI Comprehensive Diabetes Asmnt Most Recent Diabetes Results: Hemoglobin A1c 8.7 % 07/20/18 Microalb/Creat Ratio 9.4 ug/mg cr (<30) 10/13/24 Cholesterol 108 mg/dL (<200) 10/13/24 HDL Cholesterol 37 mg/dL (>40) L 10/13/24 Triglycerides 118 mg/dL (<150) 10/13/24 Creatinine 0.73 mg/dL (0.5-1.4) 10/13/24 Blood Urea Nitrogen 9 mg/dL (9-16) 10/13/24 Sodium 141 mmol/L (135-145) 10/13/24 Potassium 4.7 mmol/L (3.3-5.1) 10/13/24 Chloride 107 mmol/L (96-108) 10/13/24 Carbon Dioxide 27 mmol/L (22-29) 10/13/24 Calcium 10.3 mg/dL (8.4-10.2) H 10/13/24 AST 31 U/L (5-31) 10/13/24 ALT 56 U/L (0-31) H 10/13/24 Total Protein 7.5 g/dL (6.5-8.0) 10/13/24 Albumin 4.2 g/dL (3.5-5.0) 10/13/24 [facility] Medical History 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 Diabetic neuropathy Depression Constipation Chest pain SOB (shortness of breath) Situational depression Gastroparesis due to DM Chronic constipation Type 2 diabetes mellitus with diabetic polyneuropathy Obesity (BMI 30-39.9) BMI 35.0-35.9,adult History of degenerative disc disease Back pain Peripheral neuropathy History of cardiac murmur Abnormal EKG BMI 39.0-39.9,adult Obesity Hypertension Acquired hypothyroidism Acute bacterial bronchitis Atherosclerotic cardiovascular disease Breast cancer screening Subclinical hypothyroidism Acute cervical myofascial strain DM2 (diabetes mellitus, type 2) Rheumatic fever GERD (gastroesophageal reflux disease) Diabetic nephropathy associated with type 2 diabetes mellitus Hirsutism Dyslipidemia Type 2 diabetes mellitus with hyperglycemia, without long-term current use of insulin Anxiety Vitamin D deficiency Lumbar degenerative disc disease Benign essential hypertension Pure hypercholesterolemia 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, bilateral Surgical History S/P laparoscopic sleeve gastrectomy History of bariatric surgery Hx of colonoscopy History of esophagogastroduodenoscopy (EGD) History of carpal tunnel release History of surgery History of cholecystectomy History of partial hysterectomy History of repair of rotator cuff Family History Father Diabetes Mother Diabetes CVD (cardiovascular disease) Social History Household Members: Spouse Housing: House Are you a primary assistant child care teacher to a significant other at home: No Do you presently have visiting nurse or other home services: No Alcohol intake: never Patient Tobacco Use Status: Former Tobacco user Tobacco use type: Cigarette e-Cigarette/Vaping Use: Never Used Second Hand Smoke Exposure: Yes Advance Directives Date on File: 05/19/24 service: No Current occupational status: disabled Cognitive needs: No Hearing needs: No Vision needs: Yes Assessment & Plan Assessment & Plan (1) 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, bilateral: Code(s): E11.3413 - 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, bilateral Qualifiers: Diabetes mellitus longterm insulin use: with longterm use Qualified Code(s): E11.3413 - 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, bilateral; Z79.4 - 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 1% Hyperglycemia:? 46% Time in Range:? 44% Average glucose for the last 2 weeks 186? mg/dL Pt reports using Toujeo 22 units daily Humalog U200 20 units if glucose is greater that 200 mg/dL 16-18 units if glucose is less than 200 mg/dL This does not match Humalog U 200 prescription as it is written, message sent to provider regarding discrepancy. Reviewed with patient how to treat hypoglycemia Hypo instructions ? When first signs of insulin reaction occur, immediately drink orange juice or cola, or suck on a sugar cube, but only if the person is conscious. Signs and symptoms of low blood sugar (happen quickly) Each person's reaction to low blood sugar is different. Learn your own signs and symptoms of when your blood sugar is low. Taking time to write these symptoms down may help you learn your own symptoms of when your blood sugar is low. From milder, more common indicators to most severe, signs and symptoms of low blood sugar include: Feeling shaky Being nervous or anxious Sweating, chills and clamminess Irritability or impatience Confusion Fast heartbeat Feeling lightheaded or dizzy Hunger Nausea Color draining from the skin (pallor) Feeling Sleepy Feeling weak or having no energy Blurred/impaired vision Tingling or numbness in the lips, tongue, or cheeks Headaches Coordination problems, clumsiness Hypoglycemia or blood glucose under 70 use the rule of 15's: If you have your blood glucose meter test your blood glucose, if you do not have your meter still follow below instruction: Keep quick-sugar foods with you at all times.? Take 15 grams of fast acting carbohydrates. Examples are 4 ounces of fruit juice or regular soda pop, 8 ounces fat-free milk, 1 tablespoon of table sugar, honey or corn syrup, jam, one miniature box of raisins, 7-8 gumdrops or Life Savers candy, 4 glucose tablets, and glucose gel.? Retest blood glucose in 15 minutes, if blood glucose is still under 80, repeat rule of 15's. If blood glucose is under 50, take 30 grams of fast acting carbohydrates If you are having hypoglycemia, or insulin reaction, more that a few times a week, call MD or cosmetology educator F/U BG check Patient able to insert sensor independently at home without issue.? 2 types of exercise Aerobic (cardio)- steady exercise for at least 12 min that increases the heart rate to at least 50-70% of max HR.? This increases Oxygen?use. It involves rhythmic, repetitive movements that use large muscle groups, such as the legs, arms, and core Resistance exercises (strength training)- help build muscle tissue.? Sometimes causes release of stress hormones, which can result in temporary elevation in BG levels (recommended to do cardio/aerobic exercises after resistance training to then assist in decreasing BG levels Lowers blood pressure and Cholesterol Lowers risk for heart disease and stroke Ruggiero calories to help reduce or maintain weight Increases energy Helps with sleeping better Relieves stress Strengthens heart (improving blood circulation, muscles, and bones Helps with joint flexibility Improves overall quality of life Portions of this note were created using voice recognition software, please excuse any words or phrases that may have been misinterpreted. Coding Level of Care Code Est Pt Level 1 (60588) Diagnoses Type 2 diabetes mellitus with both eyes affected by severe nonproliferative retinopathy and macular edema, with long-term current use of insulin E11.3413; Z79.4 Diabetes mellitus long term care administrator insulin use: with longterm use
== END 2024-11-16 10:29 | disposition home or self-care (01) ==
LOC: HO.ENCR 09:53
PROVIDERS: PCP Internal Medicine; Visit Provider Registered Nurse Diabetes Educator
DX: E11.3413 Type 2 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, bilateral (principal); Z79.4 Long term (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 of insulin

== ENCOUNTER → 2024-11-16 11:28 | Outpatient (BNV) | payer MEDICARE, SELFPAY | PROVIDERS: PCP Internal Medicine; Visit Provider Radiology Diagnostic Radiology | DX: G44.52 New daily persistent headache (NDPH) (principal) | CPT/HCPCS: 70551 ==

== ENCOUNTER 2024-11-16 11:29 | Outpatient (REF) | payer MEDICARE, SELFPAY ==
--- NOTE | ~2024-11-16 | MR_ITS ---
EXAMINATION: MR BRAIN WITHOUT IV CONTRAST HISTORY: G44.52 - New daily persistent headache (NDPH) TECHNIQUE: Sagittal T1, and axial T1, FLAIR, T2, gradient echo, and diffusion weighted MR images of the brain were obtained. COMPARISON: Correlation is made with an unenhanced head CT dated 09/18/2021. FINDINGS: A few scattered tiny periventricular and subcortical white matter hyperintensities are noted on the FLAIR and T2-weighted images. These are nonspecific, and often seen in the setting of small vessel ischemic disease. The brain parenchyma is otherwise unremarkable, demonstrating normal do/white differentiation. There is no mass effect or midline shift. No intra or extra-axial fluid collections are identified. There are no foci of restricted diffusion. Normal vascular flow voids are noted in the basilar and carotid arteries. The visualized paranasal sinuses are clear. MR/MR head/brain wo con IMPRESSION: Findings consistent with minimal small vessel ischemic disease of the white matter. Otherwise unremarkable MRI of the brain without contrast. Electronically signed by: Chin Mejia MD 11/16/2024 12:49 PM EDT
--- OUTSIDE RECORDS SUMMARY | 2024-11-16 13:49 | XMS_ITS | Clinical Summary ---
Author Organization [facility] Address [address] [place] [address] Phone Care Team Providers Care Second Baker Name Role Phone Fish Lomeli MD Primary Care Provider +1- [phone] Allergies Active Allergy Reactions Criticality Noted Date [...] [place] Care Teams Second Baker Relationship Specialty Start Date End Date Armani, Fish S, MD [address] [place] [address] PCP - General 09/09/20
--- OUTSIDE RECORDS SUMMARY | 2024-11-16 13:49 | XMS_ITS | Encounter Summary ---
Author Organization [facility] Address [address] [facility] [address] [place] [address] Phone Care Team Providers Care Fresh Foods Clerk Name Role Phone Fish Lomeli MD Primary Care Provider +1- [phone] Encounter Details Date Type Department Care Team (Late st Contact Info) Description 07/14/2022 Office Communication [facility] [place] [address] [place] [address] Juan David Jones Social History Tobacco Use [...] on filedocumented in this encounter Care Teams Fresh Foods Clerk Relationship Specialty Start Date End Date Fish Lomeli MD [address] [place] [address] PCP - General 09/09/20 documented as of this encounter
== END 2024-11-16 11:30 | disposition home or self-care (01) ==
LOC: HO.MRI 11:29
PROVIDERS: PCP Internal Medicine; Visit Provider Nurse Practitioner Family
DX: G44.52 New daily persistent headache (NDPH) (principal); R42 Dizziness and giddiness; E11.3413 Type 2 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, bilateral; Z79.4 Long term (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 of insulin
CPT/HCPCS: 70551; 99211

== ENCOUNTER 2024-11-29 08:49 | Outpatient (AMB) | payer MEDICARE, SELFPAY ==
--- NOTE | 2024-11-29 08:54 | A.OFFVIS_ITS ---
Vital Signs 11/29/24 09:00 Height 5 ft 5.5 in Weight 182 lb 15.739 oz BMI 30.0 BP 110/60 Blood Pressure Location Rt brachial Position Sitting Pulse 75 Pulse Source Pulse Oximeter Pulse Oximetry (%) 97 Oxygen Delivery Method Room Air Intake Visit Reasons: T2DM Intake Note: Patient present today to follow up on Type 2 Diabetes Mellitus. Last Diabetic Eye exam: Within the year, [facility] Last Podiatry Visit: Does not see a Electrical Maintenance Man Most Recent HgA1C: 7.1%, 10/13/2024 Random Glucose: 124 mg/dL, Today [place] Caulker Required: No Accompanied by: Self / Same As Patient Allergies No Known Allergies Allergy (Verified 11/29/24 08:55) HPI Comments Details: Patient is a 64-year-old female with DM type 2 diagnosed around 2004 who presents for management of diabetes. Of note patient is status post sleeve gastrectomy on 05/17/2024. Follows closely with weight management She was off ozempic, off toujeo restarted toujeo at 20 units. Did well on ozempic, would like to restart. She is currently taking humalog 20-24 units around 4 times daily. Previously on trulicity -stopped 2/2 gastroparesis. A1C 10/13 was 7.1% 7.0% on 07/07/24 Dexcom downloaded today. Her GMI is 7.4% Micro and macrovascular complications: retinopathy, nephropathy, neuropathy, Symptoms reported: + numbness, tingling, cramping in lower extremities Hypoglycemia: see above Hyperglycemia: +urinary frequency, +nocturia, denies polydypsia Exercise: daily Fox Raiser - follows with weight management. Follows with teaching diabetic RN Electrical Maintenance Man: denies Ophthalmology evaluation-UTD History of severe non-proliferative retinopathy, Had VEGF therapy with Dr Perez . Other specialists:nephrology, cardiology ROS see HPI. PHYSICAL EXAM: GENERAL: Alert and oriented x 3. NAD EYES: EOMI. Anicteric. HENT: Moist mucous membranes. No scleral icterus. No cervical lymphadenopathy. LUNGS: Clear to auscultation bilaterally. CARDIOVASCULAR: Regular rate and rhythm. ABDOMEN: Soft, non-tender +bs EXTREMITIES: No edema. Non-tender. SKIN: No rashes or lesions. Warm. NEUROLOGIC: No focal neurological deficits. FOOT: No ulcerations or open lesions. 2+ DP. Sensation decreased on monofilament exam. Vibratory decreased PSYCHIATRIC: Cooperative. Appropriate mood and affect [facility] Medical History 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 Diabetic neuropathy Depression Constipation Chest pain SOB (shortness of breath) Situational depression Gastroparesis due to DM Chronic constipation Type 2 diabetes mellitus with diabetic polyneuropathy Obesity (BMI 30-39.9) BMI 35.0-35.9,adult History of degenerative disc disease Back pain Peripheral neuropathy History of cardiac murmur Abnormal EKG BMI 39.0-39.9,adult Obesity Hypertension Acquired hypothyroidism Acute bacterial bronchitis Atherosclerotic cardiovascular disease Breast cancer screening Subclinical hypothyroidism Acute cervical myofascial strain DM2 (diabetes mellitus, type 2) Rheumatic fever GERD (gastroesophageal reflux disease) Diabetic nephropathy associated with type 2 diabetes mellitus Hirsutism Dyslipidemia Type 2 diabetes mellitus with hyperglycemia, without long-term current use of insulin Anxiety Vitamin D deficiency Lumbar degenerative disc disease Benign essential hypertension Pure hypercholesterolemia 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, bilateral Surgical History S/P laparoscopic sleeve gastrectomy History of bariatric surgery Hx of colonoscopy History of esophagogastroduodenoscopy (EGD) History of carpal tunnel release History of surgery History of cholecystectomy History of partial hysterectomy History of repair of rotator cuff Family History Father Diabetes Mother Diabetes CVD (cardiovascular disease) Social History Household Members: Spouse Caregiver staying overnight: No Housing: House Are you a primary career resource specialist to a significant other at home: No Do you presently have visiting nurse or other home services: No 75 years or older and lives alone: No Alcohol intake: never Patient Tobacco Use Status: Former Tobacco user Tobacco use type: Cigarette e-Cigarette/Vaping Use: Never Used Second Hand Smoke Exposure: Yes Advance Directives Date on File: 05/19/24 service: No Current occupational status: disabled Cognitive needs: No Hearing needs: No Vision needs: Yes Physical Exam Vital Signs: Last Vital Signs Pulse 75 11/29/24 09:00 BP 110/60 11/29/24 09:00 Pulse Ox 97 11/29/24 09:00 Oxygen Delivery Method Room Air 11/29/24 09:00 BMI result Body Mass Index 30.0 Results Reviewed Results Reviewed: Laboratory Last Values Glucose (Clinic) 124 mg/dL (60-115) H 11/29/24 09:07 Assessment & Plan Assessment & Plan (1) Type 2 diabetes mellitus with diabetic polyneuropathy: Code(s): E11.42 - Type 2 diabetes mellitus with diabetic polyneuropathy Category: Medical Qualifiers: Diabetes mellitus intermediate designer insulin use: with intermediate designer use Qualified Code(s): E11.42 - Type 2 diabetes mellitus with diabetic polyneuropathy; Z79.4 - 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 Plan: slight suboptimal control Has plateaued with weight loss Restart ozempic 0.25 weekly Humalog Toujeo 20 units daily Return for next A1C or sooner as needed. Medications: New Ozempic (semaglutide) for 4 weeks 0.25 mg (0.368 mL) subcut QWEEK 3 mL 3RF NS Changed 2 From Humalog KwikPen Insulin (insulin lispro) subcutaneously 3 times a day; 20 units if glucose is greater that 200 mg/dL 18 units if glucose is less than 200 mg/dL 30 mL 3RF NS E11.42 - Type 2 diabetes mellitus with diabetic polyneuropathy, Z79.4 - intermediate designer (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 of insulin To Humalog KwikPen Insulin (insulin lispro) subcutaneously 3 times a day; 20 units with breakfast 20 units with lunch 16 units with supper 30 mL 3RF NS E11.42 - Type 2 diabetes mellitus with diabetic polyneuropathy, Z79.4 - Long ter m (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 of insulin Refilled Toujeo SoloStar U-300 Insulin (insulin glargine U-300 conc) 20 units (0.0667 mL) subcut BEDTIME 4.5 mL 3RF NS E11.42 - Type 2 diabetes mellitus with diabetic polyneuropathy, Z79.4 - intermediate designer (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 of insulin Coding Level of Care Code Est Pt Level 4 (89104) Diagnoses Type 2 diabetes mellitus with diabetic polyneuropathy, with long-term current use of insulin E11.42; Z79.4 Diabetes mellitus intermediate designer insulin use: with skilled nursing use
[2024-11-29 09:00] VITALS: BP 110/60; PULSE 75; O2SAT 97
[2024-11-29 09:10] LABS: Glucose, Whole Blood 124 mg/dL (60-115)
--- OUTSIDE RECORDS SUMMARY | 2024-11-29 09:27 | XMS_ITS | Encounter Summary ---
Author Organization [facility] Address [address] [place] [address] Phone Care Team Providers Care Nurses Director Name Role Phone Fish Lomeli MD Primary Care Provider [phone]- [phone] Encounter Details Date Type Department Care Team (Late st Contact Info) Description 07/14/2022 Office Communication [facility] [address] [place] [address] Juan David Jones Social History Tobacco Use [...] on filedocumented in this encounter Care Teams Nurses Director Relationship Specialty Start Date End Date Fish Lomeli MD [address] [place] [address] PCP - General 09/09/20 documented as of this encounter
--- OUTSIDE RECORDS SUMMARY | 2024-11-29 09:27 | XMS_ITS | Clinical Summary ---
Author Organization [facility] Address [address] [place] [address] Phone Care Team Providers Care Envelope Sealer Operator Name Role Phone Fish Lomeli MD Primary Care Provider [phone]- [phone] Allergies Active Allergy Reactions Criticality Noted Date [...] times a day Active Cholecalciferol 50 MCG (2000 UT) capsule Take 1 capsule by mouth [...] [place] Care Teams Envelope Sealer Operator Relationship Specialty Start Date End Date Armani, Fish S, MD [address] [place] [address] PCP - General 09/09/20
== END 2024-11-29 09:23 | disposition home or self-care (01) ==
LOC: HO.ENCR 08:50
PROVIDERS: PCP Internal Medicine; Visit Provider Internal Medicine
DX: E11.42 Type 2 diabetes mellitus with diabetic polyneuropathy (principal); Z79.4 Long term (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 of insulin

== ENCOUNTER → 2024-11-29 08:49 | Outpatient (BNVA) | payer MEDICARE, SELFPAY | PROVIDERS: PCP Internal Medicine; Visit Provider Internal Medicine | DX: E11.42 Type 2 diabetes mellitus with diabetic polyneuropathy (principal); Z79.4 Long term (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 of insulin | CPT/HCPCS: 82947; 99212 ==

== ENCOUNTER 2024-12-25 09:10 | Outpatient (AMB) | payer MEDICARE, SELFPAY ==
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
[2024-12-25 09:20] VITALS: BP 133/61; PULSE 78; O2SAT 99; BMI 29.5
--- OUTSIDE RECORDS SUMMARY | 2024-12-25 09:59 | XMS_ITS | Encounter Summary ---
Author Organization [facility] Address [address] [facility] [address] [place] [address] Phone Care Team Providers Care Optometry Doctor Name Role Phone Fish Lomeli MD Primary Care Provider +1- [phone] Encounter Details Date Type Department Care Team (Late st Contact Info) Description 07/14/2022 Office Communication [facility] [address] [place] [address] Juan David Jones Social History Tobacco Use [...] on filedocumented in this encounter Care Teams Optometry Doctor Relationship Specialty Start Date End Date Fish Lomeli MD [address] [place] [address] PCP - General 09/09/20 documented as of this encounter
--- OUTSIDE RECORDS SUMMARY | 2024-12-25 09:59 | XMS_ITS | Clinical Summary ---
Author Organization [facility] Address [address] [place] [address] Phone Care Team Providers Care Push Connector Assembler Name Role Phone Fish Lomeli MD Primary Care Provider +1- [phone] Allergies Active Allergy Reactions Criticality Noted Date [...] Comments Breast Cancer Screening 1960 Pneumococcal Vaccine: 50+ Ye ars (1 of 2 - PCV) 1977 Colorectal Cancer Screening: Annual FOBT 2007 Colorectal Cancer Screening: Colonoscopy 2007 Colorectal Cancer Screening: Sigmoidoscopy 2007 Diabetes: Hemoglobin A1C 09/30/2020 Diabetes: Ophthalmology Exam 09/30/2020 Diabetes: Pedal Pulse Checked 09/30/2020 Diabetes: Sensory Foot Exam 09/30/2020 Diabetes: Visual Foot Exam 09/30/2020 Influenza Vaccine (Season Ended) 2025 Hepatitis B Vaccine Aged Out No longe r eligible based on patient's age to complete this topic Insurance Medicare Medicaid [place] Medicare Medicaid [place] Care Teams Push Connector Assembler Relationship Specialty Start Date End Date Armani, Fish S, MD [address] [place] [address] PCP - General 09/09/20
== END 2024-12-25 09:40 | disposition home or self-care (01) ==
LOC: HO.PMC 09:11
PROVIDERS: PCP Internal Medicine; Visit Provider Nurse Practitioner Family
DX: G44.52 New daily persistent headache (NDPH) (principal); M25.551 Pain in right hip; M25.552 Pain in left hip; M53.3 Sacrococcygeal disorders, not elsewhere classified; M47.816 Spondylosis without myelopathy or radiculopathy, lumbar region; M70.61 Trochanteric bursitis, right hip; M70.62 Trochanteric bursitis, left hip; E11.40 Type 2 diabetes mellitus with diabetic neuropathy, unspecified
CPT/HCPCS: 99214; G2211

== ENCOUNTER → 2024-12-25 09:10 | Outpatient (BNVA) | payer MEDICARE, SELFPAY | PROVIDERS: PCP Internal Medicine; Visit Provider Nurse Practitioner Family | DX: G44.52 New daily persistent headache (NDPH) (principal); M25.551 Pain in right hip; M25.552 Pain in left hip; M53.3 Sacrococcygeal disorders, not elsewhere classified; M47.816 Spondylosis without myelopathy or radiculopathy, lumbar region; M70.61 Trochanteric bursitis, right hip; M70.62 Trochanteric bursitis, left hip; E11.40 Type 2 diabetes mellitus with diabetic neuropathy, unspecified | CPT/HCPCS: 99212 ==

== ENCOUNTER 2024-12-28 10:10 | Outpatient (REF) | payer MEDICARE, SELFPAY ==
[2024-12-28 10:47] LABS: MANUAL DIFF FLAG NO
[2024-12-28 11:03] LABS: Basophils Percent Auto 0.6 % (0-2); Eosinophils Absolute Auto 0.1 X10*3/uL (0.0-0.4); Hemoglobin 12.1 g/dl (12.0-16.0); Imm Gran Abs Auto 0.02 X10*3/uL (0.00-0.03); Imm Gran Pct Auto 0.4 % (0.0-0.4); Lymphocytes Absolute Auto 1.5 X10*3/uL (1.2-4.9); Lymphocytes Percent Auto 29.8 % (20-40); Mean Corpuscular HGB Conc 31.8 g/dl (31.0-35.0); Mean Corpuscular Hemoglobin 28.9 pg (27.0-33.0); Mean Corpuscular Volume 90.7 fL (80.0-98.0); Mean Platelet Volume 11.1 fL (9.4-12.3); Monocytes Absolute Auto 0.3 X10*3/uL (0.1-1.2); Neutrophils Absolute Auto 3.2 x10*3/uL (2.0-8.3); Neutrophils Percent Auto 62.2 % (45-73); Platelet Count 189 X10*3/uL (160-400); Red Blood Count 4.19 X10*6/uL (4.20-5.50); Red Cell Distribution Width 13.2 % (11.0-16.0); White Blood Count 5.1 X10*3/uL (4.8-10.8)
[2024-12-28 11:08] LABS: Estimated Average Glucose 151 mg/dL; Hemoglobin A1C 167.7134 umol/L; Hemoglobin A1c % 6.9 % (<6.0); Total Hemoglobin (HGBA1C) 3233.2781 umol/L
--- OUTSIDE RECORDS SUMMARY | 2024-12-28 11:30 | XMS_ITS | Clinical Summary ---
Author Organization [facility] Address [address] [place] [address] Phone Care Team Providers Care Writer Technical Publications Name Role Phone Fish Lomeli MD Primary Care Provider +1- [phone] Allergies Active Allergy Reactions Criticality Noted Date [...] Medicaid [place] Care Teams Writer Technical Publications Relationship Specialty Start Date End Date Armani, Fish S, MD [address] [place] [address] PCP - General 09/09/20
--- OUTSIDE RECORDS SUMMARY | 2024-12-28 11:30 | XMS_ITS | Encounter Summary ---
Author Organization [facility] Address [address] [facility] [facility] [address] [place] [address] Phone Care Team Providers Care Back Tufter Name Role Phone Fish Lomeli MD Primary Care Provider +1- [phone] Encounter Details Date Type Department Care Team (Late st Contact Info) Description 07/14/2022 Office Communication [facility] [address] [place] [address] Juan David Jones Social History Tobacco Use [...] on filedocumented in this encounter Care Teams Back Tufter Relationship Specialty Start Date End Date Fish Lomeli MD [address] [place] [address] PCP - General 09/09/20 documented as of this encounter
[2024-12-28 11:39] LABS: Appearance Urine Clear; Color Urine Yellow; Glucose Urine UA Negative (Negative); Leukocyte Esterase Urine Negative (Negative); Nitrite Urine Negative (Negative); Specific Gravity - Urine 1.025 (1.005-1.025); Urine Blood Negative (Negative); Urine Ketones Trace mg/dL (Negative); Urine Protein Negative (Neg-Trace)
[2024-12-28 11:54] LABS: Anion Gap 13 (12-20); Blood Urea Nitrogen 14 mg/dL (9-16); Carbon Dioxide 28 mmol/L (22-29); Chloride 107 mmol/L (96-108); Estimated Glomerular Filt Rate > 60; Potassium 4.3 mmol/L (3.3-5.1); Sodium 144 mmol/L (135-145)
[2024-12-28 12:18] LABS: Alanine Aminotransferase 52 U/L (0-31); Albumin Level 4.1 g/dL (3.5-5.0); Alkaline Phosphatase 104 U/L (39-117); Anion Gap 11 (12-20); Aspartate Amino Transferase 33 U/L (5-31); Bilirubin Total 0.8 mg/dL (0.0-1.0); Blood Urea Nitrogen 14 mg/dL (9-16); Calcium 9.5 mg/dL (8.4-10.2); Carbon Dioxide 29 mmol/L (22-29); Chloride 106 mmol/L (96-108); Cholesterol 117 mg/dL (<200); Estimated Glomerular Filt Rate > 60; Ferritin 164 ng/mL (10-250); Glucose Fasting 138 mg/dL (60-99); HDL Cholesterol 42 mg/dL (>40); Iron 93 mcg/dL (30-160); LDL Cholesterol Calculated 51 mg/dL (<100); Percent Iron Saturation 40 % (15-50); Potassium 4.1 mmol/L (3.3-5.1); Sodium 142 mmol/L (135-145); Thyroid Stimulating Hormone 1.96 uIU/mL (0.32-4.0); Total Iron Binding Capacity 233 mcg/dL (228-428); Triglycerides 121 mg/dL (<150); Unsaturated Iron Binding 140 ug/dL
[2024-12-28 12:18] LABS: Creatinine Urine 210.23 mg/dL; Microalbum/Creatinine Ratio Ur 11.8 ug/mg cr (<30); Protein/Creatinine Ratio, Ur 0.06 (<0.2); Total Protein Urine Random 12 mg/dL (<12)
[2024-12-28 12:24] LABS: Folate 14.2 ng/mL (> or = 4.0); Vitamin B12 484 pg/mL (200-900)
[2024-12-28 12:25] LABS: Free T4 (Free Thyroxine) 0.88 ng/dL (0.71-1.85); Vitamin D 25-OH Total 40.9 ng/mL (>30)
[2025-01-01 03:13] LABS: Zinc 74 mcg/dL (60-130)
[2025-01-01 15:44] LABS: Vitamin D 25-OH, D2 <4 ng/mL; Vitamin D 25-OH, D3 35 ng/mL; Vitamin D 25-OH, Total 35 ng/mL (30-100)
== END 2024-12-28 10:11 | disposition home or self-care (01) ==
LOC: HO.LAB 10:10
PROVIDERS: Internal Medicine Nephrology; Absent Provider Nurse Practitioner; PCP Internal Medicine; Visit Provider Internal Medicine
DX: L65.0 Telogen effluvium (principal); R30.0 Dysuria; E11.9 Type 2 diabetes mellitus without complications; E78.00 Pure hypercholesterolemia, unspecified; E53.8 Deficiency of other specified B group vitamins; E55.9 Vitamin D deficiency, unspecified; E03.9 Hypothyroidism, unspecified; D64.9 Anemia, unspecified; E11.21 Type 2 diabetes mellitus with diabetic nephropathy; I10 Essential (primary) hypertension
CPT/HCPCS: 36415; 80051; 80053; 80061; 81003; 82043; 82306; 82565; 82570; 82607; 82728; 82746; 83036; 83540; 84156; 84439; 84443; 84520; 84630; 85025

== ENCOUNTER 2025-01-09 09:16 | Outpatient (AMB) | payer MEDICARE, SELFPAY ==
--- NOTE | 2025-01-09 09:20 | MHC.OFFVIS ---
Vital Signs 01/09/25 09:24 Height 5 ft 5.5 in Weight 181 lb 10.574 oz BMI 29.8 BP 112/58 L Blood Pressure Location Rt brachial Position Sitting Pulse 79 Pulse Source Pulse Oximeter Pulse Oximetry (%) 97 Oxygen Delivery Method Room Air Intake Visit Reasons: Type 2 DM with frequent low blood sugar Intake Note: Patient present today to follow up on Type 2 Diabetes Mellitus. Last Diabetic Eye exam: 12/29/2024 at [facility] Last Podiatry Visit: Does not see a Salesperson Florist Supplies Most Recent HgA1C: 6.9%%, 12/28/2024 Random Glucose: 114 mg/dL, Today Programs Assistant Required: Yes Programs Assistant Language: Research Program Intern Services: Programs Assistant Offered & Declined Accompanied by: Self / Same As Patient Allergies No Known Allergies Allergy (Verified 01/09/25 09:25) Medication List - Last Reconciled 01/09/25 by REE Gallardo atorvastatin 80 mg PO BEDTIME bisacodyl 10 mg (2 x 5 mg) PO BEDTIME blood sugar diagnostic (RisparmioSuperuch Ultra Test strips) As directed checks 4 X/day blood-glucose meter (RisparmioSuperuch Ultra2 Meter) As directed cholecalciferol (vitamin D3) (Vitamin D3) 50 mcg PO DAILY dextrose (TRUEplus Glucose) 15 grams (32 mL) PO Q15M PRN duloxetine 30 mg PO BID 30 days gabapentin 300 mg PO TID glucagon 3 mg/actuation (Baqsimi) 3 mg intranasal ONCE PRN insulin glargine U-300 conc (Toujeo SoloStar U-300 Insulin) 14 units subcut BEDTIME insulin lispro (Humalog KwikPen U-200 Insulin) Administer 12-22 units subcutaneously before meals 3 times a day per sliding scale lancets (Midverse StudiosTouch UltraSoft 2 Lancet) As directed tests 4 X/day levothyroxine 50 mcg PO DAILY lorazepam 1 mg PO BID PRN 30 days losartan 100 mg PO DAILY Ozempic (semaglutide) 0.25 mg (0.368 mL) subcut QWEEK NS pen needle, diabetic (BD Ultra-Fine Micro Pen Needle) USE DIRECTED THREE TIMES A DAY tizanidine 4 mg PO Q8H PRN 30 days HPI Comments Details: This is a 64-year-old female with a past medical history of type 2 diabetes with neuropathy, status post laparoscopic sleeve gastrectomy 05/17/2014, coronary artery disease, gastroparesis, nonalcoholic steatohepatitis, GERD, hypothyroidism, hypertension, hyperlipidemia and anxiety presenting for diabetic management. She called this week due to concerns of hypoglycemia. Hemoglobin A1c 6.9% 12/28/2024. Patient reported on 01/04/2025 at 10:00 she was 42 and on 01/06/2025 at 10:35 she was 34. She treated both fruit juice. She reported a lot of shakiness, sweating, feeling cold and had 1 episode of blurry vision with low blood sugars. She reported that since restarting Ozempic she was having a decreased appetite, but she says she is still eating 3 meals per day, but the portion sizes smaller. She was taking Toujeo 20 units daily and Humalog 20/20/16. She was due for her Ozempic dose yesterday, and she was told to hold it and decrease her morning dose of Humalog from 20-12 and decrease Toujeo from 20-16 units. She administered Toujeo 16 units this morning. I reviewed her glucose report. She is in range 60%. Average glucose 146. Highest sugar 310, lowest 34. Additional hypoglycemic events noted on report. She placed a new G7 sensor today, but there was an issue getting refills from her pharmacy. There is a form that needs to be completed after today's visit. She was diagnosed with type 2 diabetes around 2004. At her last visit with Dr. Jaime on 11/29/2024 she requested to restart Ozempic. Past medications: Metformin discontinued due stomach upset. Micro and macrovascular complications: Retinopathy, nephropathy, neuropathy. She exercises daily. She is followed by weight loss management and director of strategic partnerships. Ophthalmology evaluation is up-to-date. She has a history of severe nonproliferative retinopathy. She had VEGF therapy with Dr. Perez. She is also followed by Nephrology and Cardiology. ROS: Constitutional: No unexplained weight loss, fever, chills Eyes: No vision changes, blurry vision, double vision Respiratory: No shortness of breath Cardiovascular: No chest pain, chest pressure or chest discomfort. No palpitations or pedal edema. Gastrointestinal: Nonausea, vomiting or diarrhea. No abdominal pain or blood in stool. Neurologic: No headache, dizziness, syncope Physical exam: Constitutional: Alert, in no distress. Respiratory: Clear to auscultation. Cardiovascular: S1 S2 regular. No murmurs Neurologic: No focal neurological deficits. Musculoskeletal: No gross deformities. Normal range of motion. Extremities: Warm and well perfused. No clubbing, cyanosis or edema. Psychiatric: Normal mood and affect [facility] Medical History (Updated 01/09/25 @ 10:05 by REE Gallardo) Hypoglycemia detention (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 of insulin Diabetic neuropathy Depression Constipation Chest pain SOB (shortness of breath) Situational depression Gastroparesis due to DM Chronic constipation Type 2 diabetes mellitus with diabetic polyneuropathy Obesity (BMI 30-39.9) BMI 35.0-35.9,adult History of degenerative disc disease Back pain Peripheral neuropathy History of cardiac murmur Abnormal EKG BMI 39.0-39.9,adult Obesity Hypertension Acquired hypothyroidism Acute bacterial bronchitis Atherosclerotic cardiovascular disease Breast cancer screening Subclinical hypothyroidism Acute cervical myofascial strain DM2 (diabetes mellitus, type 2) Rheumatic fever GERD (gastroesophageal reflux disease) Diabetic nephropathy associated with type 2 diabetes mellitus Hirsutism Dyslipidemia Type 2 diabetes mellitus with hyperglycemia, without long-term current use of insulin Anxiety Vitamin D deficiency Lumbar degenerative disc disease Benign essential hypertension Pure hypercholesterolemia 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, bilateral Surgical History S/P laparoscopic sleeve gastrectomy History of bariatric surgery Hx of colonoscopy History of esophagogastroduodenoscopy (EGD) History of carpal tunnel release History of surgery History of cholecystectomy History of partial hysterectomy History of repair of rotator cuff Family History Father Diabetes Mother Diabetes CVD (cardiovascular disease) Social History Household Members: Spouse Caregiver staying overnight: No Housing: House Are you a primary medicare specialist to a significant other at home: No Do you presently have visiting nurse or other home services: No 75 years or older and lives alone: No Alcohol intake: never Patient Tobacco Use Status: Former Tobacco user Tobacco use type: Cigarette e-Cigarette/Vaping Use: Never Used Second Hand Smoke Exposure: Yes Advance Directives Date on File: 05/19/24 service: No Current occupational status: disabled Cognitive needs: No Hearing needs: No Vision needs: Yes Physical Exam Vital Signs: Last Vital Signs Pulse 79 01/09/25 09:24 BP 112/58 L 01/09/25 09:24 Pulse Ox 97 01/09/25 09:24 Oxygen Delivery Method Room Air 01/09/25 09:24 BMI result Body Mass Index 29.8 Results Reviewed Results Reviewed: Laboratory Last Values Glucose (Clinic) 114 mg/dL (60-115) 01/09/25 09:30 Laboratory Tests 12/28/24 12/28/24 10:30 10:45 Creatinine 0.64 Estimated GFR > 60 Hemoglobin A1c % 6.9 H AST 33 H ALT 52 H Triglycerides 121 Cholesterol 117 LDL Cholesterol, Calc 51 HDL Cholesterol 42 Urine Creatinine 208.20 Urine Microalbumin 25.0 Microalb/Creat Ratio 11.8 Assessment & Plan Assessment & Plan (1) Hypoglycemia: Code(s): E16.2 - Hypoglycemia, unspecified Category: Medical (2) Diabetes mellitus, type II, insulin dependent: Code(s): E11.9 - Type 2 diabetes mellitus without complications; Z79.4 - detention (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 of insulin Category: Medical Plan In summary this is a 64-year-old female with type 2 diabetes with micro and macrovascular complications status post laparoscopic sleeve gastrectomy presenting for hypoglycemia concerns. If you experience low blood sugar, treat this by eating a chewable fruit candy like skittles or jelly beans (about 8 pieces), 4 ounces (1/2 cup) of fruit juice (not diet), 1 tablespoon of honey or 4 glucose tablets or 1 pack of glucose gel. If your blood sugar is under 55, take double the amount of one of the above. Recheck your blood sugar in 15 minutes. Advised patient not to drive if she has symptoms of low blood sugar and does not have an accurate way to check blood sugars. She would like to restart Ozempic to promote weight loss. She can resume 0.25 mg weekly dosing today. Reduce Toujeo to 14 units every morning. Start Humalog sliding scale. Administer 15 minutes before meals. Blood sugar under 180 mg/dL 0 units Blood sugar 180-200 12 units Blood sugar 201-249 mg/dL take 14 units Blood sugar 250-299 mg/dL take 16 units Blood sugar 300-349 mg/dL take 18 units Blood sugar 350-399 mg/dL take 20 units Blood sugar >/=400 mg /dL take 22 units and call the office If you continue to have low blood sugars, reduce sliding scale by 2 units. If the patient has sugars less than 60 again this week she was instructed to call the office back. I submitted a prescription for Baqsimi to the pharmacy as she did not with symptoms of hypoglycemia until blood sugar was less than 55 on multiple occasions. It is medically necessary for her. She has an appointment next week with Dr. Jaime for diabetic follow up. Medications: New glucagon 3 mg/actuation (Baqsimi) 3 mg (one actuation) into a single nostril; if no response, may repeat in 15 minutes using a new intranasal device 3 mg intranasal ONCE PRN 2 ea 3RF hypoglycemia REE Gallardo dextrose (TRUEplus Glucose) until symptoms of low blood sugar are controlled 15 grams (32 mL) PO Q15M PRN 128 mL 5RF hypoglycemia REE Gallardo Changed From Toujeo SoloStar U-300 Insulin (insulin glargine U-300 conc) 20 units (0.0667 mL) subcut BEDTIME 4.5 mL 3RF NS E11.42 - Type 2 diabetes mellitus with diabetic polyneuropathy, Z79.4 - buttermaker continuous churn (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 of insulin To insulin glargine U-300 conc (Toujeo SoloStar U-300 Insulin) 14 units subcut BEDTIME E11.42 - Type 2 diabetes mellitus with diabetic polyneuropathy, Z79.4 - detention (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 of insulin Verenice Jaime MD From Humalog KwikPen Insulin (insulin lispro) subcutaneously 3 times a day; 20 units with breakfast 20 units with lunch 16 units with supper 30 mL 3RF NS E11.42 - Type 2 diabetes mellitus with diabetic polyneuropathy, Z79.4 - buttermaker continuous churn (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 of insulin To insulin lispro (Humalog KwikPen U-200 Insulin) Administer 12-22 units subcutaneously before meals 3 times a day per sliding scale E11.42 - Type 2 diabetes mellitus with diabetic polyneuropathy, Z79.4 - detention (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 of insulin Verenice Jaime MD Refilled Ozempic (semaglutide) for 4 weeks 0.25 mg (0.368 mL) subcut QWEEK 3 mL 3RF NS REE Gallardo Patient Instructions: If you experience low blood sugar, treat this by eating a chewable fruit candy like skittles or jelly beans (about 8 pieces), 4 ounces (1/2 cup) of fruit juice (not diet), 1 tablespoon of honey or 4 glucose tablets or 1 pack of glucose gel. If your blood sugar is under 55, take double the amount of one of the above. Recheck your blood sugar in 15 minutes. Restart Ozempic 0.25 mg weekly. Reduce Toujeo to 14 units every morning. Humalog scale. Administer 15 minutes before meals. Blood sugar under 180 mg/dL 0 units Blood sugar 180-200 12 units Blood sugar 201-249 mg/dL take 14 units Blood sugar 250-299 mg/dL take 16 units Blood sugar 300-349 mg/dL take 18 units Blood sugar 350-399 mg/dL take 20 units Blood sugar >/=400 mg /dL take 22 units and call the office If you continue to have low blood sugars, reduce sliding scale by 2 units Coding Level of Care Code Est Pt Level 4 (67834) Complex EM visit Add On G2211 Diagnoses Hypoglycemia E16.2 Diabetes mellitus, type II, insulin dependent E11.9; Z79.4
[2025-01-09 09:24] VITALS: BP 112/58; PULSE 79; O2SAT 97; BMI 29.8
[2025-01-09 09:34] LABS: Glucose, Whole Blood 114 mg/dL (60-115)
--- OUTSIDE RECORDS SUMMARY | 2025-01-09 09:45 | XMS_ITS | Encounter Summary ---
Author Organization [facility] Address [address] [place] [address] Phone Care Team Providers Care Employment Agency Manager Name Role Phone Fish Lomeli MD Primary Care Provider [phone]- [phone] Encounter Details Date Type Department Care Team (Late st Contact Info) Description 07/14/2022 Office Communication [facility] [address] [place] [address] Juan David Jones Social History Tobacco Use [...] on filedocumented in this encounter Care Teams Employment Agency Manager Relationship Specialty Start Date End Date Fish Lomeli MD [address] [place] [address] PCP - General 09/09/20 documented as of this encounter
--- OUTSIDE RECORDS SUMMARY | 2025-01-09 09:45 | XMS_ITS | Clinical Summary ---
Author Organization [facility] Address [address] [place] [address] Phone Care Team Providers Care Hydro Mechanic Name Role Phone Fish Lomeli MD Primary Care Provider [phone]- [phone] Allergies Active Allergy Reactions Criticality Noted Date [...] Medicaid [place] Care Teams Hydro Mechanic Relationship Specialty Start Date End Date Armani, Fish S, MD [address] [place] [address] PCP - General 09/09/20
== END 2025-01-09 09:59 | disposition home or self-care (01) ==
LOC: HO.ENCR 09:17
PROVIDERS: PCP Internal Medicine; Visit Provider Physician Assistant Medical
DX: E16.2 Hypoglycemia, unspecified (principal); E11.9 Type 2 diabetes mellitus without complications; Z79.4 Long term (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 of insulin

== ENCOUNTER → 2025-01-09 09:16 | Outpatient (BNVA) | payer MEDICARE, SELFPAY | PROVIDERS: PCP Internal Medicine; Visit Provider Physician Assistant Medical | DX: E11.649 Type 2 diabetes mellitus with hypoglycemia without coma (principal); Z79.4 Long term (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 of insulin | CPT/HCPCS: 82947; 99212 ==

== ENCOUNTER 2025-01-17 08:27 | Outpatient (AMB) | payer MEDICARE, SELFPAY ==
--- NOTE | 2025-01-17 08:29 | A.OFFVIS_ITS ---
Vital Signs 01/17/25 08:30 Height 5 ft 5.5 in Weight 182 lb 15.739 oz BMI 30.0 BP 118/60 Blood Pressure Location Rt brachial Position Sitting Pulse 68 Pulse Source Pulse Oximeter Pulse Oximetry (%) 98 Oxygen Delivery Method Room Air Intake Visit Reasons: T2DM Intake Note: Patient present today to follow up on Type 2 Diabetes Mellitus. Last Diabetic Eye exam: Within the year, [facility] Last Podiatry Visit: Does not see a Medical Records Analyst Most Recent HgA1C: 6.9%, 12/28/2024 Random Glucose: 87 mg/dL, Today Manager Technical Training Required: No Accompanied by: Self / Same As Patient Allergies No Known Allergies Allergy (Verified 01/17/25 08:29) Medication List - Last Reconciled 01/17/25 by Verenice Jaime MD atorvastatin 80 mg PO BEDTIME bisacodyl 10 mg (2 x 5 mg) PO BEDTIME blood sugar diagnostic (OneTouch Ultra Test strips) As directed checks 4 X/day blood-glucose meter (OneTouch Ultra2 Meter) As directed cholecalciferol (vitamin D3) (Vitamin D3) 50 mcg PO DAILY Dexcom G7 Sensor (blood-glucose sensor) every 10 days NS dextrose (TRUEplus Glucose) 15 grams (32 mL) PO Q15M PRN duloxetine 30 mg PO BID 30 days gabapentin 300 mg PO TID glucagon 3 mg/actuation (Baqsimi) 3 mg intranasal ONCE PRN insulin glargine U-300 conc (Toujeo SoloStar U-300 Insulin) 12 units subcut BEDTIME insulin lispro (Humalog KwikPen U-200 Insulin) Administer 8-18 subcutaneously before meals 3 times a day per sliding scale Humalog scale. Administer 15 minutes before meals. Blood sugar under 180 mg/dL 0 units Blood sugar 180-200 8 units Blood sugar 201-249 mg/dL take 10 units Blood sugar 250-299 mg/dL take 12 units Blood sugar 300-349 mg/dL take 14 units Blood sugar 350-399 mg/dL take 16 units Blood sugar >/=400 mg /dL take 18 units and call the office lancets (Royal WinsTouch UltraSoft 2 Lancet) As directed tests 4 X/day levothyroxine 50 mcg PO DAILY lorazepam 1 mg PO BID PRN 30 days losartan 100 mg PO DAILY Ozempic (semaglutide) 0.5 mg (0.736 mL) subcut QWEEK NS pen needle, diabetic (BD Ultra-Fine Micro Pen Needle) USE DIRECTED THREE TIMES A DAY tizanidine 4 mg PO Q8H PRN 30 days HPI Comments Details: This is a 64-year-old female with type 2 diabetes with neuropathy presenting for diabetic follow up Medical history: status post laparoscopic sleeve gastrectomy 05/17/2014, coronary artery disease, gastroparesis, nonalcoholic steatohepatitis, GERD, hypothyroidism, hypertension, hyperlipidemia and anxiety Diabetes medications-of note she was having frequent hypoglycemia and the below doses started two weeks ago-toujeo and humalog were decreased Ozempic- 0.25 mg weekly -just restarted Toujeo 14 units (she has been taking 16 units) Humalog sliding scale. Administer 15 minutes before meals. Blood sugar under 180 mg/dL 0 units Blood sugar 180-200 12 units Blood sugar 201-249 mg/dL take 14 units Blood sugar 250-299 mg/dL take 16 units Blood sugar 300-349 mg/dL take 18 units Blood sugar 350-399 mg/dL take 20 units Blood sugar >/=400 mg /dL take 22 units and call the office Hemoglobin A1c 6.9% 12/28/2024. CGM downloaded She is in range 66% from 60%, 32% high, 2% low, <1% very low. Average glucose 154. No BG <55 since medication changes. Guava juice brings her glucose up quickly when it is low She was diagnosed with type 2 diabetes around 2004. Past medications: Metformin discontinued due stomach upset. Micro and macrovascular complications: Retinopathy, nephropathy, neuropathy. She exercises daily. She is followed by weight loss management and health educator. Ophthalmology evaluation is up-to-date. She has a history of severe nonproliferative retinopathy. She had VEGF therapy with Dr. Perez. She is also followed by Nephrology and Cardiology. ROS CONSTITUTIONAL: Denies weight loss, fever and chills. HEENT: Denies changes in vision and hearing. RESPIRATORY: Denies SOB and cough. CV: Denies palpitations and CP GI: Denies abdominal pain, nausea, vomiting and diarrhea. : Denies dysuria and urinary frequency. MSK: Denies new myalgia and joint pain. SKIN: Denies rash and pruritus. NEUROLOGICAL: Denies headache PSYCHIATRIC: Denies recent changes in mood. PHYSICAL EXAM: GENERAL: Alert and oriented x 3. NAD EYES: EOMI. Anicteric. HENT: Moist mucous membranes. No scleral icterus. No cervical lymphadenopathy. LUNGS: Clear to auscultation bilaterally. CARDIOVASCULAR: Regular rate and rhythm. ABDOMEN: Soft, non-tender +bs EXTREMITIES: No edema. Non-tender. SKIN: No rashes or lesions. Warm. NEUROLOGIC: No focal neurological deficits. CN II-XII grossly intact PSYCHIATRIC: Cooperative. Appropriate mood and affect [facility] Medical History Hypoglycemia retirement (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 of insulin Diabetic neuropathy Depression Constipation Chest pain SOB (shortness of breath) Situational depression Gastroparesis due to DM Chronic constipation Type 2 diabetes mellitus with diabetic polyneuropathy Obesity (BMI 30-39.9) BMI 35.0-35.9,adult History of degenerative disc disease Back pain Peripheral neuropathy History of cardiac murmur Abnormal EKG BMI 39.0-39.9,adult Obesity Hypertension Acquired hypothyroidism Acute bacterial bronchitis Atherosclerotic cardiovascular disease Breast cancer screening Subclinical hypothyroidism Acute cervical myofascial strain DM2 (diabetes mellitus, type 2) Rheumatic fever GERD (gastroesophageal reflux disease) Diabetic nephropathy associated with type 2 diabetes mellitus Hirsutism Dyslipidemia Type 2 diabetes mellitus with hyperglycemia, without long-term current use of insulin Anxiety Vitamin D deficiency Lumbar degenerative disc disease Benign essential hypertension Pure hypercholesterolemia 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, bilateral Surgical History S/P laparoscopic sleeve gastrectomy History of bariatric surgery Hx of colonoscopy History of esophagogastroduodenoscopy (EGD) History of carpal tunnel release History of surgery History of cholecystectomy History of partial hysterectomy History of repair of rotator cuff Family History Father Diabetes Mother Diabetes CVD (cardiovascular disease) Social History Household Members: Spouse Caregiver staying overnight: No Housing: House Are you a primary career services officer to a significant other at home: No Do you presently have visiting nurse or other home services: No 75 years or older and lives alone: No Alcohol intake: never Patient Tobacco Use Status: Former Tobacco user Tobacco use type: Cigarette e-Cigarette/Vaping Use: Never Used Second Hand Smoke Exposure: Yes Advance Directives Date on File: 05/19/24 service: No Current occupational status: disabled Cognitive needs: No Hearing needs: No Vision needs: Yes Physical Exam Vital Signs: Last Vital Signs Pulse 68 01/17/25 08:30 BP 118/60 01/17/25 08:30 Pulse Ox 98 01/17/25 08:30 Oxygen Delivery Method Room Air 01/17/25 08:30 BMI result Body Mass Index 30.0 Assessment & Plan Assessment & Plan (1) Hypoglycemia: Code(s): E16.2 - Hypoglycemia, unspecified Category: Medical (2) Type 2 diabetes mellitus with diabetic polyneuropathy: Code(s): E11.42 - Type 2 diabetes mellitus with diabetic polyneuropathy Category: Medical Qualifiers: Diabetes mellitus assisted insulin use: with assisted use Qualified Code(s): E11.42 - Type 2 diabetes mellitus with diabetic polyneuropathy; Z79.4 - retirement (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 of insulin Plan 64 year old with controlled diabetes, recent issues with hypoglycemia She has been eating less, trying to lose weight. She has not lost weight since last visit Will increase her ozempic to 0.5mg weekly Decrease toujeo to 12 units Decrease sliding scale to 8-18 starting at BG >180 Call with hypoglycemia Return in one month or sooner as needed If you experience low blood sugar, treat this by eating a chewable fruit candy like skittles or jelly beans (about 8 pieces), 4 ounces (1/2 cup) of fruit juice (not diet), 1 tablespoon of honey or 4 glucose tablets or 1 pack of glucose gel. If your blood sugar is under 55, take double the amount of one of the above. Recheck your blood sugar in 15 minutes. Advised patient not to drive if she has symptoms of low blood sugar and does not have an accurate way to check blood sugars. Medications: New Dexcom G7 Sensor (blood-glucose sensor) every 10 days 6 ea 3RF NS E11.9 - Type 2 diabetes mellitus without complications, E16.2 - Hypoglycemia, unspecified, Z79.4 - termite control representative (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 of insulin Changed From Ozempic (semaglutide) for 4 weeks 0.25 mg (0.368 mL) subcut QWEEK 3 mL 3RF NS To Ozempic (semaglutide) 0.5 mg (0.736 mL) subcut QWEEK 3 mL 3RF NS Coding Level of Care Code Est Pt Level 4 (76457) Diagnoses Hypoglycemia E16.2 Type 2 diabetes mellitus with diabetic polyneuropathy, with long-term current use of insulin E11.42; Z79.4 Diabetes mellitus assisted insulin use: with assisted use
[2025-01-17 08:30] VITALS: BP 118/60; PULSE 68; O2SAT 98
[2025-01-17 08:37] LABS: Glucose, Whole Blood 87 mg/dL (60-115)
--- OUTSIDE RECORDS SUMMARY | 2025-01-17 09:48 | XMS_ITS | Encounter Summary ---
Author Organization [facility] Address [address] [place] [address] Phone Care Team Providers Care Senior Sales Compensation Analyst Name Role Phone Fish Lomeli MD Primary Care Provider [phone]- [phone] Encounter Details Date Type Department Care Team (Late st Contact Info) Description 07/14/2022 Office Communication [facility] [address] [place] [address] Juan David Jones Social History Tobacco Use [...] on filedocumented in this encounter Care Teams Senior Sales Compensation Analyst Relationship Specialty Start Date End Date Fish Lomeli MD [address] [place] [address] PCP - General 09/09/20 documented as of this encounter
--- OUTSIDE RECORDS SUMMARY | 2025-01-17 09:48 | XMS_ITS | Clinical Summary ---
Author Organization [facility] Address [address] [place] [address] Phone Care Team Providers Care Maintenance Leader Name Role Phone Fish Lomeli MD Primary Care Provider [phone]- [phone] Allergies Active Allergy Reactions Criticality Noted Date [...] Medicaid [place] Medicare [place] Care Teams Maintenance Leader Relationship Specialty Start Date End Date Armani, Fish S, MD [address] [place] [address] PCP - General 09/09/20
== END 2025-01-17 08:56 | disposition home or self-care (01) ==
LOC: HO.ENCR 08:27
PROVIDERS: PCP Internal Medicine; Visit Provider Internal Medicine
DX: E16.2 Hypoglycemia, unspecified (principal); E11.42 Type 2 diabetes mellitus with diabetic polyneuropathy; Z79.4 Long term (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 of insulin

== ENCOUNTER → 2025-01-17 08:27 | Outpatient (BNVA) | payer MEDICARE, SELFPAY | PROVIDERS: PCP Internal Medicine; Visit Provider Internal Medicine | DX: E16.2 Hypoglycemia, unspecified (principal); E11.42 Type 2 diabetes mellitus with diabetic polyneuropathy; Z79.4 Long term (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 of insulin | CPT/HCPCS: 82947; 99212 ==

== ENCOUNTER 2025-01-23 07:33 | Outpatient (REF) | payer MEDICARE, SELFPAY ==
--- OUTSIDE RECORDS SUMMARY | 2025-01-23 07:35 | XMS_ITS | Clinical Summary ---
Author Organization [facility] Address [address] [place] [address] Phone Care Team Providers Care Electrolysis Needle Operator Name Role Phone Fish Lomeli MD Primary Care Provider [phone]- [phone] Allergies Active Allergy Reactions Criticality Noted Date [...] Medicaid [place] Medicare [place] Care Teams Electrolysis Needle Operator Relationship Specialty Start Date End Date Armani, Fish S, MD [address] [place] [address] PCP - General 09/09/20
[2025-01-23 09:06] LABS: Alanine Aminotransferase 41 U/L (0-31); Albumin Level 4.4 g/dL (3.5-5.0); Alkaline Phosphatase 100 U/L (39-117); Anion Gap 13 (12-20); Aspartate Amino Transferase 25 U/L (5-31); Bilirubin Total 1.2 mg/dL (0.0-1.0); Blood Urea Nitrogen 12 mg/dL (9-16); Calcium 9.7 mg/dL (8.4-10.2); Carbon Dioxide 28 mmol/L (22-29); Chloride 107 mmol/L (96-108); Estimated Glomerular Filt Rate > 60; Glucose Random 140 mg/dL (60-115); Potassium 4.2 mmol/L (3.3-5.1); Sodium 144 mmol/L (135-145); Total Protein 7.3 g/dL (6.5-8.0)
== END 2025-01-23 07:34 | disposition home or self-care (01) ==
LOC: HO.LAB 07:33
PROVIDERS: Surgery; PCP Internal Medicine; Visit Provider Internal Medicine Nephrology
DX: E66.01 Morbid (severe) obesity due to excess calories (principal); Z68.39 Body mass index [BMI] 39.0-39.9, adult; E03.9 Hypothyroidism, unspecified; E11.59 Type 2 diabetes mellitus with other circulatory complications; I25.10 Atherosclerotic heart disease of native coronary artery without angina pectoris; E11.9 Type 2 diabetes mellitus without complications; Z79.4 Long term (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 of insulin
CPT/HCPCS: 36415; 80053

== ENCOUNTER 2025-01-24 13:45 | Outpatient (AMB) | payer MEDICARE, SELFPAY ==
--- NOTE | 2025-01-24 13:54 | HO.NEPHOV_ITS ---
Vital Signs 01/24/25 13:57 Height 5 ft 5.5 in Weight 180 lb 8 oz BMI 29.6 BP 122/52 L Blood Pressure Location Rt brachial Position Sitting Pulse 84 Pulse Source Pulse Oximeter Pulse Oximetry (%) 95 Oxygen Delivery Method Room Air Intake Visit Reasons: Diabetic nephropathy associated with type 2 DM Director Security Management Required: No Accompanied by: Self / Same As Patient Allergies No Known Allergies Allergy (Verified 01/24/25 13:57) HPI Comments Details: Patricia was seen in follow up of her H/O Diabetic Nephropathy. She underwent gastric surgery and has lost significant weight. She has neuropathy but no retinopathy. Her proteinuria is undetectable. She has no edema, PND, chest pain, orthopnea. Her BP has been at goal. She does not take any NSAID's [facility] Medical History Hypoglycemia [facility] (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 of insulin Diabetic neuropathy Depression Constipation Chest pain SOB (shortness of breath) Situational depression Gastroparesis due to DM Chronic constipation Type 2 diabetes mellitus with diabetic polyneuropathy Obesity (BMI 30-39.9) BMI 35.0-35.9,adult History of degenerative disc disease Back pain Peripheral neuropathy History of cardiac murmur Abnormal EKG BMI 39.0-39.9,adult Obesity Hypertension Acquired hypothyroidism Acute bacterial bronchitis Atherosclerotic cardiovascular disease Breast cancer screening Subclinical hypothyroidism Acute cervical myofascial strain DM2 (diabetes mellitus, type 2) Rheumatic fever GERD (gastroesophageal reflux disease) Diabetic nephropathy associated with type 2 diabetes mellitus Hirsutism Dyslipidemia Type 2 diabetes mellitus with hyperglycemia, without long-term current use of insulin Anxiety Vitamin D deficiency Lumbar degenerative disc disease Benign essential hypertension Pure hypercholesterolemia 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, bilateral Surgical History S/P laparoscopic sleeve gastrectomy History of bariatric surgery Hx of colonoscopy History of esophagogastroduodenoscopy (EGD) History of carpal tunnel release History of surgery History of cholecystectomy History of partial hysterectomy History of repair of rotator cuff Family History Father Diabetes Mother Diabetes CVD (cardiovascular disease) Social History Household Members: Spouse Caregiver staying overnight: No Housing: House Are you a primary field care manager to a significant other at home: No Do you presently have visiting nurse or other home services: No 75 years or older and lives alone: No Alcohol intake: never Patient Tobacco Use Status: Former Tobacco user Tobacco use type: Cigarette e-Cigarette/Vaping Use: Never Used Second Hand Smoke Exposure: Yes Advance Directives Date on File: 05/19/24 service: No Current occupational status: disabled Cognitive needs: No Hearing needs: No Vision needs: Yes Review of Systems Const All systems reviewed & are unremarkable except as noted in HPI and below Physical Exam Vital Signs: Last Vital Signs Pulse 84 01/24/25 13:57 BP 122/52 L 01/24/25 13:57 Pulse Ox 95 01/24/25 13:57 Oxygen Delivery Method Room Air 01/24/25 13:57 BMI result Body Mass Index 29.6 Const General: comfortable and no acute distress Orientation/consciousness: patient oriented x3 HEENT Head: Yes normocephalic Mouth: Normal oral and palatal mucosa present Eyes EOM: EOMs intact bilaterally Neck Neck: Yes supple Resp Auscultation: clear to auscultation bilaterally Cardio Jugular venous distension: no JVD Rate: regular rate GI Palpation (GI): Soft to palpation Auscultation: normal bowel sounds General: Yes no CVA tenderness Back/Spine/Pelvis Back: no CVA tenderness Skin General skin exam: no rashes or lesions noted Neuro General: patient oriented x3 and moves all extremities Extrem General: Yes no pedal edema Results Reviewed Nephrology Results: Hgb 12.1 g/dl (12.0-16.0) 12/28/24 WBC 5.1 X10*3/uL (4.8-10.8) 12/28/24 Plt Count 189 X10*3/uL (160-400) 12/28/24 Sodium 144 mmol/L (135-145) 01/23/25 Potassium 4.2 mmol/L (3.3-5.1) 01/23/25 Chloride 107 mmol/L (96-108) 01/23/25 Carbon Dioxide 28 mmol/L (22-29) 01/23/25 BUN 12 mg/dL (9-16) 01/23/25 Creatinine 0.62 mg/dL (0.5-1.4) 01/23/25 Calcium 9.7 mg/dL (8.4-10.2) 01/23/25 Urine Protein Negative mg/dL (Neg-Trace) 12/28/24 Urine Creatinine 208.20 mg/dL 12/28/24 Protein/Creatinin Ratio 0.06 (<0.2) 12/28/24 Assessment & Plan Assessment & Plan (1) Benign essential hypertension: Code(s): I10 - Essential (primary) hypertension Category: Medical Plan Patricia was seen in follow up of her H/O Diabetic Nephropathy. She has neuropathy but no retinopathy. Her proteinuria is undetectable. She is on ARB. Her BP is at goal. She has no edema, PND, chest pain, orthopnea.She had gastric surgery for weight loss. She does not take any NSAID's. I did not make any medication changes today. F/U given Orders: Orders Creatinine 10 Months I10 - Essential (primary) hypertension Blood Urea Nitrogen 10 Months I10 - Essential (primary) hypertension Electrolytes 10 Months I10 - Essential (primary) hypertension Protein Creatinine Ratio, Ur 10 Months I10 - Essential (primary) hypertension Coding Level of Care Code Est Pt Level 4 (85181) Diagnoses Benign essential hypertension I10
[2025-01-24 13:57] VITALS: BP 122/52; PULSE 84; O2SAT 95; BMI 29.6
--- OUTSIDE RECORDS SUMMARY | 2025-01-24 14:44 | XMS_ITS | Clinical Summary ---
Author Organization [facility] Address [address] [place] [address] Phone Care Team Providers Care Switch Box Installer Name Role Phone Fish Lomeli MD Primary Care Provider [phone]- [phone] Allergies Active Allergy Reactions Criticality Noted Date [...] Medicaid [place] Medicare [place] Care Teams Switch Box Installer Relationship Specialty Start Date End Date Armani, Fish S, MD [address] [place] [address] PCP - General 09/09/20
== END 2025-01-24 14:09 | disposition home or self-care (01) ==
LOC: HO.HKA 13:46
PROVIDERS: PCP Internal Medicine; Visit Provider Internal Medicine Nephrology
DX: I10 Essential (primary) hypertension (principal)
CPT/HCPCS: 99214

== ENCOUNTER → 2025-01-24 13:45 | Outpatient (BNVA) | payer MEDICARE, SELFPAY | PROVIDERS: PCP Internal Medicine; Visit Provider Internal Medicine Nephrology | DX: I10 Essential (primary) hypertension (principal); E11.21 Type 2 diabetes mellitus with diabetic nephropathy | CPT/HCPCS: 99212 ==

== ENCOUNTER 2025-02-13 08:33 | Outpatient (AMB) | payer MEDICARE, SELFPAY ==
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
[2025-02-13 08:44] VITALS: BP 125/58; PULSE 74; O2SAT 98; BMI 29.1
--- OUTSIDE RECORDS SUMMARY | 2025-02-13 08:52 | XMS_ITS | Clinical Summary ---
Author Organization [facility] Address [address] [place] [address] Phone Care Team Providers Care Hydroponics Grower Name Role Phone Fish Lomeli MD Primary Care Provider [phone] Allergies Active Allergy Reactions Criticality Noted Date [...] Medicaid [place] Care Teams Hydroponics Grower Relationship Specialty Start Date End Date Armani, Fish S, MD [address] [place] [address] PCP - General 09/09/20
[2025-02-13 09:08] VITALS: BP 117/57; PULSE 74
[2025-02-13 09:26] VITALS: BP 115/56; PULSE 72
== END 2025-02-13 09:47 | disposition home or self-care (01) ==
LOC: HO.PMC 08:34
PROVIDERS: PCP Internal Medicine; Visit Provider Nurse Practitioner Family
DX: E11.40 Type 2 diabetes mellitus with diabetic neuropathy, unspecified (principal); M54.9 Dorsalgia, unspecified; M47.814 Spondylosis without myelopathy or radiculopathy, thoracic region; M41.9 Scoliosis, unspecified; M47.816 Spondylosis without myelopathy or radiculopathy, lumbar region
CPT/HCPCS: 17999; 99215

== ENCOUNTER → 2025-02-13 08:33 | Outpatient (BNVA) | payer MEDICARE, SELFPAY | PROVIDERS: PCP Internal Medicine; Visit Provider Nurse Practitioner Family | DX: M54.9 Dorsalgia, unspecified (principal); M47.814 Spondylosis without myelopathy or radiculopathy, thoracic region; M41.9 Scoliosis, unspecified; M47.816 Spondylosis without myelopathy or radiculopathy, lumbar region; E11.40 Type 2 diabetes mellitus with diabetic neuropathy, unspecified | CPT/HCPCS: 17999; 99212; J7336 ==

== ENCOUNTER 2025-02-14 08:18 | Outpatient (AMB) | payer MEDICARE, SELFPAY ==
--- NOTE | 2025-02-14 08:21 | A.OFFVIS_ITS ---
Vital Signs 02/14/25 08:22 Height 5 ft 5.5 in Weight 180 lb 12.465 oz BMI 29.6 BP 114/60 Blood Pressure Location Rt brachial Position Sitting Pulse 71 Pulse Source Pulse Oximeter Pulse Oximetry (%) 97 Oxygen Delivery Method Room Air Intake Visit Reasons: T2DM Intake Note: Patient present today to follow up on Type 2 Diabetes Mellitus. 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 Required: No Accompanied by: Self / Same As Patient Allergies No Known Allergies Allergy (Verified 02/14/25 08:22) HPI Comments Details: This is a 64-year-old female with type 2 diabetes with neuropathy presenting for diabetic follow up Medical history: status post laparoscopic sleeve gastrectomy 05/17/2014, coronary artery disease, gastroparesis, nonalcoholic steatohepatitis, GERD, hypothyroidism, hypertension, hyperlipidemia and anxiety Diabetes medications-have been adjusted medications for hypoglycemia Ozempic- 0.5 mg weekly -wants to increase to 1 today Toujeo 16 units Humalog sliding scale. Administer 15 minutes before meals. Decreased last visit Blood sugar under 180 mg/dL 0 units Blood sugar 180-200 8 (from )12 units Blood sugar 201-249 mg/dL take 10 Blood sugar 250-299 mg/dL take 12 units Blood sugar 300-349 mg/dL take 14 units Blood sugar 350-399 mg/dL take 26 units Blood sugar >/=400 mg /dL take 18 units and call the office Hemoglobin A1c 6.9% 12/28/2024. CGM downloaded She is in range 49%, 50% high, 1% low, <1% very low. GMI 7.5% Guava juice brings her glucose up quickly when it is low She was diagnosed with type 2 diabetes around 2004. Past medications: Metformin discontinued due stomach upset. Micro and macrovascular complications: Retinopathy, nephropathy, neuropathy. She exercises daily. She is followed by weight loss management and loan adviser. Ophthalmology evaluation is up-to-date. She has a history of severe nonproliferative retinopathy. She had VEGF therapy with Dr. Perez. She is also followed by Nephrology and Cardiology. ROS CONSTITUTIONAL: Denies weight loss, fever and chills. HEENT: Denies changes in vision and hearing. RESPIRATORY: Denies SOB and cough. CV: Denies palpitations and CP GI: Denies abdominal pain, nausea, vomiting and diarrhea. : Denies dysuria and urinary frequency. MSK: Denies new myalgia and joint pain. SKIN: Denies rash and pruritus. NEUROLOGICAL: Denies headache PSYCHIATRIC: Denies recent changes in mood. PHYSICAL EXAM: GENERAL: Alert and oriented x 3. NAD EYES: EOMI. Anicteric. HENT: Moist mucous membranes. No scleral icterus. No cervical lymphadenopathy. LUNGS: Clear to auscultation bilaterally. CARDIOVASCULAR: Regular rate and rhythm. ABDOMEN: Soft, non-tender +bs EXTREMITIES: No edema. Non-tender. SKIN: No rashes or lesions. Warm. NEUROLOGIC: No focal neurological deficits. CN II-XII grossly intact PSYCHIATRIC: Cooperative. Appropriate mood and affect [facility] Medical History Hypoglycemia detention (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 of insulin Diabetic neuropathy Depression Constipation Chest pain SOB (shortness of breath) Situational depression Gastroparesis due to DM Chronic constipation Type 2 diabetes mellitus with diabetic polyneuropathy Obesity (BMI 30-39.9) BMI 35.0-35.9,adult History of degenerative disc disease Back pain Peripheral neuropathy History of cardiac murmur Abnormal EKG BMI 39.0-39.9,adult Obesity Hypertension Acquired hypothyroidism Acute bacterial bronchitis Atherosclerotic cardiovascular disease Breast cancer screening Subclinical hypothyroidism Acute cervical myofascial strain DM2 (diabetes mellitus, type 2) Rheumatic fever GERD (gastroesophageal reflux disease) Diabetic nephropathy associated with type 2 diabetes mellitus Hirsutism Dyslipidemia Type 2 diabetes mellitus with hyperglycemia, without long-term current use of insulin Anxiety Vitamin D deficiency Lumbar degenerative disc disease Benign essential hypertension Pure hypercholesterolemia 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, bilateral Surgical History S/P laparoscopic sleeve gastrectomy History of bariatric surgery Hx of colonoscopy History of esophagogastroduodenoscopy (EGD) History of carpal tunnel release History of surgery History of cholecystectomy History of partial hysterectomy History of repair of rotator cuff Family History Father Diabetes Mother Diabetes CVD (cardiovascular disease) Social History Household Members: Spouse Caregiver staying overnight: No Housing: House Are you a primary medicare compliance auditor to a significant other at home: No Do you presently have visiting nurse or other home services: No 75 years or older and lives alone: No Alcohol intake: never Patient Tobacco Use Status: Former Tobacco user Tobacco use type: Cigarette e-Cigarette/Vaping Use: Never Used Second Hand Smoke Exposure: Yes Advance Directives Date on File: 05/19/24 service: No Current occupational status: disabled Cognitive needs: No Hearing needs: No Vision needs: Yes Physical Exam Vital Signs: Last Vital Signs Pulse 71 02/14/25 08:22 BP 114/60 02/14/25 08:22 Pulse Ox 97 02/14/25 08:22 Oxygen Delivery Method Room Air 02/14/25 08:22 BMI result Body Mass Index 29.6 Results Reviewed Results Reviewed: Laboratory Last Values Glucose (Clinic) 135 mg/dL (60-115) H 02/14/25 08:29 Assessment & Plan Assessment & Plan (1) 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, bilateral: Code(s): E11.3413 - 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, bilateral Category: Medical Qualifiers: Diabetes mellitus terminal worker insulin use: with detention use Qualified Code(s): E11.3413 - 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, bilateral; Z79.4 - detention (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 of insulin (2) Diabetes mellitus, type II, insulin dependent: Code(s): E11.9 - Type 2 diabetes mellitus without complications; Z79.4 - detention (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 of insulin Category: Medical Plan DM-Overall glycemic control is worse since last visit but still having some lows, though less in frequency Start acarbose with dinner Increase ozempic to 1mg weekly Continue toujeo and humalog at current doses Return in 6 weeks for A1C or sooner as needed Medications: New insulin glargine U-300 conc (Toujeo SoloStar U-300 Insulin) 16 units (0.0533 mL) subcut BEDTIME 4.5 mL 3RF E11.42 - Type 2 diabetes mellitus with diabetic polyneuropathy, Z79.4 - 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
[2025-02-14 08:22] VITALS: BP 114/60; PULSE 71; O2SAT 97; BMI 29.6
[2025-02-14 08:32] LABS: Glucose, Whole Blood 135 mg/dL (60-115)
--- OUTSIDE RECORDS SUMMARY | 2025-02-14 08:32 | XMS_ITS | Clinical Summary ---
Author Organization [facility] Address [address] [place] [address] Phone Care Team Providers Care Computer Systems Hardware Analyst Name Role Phone Fish Lomeli MD Primary Care Provider [phone]- [phone] Allergies Active Allergy Reactions Criticality Noted Date [...] Medicaid [place] Medicare [place] Care Teams Computer Systems Hardware Analyst Relationship Specialty Start Date End Date Armani, Fish S, MD [address] [place] [address] PCP - General 09/09/20
== END 2025-02-14 08:55 | disposition home or self-care (01) ==
LOC: HO.ENCR 08:19
PROVIDERS: PCP Internal Medicine; Visit Provider Internal Medicine
DX: E11.3413 Type 2 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, bilateral (principal); Z79.4 Long term (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 of insulin

== ENCOUNTER → 2025-02-14 08:18 | Outpatient (BNVA) | payer MEDICARE, SELFPAY | PROVIDERS: PCP Internal Medicine; Visit Provider Internal Medicine | DX: E11.3413 Type 2 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, bilateral (principal); Z79.4 Long term (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 of insulin | CPT/HCPCS: 82947; 99212 ==

== ENCOUNTER 2025-03-06 08:39 | Outpatient (AMB) | payer MEDICARE, SELFPAY ==
--- OUTSIDE RECORDS SUMMARY | 2025-03-06 08:54 | XMS_ITS | Clinical Summary ---
Author Organization [facility] Address [address] [place] [address] Phone Care Team Providers Care Carpenter Cradle And Dolly Name Role Phone Fish Lomeli MD Primary Care Provider [phone]- [phone] Allergies Active Allergy Reactions Criticality Noted Date [...] Visual Foot Exam 09/30/2020 Influenza Vaccine (#1) 2025 Hepatitis B Vaccine Aged Out No longe r eligible based on patient's age to complete this topic Insurance Medicare Medicaid [place] Medicare [place] Care Teams Carpenter Cradle And Dolly Relationship Specialty Start Date End Date Armani, Fish S, MD [address] [place] [address] PCP - General 09/09/20
--- NOTE | 2025-03-06 09:11 | A.OFFVIS_ITS ---
Intake Intake Visit Reasons: 60 min Clinical Phlebotomist Required: No Accompanied by: Self / Same As Patient Allergies No Known Allergies Allergy (Verified 02/14/25 08:22) HPI Comprehensive Diabetes Asmnt Most Recent Diabetes Results: 2 Hemoglobin A1c 8.7 % 07/20/18 Microalb/Creat Ratio, (<30) 11.8 ug/mg cr 12/28/24 Cholesterol, (<200) 117 mg/dL 12/28/24 HDL Cholesterol, (>40) 42 mg/dL 12/28/24 Triglycerides, (<150) 121 mg/dL 12/28/24 Creatinine, (0.5-1.4) 0.62 mg/dL 01/23/25 BUN, (9-16) 12 mg/dL 01/23/25 Sodium, (135-145) 144 mmol/L 01/23/25 Potassium, (3.3-5.1) 4.2 mmol/L 01/23/25 Chloride, (96-108) 107 mmol/L 01/23/25 Carbon Dioxide, (22-29) 28 mmol/L 01/23/25 Calcium, (8.4-10.2) 9.7 mg/dL 01/23/25 AST, (5-31) 25 U/L 01/23/25 ALT, (0-31) 41 U/L H 01/23/25 Total Protein, (6.5-8.0) 7.3 g/dL 01/23/25 Albumin, (3.5-5.0) 4.4 g/dL 01/23/25 [facility] Medical History 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 Diabetic neuropathy Depression Constipation Chest pain SOB (shortness of breath) Situational depression Gastroparesis due to DM Chronic constipation Type 2 diabetes mellitus with diabetic polyneuropathy Obesity (BMI 30-39.9) BMI 35.0-35.9,adult History of degenerative disc disease Back pain Peripheral neuropathy History of cardiac murmur Abnormal EKG BMI 39.0-39.9,adult Obesity Hypertension Acquired hypothyroidism Acute bacterial bronchitis Atherosclerotic cardiovascular disease Breast cancer screening Subclinical hypothyroidism Acute cervical myofascial strain DM2 (diabetes mellitus, type 2) Rheumatic fever GERD (gastroesophageal reflux disease) Diabetic nephropathy associated with type 2 diabetes mellitus Hirsutism Dyslipidemia Type 2 diabetes mellitus with hyperglycemia, without long-term current use of insulin Anxiety Vitamin D deficiency Lumbar degenerative disc disease Benign essential hypertension Pure hypercholesterolemia 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, bilateral Surgical History S/P laparoscopic sleeve gastrectomy History of bariatric surgery Hx of colonoscopy History of esophagogastroduodenoscopy (EGD) History of carpal tunnel release History of surgery History of cholecystectomy History of partial hysterectomy History of repair of rotator cuff Family History Father Diabetes Mother Diabetes CVD (cardiovascular disease) Social History Household Members: Spouse Caregiver staying overnight: No Housing: House Are you a primary healthcare administration intern to a significant other at home: No Do you presently have visiting nurse or other home services: No 75 years or older and lives alone: No Alcohol intake: never Patient Tobacco Use Status: Former Tobacco user Tobacco use type: Cigarette e-Cigarette/Vaping Use: Never Used Second Hand Smoke Exposure: Yes Advance Directives Date on File: 05/19/24 service: No Current occupational status: disabled Cognitive needs: No Hearing needs: No Vision needs: Yes Assessment & Plan Assessment & Plan (1) 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, bilateral: Code(s): E11.3413 - 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, bilateral Qualifiers: Diabetes mellitus [facility] insulin use: with termite 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 use Qualified Code(s): E11.3413 - 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, bilateral; Z79.4 - snf (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 of insulin Plan: Personal Continuous Glucose Monitor: Patients CGM information reviewed, 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 Patient's last A1c on 02/14/2025 6.9% Patient is currently taking Toujeo 16 units daily Humalog sliding scale Increase Ozempic to 1 mg weekly after visit with provider in 01/2025 Patient is experiencing post meal hyperglycemia. Her sliding scale starts at 180 mg/dL, pre meal numbers tend to be within range. Suggested to patient she tried taking Humalog 4 units if glucose is between 100-180 mg/dL to see if that helps with postprandial hyperglycemia Portions of this note were created using voice recognition software, please excuse any words or phrases that may have been misinterpreted. Patient Instructions: Humalog sliding scale. Administer 15 minutes before meals. Blood sugar 100 - 180 mg/dL 4 units Blood sugar 180-200 8 (from )12 units Blood sugar 201-249 mg/dL take 10 units Blood sugar 250-299 mg/dL take 12 units Blood sugar 300-349 mg/dL take 14 units Blood sugar 350-399 mg/dL take 26 units Blood sugar >/=400 mg /dL take 18 units and call the office Coding Level of Care Code Est Pt Level 1 (63321) Diagnoses Type 2 diabetes mellitus with both eyes affected by severe nonproliferative retinopathy and macular edema, with long-term current use of insulin E11.3413; Z79.4 Diabetes mellitus [facility] insulin use: with [facility] use
== END 2025-03-06 09:22 | disposition home or self-care (01) ==
LOC: HO.ENCR 08:40
PROVIDERS: PCP Internal Medicine; Visit Provider Registered Nurse Diabetes Educator
DX: E11.3413 Type 2 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, bilateral (principal); Z79.4 Long term (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 of insulin

== ENCOUNTER → 2025-03-06 08:39 | Outpatient (BNVA) | payer MEDICARE, SELFPAY | PROVIDERS: PCP Internal Medicine; Visit Provider Registered Nurse Diabetes Educator | DX: E11.3413 Type 2 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, bilateral (principal); E11.65 Type 2 diabetes mellitus with hyperglycemia; Z79.4 Long term (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 of insulin; Z79.84 Long term (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 of oral hypoglycemic drugs | CPT/HCPCS: 99211 ==

== ENCOUNTER 2025-03-07 10:18 | Outpatient (AMB) | payer MEDICARE, SELFPAY ==
[2025-03-07 10:22] VITALS: BP 114/68; PULSE 97; O2SAT 96; BMI 29.2
--- NOTE | 2025-03-07 10:22 | MHC.PC.OV ---
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 Assistant Required: No Accompanied by: Self / Same As Patient Allergies No Known Allergies Allergy (Verified 03/07/25 11:14) Medication List - Last Reconciled 03/07/25 by Fish Lomeli MD acarbose 50 mg PO ONCE atorvastatin 80 mg PO BEDTIME bisacodyl 10 mg (2 x 5 mg) PO BEDTIME blood sugar diagnostic ([employer] Ultra Test strips) As directed checks 4 X/day blood-glucose meter ([employer] Ultra2 Meter) As directed cholecalciferol (vitamin D3) (Vitamin D3) 50 mcg PO DAILY Dexcom G7 Sensor (blood-glucose sensor) every 10 days NS dextrose (TRUEplus Glucose) 15 grams (32 mL) PO Q15M PRN duloxetine 30 mg PO BID 30 days gabapentin 300 mg PO TID glucagon 3 mg/actuation (Baqsimi) 3 mg intranasal ONCE PRN insulin glargine U-300 conc (Toujeo SoloStar U-300 Insulin) 16 units (0.0533 mL) subcut BEDTIME insulin lispro (Humalog KwikPen U-200 Insulin) Administer 8-18 subcutaneously before meals 3 times a day per sliding scale Humalog scale. Administer 15 minutes before meals. Blood sugar under 180 mg/dL 0 units Blood sugar 180-200 8 units Blood sugar 201-249 mg/dL take 10 units Blood sugar 250-299 mg/dL take 12 units Blood sugar 300-349 mg/dL take 14 units Blood sugar 350-399 mg/dL take 16 units Blood sugar >/=400 mg /dL take 18 units and call the office lancets ([employer] UltraSoft 2 Lancet) As directed tests 4 X/day levothyroxine 50 mcg PO DAILY lidocaine-prilocaine 2.5-2.5 % 1 appl topical ONCE lorazepam 1 mg PO BID PRN 30 days losartan 100 mg PO DAILY Ozempic (semaglutide) 1 mg (0.75 mL) subcut QWEEK NS pen needle, diabetic USE DIRECTED THREE TIMES A DAY tizanidine 4 mg PO Q8H PRN 30 days Tobacco use date assessed: 03/07/25 Fall risk assessment: No Falls in past year Last assessed Fall Risk: 03/07/25 Dental Screening Dental Screen Date: 03/07/25 Did you have a dental visit in the last 12 months?: Yes Did you have a dental problem in the last 6 months where you did not have access to dental care?: No Was dental information given to patient?: Patient has dentist HPI DM, hyperlipidemia, hypothyroidism HPI Details Patient comes in today for her follow up visit States that she continues to experience increased lower back and she is now seeing pain management here at [facility] and is scheduled for back injections later this month Recalls that she received injections into her lower back from Pain Management at [facility] in the past with temporary and partial relief She denies any headaches or dizziness Denies any chest pains, no increased SOB No nausea/vomiting, no abdominal pain No change in bowel habits noted Adds that she has been feeling more depressed lately Has also not been sleeping well at night for a while now and thinks that this is why she has been feeling very fatigued lately She does not have any follow up labs done recently although she did have some labs done back at the end of December 2024 [facility] Medical History 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 Diabetic neuropathy Depression Constipation Chest pain SOB (shortness of breath) Situational depression Gastroparesis due to DM Chronic constipation Type 2 diabetes mellitus with diabetic polyneuropathy Obesity (BMI 30-39.9) BMI 35.0-35.9,adult History of degenerative disc disease Back pain Peripheral neuropathy History of cardiac murmur Abnormal EKG BMI 39.0-39.9,adult Obesity Hypertension Acquired hypothyroidism Acute bacterial bronchitis Atherosclerotic cardiovascular disease Breast cancer screening Subclinical hypothyroidism Acute cervical myofascial strain DM2 (diabetes mellitus, type 2) Rheumatic fever GERD (gastroesophageal reflux disease) Diabetic nephropathy associated with type 2 diabetes mellitus Hirsutism Dyslipidemia Type 2 diabetes mellitus with hyperglycemia, without long-term current use of insulin Anxiety Vitamin D deficiency Lumbar degenerative disc disease Benign essential hypertension Pure hypercholesterolemia 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, bilateral Surgical History S/P laparoscopic sleeve gastrectomy History of bariatric surgery Hx of colonoscopy History of esophagogastroduodenoscopy (EGD) History of carpal tunnel release History of surgery History of cholecystectomy History of partial hysterectomy History of repair of rotator cuff Family History Father Diabetes Mother Diabetes CVD (cardiovascular disease) Social History Household Members: Spouse Caregiver staying overnight: No Housing: House Are you a primary sub acute care nurse to a significant other at home: No Do you presently have visiting nurse or other home services: No 75 years or older and lives alone: No Alcohol intake: never Patient Tobacco Use Status: Former Tobacco user Tobacco use type: Cigarette e-Cigarette/Vaping Use: Never Used Second Hand Smoke Exposure: Yes Advance Directives Date on File: 05/19/24 service: No Current occupational status: disabled Cognitive needs: No Hearing needs: No Vision needs: Yes Questionnaire PHQ-9 Over the last 2 weeks, how often have you been bothered by any of the following problems? 1. Little interest or pleasure in doing things: more than half the days 2. Feeling down, depressed, or hopeless: several days 3. Trouble falling or staying asleep, or sleeping too much: nearly every day 4. Feeling tired or having little energy: nearly every day 5. Poor appetite or overeating: several days 6. Feeling bad about yourself - or that you are a failure or have let yourself or your family down: not at all 7. Trouble concentrating on things, such as reading the newspaper or watching television: not at all 8. Moving or speaking so slowly that other people could have noticed. Or the opposite - being so fidgety or restless that you have been moving around a lot more than usual: nearly every day 9. Thoughts that you would be better off or of hurting yourself in some way: nearly every day Total score: 16 Depression Screening Interpretation: Positive Depression Screening Follow-up: Existing condition, In treatment and New Medication prescribed Depression Screening Done: Yes 66713 - PHQ-9 Billing: Yes Source: Developed by Drs. Chin Mccollum, Liberty Coleman, Alverto Monge and colleagues, with an educational judy from [employer]. Thrive Questionnaire Date Thrive assessed: 03/07/25 I am a: Patient What is your living situation today?: I have a steady place to live Within the past 12 months, did the food you bought not last and you didn't have the money to get more?: Never true Within the past 12 months, did you worry whether your food would run out before you got money to buy more?: Never true Do you have trouble paying for medicines?: No Do you have trouble getting transportation to medical appointments?: No Do you have trouble paying your heating and electricity bill?: No Do you have trouble taking care of your child, family member or friend?: No Do you have trouble with day-to-day activities such as bathing, preparing meals, shopping, managing finances, etc.?: No Are you currently unemployed and looking for a job?: No Are you interested in more education?: No Please select the resources that you would like help with: None Currently or been in a relationship where the following occur: No concerns reported THRIVE Score: 0 AUDIT C Alcohol Use Questionnaire (AUDIT-C) 1. How often do you have a drink containing alcohol?: Never 3. How often do you have six or more drinks on one occasion?: Never Total Score: 0 Score Reviewed/Action Taken: Yes LAURENT-7 AMB Questionnaire LAURENT-7 Date LAURENT - 7 assessed: 03/07/25 Feeling nervous, anxious, or on edge: 0 = Not at all Not being able to stop or control worryin = Not at all Worrying too much about different things: 0 = Not at all Trouble relaxin = Not at all Being so restless that it is hard to sit still: 0 = Not at all Becoming easily annoyed or irritable: 0 = Not at all Feeling afraid as if something awful might happen: 0 = Not at all Total LAURENT-7 score (0-4 normal; 5-9 mild; 10-14 moderate; 15-21 severe): 0 Source: Developed by Drs. Chin Mccollum, Liberty Coleman, Alverto Monge and colleagues, with an educational judy from [employer]. Review of Systems Const Denies chills, Reports difficulty sleeping, Reports fatigue (increased), Denies fever(s) and Denies headache(s) ENT Denies dysphagia, Denies dizziness, Denies otalgia, Denies headache(s), Denies neck pain, Denies odynophagia and Denies sore throat Card Denies chest pain, Denies palpitations and Reports dyspnea on exertion (mild) Resp Denies chest congestion, Denies cough and Reports dyspnea on exertion (mild) GI Denies abdominal pain, Reports constipation (chronic), Denies dysphagia, Denies heartburn, Denies diarrhea, Denies nausea, Denies odynophagia and Denies vomiting Denies difficulty voiding, Denies nocturia, Denies dysuria and Denies urinary urgency Musc Reports back pain (over the lower back - chronic but increased lately) and Denies neck pain Skin/Breast Reports alopecia (increased over the past year ) and Denies rash Neuro Denies dizziness and Denies headache(s) Psych Reports anxiety and Reports depression (increasing lately) Endo Reports fatigue (increased) and Denies palpitations Davion/Lymph Denies easy bruising Physical exam (Primary Care) Vital Signs: Last Vital Signs Pulse 97 03/07/25 10:22 BP 114/68 03/07/25 10:22 Pulse Ox 96 03/07/25 10:22 Oxygen Delivery Method Room Air 03/07/25 10:22 BMI result Body Mass Index 29.2 Tobacco/Smoking Status: Tobacco use Status Tobacco use date assessed 03/07/25 03/07/25 10:27 Patient Tobacco Use Status Former Tobacco user 03/07/25 10:27 Tobacco use type Cigarette 03/07/25 10:27 e-Cigarette/Vaping Use Never Used 03/07/25 10:27 PHQ-9: PHQ-9 Score PHQ-9: Total score 16 03/07/25 10:27 Depression Screening Interpretation: Positive Depression Screening Follow-up: Existing condition, In treatment and New Medication prescribed Thrive Assessment: Date of Thrive Assessment Date Thrive assessed 03/07/25 03/07/25 10:27 Currently or been in a relationship where the following occur: No concerns reported Const General: no acute distress and alert HENMT Ears: TM's normal bilaterally and EAC's normal Throat: Yes posterior oropharynx normal and Yes tonsils normal (no TP congestion noted) Neck Neck: Yes supple and No lymphadenopathy Thyroid: Thyroid normal Resp Auscultation: clear to auscultation bilaterally, no rales and no wheezes Cardio Rate: regular rate Rhythm: regular rhythm Heart sounds: no murmurs GI Palpation (GI): Soft to palpation and nontender Auscultation: normal bowel sounds General: Yes no CVA tenderness Back/Spine/Pelvis Back: no CVA tenderness Cervical Spine: No Cervical spine tenderness Thoracic/Lumbar Spine: lumbar spinal tenderness Skin Rashes: no rashes Extrem General: Yes no clubbing, cyanosis or edema Results Reviewed Results Reviewed: Laboratory Tests 01/23/25 02/14/25 07:55 08:29 Sodium 144 Potassium 4.2 Creatinine 0.62 Estimated GFR > 60 Glucose (Clinic) 135 H Calcium 9.7 AST 25 ALT 41 H Coding Level of Care Code Est Pt Level 4 (72508) Complex EM visit Add On G2211 Diagnoses Type 2 diabetes mellitus with diabetic polyneuropathy, with long-term current use of insulin E11.42; Z79.4 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: with 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 marine 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 use Pure hypercholesterolemia E78.00 Diabetic nephropathy associated with type 2 diabetes mellitus E11.21 Diabetic polyneuropathy associated with type 2 diabetes mellitus E11.42 Diabetes mellitus type: type 2 Diabetes mellitus complication detail: diabetic polyneuropathy Benign essential hypertension I10 Gastroparesis due to DM E11.43; K31.84 Gastroesophageal reflux disease without esophagitis K21.9 Esophagitis presence: without esophagitis Acquired hypothyroidism E03.9 Chronic constipation K59.09 Degeneration of intervertebral disc of lumbar region with discogenic back pain M51.360 Disc-related pain type: discogenic back pain only Vitamin D deficiency E55.9 Anxiety F41.9 Moderate episode of recurrent major depressive disorder F33.1 Depression Type: major depressive disorder Major depression recurrence: recurrent Active/Remission status: currently active Major depression episode severity: moderate Obesity (BMI 30-39.9) E66.9 Additional Codes PHQ-9 - 36226 - PHQ-9 Billing: Yes ([id number]) Assessment & Plan Assessment & Plan (1) Type 2 diabetes mellitus with diabetic polyneuropathy: Code(s): E11.42 - Type 2 diabetes mellitus with diabetic polyneuropathy Category: Medical Qualifiers: Diabetes mellitus group home insulin use: with group home use Qualified Code(s): E11.42 - Type 2 diabetes mellitus with diabetic polyneuropathy; Z79.4 - FPC (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 of insulin Plan: Her HgbA1c was at 6.9% when last checked on 12/28/2024 (was previously at 7.1% earlier this year) - goal is <7.0% but if she starts experiencing hypoglycemic symptoms, may allow her HgbA1c to go up to 7.5% Reinforced diabetic diet She was on Humulin U-200 34 to 50 TID with meals for her diabetes since her gastric sleeve surgery but she was started on some meds by endocrinology recently for her diabetes - she is now on Toujeo 16 units Q HS, Acarbose 50 mg QD with dinner and Ozempic 1 mg SQ once a week Follow up with endocrinology as scheduled Patient also follows up with Dr. Cameron Perez for her retinopathy - she has severe nonproliferative diabetic retinopathy with macular edema Have again emphasized strict control of her diabetes to slow down the progression of her retinopathy (2) Pure hypercholesterolemia: Code(s): E78.00 - Pure hypercholesterolemia, unspecified Category: Medical Plan: Her cholesterol levels last done on 12/28/2024 were all at goal Reinforced low cholesterol diet Continue Atorvastatin 40 mg QD Will recheck her labs and fasting lipids in 3 months for follow-up (3) Diabetic nephropathy associated with type 2 diabetes mellitus: Code(s): E11.21 - Type 2 diabetes mellitus with diabetic nephropathy Category: Medical Plan: Her renal function appears stable on her recent labs Follow up with nephrology (Dr. Sim) as scheduled (4) Diabetic neuropathy: Code(s): E11.40 - Type 2 diabetes mellitus with diabetic neuropathy, unspecified Category: Medical Qualifiers: Diabetes mellitus type: type 2 Diabetes mellitus complication detail: diabetic polyneuropathy Qualified Code(s): E11.42 - Type 2 diabetes mellitus with diabetic polyneuropathy Plan: Reinforced again the importance of strict glycemic control to slow down the progression of her neuropathy Continue Gabapentin 300 mg TID (5) Benign essential hypertension: Code(s): I10 - Essential (primary) hypertension Category: Medical Plan: Reinforced low sodium diet - goal is systolic BP of at least 130 mm or less She was previously on?Losartan 100 mg QD but this has been held since before her gastric sleeve surgery and it does not look like she needs to go back on it yet at this time, as his blood pressure is still normal when checked in the office today Have reminded patient to continue monitoring her blood pressure regularly (6) Gastroparesis due to DM: Code(s): E11.43 - Type 2 diabetes mellitus with diabetic autonomic (poly)neuropathy; K31.84 - Gastroparesis Category: Medical Plan: Have advised patient again that her recurrent GI symptoms are mostly due to gastroparesis and unfortunately, there are no available medications that help effectively with this Patient states that her GI symptoms seem to be subsided a lot since her surgery back in April 2024 and she has not had to take her Metoclopramide 10 mg TID before meals over the past couple of months Follow up with GI as scheduled (7) GERD (gastroesophageal reflux disease): Comment: resolved with bypass surgery and wt loss Code(s): K21.9 - Gastro-esophageal reflux disease without esophagitis Category: Medical Qualifiers: Esophagitis presence: without esophagitis Qualified Code(s): K21.9 - Gastro-esophageal reflux disease without esophagitis Plan: Dietary restrictions reinforced Continue Omeprazole 40 mg QD (8) Acquired hypothyroidism: Code(s): E03.9 - Hypothyroidism, unspecified Category: Medical Plan: Continue Levothyroxine 50 mcg QD Will recheck her TFTs in 3 months for follow up (9) Chronic constipation: Code(s): K59.09 - Other constipation Category: Medical Plan: Reinforced increased oral fluids and dietary fiber Patient was taking Dulcolax 5 to 10 mg QD and Linzess most recently but appears to be off most of her meds since her bariatric surgery a couple of months ago We started her on Linzess 145 mcg QD a few months ago but she never started the Rx Have advised her to start taking it if constipation remains a significant issue for her Follow up with GI as scheduled (10) Lumbar degenerative disc disease: Code(s): M51.36 - Other intervertebral disc degeneration, lumbar region Category: Medical Qualifiers: Disc-related pain type: discogenic back pain only Qualified Code(s): M51.360 - Other intervertebral disc degeneration, lumbar region with discogenic back pain only Plan: Reinforced activity and weight lifting restrictions Continue Gabapentin 300 mg TID Patient also used to take Duloxetine 30 mg QD and Tizanidine 4 mg TID PRN in the past but she stopped taking these Rx at some point as she felt that she did not need them at the time Continue Tizanidine 4 mg TID PRN She has been referred to pain management for her increasing low back pain and she is now scheduled for back injections again later this month (11) Vitamin D deficiency: Code(s): E55.9 - Vitamin D deficiency, unspecified Category: Medical Plan: Continue Vitamin D3 2000 units QD (12) Anxiety: Code(s): F41.9 - Anxiety disorder, unspecified Category: Medical Plan: Continue Lorazepam 1 mg BID PRN (13) Depression: Code(s): F32.9 - Major depressive disorder, single episode, unspecified Category: Medical Qualifiers: Depression Type: major depressive disorder Major depression recurrence: recurrent Active/Remission status: currently active Major depression episode severity: moderate Qualified Code(s): F33.1 - Major depressive disorder, recurrent, moderate Plan: Continue Duloxetine 30 mg BID Will also start her additionally on Desvenlafaxine ER 100 mg QD for her recent increasing depression/mood (14) Obesity (BMI 30-39.9): Code(s): E66.9 - Obesity, unspecified Category: Medical Plan: S/P bariatric surgery (gastric sleeve) a few months ago in April 2024 - states that she has lost a lot of weight since and has been able to come of some of his previous meds Follow up with weight management as scheduled Plan Follow-up in 3 months Orders: Orders Complete Blood Count Auto Diff 3 Months D64.9 - Anemia, unspecified Lipid Panel 3 Months E78.00 - Pure hypercholesterolemia, unspecified Hemoglobin A1c 3 Months E11.9 - Type 2 diabetes mellitus without complications Thyroid Stimulating Hormone 3 Months E03.9 - Hypothyroidism, unspecified UA CC w/rflx Micro + Cult 3 Months R30.0 - Dysuria Vitamin D 25-OH Total 3 Months E55.9 - Vitamin D deficiency, unspecified Comprehensive Carter. Panel Fast 3 Months E78.00 - Pure hypercholesterolemia, unspecified Microalbumin, Random (w Creat) 3 Months E11.9 - Type 2 diabetes mellitus without complications Free T4 (Free Thyroxine) 3 Months E03.9 - Hypothyroidism, unspecified Vitamin B12 and Folate 3 Months E53.8 - Deficiency of other specified B group vitamins Medications: New desvenlafaxine succinate ER (Pristiq) 100 mg PO DAILY 30 tabs 3RF 30 days F43.21 - Adjustment disorder with depressed mood
--- OUTSIDE RECORDS SUMMARY | 2025-03-07 11:08 | XMS_ITS | Clinical Summary ---
Author Organization [facility] Address [address] [place] [address] Phone Care Team Providers Care Improvement Rn Name Role Phone Fish Lomeli MD Primary Care Provider [phone] Allergies Active Allergy Reactions Criticality Noted Date [...] [place] Care Teams Improvement Rn Relationship Specialty Start Date End Date Armani, Fish S, MD [address] [place] [address] PCP - General 09/09/20
== END 2025-03-07 11:23 | disposition home or self-care (01) ==
LOC: HO.HMCH 10:19
PROVIDERS: PCP Internal Medicine; Visit Provider Internal Medicine
DX: E11.42 Type 2 diabetes mellitus with diabetic polyneuropathy (principal); E11.21 Type 2 diabetes mellitus with diabetic nephropathy; Z79.4 Long term (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 of insulin; E11.43 Type 2 diabetes mellitus with diabetic autonomic (poly)neuropathy; F33.1 Major depressive disorder, recurrent, moderate; E78.00 Pure hypercholesterolemia, unspecified; I10 Essential (primary) hypertension; K31.84 Gastroparesis; K21.9 Gastro-esophageal reflux disease without esophagitis; E03.9 Hypothyroidism, unspecified; K59.09 Other constipation; M51.360 Other intervertebral disc degeneration, lumbar region with discogenic back pain only

== ENCOUNTER → 2025-03-07 10:18 | Outpatient (BNVA) | payer MEDICARE, SELFPAY | PROVIDERS: PCP Internal Medicine; Visit Provider Internal Medicine | DX: E11.42 Type 2 diabetes mellitus with diabetic polyneuropathy (principal); E11.21 Type 2 diabetes mellitus with diabetic nephropathy; E11.43 Type 2 diabetes mellitus with diabetic autonomic (poly)neuropathy; K31.84 Gastroparesis; K21.9 Gastro-esophageal reflux disease without esophagitis; E03.9 Hypothyroidism, unspecified; K59.09 Other constipation; M51.360 Other intervertebral disc degeneration, lumbar region with discogenic back pain only; E55.9 Vitamin D deficiency, unspecified; F41.9 Anxiety disorder, unspecified; F33.1 Major depressive disorder, recurrent, moderate; E66.9 Obesity, unspecified; Z68.29 Body mass index [BMI] 29.0-29.9, adult; Z71.3 Dietary counseling and surveillance; Z79.4 Long term (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 of insulin; Z87.891 Personal history of nicotine dependence | CPT/HCPCS: 96127; 99212 ==

== ENCOUNTER 2025-03-20 06:11 | Outpatient (REF) | payer MEDICARE, SELFPAY ==
--- NOTE | ~2025-03-20 | FL_ITS ---
EXAMINATION: FL GUIDANCE ONLY HISTORY: M47.814 - Spondylosis without myelopathy or radiculopathy, thoracic region COMPARISON: None available. TECHNIQUE: Fluoroscopy time: 0.5 minutes. Cumulative Dose: 6.71 mGy. DAP: 0.101 mGym2 Images: 5. FINDINGS: Fluoroscopic spot films of the thoracolumbar junction demonstrate needles and contrast material in the regions of the T12, L1, and L2 pedicles. FL/FL guidance in treatment room IMPRESSION: Fluoroscopy during procedure. Please see procedure report for additional information. Electronically signed by: Chin Mejia MD 03/20/2025 03:25 PM EDT
--- OUTSIDE RECORDS SUMMARY | 2025-03-20 06:13 | XMS_ITS | Clinical Summary ---
Author Organization [facility] Address [address] [place] [address] Phone Care Team Providers Care Environmental Manager Name Role Phone Fish Lomeli MD Primary Care Provider [phone] Allergies Active Allergy Reactions Criticality Noted Date [...] [place] Care Teams Environmental Manager Relationship Specialty Start Date End Date Armani, Fish S, MD [address] [place] [address] PCP - General 09/09/20
== END 2025-03-20 06:12 | disposition home or self-care (01) ==
LOC: CF 06:11
PROVIDERS: Visit Provider Anesthesiology
DX: M47.814 Spondylosis without myelopathy or radiculopathy, thoracic region (principal); M47.816 Spondylosis without myelopathy or radiculopathy, lumbar region
CPT/HCPCS: 64490; 64491; J2003; J2795; Q9967

== ENCOUNTER 2025-03-20 12:39 | Outpatient (AMB) | payer MEDICARE, SELFPAY ==
[2025-03-20 12:58] VITALS: BP 107/54; PULSE 81; RESP 18; O2SAT 99
--- NOTE | 2025-03-20 12:58 | MHC.OFFVIS ---
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 Diabetic neuropathy Depression Constipation Chest pain SOB (shortness of breath) Situational depression Gastroparesis due to DM Chronic constipation Type 2 diabetes mellitus with diabetic polyneuropathy Obesity (BMI 30-39.9) BMI 35.0-35.9,adult History of degenerative disc disease Back pain Peripheral neuropathy History of cardiac murmur Abnormal EKG BMI 39.0-39.9,adult Obesity Hypertension Acquired hypothyroidism Acute bacterial bronchitis Atherosclerotic cardiovascular disease Breast cancer screening Subclinical hypothyroidism Acute cervical myofascial strain DM2 (diabetes mellitus, type 2) Rheumatic fever GERD (gastroesophageal reflux disease) Diabetic nephropathy associated with type 2 diabetes mellitus Hirsutism Dyslipidemia Type 2 diabetes mellitus with hyperglycemia, without long-term current use of insulin Anxiety Vitamin D deficiency Lumbar degenerative disc disease Benign essential hypertension Pure hypercholesterolemia 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, bilateral Surgical History S/P laparoscopic sleeve gastrectomy History of bariatric surgery Hx of colonoscopy History of esophagogastroduodenoscopy (EGD) History of carpal tunnel release History of surgery History of cholecystectomy History of partial hysterectomy History of repair of rotator cuff Family History Father Diabetes Mother Diabetes CVD (cardiovascular disease) Social History Household Members: Spouse Caregiver staying overnight: No Housing: House Are you a primary coronary care unit nurse to a significant other at home: No Do you presently have visiting nurse or other home services: No 75 years or older and lives alone: No Alcohol intake: never Patient Tobacco Use Status: Former Tobacco user Tobacco use type: Cigarette e-Cigarette/Vaping Use: Never Used Second Hand Smoke Exposure: Yes Advance Directives Date on File: 05/19/24 service: No Current occupational status: disabled Cognitive needs: No Hearing needs: No Vision needs: Yes Physical Exam Vital Signs: Last Vital Signs Pulse 81 03/20/25 12:58 Resp 18 03/20/25 12:58 BP 107/54 L 03/20/25 12:58 Pulse Ox 99 03/20/25 12:58 Oxygen Delivery Method Room Air 03/20/25 12:58 Assessment & Plan Assessment & Plan (1) Lumbar spondylosis: Code(s): M47.816 - Spondylosis without myelopathy or radiculopathy, lumbar region Category: Medical Plan Diagnostic medial branch block [id number] bilateral.? ? ?Informed consent was explained to the patient. All questions were explained and? answered.? The patient was taken inside the operating room where she was positioned prone on the operating table. Time-out was performed delineating correct site, side, the nature of the procedure, patient's allergy, . All operating room staff was participating in OR time-out procedure. ? ? The lower back was prepped with ChloraPrep and draped with sterile towels.? C-arm was brought over the operating field and sq picture of T12 - L1 and L2 vertebrae were delineated on the screen.? Point of interest were delineated as confluence of superior articular process of T12 L1- and L2 vertebra bilaterally with corresponding transverse processes bilaterally .? The projection of the point of interest to the skin were injected with the small amount of local anesthetic lidocaine 2% mixed with ropivacaine 0.5% 1-1 approcimately 1 cc.? After that 22 gauge 3.5 inch spinal needle was driven sequentially to the points of interest in tunnel vision fashion. After needles gently contacted the bone at the point of interests the needle was injected with small amount of the contrast.? The injection of the contrast did not demonstrate any intravascular or intrathecal spread of the contrast.? After that injection of the? ropivacaine 0.5%-1cc was performed at each needle location. ?after that the needles were removed and Bandaids were applied. Orders: Orders FL guidance in treatment room Today M47.814 - Spondylosis without myelopathy or radiculopathy, thoracic region Coding Level of Care Code Procedure Only Diagnoses Lumbar spondylosis M47.816
== END 2025-03-20 13:43 | disposition home or self-care (01) ==
LOC: HO.PMCPRC 12:39
PROVIDERS: PCP Internal Medicine; Visit Provider Anesthesiology
DX: M47.816 Spondylosis without myelopathy or radiculopathy, lumbar region (principal)
CPT/HCPCS: 64490; 64491

== ENCOUNTER 2025-03-28 09:39 | Outpatient (AMB) | payer MEDICARE, SELFPAY ==
--- NOTE | 2025-03-28 09:41 | A.OFFVIS_ITS ---
Vital Signs 03/28/25 09:42 Height 5 ft 5.5 in Weight 176 lb 5.917 oz BMI 28.9 BP 112/60 Blood Pressure Location Rt brachial Position Sitting Pulse 85 Pulse Source Pulse Oximeter Pulse Oximetry (%) 97 Oxygen Delivery Method Room Air Intake Visit Reasons: DM Intake Note: Patient present today to follow up on Type 2 Diabetes Mellitus. Last Diabetic Eye exam: Within the year, [facility] Last Podiatry Visit: Does not see a Chief Concierge Most Recent HgA1C: 6.7%, 03/28/2025 Random Glucose: 133 mg/dL, Today Sergeant Of Corrections Required: No Accompanied by: Self / Same As Patient Allergies No Known Allergies Allergy (Verified 03/28/25 09:44) HPI Comments Details: This is a 64-year-old female with type 2 diabetes with neuropathy presenting for diabetic follow up Medical history: status post laparoscopic sleeve gastrectomy 05/17/2014, coronary artery disease, gastroparesis, nonalcoholic steatohepatitis, GERD, hypothyroidism, hypertension, hyperlipidemia and anxiety Diabetes medications-have been adjusted medications for hypoglycemia Acarbose-50mg QD Ozempic- 0.5 mg weekly -she was increased to 1mg but she has not started the 1mg dose Toujeo 16 units Humalog sliding scale. Administer 15 minutes before meals. Decreased last visit Blood sugar under 180 mg/dL 0 units Blood sugar 180-200 8 (from )12 units Blood sugar 201-249 mg/dL take 10 Blood sugar 250-299 mg/dL take 12 units Blood sugar 300-349 mg/dL take 14 units Blood sugar 350-399 mg/dL take 26 units Blood sugar >/=400 mg /dL take 18 units and call the office Hemoglobin A1c 6.7% today down from 6.9% CGM downloaded She is in range 65%, 34% high, 1% low, <1% very low. GMI 7.0% Lows are occuring overnight. Guava juice brings her glucose up quickly when it is low She was diagnosed with type 2 diabetes around 2004. Past medications: Metformin discontinued due stomach upset. Micro and macrovascular complications: Retinopathy, nephropathy, neuropathy. She exercises daily. She is followed by weight loss management and adult educator. Ophthalmology evaluation is up-to-date. She has a history of severe nonproliferative retinopathy. She had VEGF therapy with Dr. Perez. She is also followed by Nephrology and Cardiology. ROS CONSTITUTIONAL: Denies weight loss, fever and chills. HEENT: Denies changes in vision and hearing. RESPIRATORY: Denies SOB and cough. CV: Denies palpitations and CP GI: Denies abdominal pain, nausea, vomiting and diarrhea. : Denies dysuria and urinary frequency. MSK: Denies new myalgia and joint pain. SKIN: Denies rash and pruritus. NEUROLOGICAL: Denies headache PSYCHIATRIC: Denies recent changes in mood. PHYSICAL EXAM: GENERAL: Alert and oriented x 3. NAD EYES: EOMI. Anicteric. HENT: Moist mucous membranes. No scleral icterus. No cervical lymphadenopathy. LUNGS: Clear to auscultation bilaterally. CARDIOVASCULAR: Regular rate and rhythm. ABDOMEN: Soft, non-tender +bs EXTREMITIES: No edema. Non-tender. SKIN: No rashes or lesions. Warm. NEUROLOGIC: No focal neurological deficits. CN II-XII grossly intact PSYCHIATRIC: Cooperative. 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 Diabetic neuropathy Depression Constipation Chest pain SOB (shortness of breath) Situational depression Gastroparesis due to DM Chronic constipation Type 2 diabetes mellitus with diabetic polyneuropathy Obesity (BMI 30-39.9) BMI 35.0-35.9,adult History of degenerative disc disease Back pain Peripheral neuropathy History of cardiac murmur Abnormal EKG BMI 39.0-39.9,adult Obesity Hypertension Acquired hypothyroidism Acute bacterial bronchitis Atherosclerotic cardiovascular disease Breast cancer screening Subclinical hypothyroidism Acute cervical myofascial strain DM2 (diabetes mellitus, type 2) Rheumatic fever GERD (gastroesophageal reflux disease) Diabetic nephropathy associated with type 2 diabetes mellitus Hirsutism Dyslipidemia Type 2 diabetes mellitus with hyperglycemia, without long-term current use of insulin Anxiety Vitamin D deficiency Lumbar degenerative disc disease Benign essential hypertension Pure hypercholesterolemia 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, bilateral Surgical History S/P laparoscopic sleeve gastrectomy History of bariatric surgery Hx of colonoscopy History of esophagogastroduodenoscopy (EGD) History of carpal tunnel release History of surgery History of cholecystectomy History of partial hysterectomy History of repair of rotator cuff Family History Father Diabetes Mother Diabetes CVD (cardiovascular disease) Social History Household Members: Spouse Caregiver staying overnight: No Housing: House Are you a primary patient care provider to a significant other at home: No Do you presently have visiting nurse or other home services: No 75 years or older and lives alone: No Alcohol intake: never Patient Tobacco Use Status: Former Tobacco user Tobacco use type: Cigarette e-Cigarette/Vaping Use: Never Used Second Hand Smoke Exposure: Yes Advance Directives Date on File: 05/19/24 service: No Current occupational status: disabled Cognitive needs: No Hearing needs: No Vision needs: Yes Physical Exam Vital Signs: Last Vital Signs Pulse 85 03/28/25 09:42 BP 112/60 03/28/25 09:42 Pulse Ox 97 03/28/25 09:42 Oxygen Delivery Method Room Air 03/28/25 09:42 BMI result Body Mass Index 28.9 Results AMB Hemoglobin A1c AMB Hemoglobin A1c 6.7 % Last Edit by ALE Medina on 03/28/25 10:04 Results Reviewed Results Reviewed: Laboratory Last Values Glucose (Clinic) 133 mg/dL (60-115) H 03/28/25 09:47 Hgb A1c (Clinic) 6.7 % (4.0-6.0) H 03/28/25 10:03 Assessment & Plan Assessment & Plan (1) 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, bilateral: Code(s): E11.3413 - 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, bilateral Category: Medical Qualifiers: Diabetes mellitus project planner insulin use: with project planner use Qualified Code(s): E11.3413 - 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, bilateral; Z79.4 - alf (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 of insulin (2) Hypoglycemia: Code(s): E16.2 - Hypoglycemia, unspecified Category: Medical Plan Diabetes is well controlled however she is still experiencing some hypoglycemia Advised to make sure she is taking acarbose Decrease sliding scale -reflected in med changes. 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 insulin mupirocin 2% (Centany) 1 appl topical BID 22 grams 3RF Accu-Chek Guide Glucose Meter (blood-glucose meter) As directed 1 ea 0RF NS E11.3413 - 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, bilateral, Z79.4 - corporate 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 (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 of insulin Accu-Chek Softclix Lancets (lancets) once daily 100 ea 3RF NS E11.3413 - 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, bilateral, Z79.4 - corporate 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 (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 of insulin Changed From Toujeo SoloStar U-300 Insulin (insulin glargine U-300 conc) 12 units (0.04 mL) subcut BEDTIME 4.5 mL 3RF NS E11.42 - Type 2 diabetes mellitus with diabetic polyneuropathy, Z79.4 - alf (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 of insulin To Toujeo SoloStar U-300 Insulin (insulin glargine U-300 conc) 14 units (0.0467 mL) subcut BEDTIME 4.5 mL 3RF NS E11.42 - Type 2 diabetes mellitus with diabetic polyneuropathy, Z79.4 - corporate 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 Administer 15 minutes before meals. Blood sugar under 180 mg/dL 0 units Blood sugar 180-200 4 units Blood sugar 201-249 mg/dL take 5 units Blood sugar 250-299 mg/dL take 6 units Blood sugar 300-349 mg/dL take 7 units Blood sugar >/=350 take 8 units 30 mL 3RF NS E11.42 - Type 2 diabetes mellitus with diabetic polyneuropathy, Z79.4 - alf (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 of insulin To Humalog KwikPen Insulin (insulin lispro) Administer before meals 3 times a day per sliding scale Humalog scale. Administer 15 minutes before meals. Blood sugar under 180 mg/dL 0 units Blood sugar 180-200 4 units Blood sugar 201-249 mg/dL take 5 units Blood sugar 250-299 mg/dL take 6 units Blood sugar 300-349 mg/dL take 7 units Blood sugar >/=350 take 8 units 30 mL 3RF NS E11.42 - Type 2 diabetes mellitus with diabetic polyneuropathy, Z79.4 - alf (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 of insulin From insulin lispro (Humalog KwikPen U-200 Insulin) Administer 8-18 subcutaneously before meals 3 times a day per sliding scale Humalog scale. Administer 15 minutes before meals. 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 Administer 15 minutes before meals. Blood sugar under 180 mg/dL 0 units Blood sugar 180-200 4 units Blood sugar 201-249 mg/dL take 5 units Blood sugar 250-299 mg/dL take 6 units Blood sugar 300-349 mg/dL take 7 units Blood sugar >/=350 take 8 units 30 mL 3RF NS E11.42 - Type 2 diabetes mellitus with diabetic polyneuropathy, Z79.4 - alf (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 of insulin Coding Level of Care Code Est Pt Level 4 (03515) Complex EM visit Add On G2211 Diagnoses Type 2 diabetes mellitus with both eyes affected by severe nonproliferative retinopathy and macular edema, with long-term current use of insulin E11.3413; Z79.4 Diabetes mellitus project planner insulin use: with project planner use Hypoglycemia E16.2
[2025-03-28 09:42] VITALS: BP 112/60; PULSE 85; O2SAT 97; BMI 28.9
[2025-03-28 09:51] LABS: Glucose, Whole Blood 133 mg/dL (60-115)
--- OUTSIDE RECORDS SUMMARY | 2025-03-28 10:15 | XMS_ITS | Clinical Summary ---
Author Organization [facility] Address [address] [place] [address] Phone Care Team Providers Care Campaign Worker Name Role Phone Fish Lomeli MD Primary Care Provider [phone] Allergies Active Allergy Reactions Criticality Noted Date [...] Medicaid [place] Care Teams Campaign Worker Relationship Specialty Start Date End Date Armani, Fish S, MD [address] [place] [address] PCP - General 09/09/20
== END 2025-03-28 10:25 | disposition home or self-care (01) ==
LOC: HO.ENCR 09:40
PROVIDERS: PCP Internal Medicine; Visit Provider Internal Medicine
DX: E11.3413 Type 2 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, bilateral (principal); Z79.4 Long term (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 of insulin; E16.2 Hypoglycemia, unspecified; E11.59 Type 2 diabetes mellitus with other circulatory complications; I25.10 Atherosclerotic heart disease of native coronary artery without angina pectoris

== ENCOUNTER → 2025-03-28 09:39 | Outpatient (BNVA) | payer MEDICARE, SELFPAY | PROVIDERS: PCP Internal Medicine; Visit Provider Internal Medicine | DX: E11.65 Type 2 diabetes mellitus with hyperglycemia (principal); E11.3413 Type 2 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, bilateral; E16.2 Hypoglycemia, unspecified; Z79.4 Long term (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 of insulin; Z98.84 Bariatric surgery status | CPT/HCPCS: 82947; 83036; 99212 ==

== ENCOUNTER 2025-06-07 09:45 | Outpatient (AMB) | payer MEDICARE, SELFPAY ==
--- NOTE | 2025-06-07 10:28 | A.OFFVIS_ITS ---
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 Diabetic neuropathy Depression Constipation Chest pain SOB (shortness of breath) Situational depression Gastroparesis due to DM Chronic constipation Type 2 diabetes mellitus with diabetic polyneuropathy Obesity (BMI 30-39.9) BMI 35.0-35.9,adult History of degenerative disc disease Back pain Peripheral neuropathy History of cardiac murmur Abnormal EKG BMI 39.0-39.9,adult Obesity Hypertension Acquired hypothyroidism Acute bacterial bronchitis Atherosclerotic cardiovascular disease Breast cancer screening Subclinical hypothyroidism Acute cervical myofascial strain DM2 (diabetes mellitus, type 2) Rheumatic fever GERD (gastroesophageal reflux disease) Diabetic nephropathy associated with type 2 diabetes mellitus Hirsutism Dyslipidemia Type 2 diabetes mellitus with hyperglycemia, without long-term current use of insulin Anxiety Vitamin D deficiency Lumbar degenerative disc disease Benign essential hypertension Pure hypercholesterolemia 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, bilateral Surgical History S/P laparoscopic sleeve gastrectomy History of bariatric surgery Hx of colonoscopy History of esophagogastroduodenoscopy (EGD) History of carpal tunnel release History of surgery History of cholecystectomy History of partial hysterectomy History of repair of rotator cuff Family History Father Diabetes Mother Diabetes CVD (cardiovascular disease) Social History Household Members: Spouse Caregiver staying overnight: No Housing: House Are you a primary primary health care nurse to a significant other at home: No Do you presently have visiting nurse or other home services: No 75 years or older and lives alone: No Alcohol intake: never Patient Tobacco Use Status: Former Tobacco user Tobacco use type: Cigarette e-Cigarette/Vaping Use: Never Used Second Hand Smoke Exposure: Yes Advance Directives Date on File: 05/19/24 service: No Current occupational status: disabled Cognitive needs: No Hearing needs: No Vision needs: Yes Assessment & Plan Assessment & Plan (1) 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, bilateral: Code(s): E11.3413 - 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, bilateral Qualifiers: Diabetes mellitus intermediate teacher insulin use: with intermediate teacher use Qualified Code(s): E11.3413 - 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, bilateral; Z79.4 - detention (current) use of insulin Plan: Personal Continuous Glucose Monitor: Patients CGM information reviewed, Pt uses Dexcom G7 with [facility] Patient's last A1c on 03/28/2025 6.7% Patient expressed frustration regarding her weight plateauing. She is currently on MDI, Ozempic 1 mg weekly Patient is due for next A1c in has upcoming visit with Dr. Mckenzie on 06/28/2025. Recommended she discuss increasing Ozempic dose with Dr. Mckenzie at that visit We reviewed the following: Hypoglycemia or blood glucose under 70 use the rule of 15's: If you have your blood glucose meter test your blood glucose, if you do not have your meter still follow below instruction: Keep quick-sugar foods with you at all times.? Take 15 grams of fast acting carbohydrates. Examples are 4 ounces of fruit juice or regular soda pop, 8 ounces fat-free milk, 1 tablespoon of table sugar, honey or corn syrup, jam, one miniature box of raisins, 7-8 gumdrops or Life Savers candy, 4 glucose tablets, and glucose gel.? Retest blood glucose in 15 minutes, if blood glucose is still under 80,repeat rule of 15's. If blood glucose is under 50, take 30 grams of fast acting carbohydrates If you are having hypoglycemia, or insulin reaction, more that a few times a week, call MD or inclusion paraeducator F/U BG check Exercise Medical clearance Effect of exercise on blood sugar Start slowly and gradually increase pace/duration over time Goal amount of exercise Checking blood glucose/have a source of carbs with you Lifestyle * Work * Travel * Stress management * Problem solving Know your goals * A1C * Blood sugar targets * Blood pressure * Cholesterol/LDL * Urine microalbumin Patient able to insert sensor independently at home without issue.? Portions of this note were created using voice recognition software, please excuse any words or phrases that may have been misinterpreted. Coding Level of Care Code Est Pt Level 1 (77102) Diagnoses Type 2 diabetes mellitus with both eyes affected by severe nonproliferative retinopathy and macular edema, with long-term current use of insulin E11.3413; Z79.4 Diabetes mellitus intermediate teacher insulin use: with group home use
== END 2025-06-07 10:30 | disposition home or self-care (01) ==
LOC: HO.ENCR 09:46
PROVIDERS: PCP Internal Medicine; Visit Provider Registered Nurse Diabetes Educator
DX: E11.3413 Type 2 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, bilateral (principal); Z79.4 Long term (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 of insulin

== ENCOUNTER → 2025-06-07 09:45 | Outpatient (BNVA) | payer MEDICARE, SELFPAY | PROVIDERS: PCP Internal Medicine; Visit Provider Registered Nurse Diabetes Educator | DX: E11.3413 Type 2 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, bilateral (principal); Z79.4 Long term (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 of insulin | CPT/HCPCS: 99211 ==

== ENCOUNTER 2025-06-27 10:22 | Outpatient (AMB) | payer MEDICARE, SELFPAY ==
--- NOTE | 2025-06-27 10:27 | A.OFFVIS_ITS ---
Vital Signs 06/27/25 10:29 Height 5 ft 5.5 in Weight 171 lb 15.369 oz BMI 28.2 BP 110/68 Blood Pressure Location Rt brachial Position Sitting Pulse 76 Pulse Source Pulse Oximeter Pulse Oximetry (%) 97 Oxygen Delivery Method Room Air Intake Visit Reasons: DM Intake Note: Patient present today to follow up on Type 2 Diabetes Mellitus. Last Diabetic Eye exam: 05/2025, [facility] Last Podiatry Visit: Does not see a [employer] Most Recent HgA1C: 6.6%, 06/27/2025 Random Glucose: 68 mg/dL at 10:37 AM ? 4 oz of orange juice given for hypogl ycemia. Recheck Random Glucose: 92 mg/dL at 10:56 AM. Mail Rider Required: No Accompanied by: Self / Same As Patient Allergies No Known Allergies Allergy (Verified 06/27/25 10:28) HPI Comments Details: This is a 65-year-old female with type 2 diabetes with neuropathy presenting for diabetic follow up Medical history: status post laparoscopic sleeve gastrectomy 05/17/2014, coronary artery disease, gastroparesis, nonalcoholic steatohepatitis, GERD, hypothyroidism, hypertension, hyperlipidemia and anxiety Diabetes medications-have been adjusted medications for hypoglycemia Acarbose-50mg QD Ozempic - 1 mg weekly Toujeo 14 units Humalog sliding scale. Administer 15 minutes before meals. Blood sugar under 180 mg/dL 0 units Blood sugar 180-200 4 units Blood sugar 201-249 mg/dL take 5 units Blood sugar 250-299 mg/dL take 6 units Blood sugar 300-349 mg/dL take 7 units Blood sugar >/=350 take 8 units Hemoglobin A1c 6.6% 6.7% today down from 6.9% CGM ran out of sensors. Awaiting from mail order. Has been using her traditional glucometer. She is in range 78%, 11% high, 11% low-0.6 check/day. Says less frequent lows with CGM. Guava juice brings her glucose up quickly when it is low. She is still trying to lose weight. She was diagnosed with type 2 diabetes around 2004. Past medications: Metformin discontinued due stomach upset. Micro and macrovascular complications: Retinopathy, nephropathy, neuropathy. She exercises daily. 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 Ophthalmology evaluation is up-to-date. She has a history of severe nonproliferative retinopathy. She had VEGF therapy with Dr. Perez. She is also followed by Nephrology and Cardiology. ROS CONSTITUTIONAL: Denies weight loss, fever and chills. HEENT: Denies changes in vision and hearing. RESPIRATORY: Denies SOB and cough. CV: Denies palpitations and CP GI: Denies abdominal pain, nausea, vomiting and diarrhea. : Denies dysuria and urinary frequency. MSK: Denies new myalgia and joint pain. SKIN: Denies rash and pruritus. NEUROLOGICAL: Denies headache PSYCHIATRIC: Denies recent changes in mood. PHYSICAL EXAM: GENERAL: Alert and oriented x 3. NAD EYES: EOMI. Anicteric. HENT: Moist mucous membranes. No scleral icterus. No cervical lymphadenopathy. LUNGS: Clear to auscultation bilaterally. CARDIOVASCULAR: Regular rate and rhythm. ABDOMEN: Soft, non-tender +bs EXTREMITIES: No edema. Non-tender. SKIN: No rashes or lesions. Warm. NEUROLOGIC: No focal neurological deficits. CN II-XII grossly intact PSYCHIATRIC: Cooperative. Appropriate mood and affect [facility] Medical History Hypoglycemia 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 Diabetic neuropathy Depression Constipation Chest pain SOB (shortness of breath) Situational depression Gastroparesis due to DM Chronic constipation Type 2 diabetes mellitus with diabetic polyneuropathy Obesity (BMI 30-39.9) BMI 35.0-35.9,adult History of degenerative disc disease Back pain Peripheral neuropathy History of cardiac murmur Abnormal EKG BMI 39.0-39.9,adult Obesity Hypertension Acquired hypothyroidism Acute bacterial bronchitis Atherosclerotic cardiovascular disease Breast cancer screening Subclinical hypothyroidism Acute cervical myofascial strain DM2 (diabetes mellitus, type 2) Rheumatic fever GERD (gastroesophageal reflux disease) Diabetic nephropathy associated with type 2 diabetes mellitus Hirsutism Dyslipidemia Type 2 diabetes mellitus with hyperglycemia, without long-term current use of insulin Anxiety Vitamin D deficiency Lumbar degenerative disc disease Benign essential hypertension Pure hypercholesterolemia 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, bilateral Surgical History S/P laparoscopic sleeve gastrectomy History of bariatric surgery Hx of colonoscopy History of esophagogastroduodenoscopy (EGD) History of carpal tunnel release History of surgery History of cholecystectomy History of partial hysterectomy History of repair of rotator cuff Family History Father Diabetes Mother Diabetes CVD (cardiovascular disease) Social History Household Members: Spouse Caregiver staying overnight: No Housing: House Are you a primary pharmacy care coordinator to a significant other at home: No Do you presently have visiting nurse or other home services: No 75 years or older and lives alone: No Alcohol intake: never Patient Tobacco Use Status: Former Tobacco user Tobacco use type: Cigarette e-Cigarette/Vaping Use: Never Used Second Hand Smoke Exposure: Yes Advance Directives Date on File: 05/19/24 service: No Current occupational status: disabled Cognitive needs: No Hearing needs: No Vision needs: Yes Physical Exam Vital Signs: Last Vital Signs Pulse 76 06/27/25 10:29 BP 110/68 06/27/25 10:29 Pulse Ox 97 06/27/25 10:29 Oxygen Delivery Method Room Air 06/27/25 10:29 BMI result Body Mass Index 28.2 Results AMB Hemoglobin A1c AMB Hemoglobin A1c 6.6 % Last Edit by ALE Medina on 06/27/25 11:00 Results Reviewed Results Reviewed: Laboratory Last Values Glucose (Clinic) 92 mg/dL (60-115) 06/27/25 10:55 Assessment & Plan Assessment & Plan (1) Diabetes mellitus, type II, insulin dependent: Code(s): E11.9 - Type 2 diabetes mellitus without complications; Z79.4 - 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 Category: Medical (2) Hypoglycemia: Code(s): E16.2 - Hypoglycemia, unspecified Category: Medical Plan Type 2 diabetes, insulin dependent, well controlled Having some hypoglycemia -she is still trying to lose weight. She can increase her ozempic to 2mg but I want her to hold her toujeo once she starts this dose. If she develops hyperglycemia then she can restart it at 5 units Continue acarbose, humalog Return in one month or sooner as needed Orders: Orders AMB Hemoglobin A1c Today E11.59 - Type 2 diabetes mellitus with other circulatory complications, I25.10 - Atherosclerotic heart disease of [place] coronary artery without angina pectoris Medications: New semaglutide (Ozempic) 2 mg (0.75 mL) subcut QWEEK 9 mL 3RF Changed From Toujeo SoloStar U-300 Insulin (insulin glargine U-300 conc) 14 units (0.0 467 mL) subcut BEDTIME 4.5 mL 3RF NS E11.42 - Type 2 diabetes mellitus with diabetic polyneuropathy, Z79.4 - termite treater helper (current) use of insulin To Toujeo SoloStar U-300 Insulin (insulin glargine U-300 conc) 5 units (0.0167 mL) subcut BEDTIME 4.5 mL 3RF NS E11.42 - Type 2 diabetes mellitus with diabetic polyneuropathy, Z79.4 - termite treater helper (current) use of insulin Discontinued Ozempic (semaglutide) Discontinued Reason: Doctor's Order 1 mg (0.75 mL) subcut QWEEK 9 mL 3RF NS Coding Level of Care Code Est Pt Level 4 (80644) Diagnoses Diabetes mellitus, type II, insulin dependent E11.9; Z79.4 Hypoglycemia E16.2
[2025-06-27 10:29] VITALS: BP 110/68; PULSE 76; O2SAT 97; BMI 28.2
[2025-06-27 10:42] LABS: Glucose, Whole Blood 68 mg/dL (60-115)
[2025-06-27 10:58] LABS: Glucose, Whole Blood 92 mg/dL (60-115)
--- OUTSIDE RECORDS SUMMARY | 2025-06-27 12:53 | XMS_ITS | Clinical Summary ---
Author Organization [facility] Address [address] [place] [address] Phone Care Team Providers Care Computer Science Intern Name Role Phone Fish Lomeli MD Primary Care Provider [phone] Allergies Active Allergy Reactions Criticality Noted Date [...] [place] Care Teams Computer Science Intern Relationship Specialty Start Date End Date Armani, Fish S, MD [address] [place] [address] PCP - General 09/09/20
== END 2025-06-27 11:07 | disposition home or self-care (01) ==
LOC: HO.ENCR 10:23
PROVIDERS: PCP Internal Medicine; Visit Provider Internal Medicine
DX: E11.59 Type 2 diabetes mellitus with other circulatory complications (principal); Z79.4 Long term (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 of insulin; E16.2 Hypoglycemia, unspecified; I25.10 Atherosclerotic heart disease of native coronary artery without angina pectoris

== ENCOUNTER → 2025-06-27 10:22 | Outpatient (BNVA) | payer MEDICARE, SELFPAY | PROVIDERS: PCP Internal Medicine; Visit Provider Internal Medicine | DX: E11.42 Type 2 diabetes mellitus with diabetic polyneuropathy (principal); E11.3499 Type 2 diabetes mellitus with severe nonproliferative diabetic retinopathy without macular edema, unspecified eye; E11.21 Type 2 diabetes mellitus with diabetic nephropathy; E16.2 Hypoglycemia, unspecified; Z79.4 Long term (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 of insulin; Z79.85 Long-term (current) use of injectable non-insulin antidiabetic drugs; Z98.84 Bariatric surgery status | CPT/HCPCS: 82947; 83036; 99212 ==

== ENCOUNTER 2025-07-25 11:22 | Outpatient (AMB) | payer MEDICARE, SELFPAY ==
--- NOTE | 2025-07-25 11:24 | A.OFFVIS_ITS ---
Vital Signs 07/25/25 11:25 Height 5 ft 5.5 in Weight 165 lb 5.547 oz BMI 27.1 BP 116/76 Blood Pressure Location Rt brachial Position Sitting Pulse 82 Pulse Source Pulse Oximeter Pulse Oximetry (%) 99 Oxygen Delivery Method Room Air Intake Visit Reasons: CGM review Intake Note: Patient present today to follow up on Type 2 Diabetes Mellitus. Last Diabetic Eye exam: 06/20/2025, [facility] Last Podiatry Visit: Does not see a Bobbin Washer Most Recent HgA1C: 6.6%, 06/27/2025 Random Glucose: 179 mg/dL, Today Accompanied by: Self / Same As Patient Allergies No Known Allergies Allergy (Verified 06/27/25 10:28) HPI Comments Details: This is a 65-year-old female with type 2 diabetes with neuropathy presenting for diabetic follow up Medical history: status post laparoscopic sleeve gastrectomy 05/17/2014, coronary artery disease, gastroparesis, nonalcoholic steatohepatitis, GERD, hypothyroidism, hypertension, hyperlipidemia and anxiety Diabetes medications-have been adjusted medications for hypoglycemia Acarbose-50mg QD Ozempic - 2 (increased from 1 mg weekly Toujeo 10 units (decreased from 14) Humalog sliding scale. Administer 15 minutes before meals. Blood sugar under 180 mg/dL 0 units Blood sugar 180-200 4 units Blood sugar 201-249 mg/dL take 5 units Blood sugar 250-299 mg/dL take 6 units Blood sugar 300-349 mg/dL take 7 units Blood sugar >/=350 take 8 units Hemoglobin A1c 6.6% 06/27 from 6.7% today down from 6.9% CGM 6.7% range 80%, 19% high, 2% low She has lost another six pounds and really wants to lose another 15 to get to her goal She was diagnosed with type 2 diabetes around 2004. Past medications: Metformin discontinued due stomach upset. Micro and macrovascular complications: Retinopathy, nephropathy, neuropathy. She exercises daily. 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 Ophthalmology evaluation is up-to-date. She has a history of severe nonproliferative retinopathy. She had VEGF therapy with Dr. Perez. She is also followed by Nephrology and Cardiology. ROS CONSTITUTIONAL: Denies weight loss, fever and chills. HEENT: Denies changes in vision and hearing. RESPIRATORY: Denies SOB and cough. CV: Denies palpitations and CP GI: Denies abdominal pain, nausea, vomiting and diarrhea. : Denies dysuria and urinary frequency. MSK: Denies new myalgia and joint pain. SKIN: Denies rash and pruritus. NEUROLOGICAL: Denies headache PSYCHIATRIC: Denies recent changes in mood. PHYSICAL EXAM: GENERAL: Alert and oriented x 3. NAD EYES: EOMI. Anicteric. HENT: Moist mucous membranes. No scleral icterus. No cervical lymphadenopathy. LUNGS: Clear to auscultation bilaterally. CARDIOVASCULAR: Regular rate and rhythm. ABDOMEN: Soft, non-tender +bs EXTREMITIES: No edema. Non-tender. SKIN: No rashes or lesions. Warm. NEUROLOGIC: No focal neurological deficits. CN II-XII grossly intact PSYCHIATRIC: Cooperative. Appropriate mood and affect [facility] Medical History Hypoglycemia residential (current) use of insulin Diabetic neuropathy Depression Constipation Chest pain SOB (shortness of breath) Situational depression Gastroparesis due to DM Chronic constipation Type 2 diabetes mellitus with diabetic polyneuropathy Obesity (BMI 30-39.9) BMI 35.0-35.9,adult History of degenerative disc disease Back pain Peripheral neuropathy History of cardiac murmur Abnormal EKG BMI 39.0-39.9,adult Obesity Hypertension Acquired hypothyroidism Acute bacterial bronchitis Atherosclerotic cardiovascular disease Breast cancer screening Subclinical hypothyroidism Acute cervical myofascial strain DM2 (diabetes mellitus, type 2) Rheumatic fever GERD (gastroesophageal reflux disease) Diabetic nephropathy associated with type 2 diabetes mellitus Hirsutism Dyslipidemia Type 2 diabetes mellitus with hyperglycemia, without long-term current use of insulin Anxiety Vitamin D deficiency Lumbar degenerative disc disease Benign essential hypertension Pure hypercholesterolemia 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, bilateral Surgical History S/P laparoscopic sleeve gastrectomy History of bariatric surgery Hx of colonoscopy History of esophagogastroduodenoscopy (EGD) History of carpal tunnel release History of surgery History of cholecystectomy History of partial hysterectomy History of repair of rotator cuff Family History Father Diabetes Mother Diabetes CVD (cardiovascular disease) Social History Household Members: Spouse Caregiver staying overnight: No Housing: House Are you a primary wild animal caretaker to a significant other at home: No Do you presently have visiting nurse or other home services: No 75 years or older and lives alone: No Alcohol intake: never Patient Tobacco Use Status: Former Tobacco user Tobacco use type: Cigarette e-Cigarette/Vaping Use: Never Used Second Hand Smoke Exposure: Yes Advance Directives Date on File: 05/19/24 service: No Current occupational status: disabled Cognitive needs: No Hearing needs: No Vision needs: Yes Physical Exam Vital Signs: Last Vital Signs Pulse 82 07/25/25 11:25 BP 116/76 07/25/25 11:25 Pulse Ox 99 07/25/25 11:25 Oxygen Delivery Method Room Air 07/25/25 11:25 BMI result Body Mass Index 27.1 Results Reviewed Results Reviewed: Laboratory Last Values Glucose (Clinic) 179 mg/dL (60-115) H 07/25/25 11:28 Assessment & Plan Assessment & Plan (1) 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 Having some hypoglycemia as she is dieting. Decrease toujeo to 6 units daily. If she continues to have lows she may have to stop the insulin Treat hypoglycemia by rules of 15s Follow up in 2 months or sooner as needed Medications: Changed From Toujeo SoloStar U-300 Insulin (insulin glargine U-300 conc) 5 units (0.0167 mL) subcut BEDTIME 4.5 mL 3RF NS E11.42 - Type 2 diabetes mellitus with diabetic polyneuropathy, Z79.4 - residential (current) use of insulin To Phu PadillaKamarar U-300 Insulin (insulin glargine U-300 conc) 6 units (0.02 mL) subcut BEDTIME 4.5 mL 3RF NS E11.42 - Type 2 diabetes mellitus with diabetic polyneuropathy, Z79.4 - residential (current) use of insulin Coding Level of Care Code Est Pt Level 4 (31499) Diagnoses Type 2 diabetes mellitus with both eyes affected by severe nonproliferative retinopathy and macular edema, with long-term current use of insulin E11.3413; Z79.4 Diabetes mellitus long term acute care registered nurse insulin use: with long term acute care registered nurse use
[2025-07-25 11:25] VITALS: BP 116/76; PULSE 82; O2SAT 99; BMI 27.1
[2025-07-25 11:31] LABS: Glucose, Whole Blood 179 mg/dL (60-115)
--- OUTSIDE RECORDS SUMMARY | 2025-07-25 14:20 | XMS_ITS | Clinical Summary ---
Author Organization [facility] Address [address] [place] [address] Phone Care Team Providers Care Roll Scale Man Name Role Phone Fish Lomeli MD Primary Care Provider [phone]- [phone] Allergies Active Allergy Reactions Criticality Noted Date [...] [place] Care Teams Roll Scale Man Relationship Specialty Start Date End Date Armani, Fish S, MD [address] [place] [address] PCP - General 09/09/20
== END 2025-07-25 11:44 | disposition home or self-care (01) ==
LOC: HO.ENCR 11:24
PROVIDERS: PCP Internal Medicine; Visit Provider Internal Medicine
DX: E11.3413 Type 2 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, bilateral (principal); Z79.4 Long term (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 of insulin

== ENCOUNTER → 2025-07-25 11:22 | Outpatient (BNVA) | payer MEDICARE, SELFPAY | PROVIDERS: PCP Internal Medicine; Visit Provider Internal Medicine | DX: E11.3413 Type 2 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, bilateral (principal); Z79.4 Long term (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 of insulin; Z79.85 Long-term (current) use of injectable non-insulin antidiabetic drugs; Z87.891 Personal history of nicotine dependence | CPT/HCPCS: 82947; 99212 ==